=== PATIENT | female | born 1940 | race Caucasian/White ===

== ENCOUNTER → 2016-12-19 | Outpatient (CLI) | payer MEDICARE, BC ==
--- NOTE | 2016-12-19 13:27 | US ---
EXAMINATION TYPE: US venous doppler duplex LE RT DATE OF EXAM: 12/19/2016 12:45 PM COMPARISON: See PACS CLINICAL HISTORY: Pain and Swelling M79.661 Rt Lower Ext R 22.41. SIDE PERFORMED: VESSELS IMAGED: External Iliac Vein (EIV) Common Femoral Vein Deep Femoral Vein Greater Saphenous Vein * Femoral Vein Popliteal Vein Small Saphenous Vein * Proximal Calf Veins (* superficial vessels) TECHNOLOGIST IMPRESSION: Morbidly obese patientl Right Leg: Appears negative for DVT, unable to compress distal FV due to patient body habitus/pain, u nable to see proximal calf veins due to body habitus. Left Leg: Not imaged IMPRESSION: 1. Negative right lower extremity venous thrombosis.
== END | disposition home or self-care (01) ==
LOC: RADUSWWP 12:07
PROVIDERS: ATTEND Family Medicine
DX: M79.661 Pain in right lower leg (principal); R22.41 Localized swelling, mass and lump, right lower limb

== ENCOUNTER 2017-03-26 21:01 | Inpatient (IN) | payer MEDICARE, BC ==
[2017-03-26] MEDS ORDERED: SODIUM CHLORIDE 0.9% 1,000 ML IV ONE (21:30)
[2017-03-26] MEDS ORDERED: ASPIRIN 325 MG TAB PO STA (21:30)
[2017-03-26 22:26] LABS: Basophils % (A) 0 %; CH 26.9; CHCM 31.7; Eosinophils # (A) 0.3 k/uL (0-0.7); Eosinophils % (A) 4 %; HCT 38.5 % (34.0-46.0); HDW 2.42; HGB 12.1 gm/dL (11.4-16.0); Luc # (Auto) 0.17; Luc % (Auto) 2; Lymphocytes # (A) 2.8 k/uL (1.0-4.8); Lymphocytes % (A) 34 %; MCH 26.9 pg (25.0-35.0); MCHC 31.5 g/dL (31.0-37.0); MCV 85.3 fL (80.0-100.0); Monocytes # (A) 0.5 k/uL (0-1.0); Monocytes % (A) 7 %; Neutrophils # (A) 4.4 k/uL (1.3-7.7); Neutrophils % (A) 54 %; RBC 4.51 m/uL (3.80-5.40); RDW 14.2 % (11.5-15.5); WBC 8.1 k/uL (3.8-10.6); WBC (Perox) 8.24
[2017-03-26 22:44] LABS: ALT 27 U/L (9-52); AST 22 U/L (14-36); Alkaline Phosphatase 127 U/L (38-126); Anion Gap 8 mmol/L; Blood Urea Nitrogen 18 mg/dL (7-17); Calcium 9.5 mg/dL (8.4-10.2); Carbon Dioxide 25 mmol/L (22-30); Chloride 105 mmol/L (98-107); Glucose 104 mg/dL (74-99); Non-African American GFR(MDRD) >60 (>60 ml/min/1.73 sqM); Sodium 138 mmol/L (137-145); Total Bilirubin 0.3 mg/dL (0.2-1.3); Total Protein 6.6 g/dL (6.3-8.2)
--- NOTE | 2017-03-26 23:03 | CT ---
EXAM: CT Abdomen and Pelvis Without Intravenous Contrast CLINICAL HISTORY: Reason: Abdominal pain TECHNIQUE: Axial computed tomography images of the abdomen and pelvis without intravenous contrast. CTDI is 39.10 mGy and DLP is 1976.40 mGy-cm. This CT exam was performed using one or more of the following dose reduction techniques: automated exposure control, adjustment of the mA and/or kV according to patient size, and/or use of iterative reconstruction technique. COMPARISON: No relevant prior studies available. FINDINGS: Lower thorax: Small hiatal hernia. Cardiac pacemaker. ABDOMEN: Liver: Unremarkable. Gallbladder and bile ducts: Gallbladder is not seen, may be decompressed or absent. No ductal dilation. Pancreas: Unremarkable. No ductal dilation. Spleen: Unremarkable. No splenomegaly. Adrenals: Unremarkable. No mass. Kidneys and ureters: Mildly lobulated renal parenchymal contour suggesting scarring. No obstructing stones. No hydronephrosis. Stomach and bowel: Colonic diverticulosis most notably distally without evidence of diverticulitis. No obstruction. Appendix: No findings to suggest acute appendicitis. PELVIS: Bladder: Unremarkable. No stones or wall thickening seen. Reproductive: Unremarkable as visualized. ABDOMEN and PELVIS: Intraperitoneal space: Unremarkable. No free air. No significant fluid collection. Bones/joints: Osteopenia and multilevel degenerative changes including associated with mild to moderate levoscoliosis, and marked degenerative change with bony remodeling of both hips. No acute fracture. Soft tissues: Unremarkable. Vasculature: No abdominal aortic aneurysm. Lymph nodes: Scattered small nodes including retroperitoneum, pelvic and inguinal without hola adenopathy by CT size criteria. IMPRESSION: No definite acute intra-abdominal or pelvic abnormality is detected, as above.
--- NOTE | 2017-03-26 23:05 | XR ---
EXAM: XR Chest, 2 Views CLINICAL HISTORY: Reason: Shortness of breath TECHNIQUE: Frontal and lateral views of the chest. COMPARISON: 10/03/16 single view chest FINDINGS: Lungs: Stable thin linear atelectasis or scarring in the right midlung field. No new infiltrate. Pleural space: Unremarkable. No pneumothorax. Heart: Heart size stable including borderline cardiomegaly. Mediastinum: Mediastinal contours stable including mild aortic calcification and ectasia. Bones/joints: Bones are osteopenic with degenerative changes and mild dextroscoliosis present. Tubes, lines and devices: Previous left shoulder replacement and left- sided pacemaker. IMPRESSION: No new acute intrathoracic abnormality is seen.
[2017-03-26] MEDS ORDERED: ONDANSETRON 4 MG/2 ML VIAL IVP PRN (23:17)
[2017-03-26] MEDS ORDERED: MORPHINE SULFATE 4 MG/ML SYRINGE IV PRN (23:17)
[2017-03-26] MEDS ORDERED: NALOXONE 0.4 MG/ML 1 ML VIAL IV PRN (23:17)
[2017-03-26] MEDS ORDERED: ARTIFICIAL TEARS-HYPROMELLOSE DROPS 15 ML BTL BOTH EYES PRN (23:22)
[2017-03-26] MEDS ORDERED: ALBUTEROL NEBULIZED 2.5 MG/3 ML INHALATION PRN (23:22)
[2017-03-26] MEDS ORDERED: LORazepam 1 MG TAB PO PRN (23:22)
[2017-03-26] MEDS ORDERED: SODIUM CHLORIDE 0.9% 1,000 ML IV SCH (23:30)
[2017-03-26] MEDS ORDERED: ENOXAPARIN 40 MG/0.4 ML SYRINGE SQ STA (23:34)
--- NOTE | 2017-03-26 23:37 | ED ---
SOB HPI - General Chief Complaint: Shortness of Breath Stated Complaint: Hypertension Source: patient Mode of arrival: EMS Limitations: no limitations - History of Present Illness Initial Comments: 76-year-old female with past medical history of atrial fibrillation, asthma, GERD, HLD, HTN, OA, thyroid disorder, recurrent UTIs, diverticulitis, adenoidectomy, cholecystectomy, joint replacement, pacemaker, tonsillectomy presented for evaluation of shortness of breath since this afternoon. Initially she states that she had hypertension and was coming for evaluation of that however after further review of systems she states that she has shortness of breath and abdominal pain. She denies feelings of she is wheezy and further denies any recent URI symptoms. There is no associated chest pain, diarrhea, constipation, although she does admit to dysuria which she has chronically due to recurrent urinary tract infections. - Related Data Home Medications Medication Instructions Recorded Confirmed Levothyroxine Sodium [Synthroid] 50 mcg PO DAILY 11/27/14 03/26/17 Pravastatin Sodium [Pravachol] 40 mg PO HS 11/27/14 03/26/17 Meclizine [Antivert] 25 mg PO BID 04/11/15 03/26/17 Potassium Chloride [K-Tab ER] 10 meq PO DAILY 04/11/15 03/26/17 Acetaminophen Tab [Tylenol] 500 - 1,000 mg PO Q6H PRN 11/24/15 03/26/17 Carboxymethylcellulose Sodium 1 drop BOTH EYES BID PRN 11/24/15 03/26/17 [Refresh Tears] Furosemide [Lasix] 20 mg PO DAILY 11/24/15 03/26/17 amLODIPine [Norvasc] 5 mg PO DAILY 11/24/15 03/26/17 Cyanocobalamin [Vitamin B-12] 1,000 mcg PO DAILY 03/30/16 03/26/17 Montelukast [Singulair] 10 mg PO HS 03/30/16 03/26/17 Losartan [Cozaar] 50 mg PO BID 04/27/16 03/26/17 Apixaban [Eliquis] 2.5 mg PO BID 04/30/16 03/26/17 Magnesium Gluconate [Magonate] 500 mg PO DAILY 04/30/16 03/26/17 Omeprazole [PriLOSEC] 40 mg PO BID 05/21/16 03/26/17 Cod Liver Oil 1 cap PO DAILY 03/26/17 03/26/17 Metoprolol Succinate (ER) [Toprol 25 mg PO DAILY 03/26/17 03/26/17 Xl] Zinc 50 mg PO DAILY 03/26/17 03/26/17 Previous Rx's Medication Instructions Recorded Aspirin 81 mg PO DAILY chew 05/02/16 LORazepam [Ativan] 1 mg PO HS PRN #7 tab 05/02/16 Albuterol Inhaler [Ventolin Hfa 1 - 2 puff INHALATION Q6HR PRN #2 05/21/16 Inhaler] puff Allergies Allergy/AdvReac Type Severity Reaction Status Date / Time codeine Allergy Unknown Verified 03/26/17 21:18 hydromorphone HCl Allergy Unknown Verified 03/26/17 21:18 [From Dilaudid] Iodinated Contrast Media - Allergy Unknown Verified 03/26/17 21:18 Oral and [Iodinated Contrast Media - IV Dye] iodine Allergy Unknown Verified 03/26/17 21:18 meperidine HCl [From Demerol] Allergy Unknown Verified 03/26/17 21:18 nalbuphine HCl [From Nubain] Allergy Unknown Verified 03/26/17 21:18 Penicillins Allergy Unknown Verified 03/26/17 21:18 Sulfa (Sulfonamide Allergy Unknown Verified 03/26/17 21:18 Antibiotics) Review of Systems ROS Statement: Those systems with pertinent positive or pertinent negative responses have been documented in the HPI. ROS Other: All systems not noted in ROS Statement are negative. Constitutional: Denies: fever, chills Eyes: Denies: eye pain, eye discharge, vision change ENT: Denies: ear pain, throat pain, dental pain Respiratory: Reports: dyspnea. Denies: cough, wheezes, hemoptysis, stridor Cardiovascular: Denies: chest pain, palpitations, dyspnea on exertion, orthopnea , edema Endocrine: Denies: fatigue, polydipsia, polyuria Gastrointestinal: Reports: abdominal pain. Denies: nausea, vomiting, diarrhea, constipation, hematemesis, melena Genitourinary: Reports: dysuria (Chronic). Denies: urgency Musculoskeletal: Denies: back pain, arthralgia, myalgia Skin: Denies: rash, lesions Neurological: Denies: headache, weakness Psychiatric: Denies: anxiety, depression Hematological/Lymphatic: Denies: easy bleeding, easy bruising Past Medical History Past Medical History: Atrial Fibrillation, Asthma, GERD/Reflux, Hyperlipidemia, Hypertension, Osteoarthritis (OA), Thyroid Disorder Additional Past Medical History / Comment(s): Pt has had a recent admission to [facility] 03/30/16 for Afib RVR tx with cardizem/tachybrady syndrome and had pacer insertion. 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 History of Any Multi-Drug Resistant Organisms: None Reported Past Surgical History: Adenoidectomy, Cholecystectomy, Joint Replacement, Orthopedic Surgery, Pacemaker, Tonsillectomy Additional Past Surgical History / Comment(s): bartholin cyst surgical procedure , R eye with retinal repair, rk, cataract removal and macular wrinkle repair, partial replacement lt shoulder and left knee replacement, 2006 Heart Cath (no intervention), colonoscopy, R cheek melanoma removal, D&C, vaginal cystectomy, L breast benign bx. Past Anesthesia/Blood Transfusion Reactions: Motion Sickness, Postoperative Nausea & Vomiting (PONV) Type of Cardiac Device: Permanent Pacemaker Device Placement Date:: 04/02/16 Past Psychological History: No Psychological Hx Reported Additional Psychological History / Comment(s): Pt resides with her spouse. She uses a walker at times. She has a cane and uses it at times. She is independent with her ADLS. She drives. Smoking Status: Never smoker Past Alcohol Use History: None Reported Past Drug Use History: None Reported - Past Family History Mother Family Medical History: Asthma, Thyroid Disorder Additional Family Medical History / Comment(s): thyroid nodule. bronchitis Father Family Medical History: Respiratory Disorder Additional Family Medical History / Comment(s): at age 46 addisons disease( stopped taking his steroids), also had tb General Exam Limitations: no limitations General appearance: alert, in no apparent distress Head exam: Present: atraumatic, normocephalic, normal inspection Eye exam: Present: normal appearance, PERRL, EOMI. Absent: scleral icterus, conjunctival injection, periorbital swelling ENT exam: Present: normal exam, mucous membranes moist Neck exam: Present: normal inspection. Absent: tenderness, meningismus, lymphadenopathy Respiratory exam: Present: normal lung sounds bilaterally. Absent: respiratory distress, wheezes, rales, rhonchi, stridor Cardiovascular Exam: Present: regular rate, normal rhythm, normal heart sounds. Absent: systolic murmur, diastolic murmur, rubs, gallop, clicks GI/Abdominal exam: Present: soft, normal bowel sounds. Absent: distended, tenderness, guarding, rebound, rigid Rectal exam: Present: deferred Extremities exam: Present: normal inspection, full ROM, normal capillary refill. Absent: tenderness, pedal edema, joint swelling, calf tenderness Back exam: Present: normal inspection Neurological exam: Present: alert, oriented X3, CN II-XII intact Psychiatric exam: Present: normal affect, normal mood Skin exam: Present: warm, dry, intact, normal color. Absent: rash Course Vital Signs 03/26/17 03/26/17 21:04 23:29 Temperature 97.3 F L Pulse Rate 61 60 Respiratory 18 18 Rate Blood Pressure 125/61 170/75 O2 Sat by Pulse 94 L 96 Oximetry Medical Decision Making - Medical Decision Making 76-year-old female with a past medical history major fibrillation, HLD , HTN and provide a pacemaker on anticoagulants presented for evaluation of shortness of breath. On physical examination there are no wheezes noted however when taking her off nasal cannula she does desaturate. There are no other signs of URI etiology and will pursue ACS versus PE rule out. We'll obtain EKG, labs, chest x-ray and provide aspirin and IV fluids. D-dimer is elevated however the patient has an iodine contrast ALLERGY and will require a VQ scan in the morning. The patient is Thaddeus on an anticoagulant so will not start high-intensity heparin therapy but instead give a Lovenox injection IM. The remainder of her labs showed no significant abnormalities, chest x-ray showed no acute process, and CT abdomen and pelvis was also without significant findings. The patient was reevaluated and had improvement in her symptoms. She was informed of these results and through shared decision making it was determined that she would be admitted for further treatment and evaluation. The case was discussed with Dr. Gordillo who accepted the admission and agreed with plan to obtain VQ scan for the morning. Admission order placed and bed request submitted. - Lab Data Result diagrams: 03/26/17 22:15 03/26/17 22:15 Lab Results 03/26/17 03/26/17 03/26/17 Range/Units 22:15 22:15 22:15 WBC 8.1 (3.8-10.6) k/uL RBC 4.51 (3.80-5.40) m/uL Hgb 12.1 (11.4-16.0) gm/dL Hct 38.5 (34.0-46.0) % MCV 85.3 (80.0-100.0) fL MCH 26.9 (25.0-35.0) pg MCHC 31.5 (31.0-37.0) g/dL RDW 14.2 (11.5-15.5) % Plt Count 248 (150-450) k/uL Neutrophils % 54 % Lymphocytes % 34 % Monocytes % 7 % Eosinophils % 4 % Basophils % 0 % Neutrophils # 4.4 (1.3-7.7) k/uL Lymphocytes # 2.8 (1.0-4.8) k/uL Monocytes # 0.5 (0-1.0) k/uL Eosinophils # 0.3 (0-0.7) k/uL Basophils # 0.0 (0-0.2) k/uL PT (9.0-12.0) sec INR (<1.1) D-Dimer (<0.60) mg/L FEU Sodium 138 (137-145) mmol/L Potassium 4.0 (3.5-5.1) mmol/L Chloride 105 (98-107) mmol/L Carbon Dioxide 25 (22-30) mmol/L Anion Gap 8 mmol/L BUN 18 H (7-17) mg/dL Creatinine 0.80 (0.52-1.04) mg/dL Est GFR (MDRD) Af Amer >60 (>60 ml/min/1.73 sqM) Est GFR (MDRD) Non-Af >60 (>60 ml/min/1.73 sqM) Glucose 104 H (74-99) mg/dL Plasma Lactic Acid Gopal 0.7 (0.7-2.0) mmol/L Calcium 9.5 (8.4-10.2) mg/dL Total Bilirubin 0.3 (0.2-1.3) mg/dL AST 22 (14-36) U/L ALT 27 (9-52) U/L Alkaline Phosphatase 127 H (38-126) U/L Troponin I (0.000-0.034) ng/mL NT-Pro-B Natriuret Pep pg/mL Total Protein 6.6 (6.3-8.2) g/dL Albumin 3.7 (3.5-5.0) g/dL Lipase 73 (23-300) U/L 03/26/17 03/26/17 03/26/17 Range/Units 22:15 22:15 22:15 WBC (3.8-10.6) k/uL RBC (3.80-5.40) m/uL Hgb (11.4-16.0) gm/dL Hct (34.0-46.0) % MCV (80.0-100.0) fL MCH (25.0-35.0) pg MCHC (31.0-37.0) g/dL RDW (11.5-15.5) % Plt Count (150-450) k/uL Neutrophils % % Lymphocytes % % Monocytes % % Eosinophils % % Basophils % % Neutrophils # (1.3-7.7) k/uL Lymphocytes # (1.0-4.8) k/uL Monocytes # (0-1.0) k/uL Eosinophils # (0-0.7) k/uL Basophils # (0-0.2) k/uL PT 10.0 (9.0-12.0) sec INR 1.0 (<1.1) D-Dimer 0.79 H (<0.60) mg/L FEU Sodium (137-145) mmol/L Potassium (3.5-5.1) mmol/L Chloride (98-107) mmol/L Carbon Dioxide (22-30) mmol/L Anion Gap mmol/L BUN (7-17) mg/dL Creatinine (0.52-1.04) mg/dL Est GFR (MDRD) Af Amer (>60 ml/min/1.73 sqM) Est GFR (MDRD) Non-Af (>60 ml/min/1.73 sqM) Glucose (74-99) mg/dL Plasma Lactic Acid Gopal (0.7-2.0) mmol/L Calcium (8.4-10.2) mg/dL Total Bilirubin (0.2-1.3) mg/dL AST (14-36) U/L ALT (9-52) U/L Alkaline Phosphatase (38-126) U/L Troponin I <0.012 (0.000-0.034) ng/mL NT-Pro-B Natriuret Pep 195 pg/mL Total Protein (6.3-8.2) g/dL Albumin (3.5-5.0) g/dL Lipase (23-300) U/L 03/27/17 00:33 Atrial paced rhythm with prolonged AV conduction and left axis deviation. There is also moderate voltage criteria for LVH. Ventricular rate 61, [place] interval 284, QRS 88, QT/QTC 434/436. Disposition Clinical Impression: Shortness of breath, Elevated d-dimer Disposition: ADMITTED IP TO THIS [facility] Decision to Admit Reason: Admit from EC Decision Date: 03/26/17 Decision Time: 23:37
[2017-03-27] MEDS: KETOROLAC 30 MG/ML 1 ML VIAL IVP PRN ×3 (02:15→15:31)
[2017-03-27 06:15] LABS: Basophils % (A) 0 %; CH 26.7; CHCM 31.8; Eosinophils # (A) 0.3 k/uL (0-0.7); Eosinophils % (A) 5 %; HCT 34.8 % (34.0-46.0); HGB 11.2 gm/dL (11.4-16.0); Luc # (Auto) 0.15; Luc % (Auto) 2; Lymphocytes # (A) 3.4 k/uL (1.0-4.8); Lymphocytes % (A) 47 %; MCH 27.2 pg (25.0-35.0); MCHC 32.3 g/dL (31.0-37.0); MCV 84.3 fL (80.0-100.0); Mean Platelet Volume 6.9; Monocytes # (A) 0.5 k/uL (0-1.0); Monocytes % (A) 7 %; Neutrophils # (A) 2.8 k/uL (1.3-7.7); Neutrophils % (A) 39 %; RBC 4.13 m/uL (3.80-5.40); RDW 13.9 % (11.5-15.5); WBC 7.2 k/uL (3.8-10.6); WBC (Perox) 6.63
[2017-03-27] MEDS ORDERED: LEVOTHYROXINE 50 MCG TAB PO SCH (06:30)
[2017-03-27 06:38] LABS: Anion Gap 5 mmol/L; Blood Urea Nitrogen 16 mg/dL (7-17); Calcium 9.4 mg/dL (8.4-10.2); Carbon Dioxide 28 mmol/L (22-30); Chloride 107 mmol/L (98-107); Glucose 89 mg/dL (74-99); Non-African American GFR(MDRD) >60 (>60 ml/min/1.73 sqM); Potassium 3.9 mmol/L (3.5-5.1); Sodium 140 mmol/L (137-145)
[2017-03-27] MEDS ORDERED: PANTOPRAZOLE 40 MG TABLET PO SCH (07:30)
[2017-03-27] MEDS ORDERED: LOSARTAN 50 MG TAB PO SCH (09:00)
[2017-03-27] MEDS ORDERED: APIXABAN 2.5 MG TABLET PO SCH (09:00)
[2017-03-27] MEDS ORDERED: CYANOCOBALAMIN 500 MCG TAB PO SCH (09:00)
[2017-03-27] MEDS ORDERED: ASPIRIN 81 MG CHEW PO SCH (09:00)
[2017-03-27] MEDS ORDERED: MAGNESIUM OXIDE 400 MG TAB PO SCH (09:00)
[2017-03-27] MEDS ORDERED: amLODIPine 5 MG TAB PO SCH (09:00)
[2017-03-27] MEDS ORDERED: FUROSEMIDE 20 MG TAB PO SCH (09:00)
[2017-03-27] MEDS ORDERED: METOPROLOL SUCCINATE (ER) 25 MG TAB.ER.24H PO SCH (09:00)
[2017-03-27] MEDS: MECLIZINE 25 MG TAB PO SCH ×2 (09:14→09:15)
--- NOTE | 2017-03-27 12:30 | NM ---
EXAMINATION TYPE: NM pul vent and perfuse DATE OF EXAM: 03/27/2017 11:57 AM COMPARISON: 03/26/2017 HISTORY: 76 year-old female shortness of breath with elevated d-dimer TECHNIQUE: Utilizing inhalation of 71.5 mCi Tc 99m DTPA aerosol and intravenous injection of 5.46 mC i of Tc 99m MAA, ventilation and perfusion images are acquired post injection in multiple projections . FINDINGS: Fixed defect along the posterior superior left lung on the LPO image is not confirmed on other images , suspected to relate to patient's left shoulder arthroplasty. No definite mismatched perfusion abnor mality is seen. IMPRESSION: Low probability for pulmonary embolus.
[2017-03-27 15:49] VITALS: BP 105/52; PULSE 65; RESP 20; TEMP 98
--- NOTE | 2017-03-27 16:38 | P.DS ---
Providers Date of admission: 03/26/17 23:18 Expected date of discharge: 03/27/17 Attending physician: Maverick Gordillo Primary care physician: [facility] Course: Patient has been complaining about some symptoms of flushing, slight increase in rate slight shortness of breath off and on for 2 or 3 years now. As soon as she presented to the emergency room her symptoms completely and abruptly resolved, General: [Patient awake, alert and oriented times 3. Patient in no acute distress.] HEENT: [PERRL. EOMI. No pharyngeal erythema or exudate.] Neck: [No adenopathy.] Cardiac: [Heart regular in rate and rhythm. No S3. No S4. No clicks, rubs. No murmur.] Lungs: [Clear to auscultation bilaterally.] Abdomen: [No mass. No organomegaly. Bowel sounds presnt and normoactive in all 4 quadrants.] Extremes: [No edema no cyanosis no claudication normal pulses] : [] Musculoskeletal: [No joint erythema, edema or tenderness.] Skin: [No rash.] Neurologic: [No lateralizing deficits. CN II - XII grossly intact.] Lymphatic: [No adenopathy.] Plan - Discharge Summary Discharge Medication List Levothyroxine Sodium [Synthroid] 50 mcg PO DAILY 11/27/14 [History] Pravastatin Sodium [Pravachol] 40 mg PO HS 11/27/14 [History] Meclizine [Antivert] 25 mg PO BID 04/11/15 [History] Potassium Chloride [K-Tab ER] 10 meq PO DAILY 04/11/15 [History] Acetaminophen Tab [Tylenol] 500 - 1,000 mg PO Q6H PRN 11/24/15 [History] Carboxymethylcellulose Sodium [Refresh Tears] 1 drop BOTH EYES BID PRN 11/24/15 [History] Furosemide [Lasix] 20 mg PO DAILY 11/24/15 [History] amLODIPine [Norvasc] 5 mg PO DAILY 11/24/15 [History] Cyanocobalamin [Vitamin B-12] 1,000 mcg PO DAILY 03/30/16 [History] Montelukast [Singulair] 10 mg PO HS 03/30/16 [History] Losartan [Cozaar] 50 mg PO BID 04/27/16 [History] Apixaban [Eliquis] 2.5 mg PO BID 04/30/16 [History] Magnesium Gluconate [Magonate] 500 mg PO DAILY 04/30/16 [History] Aspirin 81 mg PO DAILY chew 05/02/16 [Rx] LORazepam [Ativan] 1 mg PO HS PRN #7 tab 05/02/16 [Rx] Albuterol Inhaler [Ventolin Hfa Inhaler] 1 - 2 puff INHALATION Q6HR PRN #2 puff 05/21/16 [Rx] Omeprazole [PriLOSEC] 40 mg PO BID 05/21/16 [History] Cod Liver Oil 1 cap PO DAILY 03/26/17 [History] Metoprolol Succinate (ER) [Toprol Xl] 25 mg PO DAILY 03/26/17 [History] Zinc 50 mg PO DAILY 03/26/17 [History] Follow up Appointment(s)/Referral(s): Guerrero Mijares MD [Primary Care Provider] - 1-2 days
--- NOTE | 2017-03-27 16:52 | P.HPIM ---
History of Present Illness H&P Date: 03/27/17 Chief Complaint: Shortness of breath Patient is a 76-year-old female, patient of Dr. Gordillo in the outpatient setting, admitted through the emergency department with complaints of shortness of breath and abdominal pain. Labs on admission with evidence of d -dimer. VQ scan with low probability for pulmonary embolism. Chest x-ray without evidence of acute process. CT of abdomen and pelvis with no acute intra -abdominal or pelvic abnormality. Troponins less than 0.012. No evidence of fevers. Blood pressure 125/61. Oxygen saturation 94% on room air. Past Medical History Past Medical History: Atrial Fibrillation, Asthma, GERD/Reflux, Hyperlipidemia, Hypertension, Osteoarthritis (OA), Thyroid Disorder Additional Past Medical History / Comment(s): 03/30/16 for Afib RVR tx with cardizem/tachybrady syndrome and had pacer insertion. 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 History of Any Multi-Drug Resistant Organisms: None Reported Past Surgical History: Adenoidectomy, Cholecystectomy, Joint Replacement, Orthopedic Surgery, Pacemaker, Tonsillectomy Additional Past Surgical History / Comment(s): bartholin cyst surgical procedure , R eye with retinal repair, rk, cataract removal and macular wrinkle repair, partial replacement lt shoulder and left knee replacement, 2006 Heart Cath (no intervention), colonoscopy, R cheek melanoma removal, D&C, vaginal cystectomy, L breast benign bx. Past Anesthesia/Blood Transfusion Reactions: Motion Sickness, Postoperative Nausea & Vomiting (PONV) Type of Cardiac Device: Permanent Pacemaker Device Placement Date:: 04/02/16 Past Psychological History: No Psychological Hx Reported Additional Psychological History / Comment(s): Pt resides with her spouse IN A SINGLE LEVEL HOME THAT HAS 3 [address]OR[address] STEPS.. She uses a CANE/walker at times.HAS A SHOWER CHAIR WELL. She is independent with her ADLS. She drives. Smoking Status: Never smoker Past Alcohol Use History: None Reported Past Drug Use History: None Reported - Past Family History Mother Family Medical History: Asthma, Thyroid Disorder Additional Family Medical History / Comment(s): thyroid nodule. bronchitis Father Family Medical History: Respiratory Disorder Additional Family Medical History / Comment(s): at age 46 addisons disease( stopped taking his steroids), also had tb Medications and Allergies Home Medications Medication Instructions Recorded Confirmed Type Levothyroxine Sodium [Synthroid] 50 mcg PO DAILY 11/27/14 03/26/17 History Pravastatin Sodium [Pravachol] 40 mg PO HS 11/27/14 03/26/17 History Meclizine [Antivert] 25 mg PO BID 04/11/15 03/26/17 History Potassium Chloride [K-Tab ER] 10 meq PO DAILY 04/11/15 03/26/17 History Acetaminophen Tab [Tylenol] 500 - 1,000 mg PO Q6H PRN 11/24/15 03/26/17 History Carboxymethylcellulose Sodium 1 drop BOTH EYES BID PRN 11/24/15 03/26/17 History [Refresh Tears] Furosemide [Lasix] 20 mg PO DAILY 11/24/15 03/26/17 History amLODIPine [Norvasc] 5 mg PO DAILY 11/24/15 03/26/17 History Cyanocobalamin [Vitamin B-12] 1,000 mcg PO DAILY 03/30/16 03/26/17 History Montelukast [Singulair] 10 mg PO HS 03/30/16 03/26/17 History Losartan [Cozaar] 50 mg PO BID 04/27/16 03/26/17 History Apixaban [Eliquis] 2.5 mg PO BID 04/30/16 03/26/17 History Magnesium Gluconate [Magonate] 500 mg PO DAILY 04/30/16 03/26/17 History Omeprazole [PriLOSEC] 40 mg PO BID 05/21/16 03/26/17 History Cod Liver Oil 1 cap PO DAILY 03/26/17 03/26/17 History Metoprolol Succinate (ER) [Toprol 25 mg PO DAILY 03/26/17 03/26/17 History Xl] Zinc 50 mg PO DAILY 03/26/17 03/26/17 History Allergies Allergy/AdvReac Type Severity Reaction Status Date / Time codeine Allergy Unknown Verified 03/26/17 21:18 hydromorphone HCl Allergy Unknown Verified 03/26/17 21:18 [From Dilaudid] Iodinated Contrast Media - Allergy Unknown Verified 03/26/17 21:18 Oral and [Iodinated Contrast Media - IV Dye] iodine Allergy Unknown Verified 03/26/17 21:18 meperidine HCl [From Demerol] Allergy Unknown Verified 03/26/17 21:18 nalbuphine HCl [From Nubain] Allergy Unknown Verified 03/26/17 21:18 Penicillins Allergy Unknown Verified 03/26/17 21:18 Sulfa (Sulfonamide Allergy Unknown Verified 03/26/17 21:18 Antibiotics) Physical Exam Vitals: Vital Signs Temp Pulse Pulse Resp BP BP Pulse Ox 03/27/17 15:00 98.0 F 65 20 105/52 93 L 03/27/17 14:29 18 03/27/17 12:00 97.0 F L 61 19 126/70 96 03/27/17 09:09 98.0 F 60 18 129/61 96 03/27/17 08:00 64 18 118/69 97 03/27/17 03:30 61 18 122/56 97 03/26/17 23:29 60 18 170/75 96 03/26/17 21:04 97.3 F L 61 18 125/61 94 L Intake and Output 03/27/17 03/27/17 03/27/17 06:59 14:59 22:59 Other: # Voids 1 Weight 128.5 kg Patient Weight 03/28/17 06:59 Weight 128.5 kg General: [Patient awake, alert and oriented times 3. Patient in no acute distress.] HEENT: [PERRL. EOMI. No pharyngeal erythema or exudate.] Neck: [No adenopathy.] Cardiac: [Heart regular in rate and rhythm. No S3. No S4. No clicks, rubs. No murmur.] Lungs: [Clear to auscultation bilaterally.] Abdomen: [No mass. No organomegaly. Bowel sounds presnt and normoactive in all 4 quadrants.] Extremes: [No edema no cyanosis no claudication normal pulses] : [] Musculoskeletal: [No joint erythema, edema or tenderness.] Skin: [No rash.] Neurologic: [No lateralizing deficits. CN II - XII grossly intact.] Lymphatic: [No adenopathy.] Results CBC & Chem 7: 03/27/17 06:02 03/27/17 06:02 Labs: Abnormal Lab Results - Last 24 Hours (Table) 03/26/17 03/26/17 03/27/17 Range/Units 22:15 22:15 06:02 Hgb 11.2 L (11.4-16.0) gm/dL D-Dimer 0.79 H (<0.60) mg/L FEU BUN 18 H (7-17) mg/dL Glucose 104 H (74-99) mg/dL Alkaline Phosphatase 127 H (38-126) U/L Chest x-ray: report reviewed Thrombosis Risk Factor Assmnt - DVT/VTE Prophylaxis DVT/VTE Prophylaxis: Pharmacologic Prophylaxis ordered Assessment and Plan Plan: Impression: 1. Shortness of breath of breath and abdominal pain, present on admission, currently resolved suspect secondary to anxiety. CT of abdomen and pelvis unremarkable. VQ scan low probability for pulmonary embolism. Plan: Patient will be discharged home in stable condition with close follow-up in the office. The above impression and plan have been discussed and directed by Dr. Gordillo. Lizabeth KUMAR acting as scribe for Dr. Gordillo.
[2017-03-27] MEDS ORDERED: PRAVASTATIN SODIUM 40 MG TAB PO SCH (21:00)
[2017-03-27] MEDS ORDERED: MONTELUKAST 10 MG TAB PO SCH (21:00)
== END 2017-03-27 17:19 | disposition home or self-care (01) | DRG 880 ==
LOC: EC 21:01 → 6SEL 23:18 → 4MS4W 03-27 11:49
PROVIDERS: ADMIT Family Medicine; ATTEND Family Medicine
DX: F41.9 Anxiety disorder, unspecified (principal); I48.91 Unspecified atrial fibrillation; J45.909 Unspecified asthma, uncomplicated; K21.9 Gastro-esophageal reflux disease without esophagitis; E78.5 Hyperlipidemia, unspecified; I10 Essential (primary) hypertension; M19.91 Primary osteoarthritis, unspecified site; E03.9 Hypothyroidism, unspecified; K44.9 Diaphragmatic hernia without obstruction or gangrene; H93.11 Tinnitus, right ear; Z87.440 Personal history of urinary (tract) infections; Z86.11 Personal history of tuberculosis; Z95.0 Presence of cardiac pacemaker; Z90.49 Acquired absence of other specified parts of digestive tract; Z98.49 Cataract extraction status, unspecified eye; Z96.652 Presence of left artificial knee joint; Z96.612 Presence of left artificial shoulder joint; Z85.820 Personal history of malignant melanoma of skin; Z82.5 Family history of asthma and other chronic lower respiratory diseases; Z91.041 Radiographic dye allergy status; Z88.5 Allergy status to narcotic agent; Z88.0 Allergy status to penicillin; Z88.2 Allergy status to sulfonamides; Z88.8 Allergy status to other drugs, medicaments and biological substances; Z79.01 Long term (current) use of anticoagulants; Z79.82 Long term (current) use of aspirin; Z79.899 Other long term (current) drug therapy
CPT/HCPCS: 36415; 71020; 74176; 78582; 80048; 80053; 83605; 83690; 83880; 84484; 85025; 85379; 85610; 93005

== ENCOUNTER 2018-01-20 18:22 | Observation (INO) | payer MEDICARE, BC ==
[2018-01-20] MEDS ORDERED: SODIUM CHLORIDE 0.9% 1,000 ML IV STA (18:52)
[2018-01-20] MEDS ORDERED: MORPHINE SULFATE 4 MG/ML SYRINGE IV STA (18:52)
--- NOTE | 2018-01-20 18:55 | ED ---
Weakness HPI - General Chief complaint: Weakness Stated complaint: Headaches Time Seen by Provider: 01/20/18 18:40 Source: EMS, RN notes reviewed, old records reviewed Mode of arrival: EMS Limitations: no limitations - History of Present Illness Initial comments: This patient is a 77-year-old male presents emergency department chief complaint of headaches and progressive weakness today. Patient reports that she states that she was running errands today and was getting out of the car and felt a sudden onset of a headache, and complained of flushing over her face and neck. Patient reports that she fell she had a near syncopal episode when this occurred. Her blood pressure was 220/100 when EMS picked her up. She reports that she also has to 4 use joint pains that has been worse over the past few days. She is undergoing physical therapy after a hip surgery and has chronic shoulder pain. Patient states that all of her joints are very achy and in pain. She denies any difficulty with range of motion of any specific extremity at this time however. She states that she has some episodes of chest discomfort and palpitations a few days ago denies any specific chest pain at this time. She does have a pacemaker. Denies any shortness of breath. Denies any abdominal pain, nausea or vomiting. She's had normal bowel movements. She states that her urine has had a foul odor for the past few days as well. - Related Data Home Medications Medication Instructions Recorded Confirmed Pravastatin Sodium [Pravachol] 40 mg PO HS 11/27/14 01/20/18 Potassium Chloride [K-Tab ER] 10 meq PO DAILY 04/11/15 01/20/18 Acetaminophen Tab [Tylenol] 500 - 1,000 mg PO Q6H PRN 11/24/15 01/20/18 Furosemide [Lasix] 20 mg PO DAILY 11/24/15 01/20/18 amLODIPine [Norvasc] 5 mg PO DAILY 11/24/15 01/20/18 Montelukast [Singulair] 10 mg PO HS 03/30/16 01/20/18 Losartan [Cozaar] 50 mg PO BID 04/27/16 01/20/18 Apixaban [Eliquis] 2.5 mg PO BID 04/30/16 01/20/18 Magnesium Gluconate [Magonate] 500 mg PO DAILY 04/30/16 01/20/18 Omeprazole [PriLOSEC] 40 mg PO DAILY 05/21/16 01/20/18 Cod Liver Oil 1 cap PO DAILY 03/26/17 01/20/18 Metoprolol Succinate (ER) [Toprol 25 mg PO DAILY 03/26/17 01/20/18 Xl] Zinc 50 mg PO DAILY 03/26/17 01/20/18 Fluticasone Nasal [place] [Flonase 2 spr EA NOSTRIL RT-DAILY 01/20/18 01/20/18 Nasal [place]] Krill Oil 500 mg PO DAILY 01/20/18 01/20/18 traMADol HCL [Ultram] 50 mg PO QID PRN 01/20/18 01/20/18 Allergies Allergy/AdvReac Type Severity Reaction Status Date / Time codeine Allergy Unknown Verified 01/20/18 19:53 hydromorphone HCl Allergy Unknown Verified 01/20/18 19:53 [From Dilaudid] Iodinated Contrast- Oral and Allergy Unknown Verified 01/20/18 19:53 IV Dye [Iodinated Contrast Media - IV Dye] iodine Allergy Unknown Verified 01/20/18 19:53 meperidine HCl [From Demerol] Allergy Unknown Verified 01/20/18 19:53 nalbuphine HCl [From Nubain] Allergy Unknown Verified 01/20/18 19:53 Penicillins Allergy Unknown Verified 01/20/18 19:53 Sulfa (Sulfonamide Allergy Unknown Verified 01/20/18 19:53 Antibiotics) Review of Systems ROS Statement: Those systems with pertinent positive or pertinent negative responses have been documented in the HPI. ROS Other: All systems not noted in ROS Statement are negative. Past Medical History Past Medical History: Atrial Fibrillation, Asthma, GERD/Reflux, Hyperlipidemia, Hypertension, Osteoarthritis (OA), Thyroid Disorder Additional Past Medical History / Comment(s): 03/30/16 for Afib RVR tx with cardizem/tachybrady syndrome and had pacer insertion. 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 History of Any Multi-Drug Resistant Organisms: None Reported Past Surgical History: Adenoidectomy, Cholecystectomy, Joint Replacement, Orthopedic Surgery, Pacemaker, Tonsillectomy Additional Past Surgical History / Comment(s): bartholin cyst surgical procedure , R eye with retinal repair, rk, cataract removal and macular wrinkle repair, partial replacement lt shoulder and left knee replacement, 2006 Heart Cath (no intervention), colonoscopy, R cheek melanoma removal, D&C, vaginal cystectomy, L breast benign bx. Past Anesthesia/Blood Transfusion Reactions: Motion Sickness, Postoperative Nausea & Vomiting (PONV) Type of Cardiac Device: Permanent Pacemaker Device Placement Date:: 04/02/16 Past Psychological History: No Psychological Hx Reported Smoking Status: Never smoker Past Alcohol Use History: None Reported Past Drug Use History: None Reported - Past Family History Mother Family Medical History: Asthma, Thyroid Disorder Additional Family Medical History / Comment(s): thyroid nodule. bronchitis Father Family Medical History: Respiratory Disorder Additional Family Medical History / Comment(s): at age 46 addisons disease( stopped taking his steroids), also had tb General Exam - General Exam Comments Initial Comments: This patient is alert and oriented [id number] female. Limitations: no limitations General appearance: alert, in no apparent distress Head exam: Present: atraumatic, normocephalic, normal inspection Eye exam: Present: normal appearance, PERRL, EOMI. Absent: scleral icterus, conjunctival injection, periorbital swelling ENT exam: Present: normal exam, mucous membranes moist Neck exam: Present: normal inspection. Absent: tenderness, meningismus, lymphadenopathy Respiratory exam: Present: normal lung sounds bilaterally. Absent: respiratory distress, wheezes, rales, rhonchi, stridor Cardiovascular Exam: Present: regular rate, normal rhythm, normal heart sounds. Absent: systolic murmur, diastolic murmur, rubs, gallop, clicks GI/Abdominal exam: Present: soft, normal bowel sounds. Absent: distended, tenderness, guarding, rebound, rigid Extremities exam: Present: normal inspection, full ROM, normal capillary refill , other (Bilateral lower extremity edema. She reports this is chronic.). Absent: tenderness, pedal edema, joint swelling, calf tenderness Back exam: Present: normal inspection Neurological exam: Present: alert, oriented X3, CN II-XII intact Expanded Patient oriented to: Present: person, place, time Speech: Present: fluid speech Cranial nerves: EOM's Intact: Normal, Facial Sensation: Normal Cerebellar function: Finger to Nose: Normal Upper motor neuron: Pronator Drift: Normal Sensory exam: Upper Extremity Light Touch: Normal, Lower Extremity Light Touch: Normal Motor strength exam: RUE: 5, LUE: 5, RLE: 5, LLE: 5 Eye Response: (4) open spontaneously Motor Response: (6) obeys commands Verbal Response: (5) oriented Quynh Total: 15 Psychiatric exam: Present: normal affect, normal mood Skin exam: Present: warm, dry, intact, normal color. Absent: rash Course Vital Signs 01/20/18 18:23 Temperature 97 F L Pulse Rate 58 L Respiratory 18 Rate Blood Pressure 152/67 O2 Sat by Pulse 96 Oximetry Medical Decision Making - Medical Decision Making This patient is 77-year-old female presents emergency Department chief complaint using both sewed, flushing, and headache. She also reports she's had diffuse joint pains vitamin getting worse. Patient was given IV fluids labwork obtained. CT brain was negative for any acute process. Chest x-ray shows no abnormality's. Patient urinalysis is positive for minor infection with positive nitrate and many bacteria. Culture will be obtained. I'll start the patient on by mouth CIpro. Patient will be given IV fluids, discussed with Dr. Purdy. With patient's comorbidities and age who will admit for repeat cardiac enzymes. Consult to cardiology. Patient admitted to observation. She agrees to admission. - Lab Data Result diagrams: 01/20/18 18:34 01/20/18 18:34 Lab Results 01/20/18 01/20/18 01/20/18 Range/Units 18:34 18:34 18:34 WBC 7.3 (3.8-10.6) k/uL RBC 4.41 (3.80-5.40) m/uL Hgb 11.9 (11.4-16.0) gm/dL Hct 37.1 (34.0-46.0) % MCV 84.2 (80.0-100.0) fL MCH 26.9 (25.0-35.0) pg MCHC 32.0 (31.0-37.0) g/dL RDW 13.9 (11.5-15.5) % Plt Count 299 (150-450) k/uL Neutrophils % 49 % Lymphocytes % 38 % Monocytes % 7 % Eosinophils % 4 % Basophils % 0 % Neutrophils # 3.6 (1.3-7.7) k/uL Lymphocytes # 2.8 (1.0-4.8) k/uL Monocytes # 0.5 (0-1.0) k/uL Eosinophils # 0.3 (0-0.7) k/uL Basophils # 0.0 (0-0.2) k/uL PT (9.0-12.0) sec INR (<1.2) APTT (22.0-30.0) sec Sodium 138 (137-145) mmol/L Potassium 4.7 (3.5-5.1) mmol/L Chloride 104 (98-107) mmol/L Carbon Dioxide 27 (22-30) mmol/L Anion Gap 7 mmol/L BUN 22 H (7-17) mg/dL Creatinine 0.70 (0.52-1.04) mg/dL Est GFR (CKD-EPI)AfAm >90 (>60 ml/min/1.73 sqM) Est GFR (CKD-EPI)NonAf 83 (>60 ml/min/1.73 sqM) Glucose 96 (74-99) mg/dL Plasma Lactic Acid Gopal (0.7-2.0) mmol/L Calcium 9.3 (8.4-10.2) mg/dL Magnesium 2.1 (1.6-2.3) mg/dL Total Bilirubin 0.9 (0.2-1.3) mg/dL AST 41 H (14-36) U/L ALT 12 (9-52) U/L Alkaline Phosphatase 103 (38-126) U/L Total Creatine Kinase 45 (30-135) U/L CK-MB (CK-2) 0.7 (0.0-2.4) ng/mL CK-MB (CK-2) Rel Index 1.6 Troponin I <0.012 (0.000-0.034) ng/mL NT-Pro-B Natriuret Pep pg/mL Total Protein 7.2 (6.3-8.2) g/dL Albumin 3.9 (3.5-5.0) g/dL TSH 1.510 (0.465-4.680) mIU/L Urine Color Urine Appearance (Clear) Urine pH (5.0-8.0) Ur Specific [place] (1.001-1.035) Urine Protein (Negative) Urine Glucose (UA) (Negative) Urine Ketones (Negative) Urine Blood (Negative) Urine Nitrite (Negative) Urine Bilirubin (Negative) Urine Urobilinogen (<2.0) mg/dL Ur Leukocyte Esterase (Negative) Urine RBC (0-5) /hpf Urine WBC (0-5) /hpf Urine Bacteria (None) /hpf Hyaline Casts (0-2) /lpf Urine Mucus (None) /hpf 01/20/18 01/20/18 01/20/18 Range/Units 18:34 18:34 18:34 WBC (3.8-10.6) k/uL RBC (3.80-5.40) m/uL Hgb (11.4-16.0) gm/dL Hct (34.0-46.0) % MCV (80.0-100.0) fL MCH (25.0-35.0) pg MCHC (31.0-37.0) g/dL RDW (11.5-15.5) % Plt Count (150-450) k/uL Neutrophils % % Lymphocytes % % Monocytes % % Eosinophils % % Basophils % % Neutrophils # (1.3-7.7) k/uL Lymphocytes # (1.0-4.8) k/uL Monocytes # (0-1.0) k/uL Eosinophils # (0-0.7) k/uL Basophils # (0-0.2) k/uL PT 9.9 (9.0-12.0) sec INR 1.0 (<1.2) APTT 25.1 (22.0-30.0) sec Sodium (137-145) mmol/L Potassium (3.5-5.1) mmol/L Chloride (98-107) mmol/L Carbon Dioxide (22-30) mmol/L Anion Gap mmol/L BUN (7-17) mg/dL Creatinine (0.52-1.04) mg/dL Est GFR (CKD-EPI)AfAm (>60 ml/min/1.73 sqM) Est GFR (CKD-EPI)NonAf (>60 ml/min/1.73 sqM) Glucose (74-99) mg/dL Plasma Lactic Acid Gopal 1.0 (0.7-2.0) mmol/L Calcium (8.4-10.2) mg/dL Magnesium (1.6-2.3) mg/dL Total Bilirubin (0.2-1.3) mg/dL AST (14-36) U/L ALT (9-52) U/L Alkaline Phosphatase (38-126) U/L Total Creatine Kinase (30-135) U/L CK-MB (CK-2) (0.0-2.4) ng/mL CK-MB (CK-2) Rel Index Troponin I (0.000-0.034) ng/mL NT-Pro-B Natriuret Pep 288 pg/mL Total Protein (6.3-8.2) g/dL Albumin (3.5-5.0) g/dL TSH (0.465-4.680) mIU/L Urine Color Urine Appearance (Clear) Urine pH (5.0-8.0) Ur Specific [place] (1.001-1.035) Urine Protein (Negative) Urine Glucose (UA) (Negative) Urine Ketones (Negative) Urine Blood (Negative) Urine Nitrite (Negative) Urine Bilirubin (Negative) Urine Urobilinogen (<2.0) mg/dL Ur Leukocyte Esterase (Negative) Urine RBC (0-5) /hpf Urine WBC (0-5) /hpf Urine Bacteria (None) /hpf Hyaline Casts (0-2) /lpf Urine Mucus (None) /hpf 01/20/18 Range/Units 19:58 WBC (3.8-10.6) k/uL RBC (3.80-5.40) m/uL Hgb (11.4-16.0) gm/dL Hct (34.0-46.0) % MCV (80.0-100.0) fL MCH (25.0-35.0) pg MCHC (31.0-37.0) g/dL RDW (11.5-15.5) % Plt Count (150-450) k/uL Neutrophils % % Lymphocytes % % Monocytes % % Eosinophils % % Basophils % % Neutrophils # (1.3-7.7) k/uL Lymphocytes # (1.0-4.8) k/uL Monocytes # (0-1.0) k/uL Eosinophils # (0-0.7) k/uL Basophils # (0-0.2) k/uL PT (9.0-12.0) sec INR (<1.2) APTT (22.0-30.0) sec Sodium (137-145) mmol/L Potassium (3.5-5.1) mmol/L Chloride (98-107) mmol/L Carbon Dioxide (22-30) mmol/L Anion Gap mmol/L BUN (7-17) mg/dL Creatinine (0.52-1.04) mg/dL Est GFR (CKD-EPI)AfAm (>60 ml/min/1.73 sqM) Est GFR (CKD-EPI)NonAf (>60 ml/min/1.73 sqM) Glucose (74-99) mg/dL Plasma Lactic Acid Gopal (0.7-2.0) mmol/L Calcium (8.4-10.2) mg/dL Magnesium (1.6-2.3) mg/dL Total Bilirubin (0.2-1.3) mg/dL AST (14-36) U/L ALT (9-52) U/L Alkaline Phosphatase (38-126) U/L Total Creatine Kinase (30-135) U/L CK-MB (CK-2) (0.0-2.4) ng/mL CK-MB (CK-2) Rel Index Troponin I (0.000-0.034) ng/mL NT-Pro-B Natriuret Pep pg/mL Total Protein (6.3-8.2) g/dL Albumin (3.5-5.0) g/dL TSH (0.465-4.680) mIU/L Urine Color Yellow Urine Appearance Clear (Clear) Urine pH 6.5 (5.0-8.0) Ur Specific [place] 1.011 (1.001-1.035) Urine Protein Negative (Negative) Urine Glucose (UA) Negative (Negative) Urine Ketones Negative (Negative) Urine Blood Negative (Negative) Urine Nitrite Positive H (Negative) Urine Bilirubin Negative (Negative) Urine Urobilinogen <2.0 (<2.0) mg/dL Ur Leukocyte Esterase Negative (Negative) Urine RBC <1 (0-5) /hpf Urine WBC 3 (0-5) /hpf Urine Bacteria Moderate H (None) /hpf Hyaline Casts 3 H (0-2) /lpf Urine Mucus Occasional H (None) /hpf 01/20/18 20:28 EKG shows electronic atrial pacemaker. Minimal voltage criteria for LVH. Cannot rule out inferior infarct. Abnormal EKG noted. IN interval undetected. Ventricular rate of 64 bpm. IN QRS duration is 86 no seconds. QT QTc is 436/ 449 ms. - Radiology Data Radiology results: report reviewed Negative computed tomography scan of the brain. Mild atrophy. No significant change. Old exam. Chest x-ray was reviewed and negative for any acute process. Disposition Clinical Impression: Near syncope, UTI (urinary tract infection), Dizziness Disposition: ADMITTED IP TO THIS HOSP Condition: Stable Referrals: Maverick Gordillo Jr, DO [Primary Care Provider] - 1-2 days Time of Disposition: 21:20
[2018-01-20 19:15] LABS: Basophils % (A) 0 %; Eosinophils # (A) 0.3 k/uL (0-0.7); Eosinophils % (A) 4 %; HCT 37.1 % (34.0-46.0); HGB 11.9 gm/dL (11.4-16.0); Lymphocytes # (A) 2.8 k/uL (1.0-4.8); Lymphocytes % (A) 38 %; MCH 26.9 pg (25.0-35.0); MCV 84.2 fL (80.0-100.0); Mean Platelet Volume 7.1; Monocytes # (A) 0.5 k/uL (0-1.0); Monocytes % (A) 7 %; Neutrophils # (A) 3.6 k/uL (1.3-7.7); Neutrophils % (A) 49 %; Platelet Count 299 k/uL (150-450); RBC 4.41 m/uL (3.80-5.40); RDW 13.9 % (11.5-15.5); WBC 7.3 k/uL (3.8-10.6)
--- NOTE | 2018-01-20 19:20 | CT ---
EXAMINATION TYPE: CT brain wo con DATE OF EXAM: 01/20/2018 COMPARISON: 10/03/2016 HISTORY: Weakness, headache and hypertension CT DLP: 1412.6 mGycm Automated exposure control for dose reduction was used. FINDINGS: There is mild cerebral cortical atrophy. There is no mass effect nor midline shift. There is no sign of intracranial hemorrhage. The calvarium appears intact. IMPRESSION: NEGATIVE CT SCAN OF THE BRAIN. MILD ATROPHY. NO SIGNIFICANT CHANGE COMPARED TO OLD EXAM.
[2018-01-20 19:22] LABS: ALT 12 U/L (9-52); AST 41 U/L (14-36); Albumin 3.9 g/dL (3.5-5.0); Alkaline Phosphatase 103 U/L (38-126); Anion Gap 7 mmol/L; Blood Urea Nitrogen 22 mg/dL (7-17); Calcium 9.3 mg/dL (8.4-10.2); Carbon Dioxide 27 mmol/L (22-30); Chloride 104 mmol/L (98-107); Glucose 96 mg/dL (74-99); Magnesium 2.1 mg/dL (1.6-2.3); Sodium 138 mmol/L (137-145); Total Bilirubin 0.9 mg/dL (0.2-1.3); Total Protein 7.2 g/dL (6.3-8.2)
[2018-01-20 19:23] LABS: Partial Thromboplastin Time 25.1 sec (22.0-30.0); Prothrombin Time 9.9 sec (9.0-12.0)
[2018-01-20 19:26] LABS: Potassium 4.7 mmol/L (3.5-5.1)
--- NOTE | 2018-01-20 19:28 | XR ---
EXAMINATION TYPE: XR chest 2V DATE OF EXAM: 01/20/2018 COMPARISON: 03/26/2017 HISTORY: Weakness TECHNIQUE: Frontal and lateral views of the chest are obtained. FINDINGS: There is no heart failure nor confluent pneumonic infiltrate. Thoracic aorta is atheromato us. There is left axillary pacemaker with the lead tips in the right ventricle. Costophrenic angles a re clear. There is left shoulder prosthesis. IMPRESSION: No active cardiopulmonary disease. No change.
[2018-01-20 19:34] LABS: Creatine Kinase 45 U/L (30-135)
[2018-01-20 19:47] LABS: Creatine Kinase MB 0.7 ng/mL (0.0-2.4); Troponin I <0.012 ng/mL (0.000-0.034)
[2018-01-20 20:15] LABS: Appearance,Urine Clear (Clear); Bacteria,Urine Moderate /hpf; Bilirubin,Urine Negative (Negative); Blood,Urine Negative (Negative); Color,Urine Yellow; Glucose,Urine (UA) Negative (Negative); Hyaline Casts,Urine 3 /lpf (0-2); Ketones,Urine Negative (Negative); Leukocyte Esterase,Urine Negative (Negative); Mucus,Urine Occasional /hpf; Nitrite,Urine Positive (Negative); PH, Urine 6.5 (5.0-8.0); Protein,Urine Negative (Negative); RBC,Urine <1 /hpf (0-5); Specific Gravity,Urine 1.011 (1.001-1.035); Urobilinogen,Urine <2.0 mg/dL (<2.0); WBC,Urine 3 /hpf (0-5)
[2018-01-20] MEDS ORDERED: CIPROFLOXACIN HCL 500 MG TAB PO STA (21:19)
[2018-01-20] MEDS ORDERED: NITROGLYCERIN SL TABS 0.4 MG TAB SUBLINGUAL PRN (21:20)
[2018-01-20] MEDS ORDERED: NITROFURANTOIN MONOHYD/M-CRYST 100 MG CAP PO STA (21:39)
[2018-01-21] MEDS: traMADol 50 MG TAB PO PRN ×3 (00:35→16:31)
[2018-01-21 01:22] LABS: Creatine Kinase 43 U/L (30-135)
[2018-01-21 01:36] LABS: Creatine Kinase MB 0.9 ng/mL (0.0-2.4); Troponin I <0.012 ng/mL (0.000-0.034)
[2018-01-21] MEDS ORDERED: MELATONIN 3 MG TABLET PO PRN (01:57)
[2018-01-21] MEDS ORDERED: ONDANSETRON 4 MG/2 ML VIAL IVP PRN (01:57)
[2018-01-21] MEDS ORDERED: ACETAMINOPHEN TAB 500 MG TAB PO STA (01:57)
[2018-01-21] MEDS ORDERED: MORPHINE SULFATE 4 MG/ML SYRINGE IV PRN (01:57)
[2018-01-21] MEDS ORDERED: NALOXONE 0.4 MG/ML 1 ML VIAL IV PRN (01:57)
[2018-01-21] MEDS: SODIUM CHLORIDE 0.9% 1,000 ML IV SCH ×3 (02:13→19:10)
[2018-01-21 07:38] LABS: Cholesterol 123 mg/dL (<200); HDL Cholesterol 67 mg/dL (40-60); LDL Cholesterol,Calculated 32 mg/dL (0-99); Triglycerides 118 mg/dL (<150)
[2018-01-21 07:46] LABS: Creatine Kinase 37 U/L (30-135)
[2018-01-21 07:58] LABS: Creatine Kinase MB 0.7 ng/mL (0.0-2.4); Troponin I <0.012 ng/mL (0.000-0.034)
[2018-01-21] MEDS ORDERED: NON-FORMULARY DRUG (Krill Oil [Krill Oil] 500 MG) PO SCH (09:00)
[2018-01-21] MEDS ORDERED: NON-FORMULARY DRUG (Cod Liver Oil [Cod Liver Oil] 1 CAP) PO SCH (09:00)
[2018-01-21] MEDS ORDERED: NON-FORMULARY DRUG (Magnesium Gluconate 500 MG) PO SCH (09:00)
[2018-01-21] MEDS ORDERED: amLODIPine 5 MG TAB PO SCH (09:00)
[2018-01-21] MEDS ORDERED: ASPIRIN 325 MG TAB PO SCH (09:00)
[2018-01-21] MEDS: METOPROLOL SUCCINATE (ER) 25 MG TAB.ER.24H PO SCH (09:41)
[2018-01-21] MEDS: APIXABAN 2.5 MG TABLET PO SCH ×2 (09:43→20:08)
[2018-01-21] MEDS: FUROSEMIDE 20 MG TAB PO SCH (09:43)
[2018-01-21] MEDS: POTASSIUM CHLORIDE ER 10 MEQ TAB.ER.PRT PO SCH (09:43)
[2018-01-21] MEDS: LOSARTAN 50 MG TAB PO SCH ×2 (09:43→20:12)
[2018-01-21] MEDS: PANTOPRAZOLE 40 MG TABLET PO SCH (09:43)
[2018-01-21] MEDS: FLUTICASONE 50MCG/SPRAY NASAL 16GM EA NOSTRIL SCH (09:44)
--- NOTE | 2018-01-21 12:18 | P.CRDCN ---
History of Present Illness Consult date: 01/21/18 History of present illness: Mrs. Walker is a pleasant 77-year-old female past medical history significant for paroxysmal atrial fibrillation on rn long term care anticoagulation with Eliquis currently maintaining sinus mechanism, hyslipidemia, hypertension and tachy-dana syndrome s/p permanent pacemaker insertion. She follows with Dr. Dockery as an outpatient. We have been asked to see her in consultation for symptoms of dizziness. Yesterday afternoon after going to physical therapy she felt very weak and fatigued. She arrived home and didn't feel she could even get herself out of her car and into the house so she called EMS. She also complaints of intermittent palpitations over the last week. She states she can tell when she is in atrial fibrillation and that is how she felt. The symptoms lasted about 3-4 hours at a time. They typically have been occurring in the middle of the night with no specific associated symptoms other than palpitations. She felt as though the rate was low, not fast. She denies chest pain, shortness of breath, dizziness, nausea, vomiting or diaphoresis. EKG on arrival reveals atrial pacemaker, no acute ST or T-wave abnormalities with PVC. Chest xray negative for an acute cardiopulmonary process. Brain CT negative for an acute infarct with mild atrophy. Laboratory data reviewed, hemoglobin 11.9, platelets 299, potassium 4.7, magnesium 2.1, creatinine 0.70, cardiac enzymes negative 3, proBNP 288, LDL 32 , TSH 1.51. She is being treated for urinary tract infection. Current cardiac medications include Eliquis was 2.5 mg twice a day, amlodipine 5 mg daily, losartan 50 mg twice a day, Toprol 25 mg daily, potassium 10 daily, Lasix 20 mg daily, pravastatin 40 mg daily. Most recent testing from the office has been reviewed she had a bilateral carotid duplex performed November 2017 revealed mild disease with antegrade flow. Most recent echocardiogram from 2014 reveals preserved left ventricular systolic function with ejection fraction 60%, moderately dilated left atrium, trace AR mild MR and mild TR. Most recent stress test from 2014 as a Lexiscan reveal no evidence of reversible stress-induced ischemia. She had a normal cardiac catheterization in 2016 with no evidence of obstruction. Review of Systems At the time of my exam: CONSTITUTIONAL: Denies fever. Denies chills. EYES: Denies blurred vision. Denies vision changes. Denies eye pain. EARS, NOSE, MOUTH & THROAT: Denies headache. Denies sore throat. Denies ear pain. CARDIOVASCULAR: Denies chest pain. Denies shortness of breath. Denies orthopnea. Denies PND. Denies palpitations. RESPIRATORY: Denies cough. GASTROINTESTINAL: Denies abdominal pain. Denies diarrhea. Denies constipation. Denies nausea. Denies vomiting. MUSCULOSKELETAL: Denies myalgias. INTEGUMENTARY: Denies pruitis. Denies rash. NEUROLOGIC: Denies numbness. Denies tingling. Denies weakness. PSYCHIATRIC: Denies anxiety. Denies depression. ENDOCRINE: Denies fatigue. Denies weight change. Denies polydipsia. Denies polyurina. GENITOURINARY: Denies burning, hematuria or urgency with micturation. HEMATOLOGIC: Denies history of anemia. Denies bleeding. Past Medical History Past Medical History: Atrial Fibrillation, Asthma, GERD/Reflux, Hyperlipidemia, Hypertension, Osteoarthritis (OA), Thyroid Disorder Additional Past Medical History / Comment(s): 03/30/16 for Afib RVR tx with cardizem/tachybrady syndrome and had pacer insertion. 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 History of Any Multi-Drug Resistant Organisms: None Reported Past Surgical History: Adenoidectomy, Cholecystectomy, Joint Replacement, Orthopedic Surgery, Pacemaker, Tonsillectomy Additional Past Surgical History / Comment(s): bartholin cyst surgical procedure , R eye with retinal repair, rk, cataract removal and macular wrinkle repair, partial replacement lt shoulder and left knee replacement, 2006 Heart Cath (no intervention), colonoscopy, R cheek melanoma removal, D&C, vaginal cystectomy, L breast benign bx. Past Anesthesia/Blood Transfusion Reactions: Motion Sickness, Postoperative Nausea & Vomiting (PONV) Type of Cardiac Device: Permanent Pacemaker Device Placement Date:: 04/02/16 Past Psychological History: No Psychological Hx Reported Smoking Status: Never smoker Past Alcohol Use History: None Reported Past Drug Use History: None Reported - Past Family History Mother Family Medical History: Asthma, Thyroid Disorder Additional Family Medical History / Comment(s): thyroid nodule. bronchitis Father Family Medical History: Respiratory Disorder Additional Family Medical History / Comment(s): at age 46 addisons disease( stopped taking his steroids), also had tb Medications and Allergies Home Medications Medication Instructions Recorded Confirmed Type Pravastatin Sodium [Pravachol] 40 mg PO HS 11/27/14 01/20/18 History Potassium Chloride [K-Tab ER] 10 meq PO DAILY 04/11/15 01/20/18 History Acetaminophen Tab [Tylenol] 500 - 1,000 mg PO Q6H PRN 11/24/15 01/20/18 History Furosemide [Lasix] 20 mg PO DAILY 11/24/15 01/20/18 History amLODIPine [Norvasc] 5 mg PO DAILY 11/24/15 01/20/18 History Montelukast [Singulair] 10 mg PO HS 03/30/16 01/20/18 History Losartan [Cozaar] 50 mg PO BID 04/27/16 01/20/18 History Apixaban [Eliquis] 2.5 mg PO BID 04/30/16 01/20/18 History Magnesium Gluconate [Magonate] 500 mg PO DAILY 04/30/16 01/20/18 History Omeprazole [PriLOSEC] 40 mg PO DAILY 05/21/16 01/20/18 History Cod Liver Oil 1 cap PO DAILY 03/26/17 01/20/18 History Metoprolol Succinate (ER) [Toprol 25 mg PO DAILY 03/26/17 01/20/18 History Xl] Zinc 50 mg PO DAILY 03/26/17 01/20/18 History Fluticasone Nasal [place] [Flonase 2 spr EA NOSTRIL RT-DAILY 01/20/18 01/20/18 History Nasal [place]] Krill Oil 500 mg PO DAILY 01/20/18 01/20/18 History traMADol HCL [Ultram] 50 mg PO QID PRN 01/20/18 01/20/18 History Allergies Allergy/AdvReac Type Severity Reaction Status Date / Time codeine Allergy Unknown Verified 01/20/18 19:53 hydromorphone HCl Allergy Unknown Verified 01/20/18 19:53 [From Dilaudid] Iodinated Contrast- Oral and Allergy Unknown Verified 01/20/18 19:53 IV Dye [Iodinated Contrast Media - IV Dye] iodine Allergy Unknown Verified 01/20/18 19:53 meperidine HCl [From Demerol] Allergy Unknown Verified 01/20/18 19:53 nalbuphine HCl [From Nubain] Allergy Unknown Verified 01/20/18 19:53 Penicillins Allergy Unknown Verified 01/20/18 19:53 Sulfa (Sulfonamide Allergy Unknown Verified 01/20/18 19:53 Antibiotics) Physical Exam Vitals: Vital Signs Temp Pulse Resp BP Pulse Ox 01/21/18 08:40 64 18 154/69 94 L 01/21/18 06:33 98.4 F 60 17 163/70 94 L 01/21/18 05:20 58 L 16 146/65 95 01/21/18 04:10 61 16 153/69 97 01/21/18 00:05 58 L 16 155/74 94 L 01/20/18 23:13 64 16 163/72 93 L 01/20/18 22:05 63 17 183/81 96 01/20/18 18:23 97 F L 58 L 18 152/67 96 Intake and Output 01/20/18 01/21/18 01/21/18 22:59 06:59 14:59 Other: Weight 120.656 kg Blood pressure 154/69 heart rate 64 afebrile maintaining oxygen saturation on room air GENERAL: This is a 77-year-old occasion female in no apparent distress at the time of my examination. HEENT: Head is atraumatic, normocephalic. Pupils are equal, round. Sclerae anicteric. Conjunctivae are clear. Mucous membranes of the mouth are moist. Neck is supple. There is no jugular venous distention. No carotid bruit is heard. LUNGS: Clear to auscultation no wheezes, rales or rhonchi. No chest wall tenderness is noted on palpation or with deep breathing. HEART: Regular rate and rhythm without murmurs, rubs or gallops. S1 and S2 heard. ABDOMEN: Soft, nontender. Bowel sounds are heard. No organomegaly noted. EXTREMITIES: No evidence of peripheral edema and no calf tenderness noted. VASCULAR: Radial and dorsalis pedis pulses palpated, no evidence of clubbing. NEUROLOGIC: Patient is awake, alert and oriented x3. Results 01/20/18 18:34 01/20/18 18:34 Cardiac Enzymes 01/20/18 01/20/18 01/21/18 Range/Units 18:34 18:34 00:45 AST 41 H (14-36) U/L CK-MB (CK-2) 0.7 0.9 (0.0-2.4) ng/mL Troponin I <0.012 <0.012 (0.000-0.034) ng/mL 01/21/18 Range/Units 07:01 AST (14-36) U/L CK-MB (CK-2) 0.7 (0.0-2.4) ng/mL Troponin I <0.012 (0.000-0.034) ng/mL Coagulation 01/20/18 Range/Units 18:34 PT 9.9 (9.0-12.0) sec APTT 25.1 (22.0-30.0) sec Lipids 01/21/18 Range/Units 07:01 Triglycerides 118 (<150) mg/dL Cholesterol 123 (<200) mg/dL HDL Cholesterol 67 H (40-60) mg/dL CBC 01/20/18 Range/Units 18:34 WBC 7.3 (3.8-10.6) k/uL RBC 4.41 (3.80-5.40) m/uL Hgb 11.9 (11.4-16.0) gm/dL Hct 37.1 (34.0-46.0) % Plt Count 299 (150-450) k/uL Comprehensive Metabolic Panel 01/20/18 Range/Units 18:34 Sodium 138 (137-145) mmol/L Potassium 4.7 (3.5-5.1) mmol/L Chloride 104 (98-107) mmol/L Carbon Dioxide 27 (22-30) mmol/L BUN 22 H (7-17) mg/dL Creatinine 0.70 (0.52-1.04) mg/dL Glucose 96 (74-99) mg/dL Calcium 9.3 (8.4-10.2) mg/dL AST 41 H (14-36) U/L ALT 12 (9-52) U/L Alkaline Phosphatase 103 (38-126) U/L Total Protein 7.2 (6.3-8.2) g/dL Albumin 3.9 (3.5-5.0) g/dL Current Medications Generic Name Dose Route Start Last Admin Trade Name Freq PRN Reason Stop Dose Admin Amlodipine Besylate 5 mg 01/21/18 09:00 Norvasc PO DAILY [facility] Apixaban 2.5 mg 01/21/18 09:00 Eliquis PO BID [facility] Fluticasone Propionate 2 spray 01/21/18 09:00 Flonase Nasal [place] EA NOSTRIL DAILY [facility] Furosemide 20 mg 01/21/18 09:00 Lasix PO DAILY [facility] Sodium Chloride 1,000 mls @ 120 mls/hr 01/21/18 02:00 01/21/18 02:13 Saline 0.9% IV 120 mls/hr .[id number] CRISTIN Administration Losartan Potassium 50 mg 01/21/18 09:00 Cozaar PO BID [facility] Melatonin 3 mg 01/21/18 01:57 Melatonin PO HS PRN Insomnia Metoprolol Succinate 25 mg 01/21/18 09:00 Toprol Xl PO DAILY [facility] Montelukast Sodium 10 mg 01/21/18 21:00 Singulair PO HS [facility] Morphine Sulfate 4 mg 01/21/18 01:57 01/21/18 05:09 Morphine Sulfate (Inj) IV 4 mg Q4HR PRN Administration Severe Pain Naloxone HCl 0.2 mg 01/21/18 01:57 Narcan IV Q2M PRN Opioid Reversal Nitroglycerin 0.4 mg 01/20/18 21:20 Nitrostat SUBLINGUAL Q5M PRN Chest Pain Ondansetron HCl 4 mg 01/21/18 01:57 Zofran IVP Q8HR PRN Nausea And Vomiting Pantoprazole Sodium 40 mg 01/21/18 09:00 Protonix PO DAILY [facility] Potassium Chloride 10 meq 01/21/18 09:00 K-Dur 10 PO DAILY [facility] Pravastatin Sodium 40 mg 01/21/18 21:00 Pravachol PO HS [facility] Tramadol HCl 50 mg 01/20/18 21:24 01/21/18 00:35 Ultram PO 50 mg QID PRN Administration Pain Zinc Sulfate 220 mg 01/21/18 12:00 Orazinc PO DAILY@1200 [facility] Intake and Output 01/20/18 01/21/18 01/21/18 22:59 06:59 14:59 Other: Weight 120.656 kg 03/14/18 18:34 01/20/18 18:34 Assessment and Plan Assessment: ASSESSMENT 1. Dizziness and intermittent palpitations, will check pacemaker. Dizziness may be secondary to infectious process. 2. Paroxysmal atrial fibrillation currently maintaining sinus mechanism 3. Hypertension 4. Dyslipidemia 5. Morbid obesity, BMI 42.9 6. History of tachy-dana symdrome s/p permanent pacemaker implantation 7. Urinary tract infection. PLAN Obtain 2D echocardiogram and doppler study to assess cardiac structure and function. Interrogate pacemaker with [employer] to evaluate for arrhythmia. Check orthostatic blood pressures. Continue eliquis, amlodipine, lasix, losartan, toprol and pravastatin as was previously ordered. Thank you kindly for this consultation. Nurse Practitioner note has been reviewed, I agree with a documented findings and plan of care. Patient was seen and examined.
[2018-01-21] MEDS ORDERED: MORPHINE ORAL SOLN 10 MG/5 ML CUP PO PRN (13:50)
--- NOTE | 2018-01-21 13:59 | P.HPIM ---
History of Present Illness H&P Date: 01/21/18 Chief Complaint: dizziness, weakness 77-year-old female who presented to the emergency room with a chief complaint of dizziness. The patient states that she was on her way home from physical therapy and she began to feel extremely weak and fatigued. She also complained of dizziness and sudden onset of a headache. The patient has also been experiencing palpitations on and off. She denies chest pain or pressure. Denies shortness of breath or coughing. Denies nausea or vomiting. 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 She is on long-term anticoagulation with Eliquis. Chest x-ray: negative for an acute process CT of the brain: negative. Mild atrophy. No significant change and compared to old exam. Laboratory data: WBC 7.3. Hemoglobin 11.9. platelet count 299. sodium 138. Potassium 4.7. BUN 22. Creatinine 0.70. Glucose 96. Lactic acid 1.0 Troponin negative 3 BNP 288 TSH 1.510 Lipid panel: Triglycerides 118. Cholesterol 123. LDL 32. HDL 67. Urinalysis reveals: clear yellow urine, positive nitrites, negative leukocyte esterase, moderate bacteria, 3 hyaline casts, occasional mucus The patient was admitted to the hospital under the care of Dr. Gordillo to the observation unit. Consultations were placed to cardiology. Review of Systems GENERAL: Patient denies fever. Denies chills. EYES: Denies blurred vision. Denies vision changes. Denies eye pain. EARS, NOSE, MOUTH, & THROAT: Denies headache. Denies sore throat. Denies ear pain. RESPIRATORY: Denies cough. Denies shortness of breath. Denies sputum production. Denies hemoptysis. CARDIOVASCULAR: Denies chest pain or pressure. Denies palpitations. Denies arrhythmias. GASTROINTESTINAL: Denies abdominal pain. Denies diarrhea. Denies constipation. Denies nausea. Denies vomiting. Denies heartburn. Denies blood in the stool. GENITOURINARY: Denies urinary frequency. Denies burning. Denies dysuria. Denies cloudy urine. Denies blood in the urine. MUSCULOSKELETAL: Denies myalgias. Denies joint swelling. Denies decreased range of motion beyond patients baseline. INTEGUMENTARY: Denies pruitis. Denies rash. PSYCHIATRIC: Denies suicidal or homicial ideations. ENDOCRINE: Denies weight change. Denies polydipsia. Denies polyuria. HEMATOLOGIC: Denies bleeding disorders. Past Medical History Past Medical History: Atrial Fibrillation, Asthma, GERD/Reflux, Hyperlipidemia, Hypertension, Osteoarthritis (OA), Thyroid Disorder Additional Past Medical History / Comment(s): 03/30/16 for Afib RVR tx with cardizem/tachybrady syndrome and had pacer insertion. 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 History of Any Multi-Drug Resistant Organisms: None Reported Past Surgical History: Adenoidectomy, Cholecystectomy, Joint Replacement, Orthopedic Surgery, Pacemaker, Tonsillectomy Additional Past Surgical History / Comment(s): bartholin cyst surgical procedure , R eye with retinal repair, rk, cataract removal and macular wrinkle repair, partial replacement lt shoulder and left knee replacement, 2006 Heart Cath (no intervention), colonoscopy, R cheek melanoma removal, D&C, vaginal cystectomy, L breast benign bx. Past Anesthesia/Blood Transfusion Reactions: Motion Sickness, Postoperative Nausea & Vomiting (PONV) Type of Cardiac Device: Permanent Pacemaker Device Placement Date:: 04/02/16 Past Psychological History: No Psychological Hx Reported Smoking Status: Never smoker Past Alcohol Use History: None Reported Past Drug Use History: None Reported - Past Family History Mother Family Medical History: Asthma, Thyroid Disorder Additional Family Medical History / Comment(s): thyroid nodule. bronchitis Father Family Medical History: Respiratory Disorder Additional Family Medical History / Comment(s): at age 46 addisons disease( stopped taking his steroids), also had tb Medications and Allergies Home Medications Medication Instructions Recorded Confirmed Type Pravastatin Sodium [Pravachol] 40 mg PO HS 11/27/14 01/20/18 History Potassium Chloride [K-Tab ER] 10 meq PO DAILY 04/11/15 01/20/18 History Acetaminophen Tab [Tylenol] 500 - 1,000 mg PO Q6H PRN 11/24/15 01/20/18 History Furosemide [Lasix] 20 mg PO DAILY 11/24/15 01/20/18 History amLODIPine [Norvasc] 5 mg PO DAILY 11/24/15 01/20/18 History Montelukast [Singulair] 10 mg PO HS 03/30/16 01/20/18 History Losartan [Cozaar] 50 mg PO BID 04/27/16 01/20/18 History Apixaban [Eliquis] 2.5 mg PO BID 04/30/16 01/20/18 History Magnesium Gluconate [Magonate] 500 mg PO DAILY 04/30/16 01/20/18 History Omeprazole [PriLOSEC] 40 mg PO DAILY 05/21/16 01/20/18 History Cod Liver Oil 1 cap PO DAILY 03/26/17 01/20/18 History Metoprolol Succinate (ER) [Toprol 25 mg PO DAILY 03/26/17 01/20/18 History Xl] Zinc 50 mg PO DAILY 03/26/17 01/20/18 History Fluticasone Nasal [place] [Flonase 2 spr EA NOSTRIL RT-DAILY 01/20/18 01/20/18 History Nasal [place]] Krill Oil 500 mg PO DAILY 01/20/18 01/20/18 History traMADol HCL [Ultram] 50 mg PO QID PRN 01/20/18 01/20/18 History Allergies Allergy/AdvReac Type Severity Reaction Status Date / Time codeine Allergy Unknown Verified 01/20/18 19:53 hydromorphone HCl Allergy Unknown Verified 01/20/18 19:53 [From Dilaudid] Iodinated Contrast- Oral and Allergy Unknown Verified 01/20/18 19:53 IV Dye [Iodinated Contrast Media - IV Dye] iodine Allergy Unknown Verified 01/20/18 19:53 meperidine HCl [From Demerol] Allergy Unknown Verified 01/20/18 19:53 nalbuphine HCl [From Nubain] Allergy Unknown Verified 01/20/18 19:53 Penicillins Allergy Unknown Verified 01/20/18 19:53 Sulfa (Sulfonamide Allergy Unknown Verified 01/20/18 19:53 Antibiotics) Physical Exam Vitals: Vital Signs Temp Pulse Resp BP Pulse Ox 01/21/18 08:40 64 18 154/69 94 L 01/21/18 06:33 98.4 F 60 17 163/70 94 L 01/21/18 05:20 58 L 16 146/65 95 01/21/18 04:10 61 16 153/69 97 01/21/18 00:05 58 L 16 155/74 94 L 01/20/18 23:13 64 16 163/72 93 L 01/20/18 22:05 63 17 183/81 96 01/20/18 18:23 97 F L 58 L 18 152/67 96 Intake and Output 01/20/18 01/21/18 01/21/18 22:59 06:59 14:59 Other: Weight 120.656 kg GENERAL: This is a 77-year-old female in no apparent distress at the time of examination. Pleasant and cooperative. HEENT: Head is atraumatic, normocephalic. Pupils are equal, round, and reactive to light. Sclerae anicteric. Conjunctivae are clear. Mucus membranes of the mouth are moist. Neck is supple. RESPIRATORY: Clear to ausculation. No wheezes, rales, or rhonchi. No use of accessory muscles. Patient maintaining oxygen saturation greater than 92%. No chest wall tenderness is noted on palpation or with deep breathing. CARDIOVASCULAR: Regular rate and rhythm. S1 and S2 noted. No JVD noted. No S3 or S4 noted. GASTROINTESTINAL: No distention noted. Abdomen soft and round. Normal active bowel sounds auscultated x 4 quadrants. No pain or tenderness noted upon palpation. INTEGUMENTARY: No cyanosis. No jaundice. No rashes noted. No cellulitis noted. EXTREMITIES: 2+ peripheral pulses. No evidence of peripheral edema. No calf tenderness noted. NEUROLOGIC: Cranial nerves II-XII intact. PSYCHIATRIC: Awake, alert, and oriented X 3. Appropriate affect. Intact judgement and insight. Results CBC & Chem 7: 01/20/18 18:34 01/20/18 18:34 Labs: Abnormal Lab Results - Last 24 Hours (Table) 01/20/18 01/20/18 01/21/18 Range/Units 18:34 19:58 07:01 BUN 22 H (7-17) mg/dL AST 41 H (14-36) U/L HDL Cholesterol 67 H (40-60) mg/dL Urine Nitrite Positive H (Negative) Urine Bacteria Moderate H (None) /hpf Hyaline Casts 3 H (0-2) /lpf Urine Mucus Occasional H (None) /hpf Microbiology - Last 24 Hours (Table) 01/20/18 19:58 Urine Culture - Preliminary Urine,Voided Thrombosis Risk Factor Assmnt - Choose All That Apply Any of the Below Risk Factors Present?: Yes Each Factor Represents 1 point: Obesity (BMI >25) Other Risk Factors: Yes Each Risk Factor Represents 2 Points: Malignancy Each Risk Factor Represents 3 Points: Age 75 years or older Other congenital or acquired thrombophilia - If yes, enter type in comment: No Thrombosis Risk Factor Assessment Total Risk Factor Score: 6 Thrombosis Risk Factor Assessment Level: High Risk Assessment and Plan Plan: ASSESSMENT: Urinary tract infection, present on admission, urine culture pending Complaints of dizziness and palpations, cardiology following Paroxysmal atrial fibrillation, maintained on long-term anticoagulation with Eliquis History of permanent pacemaker insertion Essential hypertension Hyperlipidemia History of asthma, no evidence of acute exacerbation Gastroesophageal reflux disease Osteoarthritis Morbid obesity: BMI 42.9 PLAN: Cardiology on consult. Appreciate recommendations and input Patient to have her pacemaker interrogated Await results of urine culture Cipro 500 mg by mouth twice a day Home meds as appropriate Monitor labs Monitor vital signs and address as appropriate Discharge planning: Patient to return home when stable Further recommendations pending patient's course Patient may be discharged this afternoon if her pacemaker is interrogated and cleared by cardiology Nurse practitioner note has been reviewed by physician. Signing provider agrees with the documented findings, assessment, and plan of care.
[2018-01-21] MEDS: ACETAMINOPHEN TAB 500 MG TAB PO PRN (15:00)
[2018-01-21] MEDS: ZINC SULFATE 220 MG CAP PO SCH (16:28)
[2018-01-21] MEDS: HYDROcodone/APAP 10-325MG 1 EACH TAB PO PRN (20:09)
[2018-01-21] MEDS ORDERED: PRAVASTATIN SODIUM 40 MG TAB PO SCH (21:00)
[2018-01-21] MEDS ORDERED: MONTELUKAST 10 MG TAB PO SCH (21:00)
[2018-01-21] MEDS: CIPROFLOXACIN HCL 500 MG TAB PO SCH (21:02)
[2018-01-22] MEDS: ACETAMINOPHEN TAB 500 MG TAB PO PRN ×2 (03:07→09:42)
[2018-01-22] MEDS: SODIUM CHLORIDE 0.9% 1,000 ML IV SCH (03:59)
[2018-01-22 08:22] VITALS: RESP 18; TEMP 98.5
[2018-01-22] MEDS ORDERED: LOSARTAN 50 MG TAB PO SCH (09:00)
[2018-01-22] MEDS ORDERED: LEVOTHYROXINE 50 MCG TAB PO SCH (09:00)
[2018-01-22] MEDS: CIPROFLOXACIN HCL 500 MG TAB PO SCH (09:33)
[2018-01-22] MEDS: APIXABAN 2.5 MG TABLET PO SCH (09:33)
[2018-01-22] MEDS: PANTOPRAZOLE 40 MG TABLET PO SCH (09:34)
[2018-01-22] MEDS: POTASSIUM CHLORIDE ER 10 MEQ TAB.ER.PRT PO SCH (09:34)
[2018-01-22] MEDS: METOPROLOL SUCCINATE (ER) 25 MG TAB.ER.24H PO SCH (09:34)
[2018-01-22] MEDS: FUROSEMIDE 20 MG TAB PO SCH (09:34)
[2018-01-22] MEDS: FLUTICASONE 50MCG/SPRAY NASAL 16GM EA NOSTRIL SCH (09:34)
[2018-01-22] MEDS: HYDROcodone/APAP 10-325MG 1 EACH TAB PO PRN (09:40)
[2018-01-22] MEDS: ZINC SULFATE 220 MG CAP PO SCH (12:42)
--- NOTE | 2018-01-22 13:12 | P.PN ---
Subjective Progress Note Date: 01/22/18 Mrs. Walker is seen and examined this morning. She is resting comfortably in bed in no acute distress. She denies any further symptoms of dizziness, weakness or palpitations. Telemetry tracings have been unremarkable. Walk Score was in last night to interrogate her pacemaker. Data was reviewed and reveals she is paced 79% of the time since last interrogation 12/15/2017. Total time in atrial tachycardia/fibrillation 5.8 minutes with total of 3,782 PAC's. Event log reveals there have been atrial tachycardia rates up to 126 over the previous month at times. Orthostatic vital signs obtained last night are inaccurate, will repeat. She has been up ambulating without complaints of ongoing dizziness. Objective - Vital Signs Vital signs: Vital Signs Temp 98.5 F 01/22/18 08:00 Pulse 65 01/22/18 08:00 Resp 18 01/22/18 08:00 BP 147/55 01/22/18 08:00 Pulse Ox 93 L 01/22/18 08:00 Intake & Output 01/21/18 01/22/18 01/22/18 18:59 06:59 18:59 Intake Total 260 240 Balance 260 240 Intake: IV 260 Sodium Chloride 0.9% 1, 260 000 ml @ 120 mls/hr IV . Q8H20M [facility] Rx#:[id number] Oral 240 Other: Voiding Method Toilet Toilet # Voids 2 - Exam Blood pressure 147/55 heart rate 66 afebrile maintaining oxygen saturation on room air. GENERAL: Well-appearing, well-nourished and in no acute distress. NECK: Supple without JVD or thyromegaly. LUNGS: Breath sounds clear to auscultation bilaterally. Respiration equal and unlabored. No wheezes, rales or rhonchi. HEART: Regular rate and rhythm without murmurs, rubs or gallops. S1 and S2 heard. EXTREMITIES: Normal range of motion, no edema. No clubbing or cyanosis. Peripheral pulses intact. - Labs CBC & Chem 7: 01/20/18 18:34 01/20/18 18:34 Labs: Microbiology - Last 24 Hours (Table) 01/20/18 19:58 Urine Culture - Preliminary Urine,Voided Assessment and Plan Assessment: ASSESSMENT 1. Dizziness and intermittent palpitations, will check pacemaker. Dizziness may be secondary to infectious process. 2. Paroxysmal atrial fibrillation currently maintaining sinus mechanism 3. Hypertension 4. Dyslipidemia 5. Morbid obesity, BMI 42.9 6. History of tachy-dana symdrome s/p permanent pacemaker implantation 7. Urinary tract infection. PLAN Repeat orthostatic blood pressures. If negative, stable from cardiac perspective. Continue eliquis, amlodipine, lasix, losartan, toprol and pravastatin as was previously ordered. Follow-up with Dr. Dockery in 2-3 weeks. Nurse Practitioner note has been reviewed, I agree with a documented findings and plan of care. Patient was seen and examined.
[2018-01-22 13:29] VITALS: BP 126/59; PULSE 59
--- NOTE | 2018-01-22 15:15 | P.DS ---
Providers Date of admission: 01/20/18 22:02 Expected date of discharge: 01/22/18 Attending physician: Maverick Gordillo Consults: 01/20/18 21:21 Consult Physician Urgent Consulting Provider: Donna Dockery Consult Reason/Comments: Palpitations, Pacemaker Do you want consulting provider notified?: Yes, Notify in am Primary care physician: [facility] Course: 77-year-old female who presented to the emergency room with a chief complaint of dizziness. The patient states that she was on her way home from physical therapy and she began to feel extremely weak and fatigued. She also complained of dizziness and sudden onset of a headache. The patient has also been experiencing palpitations on and off. She denies chest pain or pressure. Denies shortness of breath or coughing. Denies nausea or vomiting. 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 She is on long-term anticoagulation with Eliquis. Chest x-ray: negative for an acute process CT of the brain: negative. Mild atrophy. No significant change and compared to old exam. Laboratory data: WBC 7.3. Hemoglobin 11.9. platelet count 299. sodium 138. Potassium 4.7. BUN 22. Creatinine 0.70. Glucose 96. Lactic acid 1.0 Troponin negative 3 BNP 288 TSH 1.510 Lipid panel: Triglycerides 118. Cholesterol 123. LDL 32. HDL 67. Urinalysis reveals: clear yellow urine, positive nitrites, negative leukocyte esterase, moderate bacteria, 3 hyaline casts, occasional mucus The patient was admitted to the hospital under the care of Dr. Gordillo to the observation unit. Consultations were placed to cardiology. The patient was evaluated by cardiology. Echocardiogram was completed. Her pacemaker was also interrogated. She was cleared for discharge from a cardiology standpoint. She was deemed stable for discharge per Dr. Gordillo. She is to follow up on an outpatient basis. Prescription was sent to the patients preferred pharmacy for Cipro 500mg PO BID x [address] Gordillo will follow up on her urine culture at her follow up visit outpatient. DISCHARGE DIAGNOSIS: Urinary tract infection, present on admission, urine culture pending Complaints of dizziness and palpations, cardiology evaluated patient and cleared from their standpoint Paroxysmal atrial fibrillation, maintained on long-term anticoagulation with Eliquis History of permanent pacemaker insertion Essential hypertension Hyperlipidemia History of asthma, no evidence of acute exacerbation Gastroesophageal reflux disease Osteoarthritis Morbid obesity: BMI 42.9 Nurse practitioner note has been reviewed by physician. Signing provider agrees with the documented findings, assessment, and plan of care. Patient Condition at Discharge: Stable Plan - Discharge Summary Discharge Rx Participant: No New Discharge Prescriptions: New Ciprofloxacin HCl [Cipro] 500 mg PO Q12HR #6 tablet Continue Pravastatin Sodium [Pravachol] 40 mg PO HS Potassium Chloride [K-Tab ER] 10 meq PO DAILY amLODIPine [Norvasc] 5 mg PO DAILY Furosemide [Lasix] 20 mg PO DAILY Acetaminophen Tab [Tylenol] 500 - 1,000 mg PO Q6H PRN PRN Reason: Pain Montelukast [Singulair] 10 mg PO HS Losartan [Cozaar] 50 mg PO BID Magnesium Gluconate [Magonate] 500 mg PO DAILY Apixaban [Eliquis] 2.5 mg PO BID Omeprazole [PriLOSEC] 40 mg PO DAILY Metoprolol Succinate (ER) [Toprol XL] 25 mg PO DAILY Zinc 50 mg PO DAILY Cod Liver Oil 1 cap PO DAILY traMADol HCL [Ultram] 50 mg PO QID PRN PRN Reason: Pain Krill Oil 500 mg PO DAILY Fluticasone Nasal [place] [Flonase Nasal [place]] 2 spr EA NOSTRIL RT-DAILY Discharge Medication List Pravastatin Sodium [Pravachol] 40 mg PO HS 11/27/14 [History] Potassium Chloride [K-Tab ER] 10 meq PO DAILY 04/11/15 [History] Acetaminophen Tab [Tylenol] 500 - 1,000 mg PO Q6H PRN 11/24/15 [History] Furosemide [Lasix] 20 mg PO DAILY 11/24/15 [History] amLODIPine [Norvasc] 5 mg PO DAILY 11/24/15 [History] Montelukast [Singulair] 10 mg PO HS 03/30/16 [History] Losartan [Cozaar] 50 mg PO BID 04/27/16 [History] Apixaban [Eliquis] 2.5 mg PO BID 04/30/16 [History] Magnesium Gluconate [Magonate] 500 mg PO DAILY 04/30/16 [History] Omeprazole [PriLOSEC] 40 mg PO DAILY 05/21/16 [History] Cod Liver Oil 1 cap PO DAILY 03/26/17 [History] Metoprolol Succinate (ER) [Toprol XL] 25 mg PO DAILY 03/26/17 [History] Zinc 50 mg PO DAILY 03/26/17 [History] Fluticasone Nasal [place] [Flonase Nasal [place]] 2 spr EA NOSTRIL RT-DAILY [History] Krill Oil 500 mg PO DAILY 01/20/18 [History] traMADol HCL [Ultram] 50 mg PO QID PRN 01/20/18 [History] Ciprofloxacin HCl [Cipro] 500 mg PO Q12HR #6 tablet 01/21/18 [Rx] Follow up Appointment(s)/Referral(s): Donna Dockery MD [STAFF PHYSICIAN] - 2 Weeks Maverick Gordillo Jr, DO [Primary Care Provider] - 1 Week Discharge Disposition: HOME SELF-CARE
--- NOTE | 2018-01-22 19:28 | ECHOF ---
Referral Reason:weakness, palpitations MEASUREMENTS -------- HEIGHT: 167.6 cm WEIGHT: 120.7 kg BP: 154/69 RVIDd: 3.3 cm (< 3.3) IVSd: 1.3 cm (0.6 - 1.1) LVIDd: 4.9 cm (3.9 - 5.3) LVPWd: 1.3 cm (0.6 - 1.1) IVSs: 1.7 cm LVIDs: 2.9 cm LVPWs: 1.5 cm LAESV Index (A-L): 26.66 ml/m Ao Diam: 3.5 cm (2.0 - 3.7) AV Cusp: 1.7 cm (1.5 - 2.6) LA Diam: 4.6 cm (2.7 - 3.8) MV E Dieudonne: 1.31 m/s MV DecT: 278 ms MV A [place]: 1.21 m/s MV E/A Ratio: 1.08 RAP: 5.00 mmHg RVSP: 42.71 mmHg MV EF SLOPE: 83.80 mm/s (70 - 150) MV EXCURSION: 1.82 cm (> 18.000) FINDINGS -------- Sinus rhythm. This was a technically difficult study with suboptimal views. The left ventricular size is normal. There is mild concentric left ventricular hypertrophy. Overa ll left ventricular systolic function is normal with, an EF between 55 - 60 %. The right ventricle is mildly enlarged. Normal LA size by volume 22+/-6 ml/m2. Electronic pacemaker lead seen in the right atrial cavity. RA appears enlarged. 3ml of Lumason was utilized for enhancement of images. The aortic valve is bicuspid. There is mild aortic valve sclerosis. There is no evidence of aorti c regurgitation. There is no evidence of aortic stenosis. Mild mitral annular calcification present. Mild mitral regurgitation is present. Mild tricuspid regurgitation present. There is mild pulmonary hypertension. The right ventricular systolic pressure, as measured by Doppler, is 42.71mmHg. Trace/mild (physiologic) pulmonic regurgitation. The aortic root size is normal. Normal inferior vena cava with normal inspiratory collapse consistent with estimated right atrial pre ssure of 5 mmHg. There is no pericardial effusion. CONCLUSIONS -------- 1. Sinus rhythm. 2. This was a technically difficult study with suboptimal views. 3. The left ventricular size is normal. 4. There is mild concentric left ventricular hypertrophy. 5. Overall left ventricular systolic function is normal with, an EF between 55 - 60 %. 6. The right ventricle is mildly enlarged. 7. Normal LA size by volume 22+/-6 ml/m2. 8. Electronic pacemaker lead seen in the right atrial cavity. 9. RA appears enlarged. 10. 3ml of Lumason was utilized for enhancement of images. 11. The aortic valve is bicuspid. 12. There is mild aortic valve sclerosis. 13. Mild mitral annular calcification present. 14. Mild mitral regurgitation is present. 15. Mild tricuspid regurgitation present. 16. There is mild pulmonary hypertension. 17. The right ventricular systolic pressure, as measured by Doppler, is 42.71mmHg. 18. Trace/mild (physiologic) pulmonic regurgitation. 19. The aortic root size is normal. 20. There is no pericardial effusion. ESTATE PLANNING ATTORNEY: Zachariah Turner RDCS
[2018-01-22] MEDS ORDERED: amLODIPine 5 MG TAB PO SCH (21:00)
[2018-01-23] MEDS ORDERED: LEVOTHYROXINE 50 MCG TAB PO SCH (06:30)
== END 2018-01-22 13:32 | disposition home or self-care (01) ==
LOC: EC 18:22 → 3OBS 22:02
PROVIDERS: ADMIT Family Medicine; ATTEND Family Medicine
DX: N39.0 Urinary tract infection, site not specified (principal); I48.0 Paroxysmal atrial fibrillation; I10 Essential (primary) hypertension; E78.5 Hyperlipidemia, unspecified; I49.5 Sick sinus syndrome; E03.9 Hypothyroidism, unspecified; J30.2 Other seasonal allergic rhinitis; J45.909 Unspecified asthma, uncomplicated; E66.01 Morbid (severe) obesity due to excess calories; Z68.41 Body mass index [BMI] 40.0-44.9, adult; M19.90 Unspecified osteoarthritis, unspecified site; K21.9 Gastro-esophageal reflux disease without esophagitis; K57.90 Diverticulosis of intestine, part unspecified, without perforation or abscess without bleeding; I83.91 Asymptomatic varicose veins of right lower extremity; Z95.0 Presence of cardiac pacemaker; Z79.01 Long term (current) use of anticoagulants; Z79.899 Other long term (current) drug therapy; Z79.51 Long term (current) use of inhaled steroids; Z88.5 Allergy status to narcotic agent; Z88.0 Allergy status to penicillin; Z88.2 Allergy status to sulfonamides; Z88.8 Allergy status to other drugs, medicaments and biological substances; Z91.041 Radiographic dye allergy status; Z91.048 Other nonmedicinal substance allergy status; Z82.5 Family history of asthma and other chronic lower respiratory diseases; Z83.49 Family history of other endocrine, nutritional and metabolic diseases; Z83.1 Family history of other infectious and parasitic diseases
CPT/HCPCS: 36415; 70450; 71046; 80053; 80061; 81001; 82550; 82553; 83605; 83735; 83880; 84443; 84484; 85025; 85610; 85730; 87077; 87086; 87186; 93005; 93306; 96361; 96374; 96375; 96376; 99285

== ENCOUNTER 2019-01-02 21:14 | Emergency (ER) | payer MEDICARE, BC ==
[2019-01-02] MEDS ORDERED: SODIUM CHLORIDE 0.9% 500 ML 500 ML IV STA (22:26)
[2019-01-02 22:46] LABS: Basophils % (A) 1 %; Eosinophils # (A) 0.2 k/uL (0-0.7); Eosinophils % (A) 3 %; HCT 39.2 % (34.0-46.0); HGB 12.5 gm/dL (11.4-16.0); Lymphocytes # (A) 2.8 k/uL (1.0-4.8); Lymphocytes % (A) 40 %; MCH 27.8 pg (25.0-35.0); MCHC 31.8 g/dL (31.0-37.0); MCV 87.2 fL (80.0-100.0); Mean Platelet Volume 6.3; Monocytes # (A) 0.5 k/uL (0-1.0); Monocytes % (A) 7 %; Neutrophils # (A) 3.3 k/uL (1.3-7.7); Neutrophils % (A) 47 %; Platelet Count 259 k/uL (150-450); RDW 14.3 % (11.5-15.5)
[2019-01-02 22:53] LABS: Prothrombin Time 10.3 sec (9.0-12.0)
[2019-01-02 22:54] LABS: Albumin 3.9 g/dL (3.5-5.0); Calcium 9.6 mg/dL (8.4-10.2); Potassium 4.1 mmol/L (3.5-5.1); Total Bilirubin 0.4 mg/dL (0.2-1.3); Total Protein 7.1 g/dL (6.3-8.2)
[2019-01-02 23:55] VITALS: RESP 18
[2019-01-03 00:01] LABS: Appearance,Urine Cloudy (Clear); Bacteria,Urine Rare /hpf; Bilirubin,Urine Negative (Negative); Blood,Urine Negative (Negative); Color,Urine Light Yellow; Glucose,Urine (UA) Negative (Negative); Ketones,Urine Negative (Negative); Leukocyte Esterase,Urine Large (Negative); Nitrite,Urine Negative (Negative); PH, Urine 6.5 (5.0-8.0); Protein,Urine Negative (Negative); RBC,Urine 3 /hpf (0-5); Specific Gravity,Urine 1.007 (1.001-1.035); Squamous Epithelial Cell,Urine 1 /hpf (0-4); Urobilinogen,Urine <2.0 mg/dL (<2.0); WBC,Urine 36 /hpf (0-5)
--- NOTE | 2019-01-03 01:16 | ED ---
Recheck HPI - General Chief Complaint: Recheck/Abnormal Lab/Rx Stated Complaint: Hypertension Time Seen by Provider: 01/02/19 21:38 Source: patient, EMS Mode of arrival: EMS Limitations: no limitations - History of Present Illness Initial Comments: 78-year-old female patient presents to the emergency department today for evaluation of elevated blood pressure. Patient states that she was feeling lightheaded earlier so she checked her blood pressure and was elevated at the systolic in the 200s. Patient states she called EMS at that time and presented here for further evaluation. Patient states she is still feeling somewhat lightheaded, states he feels that the room is spinning. She denies any blurred or double vision with this. Denies any headache, chest pain, shortness of breath, weakness to her extremities, numbness, or tingling. Denies any nausea or vomiting. Patient denies any recent rash, abdominal pain, nausea, vomiting, diarrhea, constipation, back pain, hematuria, dysuria, urinary urgency, urinary frequency, or any other complaints. - Related Data Home Medications Medication Instructions Recorded Confirmed Pravastatin Sodium [Pravachol] 40 mg PO HS 11/27/14 01/20/18 Potassium Chloride [K-Tab ER] 10 meq PO DAILY 04/11/15 01/20/18 Acetaminophen Tab [Tylenol] 500 - 1,000 mg PO Q6H PRN 11/24/15 01/20/18 Furosemide [Lasix] 20 mg PO DAILY 11/24/15 01/20/18 amLODIPine [Norvasc] 5 mg PO DAILY 11/24/15 01/20/18 Montelukast [Singulair] 10 mg PO HS 03/30/16 01/20/18 Losartan [Cozaar] 50 mg PO BID 04/27/16 01/20/18 Apixaban [Eliquis] 2.5 mg PO BID 04/30/16 01/20/18 Magnesium Gluconate [Magonate] 500 mg PO DAILY 04/30/16 01/20/18 Omeprazole [PriLOSEC] 40 mg PO DAILY 05/21/16 01/20/18 Cod Liver Oil 1 cap PO DAILY 03/26/17 01/20/18 Metoprolol Succinate (ER) [Toprol 25 mg PO DAILY 03/26/17 01/20/18 XL] Zinc 50 mg PO DAILY 03/26/17 01/20/18 Fluticasone Nasal [place] [Flonase 2 spr EA NOSTRIL RT-DAILY 01/20/18 01/20/18 Nasal [place]] Krill Oil 500 mg PO DAILY 01/20/18 01/20/18 traMADol HCL [Ultram] 50 mg PO QID PRN 01/20/18 01/20/18 Previous Rx's Medication Instructions Recorded Ciprofloxacin HCl [Cipro] 500 mg PO Q12HR #6 tablet 01/21/18 Allergies Allergy/AdvReac Type Severity Reaction Status Date / Time codeine Allergy Unknown Verified 01/20/18 19:53 hydromorphone HCl Allergy Unknown Verified 01/20/18 19:53 [From Dilaudid] Iodinated Contrast- Oral and Allergy Unknown Verified 01/20/18 19:53 IV Dye [Iodinated Contrast Media - IV Dye] iodine Allergy Unknown Verified 01/20/18 19:53 meperidine HCl [From Demerol] Allergy Unknown Verified 01/20/18 19:53 nalbuphine HCl [From Nubain] Allergy Unknown Verified 01/20/18 19:53 Penicillins Allergy Unknown Verified 01/20/18 19:53 Sulfa (Sulfonamide Allergy Unknown Verified 01/20/18 19:53 Antibiotics) Review of Systems ROS Statement: Those systems with pertinent positive or pertinent negative responses have been documented in the HPI. ROS Other: All systems not noted in ROS Statement are negative. Past Medical History Past Medical History: Atrial Fibrillation, Asthma, GERD/Reflux, Hyperlipidemia, Hypertension, Osteoarthritis (OA), Thyroid Disorder Additional Past Medical History / Comment(s): 03/30/16 for Afib RVR tx with cardizem/tachybrady syndrome and had pacer insertion. 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 History of Any Multi-Drug Resistant Organisms: None Reported Past Surgical History: Adenoidectomy, Cholecystectomy, Joint Replacement, Orthopedic Surgery, Pacemaker, Tonsillectomy Additional Past Surgical History / Comment(s): bartholin cyst surgical procedure , R eye with retinal repair, rk, cataract removal and macular wrinkle repair, partial replacement lt shoulder and left knee replacement, 2006 Heart Cath (no intervention), colonoscopy, R cheek melanoma removal, D&C, vaginal cystectomy, L breast benign bx. Past Anesthesia/Blood Transfusion Reactions: Motion Sickness, Postoperative Nausea & Vomiting (PONV) Type of Cardiac Device: Permanent Pacemaker Device Placement Date:: 04/02/16 Past Psychological History: No Psychological Hx Reported Smoking Status: Never smoker Past Alcohol Use History: None Reported Past Drug Use History: None Reported - Past Family History Mother Family Medical History: Asthma, Thyroid Disorder Additional Family Medical History / Comment(s): thyroid nodule. bronchitis Father Family Medical History: Respiratory Disorder Additional Family Medical History / Comment(s): at age 46 addisons disease( stopped taking his steroids), also had tb General Exam Limitations: no limitations General appearance: alert, in no apparent distress, other (Physical well- developed, well-nourished elderly female patient in no acute distress. Vital signs upon presentation are temperature 97.7F, pulse 64, respirations 18, blood pressure 182/88, pulse ox 99% on room air.) Eye exam: Present: normal appearance, PERRL, EOMI. Absent: scleral icterus, conjunctival injection, nystagmus, periorbital swelling ENT exam: Present: normal exam, normal oropharynx, mucous membranes moist Respiratory exam: Present: normal lung sounds bilaterally. Absent: respiratory distress, wheezes, rales, rhonchi, stridor Cardiovascular Exam: Present: regular rate, normal rhythm, normal heart sounds. Absent: systolic murmur, diastolic murmur, rubs, gallop, clicks GI/Abdominal exam: Present: soft, normal bowel sounds. Absent: distended, tenderness, guarding, rebound, rigid Neurological exam: Present: alert, oriented X3, CN II-XII intact, other ( Strength in all 4 extremities is 5/5.) Psychiatric exam: Present: normal affect, normal mood Skin exam: Present: warm, dry, intact, normal color. Absent: rash Course Vital Signs 01/02/19 01/02/19 01/02/19 21:19 21:20 21:22 Temperature 97.7 F Pulse Rate 64 Respiratory 18 Rate Blood Pressure 182/88 O2 Sat by Pulse 99 96 98 Oximetry 01/02/19 01/02/19 01/02/19 21:24 21:26 21:28 Temperature Pulse Rate 68 Respiratory 18 Rate Blood Pressure 182/88 182/88 182/88 O2 Sat by Pulse 97 99 100 Oximetry 01/02/19 01/02/19 01/02/19 21:30 21:32 21:34 Temperature Pulse Rate 61 64 60 Respiratory 16 8 L 8 L Rate Blood Pressure 170/89 170/89 170/89 O2 Sat by Pulse 98 99 97 Oximetry 01/02/19 01/02/19 01/02/19 21:36 21:38 21:40 Temperature Pulse Rate 62 64 70 Respiratory 12 14 14 Rate Blood Pressure 170/89 170/89 170/89 O2 Sat by Pulse 96 95 Oximetry 01/02/19 01/02/19 01/02/19 21:42 21:44 21:46 Temperature Pulse Rate 63 64 72 Respiratory 23 14 28 H Rate Blood Pressure 170/89 170/89 170/89 O2 Sat by Pulse Oximetry 01/02/19 01/02/19 01/02/19 21:48 21:50 21:52 Temperature Pulse Rate 61 60 Respiratory 28 H 6 L 12 Rate Blood Pressure 170/89 170/89 170/89 O2 Sat by Pulse Oximetry 01/02/19 01/02/19 01/02/19 21:54 21:56 21:58 Temperature Pulse Rate 69 Respiratory 22 20 12 Rate Blood Pressure 170/89 170/89 170/89 O2 Sat by Pulse Oximetry 01/02/19 01/02/19 01/02/19 22:00 22:02 22:04 Temperature Pulse Rate 60 Respiratory 25 H 17 21 Rate Blood Pressure 170/89 170/89 173/82 O2 Sat by Pulse Oximetry 01/02/19 01/02/19 01/02/19 22:30 23:00 23:30 Temperature Pulse Rate 67 60 Respiratory 19 14 18 Rate Blood Pressure 173/82 169/82 163/72 O2 Sat by Pulse 95 95 Oximetry 01/03/19 01:43 Temperature 97.9 F Pulse Rate 80 Respiratory 18 Rate Blood Pressure 144/82 O2 Sat by Pulse 98 Oximetry Medical Decision Making - Medical Decision Making 78-year-old female patient presents to the emergency department today for evaluation of dizziness and elevated blood pressure. Physical examination is unremarkable. Patient is neurologically intact with no focal deficits. Labs reviewed and were unremarkable. Patient's blood pressure did improve while in the emergency department. We did give IV fluids as well as some evidence of dehydration with an elevated BUN. Give IV fluids. She does report improvement of dizziness. She was able to ambulate in the department without difficulty. We'll discharge home at this time with instructions to increase fluids, keep a log of blood pressures and have her follow-up with her primary care physician for further evaluation. Return parameters were discussed in detail. She verbalizes understanding and agrees with this plan. - Lab Data Result diagrams: 01/02/19 22:25 01/02/19 22:25 Lab Results 01/02/19 01/02/19 01/02/19 Range/Units 22:25 22:25 22:25 WBC 7.0 (3.8-10.6) k/uL RBC 4.50 (3.80-5.40) m/uL Hgb 12.5 (11.4-16.0) gm/dL Hct 39.2 (34.0-46.0) % MCV 87.2 (80.0-100.0) fL MCH 27.8 (25.0-35.0) pg MCHC 31.8 (31.0-37.0) g/dL RDW 14.3 (11.5-15.5) % Plt Count 259 (150-450) k/uL Neutrophils % 47 % Lymphocytes % 40 % Monocytes % 7 % Eosinophils % 3 % Basophils % 1 % Neutrophils # 3.3 (1.3-7.7) k/uL Lymphocytes # 2.8 (1.0-4.8) k/uL Monocytes # 0.5 (0-1.0) k/uL Eosinophils # 0.2 (0-0.7) k/uL Basophils # 0.0 (0-0.2) k/uL PT 10.3 (9.0-12.0) sec INR 1.0 (<1.2) Sodium 137 (137-145) mmol/L Potassium 4.1 (3.5-5.1) mmol/L Chloride 105 (98-107) mmol/L Carbon Dioxide 28 (22-30) mmol/L Anion Gap 4 mmol/L BUN 22 H (7-17) mg/dL Creatinine 0.80 (0.52-1.04) mg/dL Est GFR (CKD-EPI)AfAm 81 (>60 ml/min/1.73 sqM) Est GFR (CKD-EPI)NonAf 71 (>60 ml/min/1.73 sqM) Glucose 101 H (74-99) mg/dL Calcium 9.6 (8.4-10.2) mg/dL Total Bilirubin 0.4 (0.2-1.3) mg/dL AST 21 (14-36) U/L ALT 26 (9-52) U/L Alkaline Phosphatase 111 (38-126) U/L Troponin I (0.000-0.034) ng/mL Total Protein 7.1 (6.3-8.2) g/dL Albumin 3.9 (3.5-5.0) g/dL Urine Color Urine Appearance (Clear) Urine pH (5.0-8.0) Ur Specific [place] (1.001-1.035) Urine Protein (Negative) Urine Glucose (UA) (Negative) Urine Ketones (Negative) Urine Blood (Negative) Urine Nitrite (Negative) Urine Bilirubin (Negative) Urine Urobilinogen (<2.0) mg/dL Ur Leukocyte Esterase (Negative) Urine RBC (0-5) /hpf Urine WBC (0-5) /hpf Ur Squamous Epith Cells (0-4) /hpf Urine Bacteria (None) /hpf 01/02/19 01/02/19 Range/Units 22:25 23:15 WBC (3.8-10.6) k/uL RBC (3.80-5.40) m/uL Hgb (11.4-16.0) gm/dL Hct (34.0-46.0) % MCV (80.0-100.0) fL MCH (25.0-35.0) pg MCHC (31.0-37.0) g/dL RDW (11.5-15.5) % Plt Count (150-450) k/uL Neutrophils % % Lymphocytes % % Monocytes % % Eosinophils % % Basophils % % Neutrophils # (1.3-7.7) k/uL Lymphocytes # (1.0-4.8) k/uL Monocytes # (0-1.0) k/uL Eosinophils # (0-0.7) k/uL Basophils # (0-0.2) k/uL PT (9.0-12.0) sec INR (<1.2) Sodium (137-145) mmol/L Potassium (3.5-5.1) mmol/L Chloride (98-107) mmol/L Carbon Dioxide (22-30) mmol/L Anion Gap mmol/L BUN (7-17) mg/dL Creatinine (0.52-1.04) mg/dL Est GFR (CKD-EPI)AfAm (>60 ml/min/1.73 sqM) Est GFR (CKD-EPI)NonAf (>60 ml/min/1.73 sqM) Glucose (74-99) mg/dL Calcium (8.4-10.2) mg/dL Total Bilirubin (0.2-1.3) mg/dL AST (14-36) U/L ALT (9-52) U/L Alkaline Phosphatase (38-126) U/L Troponin I <0.012 (0.000-0.034) ng/mL Total Protein (6.3-8.2) g/dL Albumin (3.5-5.0) g/dL Urine Color Light Yellow Urine Appearance Cloudy H (Clear) Urine pH 6.5 (5.0-8.0) Ur Specific [place] 1.007 (1.001-1.035) Urine Protein Negative (Negative) Urine Glucose (UA) Negative (Negative) Urine Ketones Negative (Negative) Urine Blood Negative (Negative) Urine Nitrite Negative (Negative) Urine Bilirubin Negative (Negative) Urine Urobilinogen <2.0 (<2.0) mg/dL Ur Leukocyte Esterase Large H (Negative) Urine RBC 3 (0-5) /hpf Urine WBC 36 H (0-5) /hpf Ur Squamous Epith Cells 1 (0-4) /hpf Urine Bacteria Rare H (None) /hpf - EKG Data -: EKG Interpreted by Tx EKG Comments: EKG obtained at 2207 shows sinus rhythm with a first-degree AV block, ventricular rate is 67, MO interval 236, QR buddhism 98, QTC 418, QTC 441. There are some paced beats. Disposition Clinical Impression: Dizziness, Dehydration, Hypertension Disposition: HOME SELF-CARE Condition: Good Instructions (If sedation given, give patient instructions): Dehydration (ED), Hypertension (ED), Dizziness (ED) Additional Instructions: Increase fluids. Follow-up with your primary care physician for recheck as soon as possible, take a list of your blood pressures. Return to the emergency department immediately for any new, worsening, or concerning symptoms. Is patient prescribed a controlled substance at d/c from ED?: No Referrals: Maverick Gordillo Jr, [Primary Care Provider] - 1-2 days Time of Disposition: 01:16
[2019-01-03 01:44] VITALS: BP 144/82; PULSE 80; TEMP 97.9
== END 2019-01-03 01:43 | disposition home or self-care (01) ==
LOC: EC 21:14
DX: I10 Essential (primary) hypertension (principal); E86.0 Dehydration; I44.0 Atrioventricular block, first degree; R79.89 Other specified abnormal findings of blood chemistry; I48.91 Unspecified atrial fibrillation; J45.909 Unspecified asthma, uncomplicated; K21.9 Gastro-esophageal reflux disease without esophagitis; E78.5 Hyperlipidemia, unspecified; M19.90 Unspecified osteoarthritis, unspecified site; Z88.0 Allergy status to penicillin; Z88.2 Allergy status to sulfonamides; Z88.5 Allergy status to narcotic agent; Z91.041 Radiographic dye allergy status; Z91.048 Other nonmedicinal substance allergy status; Z79.01 Long term (current) use of anticoagulants; Z79.51 Long term (current) use of inhaled steroids; Z79.899 Other long term (current) drug therapy; Z95.0 Presence of cardiac pacemaker; Z96.612 Presence of left artificial shoulder joint; Z96.652 Presence of left artificial knee joint; Z85.820 Personal history of malignant melanoma of skin; Z98.890 Other specified postprocedural states
CPT/HCPCS: 36415; 80053; 81001; 84484; 85025; 85610; 93005; 99284

== ENCOUNTER 2019-03-28 05:14 | Observation (INO) | payer MEDICARE, BC ==
[2019-03-28 05:28] VITALS: RESP 18
[2019-03-28] MEDS ORDERED: METOPROLOL TARTRATE 5 MG/5 ML VIAL IVP STA (05:33)
[2019-03-28] MEDS ORDERED: METOPROLOL SUCCINATE (ER) 25 MG TAB.ER.24H PO STA (05:33)
--- NOTE | 2019-03-28 05:36 | ED ---
Arrhythmia/Palpitations HPI - General Chief Complaint: Arrhythmia/Palpitations Stated Complaint: Palpitations Time Seen by Provider: 03/28/19 05:19 Source: patient, EMS Mode of arrival: EMS Limitations: no limitations - History of Present Illness Initial Comments: Earliness of pleasant 78-year-old female with a history of paroxysmal atrial fibrillation who presents to the emergency department today because she's been experiencing palpitations all night which kept her from sleeping. After this persisted for a number of hours she decided to come the ER for evaluation. Denies any chest pain or shortness of breath. EMS reports that upon their arrival and placement on the desk monitor and noted the patient had heart rates ranging from the 60s to 140 with atrial fibrillation with occasional episodes of RVR. - Related Data Home Medications Medication Instructions Recorded Confirmed Pravastatin Sodium [Pravachol] 40 mg PO HS 11/27/14 01/20/18 Potassium Chloride [K-Tab ER] 10 meq PO DAILY 04/11/15 01/20/18 Acetaminophen Tab [Tylenol] 500 - 1,000 mg PO Q6H PRN 11/24/15 01/20/18 Furosemide [Lasix] 20 mg PO DAILY 11/24/15 01/20/18 amLODIPine [Norvasc] 5 mg PO DAILY 11/24/15 01/20/18 Montelukast [Singulair] 10 mg PO HS 03/30/16 01/20/18 Losartan [Cozaar] 50 mg PO BID 04/27/16 01/20/18 Apixaban [Eliquis] 2.5 mg PO BID 04/30/16 01/20/18 Magnesium Gluconate [Magonate] 500 mg PO DAILY 04/30/16 01/20/18 Omeprazole [PriLOSEC] 40 mg PO DAILY 05/21/16 01/20/18 Cod Liver Oil 1 cap PO DAILY 03/26/17 01/20/18 Metoprolol Succinate (ER) [Toprol 25 mg PO DAILY 03/26/17 01/20/18 XL] Zinc 50 mg PO DAILY 03/26/17 01/20/18 Fluticasone Nasal [place] [Flonase 2 spr EA NOSTRIL RT-DAILY 01/20/18 01/20/18 Nasal [place]] Krill Oil 500 mg PO DAILY 01/20/18 01/20/18 traMADol HCL [Ultram] 50 mg PO QID PRN 01/20/18 01/20/18 Previous Rx's Medication Instructions Recorded Ciprofloxacin HCl [Cipro] 500 mg PO Q12HR #6 tablet 01/21/18 Allergies Allergy/AdvReac Type Severity Reaction Status Date / Time codeine Allergy Unknown Verified 01/20/18 19:53 hydromorphone HCl Allergy Unknown Verified 01/20/18 19:53 [From Dilaudid] Iodinated Contrast- Oral and Allergy Unknown Verified 01/20/18 19:53 IV Dye [Iodinated Contrast Media - IV Dye] iodine Allergy Unknown Verified 01/20/18 19:53 meperidine HCl [From Demerol] Allergy Unknown Verified 01/20/18 19:53 nalbuphine HCl [From Nubain] Allergy Unknown Verified 01/20/18 19:53 Penicillins Allergy Unknown Verified 01/20/18 19:53 Sulfa (Sulfonamide Allergy Unknown Verified 01/20/18 19:53 Antibiotics) Review of Systems ROS Statement: Those systems with pertinent positive or pertinent negative responses have been documented in the HPI. ROS Other: All systems not noted in ROS Statement are negative. Past Medical History Past Medical History: Atrial Fibrillation, Asthma, GERD/Reflux, Hyperlipidemia, Hypertension, Osteoarthritis (OA), Thyroid Disorder Additional Past Medical History / Comment(s): 03/30/16 for Afib RVR tx with cardizem/tachybrady syndrome and had pacer insertion. 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 History of Any Multi-Drug Resistant Organisms: None Reported Past Surgical History: Adenoidectomy, Cholecystectomy, Joint Replacement, Ort hopedic Surgery, Pacemaker, Tonsillectomy Additional Past Surgical History / Comment(s): bartholin cyst surgical procedure, R eye with retinal repair, rk, cataract removal and macular wrinkle repair, partial replacement lt shoulder and left knee replacement, 2006 Heart Cath (no intervention), colonoscopy, R cheek melanoma removal, D&C, vaginal cystectomy, L breast benign bx. Past Anesthesia/Blood Transfusion Reactions: Motion Sickness, Postoperative Nausea & Vomiting (PONV) Type of Cardiac Device: Permanent Pacemaker Device Placement Date:: 04/02/16 Past Psychological History: No Psychological Hx Reported Smoking Status: Never smoker Past Alcohol Use History: None Reported Past Drug Use History: None Reported - Past Family History Mother Family Medical History: Asthma, Thyroid Disorder Additional Family Medical History / Comment(s): thyroid nodule. bronchitis Father Family Medical History: Respiratory Disorder Additional Family Medical History / Comment(s): at age 46 addisons disease(stopped taking his steroids), also had tb General Exam - General Exam Comments Initial Comments: Physical Exam GENERAL: Patient is well-developed and well-nourished. Patient is nontoxic and well- hydrated and is in no distress. HENT: Normocephalic, Atraumatic. EYES: PERRL, EOMI PULMONARY: Unlabored respirations. No audible rales rhonchi or wheezing was noted. CARDIOVASCULAR: Tachycardic, irregularly irregular wArm and well perfused extremities One plus pitting edema bilaterally her extremities ABDOMEN: Soft and nontender with normal bowel sounds. SKIN: Skin is clear with no lesions or rashes and otherwise unremarkable. : Deferred NEUROLOGIC: Patient is alert and oriented x3. Moving all extremities spontaneously MUSCULOSKELETAL: Normal extremities with adequate strength and full range of motion. No lower extremity swelling or edema. No calf tenderness. PSYCHIATRIC: Normal psychiatric evaluation. Limitations: no limitations Limitations: no limitations Course Vital Signs 03/28/19 03/28/19 03/28/19 05:24 05:52 06:23 Temperature 97.4 F L Pulse Rate 112 H 108 H 89 Respiratory 18 18 18 Rate Blood Pressure 141/111 128/99 102/88 O2 Sat by Pulse 97 98 94 L Oximetry 03/28/19 07:17 Temperature Pulse Rate 78 Respiratory 18 Rate Blood Pressure 130/71 O2 Sat by Pulse 95 Oximetry EKG Findings - EKG Comments: EKG Findings:: EKG was obtained for evaluation of palpitations, EKG obtained at 5:20 AM. EKG with a rate of 102 rhythm is narrow complex irregularly irregular tachycardia consistent with atrial fibrillation, there is leftward axis there are normal intervals, QRS 84, QTC [address] elevations or depressions there is no evidence of acute ischemia or infarction. Medical Decision Making - Medical Decision Making Patient was seen and evaluated history was obtained from patient and review of medical record Patient has a history of A. fib with RVR patient's having heart rates ranging from the 80s to 160s Push dose Lopressor ordered By mouth dose of Lopressor was ordered The patient agreed improving, usually in the 80s does increase to the 120s but then returns to the 60s to 80s at this time I don't feel the patient requires any further medications her heart rate is usually's low her blood pressure stable she's not having chest pain. Patient care was discussed with her primary care physician who agrees with plan for placing the patient in observation with a consult to cardiology. - Lab Data Result diagrams: 03/28/19 05:36 03/28/19 05:36 Lab Results 03/28/19 03/28/19 03/28/19 Range/Units 05:36 05:36 05:36 WBC 8.7 (3.8-10.6) k/uL RBC 4.87 (3.80-5.40) m/uL Hgb 12.9 (11.4-16.0) gm/dL Hct 41.8 (34.0-46.0) % MCV 85.9 (80.0-100.0) fL MCH 26.4 (25.0-35.0) pg MCHC 30.8 L (31.0-37.0) g/dL RDW 14.1 (11.5-15.5) % Plt Count 293 (150-450) k/uL Neutrophils % 45 % Lymphocytes % 44 % Monocytes % 6 % Eosinophils % 3 % Basophils % 1 % Neutrophils # 3.9 (1.3-7.7) k/uL Lymphocytes # 3.8 (1.0-4.8) k/uL Monocytes # 0.5 (0-1.0) k/uL Eosinophils # 0.2 (0-0.7) k/uL Basophils # 0.1 (0-0.2) k/uL PT (9.0-12.0) sec INR (<1.2) APTT (22.0-30.0) sec Sodium 139 (137-145) mmol/L Potassium 3.9 (3.5-5.1) mmol/L Chloride 105 (98-107) mmol/L Carbon Dioxide 27 (22-30) mmol/L Anion Gap 7 mmol/L BUN 15 (7-17) mg/dL Creatinine 0.58 (0.52-1.04) mg/dL Est GFR (CKD-EPI)AfAm >90 (>60 ml/min/1.73 sqM) Est GFR (CKD-EPI)NonAf 88 (>60 ml/min/1.73 sqM) Glucose 115 H (74-99) mg/dL Calcium 10.1 (8.4-10.2) mg/dL Magnesium 1.9 (1.6-2.3) mg/dL Total Bilirubin 0.4 (0.2-1.3) mg/dL AST 28 (14-36) U/L ALT 29 (9-52) U/L Alkaline Phosphatase 126 (38-126) U/L Troponin I (0.000-0.034) ng/mL NT-Pro-B Natriuret Pep 372 pg/mL Total Protein 7.5 (6.3-8.2) g/dL Albumin 4.3 (3.5-5.0) g/dL TSH 1.910 (0.465-4.680) mIU/L 03/28/19 03/28/19 Range/Units 05:36 05:36 WBC (3.8-10.6) k/uL RBC (3.80-5.40) m/uL Hgb (11.4-16.0) gm/dL Hct (34.0-46.0) % MCV (80.0-100.0) fL MCH (25.0-35.0) pg MCHC (31.0-37.0) g/dL RDW (11.5-15.5) % Plt Count (150-450) k/uL Neutrophils % % Lymphocytes % % Monocytes % % Eosinophils % % Basophils % % Neutrophils # (1.3-7.7) k/uL Lymphocytes # (1.0-4.8) k/uL Monocytes # (0-1.0) k/uL Eosinophils # (0-0.7) k/uL Basophils # (0-0.2) k/uL PT 9.7 (9.0-12.0) sec INR 0.9 (<1.2) APTT 25.3 (22.0-30.0) sec Sodium (137-145) mmol/L Potassium (3.5-5.1) mmol/L Chloride (98-107) mmol/L Carbon Dioxide (22-30) mmol/L Anion Gap mmol/L BUN (7-17) mg/dL Creatinine (0.52-1.04) mg/dL Est GFR (CKD-EPI)AfAm (>60 ml/min/1.73 sqM) Est GFR (CKD-EPI)NonAf (>60 ml/min/1.73 sqM) Glucose (74-99) mg/dL Calcium (8.4-10.2) mg/dL Magnesium (1.6-2.3) mg/dL Total Bilirubin (0.2-1.3) mg/dL AST (14-36) U/L ALT (9-52) U/L Alkaline Phosphatase (38-126) U/L Troponin I <0.012 (0.000-0.034) ng/mL NT-Pro-B Natriuret Pep pg/mL Total Protein (6.3-8.2) g/dL Albumin (3.5-5.0) g/dL TSH (0.465-4.680) mIU/L Disposition Clinical Impression: Atrial fibrillation with RVR Disposition: ADMITTED IP TO THIS HOSP Condition: Stable Is patient prescribed a controlled substance at d/c from ED?: No
[2019-03-28 05:51] LABS: Basophils # (A) 0.1 k/uL (0-0.2); Basophils % (A) 1 %; Eosinophils # (A) 0.2 k/uL (0-0.7); Eosinophils % (A) 3 %; HCT 41.8 % (34.0-46.0); HGB 12.9 gm/dL (11.4-16.0); Lymphocytes # (A) 3.8 k/uL (1.0-4.8); Lymphocytes % (A) 44 %; MCH 26.4 pg (25.0-35.0); MCHC 30.8 g/dL (31.0-37.0); MCV 85.9 fL (80.0-100.0); Mean Platelet Volume 6.7; Monocytes # (A) 0.5 k/uL (0-1.0); Monocytes % (A) 6 %; Neutrophils # (A) 3.9 k/uL (1.3-7.7); Neutrophils % (A) 45 %; Platelet Count 293 k/uL (150-450); RBC 4.87 m/uL (3.80-5.40); RDW 14.1 % (11.5-15.5); WBC 8.7 k/uL (3.8-10.6)
[2019-03-28 06:00] LABS: ALT 29 U/L (9-52); AST 28 U/L (14-36); Albumin 4.3 g/dL (3.5-5.0); Alkaline Phosphatase 126 U/L (38-126); Anion Gap 7 mmol/L; Blood Urea Nitrogen 15 mg/dL (7-17); Calcium 10.1 mg/dL (8.4-10.2); Carbon Dioxide 27 mmol/L (22-30); Chloride 105 mmol/L (98-107); Glucose 115 mg/dL (74-99); Magnesium 1.9 mg/dL (1.6-2.3); Potassium 3.9 mmol/L (3.5-5.1); Sodium 139 mmol/L (137-145); Total Bilirubin 0.4 mg/dL (0.2-1.3); Total Protein 7.5 g/dL (6.3-8.2)
[2019-03-28 06:06] LABS: INR 0.9 (<1.2); Partial Thromboplastin Time 25.3 sec (22.0-30.0); Prothrombin Time 9.7 sec (9.0-12.0)
--- NOTE | 2019-03-28 06:06 | XR ---
EXAM: XR Chest, 1 View CLINICAL HISTORY: Chest pain TECHNIQUE: Frontal view of the chest. COMPARISON: Chest x-ray dated 01/20/2018 FINDINGS: Lungs: Prominence of the interstitium which may represent interstitial edema versus an infectious process. Pleural space: Unremarkable. No pneumothorax. Heart: Unremarkable. No cardiomegaly. Mediastinum: Unremarkable. Bones/joints: Left shoulder arthroplasty. Tubes, lines and devices: Dual-chamber cardiac pacemaker. IMPRESSION: Prominence of the interstitium which may represent interstitial edema versus an infectious process.
[2019-03-28] MEDS ORDERED: NALOXONE 0.4 MG/ML 1 ML VIAL IV PRN (06:34)
[2019-03-28] MEDS ORDERED: FLUTICASONE 50MCG/SPRAY NASAL 16GM EA NOSTRIL SCH (08:00)
[2019-03-28] MEDS ORDERED: APIXABAN 5 MG TAB PO SCH (10:00)
[2019-03-28] MEDS ORDERED: METOPROLOL SUCCINATE (ER) 25 MG TAB.ER.24H PO SCH (10:00)
[2019-03-28] MEDS ORDERED: ACETAMINOPHEN TAB 500 MG TAB PO PRN (11:11)
[2019-03-28] MEDS ORDERED: ALBUTEROL NEBULIZED 2.5 MG/3 ML INHALATION PRN (11:11)
--- NOTE | 2019-03-28 11:14 | P.HPIM ---
History of Present Illness H&P Date: 03/28/19 Chief Complaint: Palpitations, mid epigastric pressure This is a 78-year-old female admitted to the ER with complaints of palpitations, mid epigastric pressure in a patient with history of paroxysmal atrial fibrillation. Per ER, EMS reports variable rates ranging from 60s to 160s Denies chest pain, shortness of breath.BP stable. EKG reported atrial fibrillation, rate of 102, no acute ST elevations or depressions. Troponin less than 0.012 .Chest x-ray reporting prominence of interstitium, possible interstitial edema versus infectious. Patient reports she was at [facility] emergency on this past Thursday related to left hip and knee pain with DVT ruled out and sent back home. Afebrile, Normal WBC. Received a dose of metoprolol 5 mg IV push followed by oral metoprolol with significant clinical improvement. Reports she is scheduled to follow-up with Jodi Matt on 04/06 as well as her yearly pacemaker check on the . Review of Systems ROS Statement: Those systems with pertinent positive or pertinent negative responses have been documented in the HPI. ROS Other: All systems not noted in ROS Statement are negative. 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 History of Any Multi-Drug Resistant Organisms: None Reported Past Surgical History: Adenoidectomy, Cholecystectomy, Joint Replacement, Orthopedic Surgery, Pacemaker, Tonsillectomy Additional Past Surgical History / Comment(s): Bartholin cyst surgical procedure, R eye with retinal repair, R eye rk, R eye cataract removal and macular wrinkle repair, partial replacement lt shoulder and left knee replacement, 2006 Heart Cath (no intervention), colonoscopy, R cheek melanoma removal, D&C, vaginal cystectomy, L breast benign bx. Past Anesthesia/Blood Transfusion Reactions: Motion Sickness, Postoperative Nausea & Vomiting (PONV) Type of Cardiac Device: Permanent Pacemaker Device Placement Date:: 04/02/16 Smoking Status: Never smoker - Past Family History Mother Family Medical History: Asthma, Thyroid Disorder Additional Family Medical History / Comment(s): thyroid nodule. bronchitis Father Family Medical History: Respiratory Disorder Additional Family Medical History / Comment(s): at age 46 addisons disease(stopped taking his steroids), also had tb Medications and Allergies Home Medications Medication Instructions Recorded Confirmed Type Pravastatin Sodium [Pravachol] 40 mg PO HS 11/27/14 03/28/19 History Potassium Chloride [K-Tab ER] 10 meq PO DAILY 04/11/15 03/28/19 History Acetaminophen Tab [Tylenol] 1,000 mg PO TID PRN 11/24/15 03/28/19 History Furosemide [Lasix] 20 mg PO DAILY 11/24/15 03/28/19 History amLODIPine [Norvasc] 5 mg PO HS 11/24/15 03/28/19 History Montelukast [Singulair] 10 mg PO HS 03/30/16 03/28/19 History Magnesium Gluconate [Magonate] 500 mg PO DAILY 04/30/16 03/28/19 History Omeprazole [PriLOSEC] 40 mg PO DAILY 05/21/16 03/28/19 History Cod Liver Oil 1 cap PO DAILY 03/26/17 03/28/19 History Metoprolol Succinate (ER) [Toprol 25 mg PO DAILY 03/26/17 03/28/19 History XL] Zinc 50 mg PO DAILY 03/26/17 03/28/19 History Fluticasone Nasal [place] [Flonase 2 spr EA NOSTRIL RT-DAILY 01/20/18 03/28/19 History Nasal [place]] Albuterol Inhaler [Ventolin Hfa 1 - 2 puff INHALATION RT-Q6H PRN 03/28/19 03/28/19 History Inhaler] Apixaban [Eliquis] 5 mg PO BID 03/28/19 03/28/19 History Calcium Carbonate [Calcium] 600 mg PO DAILY 03/28/19 03/28/19 History Cyanocobalamin [Vitamin B-12] 500 mcg PO Q72H 03/28/19 03/28/19 History Levothyroxine Sodium [Synthroid] 50 mcg PO DAILY 03/28/19 03/28/19 History Multivitamins, Thera [Multivitamin 1 tab PO DAILY 03/28/19 03/28/19 History (formulary)] Allergies Allergy/AdvReac Type Severity Reaction Status Date / Time codeine Allergy Unknown Verified 03/28/19 07:36 hydromorphone HCl Allergy Unknown Verified 03/28/19 07:36 [From Dilaudid] Iodinated Contrast- Oral and Allergy Unknown Verified 03/28/19 07:36 IV Dye [Iodinated Contrast Media - IV Dye] iodine Allergy Unknown Verified 03/28/19 07:36 meperidine HCl [From Demerol] Allergy Unknown Verified 03/28/19 07:36 nalbuphine HCl [From Nubain] Allergy Unknown Verified 03/28/19 07:36 Penicillins Allergy Unknown Verified 03/28/19 07:36 Sulfa (Sulfonamide Allergy Unknown Verified 03/28/19 07:36 Antibiotics) Physical Exam Vitals: Vital Signs Temp Pulse Resp BP Pulse Ox 03/28/19 07:17 78 18 130/71 95 03/28/19 06:23 89 18 102/88 94 L 03/28/19 05:52 108 H 18 128/99 98 03/28/19 05:24 97.4 F L 112 H 18 141/111 97 Intake and Output 03/27/19 03/28/19 03/28/19 22:59 06:59 14:59 Other: Weight 124.284 kg PHYSICAL EXAM: VITAL SIGNS: As above GENERAL: Sitting up in stretcher, no acute distress HEENT: Conjunctivae normal. eyes normal. NECK: No JVD. No thyroid enlargement. No LNs CARDIOVASCULAR: S1, S2 regular, No murmur, rubs or gallops RESPIRATION: Unlabored, Breath sounds diminished in the bases. No rhonchi or crackles. No wheezing. No bronchial breathing. ABDOMEN: Soft, nondistended, nontender . No guarding. no masses palpable. Bowel sounds heard. LEGS: Positive edema. Positive pulses PSYCHIATRY: Alert and oriented -3, mood and affect normal. NERVOUS SYSTEM: Cranial N 2-12 grossly normal. Moves all 4 limbs. Diffuse weakness No focal deficits. Skin: Warm and dry, no lesions, no rash Lymphatic system. No LN neck axilla or groin. Results CBC & Chem 7: 03/28/19 05:36 03/28/19 05:36 Labs: Abnormal Lab Results - Last 24 Hours (Table) 03/28/19 03/28/19 Range/Units 05:36 05:36 MCHC 30.8 L (31.0-37.0) g/dL Glucose 115 H (74-99) mg/dL Thrombosis Risk Factor Assmnt - Choose All That Apply Any of the Below Risk Factors Present?: Yes Each Factor Represents 1 point: Obesity (BMI >25) Other Risk Factors: Yes Each Risk Factor Represents 2 Points: Malignancy Each Risk Factor Represents 3 Points: Age 75 years or older Other congenital or acquired thrombophilia - If yes, enter type in comment: No Thrombosis Risk Factor Assessment Total Risk Factor Score: 6 Thrombosis Risk Factor Assessment Level: High Risk Assessment and Plan Assessment: -Atrial fibrillation with RVR -Osteoarthritis -Gastroesophageal reflux disease -Hypertension -Hyperlipidemia -History of pacemaker, scheduled for yearly pacemaker check on the -Chronic back pain -History of diverticulitis, scheduled to see Dr. Jodi Matt on 04/06 -Hypothyroidism Plan: Continue on current medication regime ,monitoring and symptomatic treatment. Home meds have been reviewed and resumed. Anticoagulated on Eliquis-home med. Patient may be discharged home pending cardiology evalu ation/recommendations/clearance. The impression and plan of care has been dictated as directed. : I performed a history and examination of this patient, discussed the same with the dictator. I agree with the dictator's note ,documented as a scribe. Any additional findings or plans will be noted. Time taken: 35 minutes
[2019-03-28] MEDS ORDERED: PANTOPRAZOLE 40 MG TABLET PO SCH (11:15)
[2019-03-28] MEDS ORDERED: FUROSEMIDE 20 MG TAB PO SCH (11:15)
[2019-03-28] MEDS ORDERED: POTASSIUM CHLORIDE ER 10 MEQ TAB.ER.PRT PO SCH (11:15)
[2019-03-28] MEDS ORDERED: LEVOTHYROXINE 50 MCG TAB PO SCH (11:15)
--- NOTE | 2019-03-28 12:38 | ECHOF ---
Referral Reason:afib, MEASUREMENTS -------- HEIGHT: 165.1 cm WEIGHT: 124.3 kg BP: 130/1 RVIDd: 3.4 cm (< 3.3) IVSd: 1.4 cm (0.6 - 1.1) LVIDd: 2.8 cm (3.9 - 5.3) LVPWd: 1.6 cm (0.6 - 1.1) IVSs: 1.9 cm LVIDs: 2.2 cm LVPWs: 1.7 cm LA Diam: 4.3 cm (2.7 - 3.8) LAESV Index (A-L): 26.61 ml/m Ao Diam: 3.4 cm (2.0 - 3.7) AV Cusp: 1.6 cm (1.5 - 2.6) MV EXCURSION: 19.544 mm (> 18.000) MV EF SLOPE: 181 mm/s (70 - 150) EPSS: 0.4 cm RAP: 5.00 mmHg RVSP: 31.67 mmHg FINDINGS -------- Atrial fibrillation. This was a technically adequate study. The left ventricular size is normal. There is moderate concentric left ventricular hypertrophy. O verall left ventricular systolic function is mild-moderately impaired with, an EF between 40 - 45 %. The right ventricle is mildly enlarged. Normal LA size by volume 22+/-6 ml/m2. The right atrium is normal in size. Interatrial and interventricular septum intact. There is mild aortic valve sclerosis. Moderate mitral annular calcification present. Mild mitral regurgitation is present. Mild tricuspid regurgitation present. Right ventricular systolic pressure is normal at < 35 mmHg. The pulmonic valve was not well visualized. The aortic root size is normal. IVC Not well visulized. There is no pericardial effusion. CONCLUSIONS -------- 1. Atrial fibrillation. 2. This was a technically adequate study. 3. The left ventricular size is normal. 4. There is moderate concentric left ventricular hypertrophy. 5. Overall left ventricular systolic function is mild-moderately impaired with, an EF between 40 - 45 %. 6. The right ventricle is mildly enlarged. 7. Normal LA size by volume 22+/-6 ml/m2. 8. The right atrium is normal in size. 9. Interatrial and interventricular septum intact. 10. There is mild aortic valve sclerosis. 11. Moderate mitral annular calcification present. 12. Mild mitral regurgitation is present. 13. Mild tricuspid regurgitation present. 14. Right ventricular systolic pressure is normal at < 35 mmHg. 15. The pulmonic valve was not well visualized. 16. The aortic root size is normal. 17. IVC Not well visulized. 18. There is no pericardial effusion. [employer] ARCHITECT: Teetee Vera RDCS
--- NOTE | 2019-03-28 12:55 | P.DS ---
Providers Date of admission: 03/28/19 06:39 Expected date of discharge: 03/28/19 Attending physician: Maverick Gordillo Consults: 03/28/19 06:38 Consult Physician Urgent Consulting Provider: [facility] Consult Reason/Comments: afib rvr Do you want consulting provider notified?: Yes Primary care physician: [facility] Course: Final Diagnoses: -Atrial fibrillation with RVR reported outpatient per EMS -Osteoarthritis -Gastroesophageal reflux disease -Hypertension -Hyperlipidemia -History of pacemaker, scheduled for yearly pacemaker check on the -Chronic back pain -History of diverticulitis, scheduled to see Dr. Jodi Matt on 04/06 -Hypothyroidism Hospital course:This is a 78-year-old female admitted to the ER with complaints of palpitations, mid epigastric pressure in a patient with history of paroxysmal atrial fibrillation. Per ER, EMS reports variable rates ranging from 60s to 160s Denies chest pain, shortness of breath.BP stable. EKG reported atrial fibrillation, rate of 102, no acute ST elevations or depressions. Troponin less than 0.012 .Chest x-ray reporting prominence of interstitium, possible interstitial edema versus infectious. Patient reports she was at [facility] emergency on this past Thursday related to left hip and knee pain with DVT ruled out and sent back home. Afebrile, Normal WBC. Received a dose of m etoprolol 5 mg IV push followed by oral metoprolol with significant clinical improvement. Reports she is scheduled to follow-up with Jodi Matt on 04/06 as well as her yearly pacemaker check on the . Family at the cardiology. Echo performed reporting EF 40-45%. Cleared By cardiology for discharge with no medication changes at this time. Patient is being discharged home in a stable condition with guarded prognosis. EXAM: GENERAL: Alert and oriented 3, no acute distress CARDIOVASCULAR: S1, S2 regular, No murmur, rubs or gallops RESPIRATION: Unlabored, Breath sounds diminished in the bases. No rhonchi or crackles. No wheezing. ABDOMEN: Soft, nondistended, nontender . No guarding. no masses palpable. Bowel sounds heard. NERVOUS SYSTEM: No focal deficits. The impression and plan of care has been dictated as directed. : I performed a history and examination of this patient, discussed the same with the dictator. I agree with the dictator's note ,documented as a scribe. Any additional findings or plans will be noted. Time taken: 35 minutes Patient Condition at Discharge: Stable Plan - Discharge Summary Discharge Rx Participant: No New Discharge Prescriptions: Continue Pravastatin Sodium [Pravachol] 40 mg PO HS Potassium Chloride [K-Tab ER] 10 meq PO DAILY amLODIPine [Norvasc] 5 mg PO HS Furosemide [Lasix] 20 mg PO DAILY Acetaminophen Tab [Tylenol] 1,000 mg PO TID PRN PRN Reason: Pain Montelukast [Singulair] 10 mg PO HS Magnesium Gluconate [Magonate] 500 mg PO DAILY Omeprazole [PriLOSEC] 40 mg PO DAILY Metoprolol Succinate (ER) [Toprol XL] 25 mg PO DAILY Zinc 50 mg PO DAILY Cod Liver Oil 1 cap PO DAILY Fluticasone Nasal [place] [Flonase Nasal [place]] 2 spr EA NOSTRIL RT-DAILY Multivitamins, Thera [Multivitamin (formulary)] 1 tab PO DAILY Cyanocobalamin [Vitamin B-12] 500 mcg PO Q72H Calcium Carbonate [Calcium] 600 mg PO DAILY Albuterol Inhaler [Ventolin Hfa Inhaler] 1 - 2 puff INHALATION RT-Q6H PRN PRN Reason: Shortness Of Breath Levothyroxine Sodium [Synthroid] 50 mcg PO DAILY Apixaban [Eliquis] 5 mg PO BID Discharge Medication List Pravastatin Sodium [Pravachol] 40 mg PO HS 11/27/14 [History] Potassium Chloride [K-Tab ER] 10 meq PO DAILY 04/11/15 [History] Acetaminophen Tab [Tylenol] 1,000 mg PO TID PRN 11/24/15 [History] Furosemide [Lasix] 20 mg PO DAILY 11/24/15 [History] amLODIPine [Norvasc] 5 mg PO HS 11/24/15 [History] Montelukast [Singulair] 10 mg PO HS 03/30/16 [History] Magnesium Gluconate [Magonate] 500 mg PO DAILY 04/30/16 [History] Omeprazole [PriLOSEC] 40 mg PO DAILY 05/21/16 [History] Cod Liver Oil 1 cap PO DAILY 03/26/17 [History] Metoprolol Succinate (ER) [Toprol XL] 25 mg PO DAILY 03/26/17 [History] Zinc 50 mg PO DAILY 03/26/17 [History] Fluticasone Nasal [place] [Flonase Nasal [place]] 2 spr EA NOSTRIL RT-DAILY 01/20/18 [History] Albuterol Inhaler [Ventolin Hfa Inhaler] 1 - 2 puff INHALATION RT-Q6H PRN 03/28/19 [History] Apixaban [Eliquis] 5 mg PO BID 03/28/19 [History] Calcium Carbonate [Calcium] 600 mg PO DAILY 03/28/19 [History] Cyanocobalamin [Vitamin B-12] 500 mcg PO Q72H 03/28/19 [History] Levothyroxine Sodium [Synthroid] 50 mcg PO DAILY 03/28/19 [History] Multivitamins, Thera [Multivitamin (formulary)] 1 tab PO DAILY 03/28/19 [History] Follow up Appointment(s)/Referral(s): Maverick Gordillo Jr, DO [Primary Care Provider] - 3 Days Jodi Matt MD [STAFF PHYSICIAN] - 04/06/19 (As previously scheduled) Albert Gomez DO [Doctor of Osteopathic Medicine] - 1 Week Ambulatory/Diagnostic Orders: Complete Blood Count w/diff [LAB.AMB] Time Frame: 3 Days, Location: None Selected Patient Instructions/Handouts: A-fib (Atrial Fibrillation) (DC) Activity/Diet/Wound Care/Special Instructions: Pending cardiology evaluation, final DC recommendations. Confirm cardiology follow-up appointment per to discharge.
[2019-03-28 13:09] VITALS: BP 152/74; PULSE 60; TEMP 98.2
--- NOTE | 2019-03-28 13:19 | P.CRDCN ---
History of Present Illness History of present illness: This is a pleasant 78-year-old female past medical history significant for paroxysmal atrial fibrillation on long-term anticoagulation, sick sinus syndrome status post permanent pacemaker implantation, hypertension, dyslipidemia and morbid obesity. She follows in the office with Dr. Dockery. We have been asked to see her in consultation secondary to atrial fibrillation with rapid ventricular response. She states she woke up in the middle of the night and felt her heart fluttering. She got up out of bed walked downstairs and had a drink of water and sat on the couch. After about 25 minutes her palpitations improved. She went back up to bed and laid down. Then about 20 minutes of lying down she again started feeling palpitations. For this reason she called EMS. Upon arrival to the emergency department she was found to be in atrial fibrillation with a heart rate of 112. Blood pressure was 141/111. She denies associated symptoms of dizziness, shortness of breath, palpitations, nausea, vomiting or diaphoresis. She had been given one dose of IV Lopressor at the time of my exam her heart rate was approximately 80. She continues to be in atrial fibrillation. She is resting comfortably sitting up in bed in no acute distress. She complains of left lower extremity pain for which she was evaluated recently at [facility]. EKG on arrival reveals atrial fibrillation with a heart rate of 102. Chest x-ray reveals prominence of the interstitium with dual-chamber pacemaker in place. Laboratory data reviewed, WBC 8.7, hemoglobin 12.9, platelets 293, sodium 139, potassium 3.9, creatinine 0.58, magnesium 1.9, cardiac enzymes negative 1, and NTproBNP 372 and TSH 1.91. Current cardiac medications include Lasix 20 mg daily, Toprol 25 mg daily, amlodipine 5 mg daily, Eliquis 5 mg twice a day, pravastatin 40 mg daily and daily potassium supplementation. Most recent echocardiogram obtained January 2018 reveals preserved left ventricular systolic function with ejection fraction 55-60% mild MR, mild TR and mild pulmonary hypertension with an RVSP of 42 mmHg. She underwent cardiac catheterization in 2016 revealing normal coronary arteries. Most recent stress test was a Lexiscan stress test performed in the office May 2015 revealed no evidence of reversible cardiac ischemia. At the time of my exam: CONSTITUTIONAL: Denies fever. Denies chills. EYES: Denies blurred vision. Denies vision changes. Denies eye pain. EARS, NOSE, MOUTH & THROAT: Denies headache. Denies sore throat. Denies ear pain. CARDIOVASCULAR: Denies chest pain. Denies shortness of breath. Denies orthopnea. Denies PND. Denies palpitations. RESPIRATORY: Denies cough. GASTROINTESTINAL: Denies abdominal pain. Denies diarrhea. Denies constipation. Denies nausea. Denies vomiting. MUSCULOSKELETAL: Complains of left lower extremity pain. INTEGUMENTARY: Denies pruitis. Denies rash. NEUROLOGIC: Denies numbness. Denies tingling. Denies weakness. PSYCHIATRIC: Denies anxiety. Denies depression. ENDOCRINE: Denies fatigue. Denies weight change. Denies polydipsia. Denies poly urina. GENITOURINARY: Denies burning, hematuria or urgency with micturation. HEMATOLOGIC: Denies history of anemia. Denies bleeding. Blood pressure 152/74 heart rate 68 afebrile maintaining oxygen saturation on room air GENERAL: This is a 78-year-old female in no apparent distress at the time of my examination. Obese. HEENT: Head is atraumatic, normocephalic. Pupils are equal, round. Sclerae anicteric. Conjunctivae are clear. Mucous membranes of the mouth are moist. Neck is supple. There is no jugular venous distention. No carotid bruit is heard. LUNGS: Clear to auscultation no wheezes, rales or rhonchi. No chest wall tenderness is noted on palpation or with deep breathing. HEART: Regular rate and rhythm without murmurs, rubs or gallops. S1 and S2 heard. ABDOMEN: Soft, nontender. Bowel sounds are heard. No organomegaly noted. EXTREMITIES: No evidence of peripheral edema and no calf tenderness noted. VASCULAR: Radial and dorsalis pedis pulses palpated, no evidence of clubbing. NEUROLOGIC: Patient is awake, alert and oriented x3. ASSESSMENT Paroxysmal atrial fibrillation with variable ventricular rates. She has converted to sinus mechanism. Left lower extremity discomfort Hypertension Dyslipidemia Permanent pacemaker implantation Morbid obesity, BMI 45 PLAN She has converted to sinus mechanism. Obtain 2-D echocardiogram and Doppler study to assess cardiac structure and function. Continue Toprol as previously ordered. Overall stable from a cardiac perspective. Follow-up with Dr. Dockery as previously established for March 30. Thank you kindly for this consultation. Nurse Practitioner note has been reviewed, I agree with a documented findings and plan of care. Patient was seen and examined. 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 History of Any Multi-Drug Resistant Organisms: None Reported Past Surgical History: Adenoidectomy, Cholecystectomy, Joint Replacement, Orthopedic Surgery, Pacemaker, Tonsillectomy Additional Past Surgical History / Comment(s): Bartholin cyst surgical procedure, R eye with retinal repair, R eye rk, R eye cataract removal and macular wrinkle repair, partial replacement lt shoulder and left knee replacement, 2006 Heart Cath (no intervention), colonoscopy, R cheek melanoma removal, D&C, vaginal cystectomy, L breast benign bx. Past Anesthesia/Blood Transfusion Reactions: Motion Sickness, Postoperative Naus ea & Vomiting (PONV) Type of Cardiac Device: Permanent Pacemaker Device Placement Date:: 04/02/16 Smoking Status: Never smoker - Past Family History Mother Family Medical History: Asthma, Thyroid Disorder Additional Family Medical History / Comment(s): thyroid nodule. bronchitis Father Family Medical History: Respiratory Disorder Additional Family Medical History / Comment(s): at age 46 addisons disease(stopped taking his steroids), also had tb Medications and Allergies Home Medications Medication Instructions Recorded Confirmed Type Pravastatin Sodium [Pravachol] 40 mg PO HS 11/27/14 03/28/19 History Potassium Chloride [K-Tab ER] 10 meq PO DAILY 04/11/15 03/28/19 History Acetaminophen Tab [Tylenol] 1,000 mg PO TID PRN 11/24/15 03/28/19 History Furosemide [Lasix] 20 mg PO DAILY 11/24/15 03/28/19 History amLODIPine [Norvasc] 5 mg PO HS 11/24/15 03/28/19 History Montelukast [Singulair] 10 mg PO HS 03/30/16 03/28/19 History Magnesium Gluconate [Magonate] 500 mg PO DAILY 04/30/16 03/28/19 History Omeprazole [PriLOSEC] 40 mg PO DAILY 05/21/16 03/28/19 History Cod Liver Oil 1 cap PO DAILY 03/26/17 03/28/19 History Metoprolol Succinate (ER) [Toprol 25 mg PO DAILY 03/26/17 03/28/19 History XL] Zinc 50 mg PO DAILY 03/26/17 03/28/19 History Fluticasone Nasal [place] [Flonase 2 spr EA NOSTRIL RT-DAILY 01/20/18 03/28/19 History Nasal [place]] Albuterol Inhaler [Ventolin Hfa 1 - 2 puff INHALATION RT-Q6H PRN 03/28/19 03/28/19 History Inhaler] Apixaban [Eliquis] 5 mg PO BID 03/28/19 03/28/19 History Calcium Carbonate [Calcium] 600 mg PO DAILY 03/28/19 03/28/19 History Cyanocobalamin [Vitamin B-12] 500 mcg PO Q72H 03/28/19 03/28/19 History Levothyroxine Sodium [Synthroid] 50 mcg PO DAILY 03/28/19 03/28/19 History Multivitamins, Thera [Multivitamin 1 tab PO DAILY 03/28/19 03/28/19 History (formulary)] Allergies Allergy/AdvReac Type Severity Reaction Status Date / Time codeine Allergy Unknown Verified 03/28/19 07:36 hydromorphone HCl Allergy Unknown Verified 03/28/19 07:36 [From Dilaudid] Iodinated Contrast- Oral and Allergy Unknown Verified 03/28/19 07:36 IV Dye [Iodinated Contrast Media - IV Dye] iodine Allergy Unknown Verified 03/28/19 07:36 meperidine HCl [From Demerol] Allergy Unknown Verified 03/28/19 07:36 nalbuphine HCl [From Nubain] Allergy Unknown Verified 03/28/19 07:36 Penicillins Allergy Unknown Verified 03/28/19 07:36 Sulfa (Sulfonamide Allergy Unknown Verified 03/28/19 07:36 Antibiotics) Physical Exam Vitals: Vital Signs Temp Pulse Resp BP Pulse Ox 03/28/19 11:00 96 18 149/77 98 03/28/19 07:17 78 18 130/71 95 03/28/19 06:23 89 18 102/88 94 L 03/28/19 05:52 108 H 18 128/99 98 03/28/19 05:24 97.4 F L 112 H 18 141/111 97 Intake and Output 03/27/19 03/28/19 03/28/19 22:59 06:59 14:59 Other: Weight 124.284 kg Results 03/28/19 05:36 03/28/19 05:36 Cardiac Enzymes 03/28/19 03/28/19 Range/Units 05:36 05:36 AST 28 (14-36) U/L Troponin I <0.012 (0.000-0.034) ng/mL Coagulation 03/28/19 Range/Units 05:36 PT 9.7 (9.0-12.0) sec APTT 25.3 (22.0-30.0) sec CBC 03/28/19 Range/Units 05:36 WBC 8.7 (3.8-10.6) k/uL RBC 4.87 (3.80-5.40) m/uL Hgb 12.9 (11.4-16.0) gm/dL Hct 41.8 (34.0-46.0) % Plt Count 293 (150-450) k/uL Comprehensive Metabolic Panel 03/28/19 Range/Units 05:36 Sodium 139 (137-145) mmol/L Potassium 3.9 (3.5-5.1) mmol/L Chloride 105 (98-107) mmol/L Carbon Dioxide 27 (22-30) mmol/L BUN 15 (7-17) mg/dL Creatinine 0.58 (0.52-1.04) mg/dL Glucose 115 H (74-99) mg/dL Calcium 10.1 (8.4-10.2) mg/dL AST 28 (14-36) U/L ALT 29 (9-52) U/L Alkaline Phosphatase 126 (38-126) U/L Total Protein 7.5 (6.3-8.2) g/dL Albumin 4.3 (3.5-5.0) g/dL Current Medications Generic Name Dose Route Start Last Admin Trade Name Freq PRN Reason Stop Dose Admin Acetaminophen 1,000 mg 03/28/19 11:11 Tylenol Tab PO TID PRN MILD Pain Albuterol Sulfate 2.5 mg 03/28/19 11:11 Ventolin Nebulized INHALATION RT-Q6H PRN Shortness Of Breath Apixaban 5 mg 03/28/19 10:00 03/28/19 10:58 Eliquis PO 5 mg BID CRISTIN Administration Calcium Carbonate/Glycine 500 mg 03/29/19 09:00 Tums PO DAILY [facility] Cyanocobalamin 500 mcg 03/31/19 09:00 Vitamin B-12 PO Q72H [facility] Fluticasone Propionate 2 spray 03/28/19 08:00 Flonase Nasal [place] EA NOSTRIL RT-DAILY [facility] Furosemide 20 mg 03/28/19 11:15 Lasix PO DAILY [facility] Levothyroxine Sodium 50 mcg 03/28/19 11:15 Synthroid PO DAILY@0630 [facility] Magnesium Oxide 400 mg 03/29/19 09:00 Mag-Ox PO DAILY [facility] Metoprolol Succinate 25 mg 03/29/19 09:00 Toprol Xl PO DAILY [facility] Montelukast Sodium 10 mg 03/28/19 21:00 Singulair PO HS [facility] Multivitamins 1 each 03/29/19 09:00 Theragran PO DAILY [facility] Naloxone HCl 0.2 mg 03/28/19 06:34 Narcan IV Q2M PRN Opioid Reversal Pantoprazole Sodium 40 mg 03/28/19 11:15 Protonix PO AC-BRKFST [facility] Potassium Chloride 10 meq 03/28/19 11:15 K-Dur 10 PO DAILY [facility] Pravastatin Sodium 40 mg 03/28/19 21:00 Pravachol PO HS [facility] Intake and Output 03/27/19 03/28/19 03/28/19 22:59 06:59 14:59 Other: Weight 124.284 kg 03/28/19 05:36 03/28/19 05:36
[2019-03-28] MEDS ORDERED: MONTELUKAST 10 MG TAB PO SCH (21:00)
[2019-03-28] MEDS ORDERED: PRAVASTATIN SODIUM 40 MG TAB PO SCH (21:00)
[2019-03-29] MEDS ORDERED: NON-FORMULARY DRUG (Cod Liver Oil [Cod Liver Oil] 1 CAP) PO SCH (09:00)
[2019-03-29] MEDS ORDERED: CALCIUM CARBONATE 500 MG CHEWABLE PO SCH (09:00)
[2019-03-29] MEDS ORDERED: NON-FORMULARY DRUG (Zinc [Zinc] 50 MG) PO SCH (09:00)
[2019-03-29] MEDS ORDERED: METOPROLOL SUCCINATE (ER) 25 MG TAB.ER.24H PO SCH (09:00)
[2019-03-29] MEDS ORDERED: MAGNESIUM OXIDE 400 MG TAB PO SCH (09:00)
[2019-03-29] MEDS ORDERED: MULTIVITAMINS, THERA 1 EACH TAB PO SCH (09:00)
[2019-03-31] MEDS ORDERED: CYANOCOBALAMIN 500 MCG TAB PO SCH (09:00)
== END 2019-03-28 13:22 | disposition home or self-care (01) ==
LOC: EC 05:14 → 1SOBS 06:39 → 3SCARD 11:46 → 1SOBS 11:46
PROVIDERS: ADMIT Family Medicine; ATTEND Family Medicine
DX: I48.0 Paroxysmal atrial fibrillation (principal); J45.909 Unspecified asthma, uncomplicated; K21.9 Gastro-esophageal reflux disease without esophagitis; E78.5 Hyperlipidemia, unspecified; I10 Essential (primary) hypertension; M19.90 Unspecified osteoarthritis, unspecified site; R60.0 Localized edema; E03.9 Hypothyroidism, unspecified; M17.11 Unilateral primary osteoarthritis, right knee; M16.11 Unilateral primary osteoarthritis, right hip; K57.92 Diverticulitis of intestine, part unspecified, without perforation or abscess without bleeding; E66.01 Morbid (severe) obesity due to excess calories; Z68.42 Body mass index [BMI] 45.0-49.9, adult; G89.29 Other chronic pain; M54.9 Dorsalgia, unspecified; M79.605 Pain in left leg; Z86.11 Personal history of tuberculosis; Z86.19 Personal history of other infectious and parasitic diseases; Z87.440 Personal history of urinary (tract) infections; Z90.49 Acquired absence of other specified parts of digestive tract; Z95.0 Presence of cardiac pacemaker; Z79.01 Long term (current) use of anticoagulants; Z79.899 Other long term (current) drug therapy; Z79.890 Hormone replacement therapy; Z91.041 Radiographic dye allergy status; Z88.5 Allergy status to narcotic agent; Z88.0 Allergy status to penicillin; Z88.2 Allergy status to sulfonamides; Z91.048 Other nonmedicinal substance allergy status; Z83.49 Family history of other endocrine, nutritional and metabolic diseases; Z85.820 Personal history of malignant melanoma of skin
CPT/HCPCS: 96374; 99285; 36415; 93005; 93306; 83880; 80053; 84443; 83735; 84484; 85025; 85610; 85730; 71046; G0378

== ENCOUNTER → 2019-08-02 | Outpatient (CLI) | payer MEDICARE, BC ==
[2019-08-03 11:21] LABS: APTT 42 Sec(s) (<43); Dilute Russell Viper Venom 44 Sec(s) (<44)
== END | disposition home or self-care (01) ==
LOC: LABWHC1 15:19
PROVIDERS: ATTEND Internal Medicine Rheumatology
DX: R89.9 Unspecified abnormal finding in specimens from other organs, systems and tissues (principal)
CPT/HCPCS: 36415; 85613; 85730

== ENCOUNTER → 2019-08-11 | Outpatient (CLI) | payer MEDICARE, BC ==
--- NOTE | 2019-08-11 18:22 | CT ---
EXAM: CT Abdomen and Pelvis Without Intravenous Contrast CLINICAL HISTORY: ITS.REASON CT Reason: R31.9 Hematuria TECHNIQUE: Axial computed tomography images of the abdomen and pelvis without intravenous contrast. CTDI is 25.6 mGy and DLP is 1176.8 mGy-cm. This CT exam was performed using one or more of the following dose reduction techniques: automated exposure control, adjustment of the mA and/or kV according to patient size, and/or use of iterative reconstruction technique. COMPARISON: CT abdomen/pelvis on 03/26/2017 FINDINGS: Evaluation of solid organs somewhat limited without IV contrast. Evaluation is also limited by motion artifact. Liver: No focal lesion. Stable atrophy of the left liver. Spleen: No focal lesion. Gallbladder: Prior cholecystectomy. Probable postcholecystectomy ductal ectasia. Pancreas: Atrophy of the pancreas. No acute inflammation. No mass. Adrenal glands: No mass. Kidneys: Nonspecific mild bilateral perinephric fat stranding. No hydronephrosis or stone. No mass. Bowel: Appendix is not visualized, but no CT evidence of acute appendicitis. Diverticulosis without evidence of diverticulitis. No bowel obstruction or inflammation. Urinary bladder: Mild prominence of the bladder wall may be secondary to underdistention. Reproductive organs: Unremarkable. Muscles: No mass. Subcutaneous tissues: Small fat-containing umbilical hernia. Peritoneal space: No free fluid. Lymph nodes: No lymphadenopathy. Vessels: Atherosclerotic changes of the vasculature. No aneurysm. Retroaortic left renal vein. Bones: Prominent degenerative changes of the hips. Scoliosis. Degenerative changes of the spine. No acute fracture or bony lesion. Lung bases: New nonspecific nodular densities in the right lower lobe measuring approximately 9 mm and 5 mm. Pacer wires partially visualized in the heart. Other: Moderate hiatal hernia. IMPRESSION: 1. Mild prominence of the bladder wall may be secondary to underdistention. 2. Moderate hiatal hernia. 3. New nonspecific nodular densities in the right lower lobe measuring approximately 9 mm and 5 mm.
== END | disposition home or self-care (01) ==
LOC: RADCTMAIN 17:46
PROVIDERS: ATTEND Family Medicine
DX: J98.4 Other disorders of lung (principal); K44.9 Diaphragmatic hernia without obstruction or gangrene; Z88.5 Allergy status to narcotic agent; Z88.0 Allergy status to penicillin; Z88.2 Allergy status to sulfonamides; Z88.6 Allergy status to analgesic agent; Z88.3 Allergy status to other anti-infective agents
CPT/HCPCS: 74176

== ENCOUNTER 2020-05-05 21:54 | Emergency (ER) | payer MEDICARE, BC ==
[2020-05-05] MEDS ORDERED: ACETAMINOPHEN TAB 325 MG TAB PO STA (22:27)
--- NOTE | 2020-05-05 22:28 | CT ---
EXAMINATION TYPE: CT brain wo con DATE OF EXAM: 05/05/2020 COMPARISON: 01/20/2018 HISTORY: Fall CT DLP: 1086.4 mGycm Automated exposure control for dose reduction was used. There is soft tissue swelling over the right frontal bone. The calvarium is intact. Ventricles have n ormal size. There is no mass effect nor midline shift. There is no sign of intracranial hemorrhage. T here is no evidence of cerebral edema. IMPRESSION: No intracranial acute abnormality. Right frontal scalp Hematoma. brain unchanged compared to old exam
--- NOTE | 2020-05-05 22:29 | XR ---
EXAMINATION TYPE: XR knee complete RT DATE OF EXAM: 05/05/2020 COMPARISON: NONE HISTORY: Pain TECHNIQUE: 3 views FINDINGS: There is severe narrowing of the medial joint space. There is spurring of the femoral and t ibial condyles. There is spurring on the patella. I see no fracture nor dislocation. IMPRESSION: Moderately severe osteoarthritis. No fracture seen.
--- NOTE | 2020-05-05 23:11 | ED ---
Fall HPI - General Chief Complaint: Fall Stated Complaint: Fall Time Seen by Provider: 05/05/20 21:56 Source: patient, EMS Mode of arrival: EMS - History of Present Illness Initial Comments: Patient is an 79-year-old female presenting to the emergency department after a fall at her house. Patient states she was getting out of her car, went to throw her purse on her shoulder, and it knocked her off balance and she fell forward landing mostly on her right knee, right shoulder and then hitting the right side of her head. She did not lose consciousness. She is on blood thinners secondary to A. fib. She states she is having pain in her right knee as well as some mild pain in her head. She denies any chest pain, shortness of breath, abdominal pain, neck pain. She denies any previous surgeries of her right knee. She has no further complaints at this time. Upon arrival to the ER, her vitals are stable. - Related Data Home Medications Medication Instructions Recorded Confirmed Pravastatin Sodium [Pravachol] 40 mg PO HS 11/27/14 03/28/19 Potassium Chloride [K-Tab ER] 10 meq PO DAILY 04/11/15 03/28/19 Acetaminophen Tab [Tylenol] 1,000 mg PO TID PRN 11/24/15 03/28/19 Furosemide [Lasix] 20 mg PO DAILY 11/24/15 03/28/19 amLODIPine [Norvasc] 5 mg PO HS 11/24/15 03/28/19 Montelukast [Singulair] 10 mg PO HS 03/30/16 03/28/19 Magnesium Gluconate [Magonate] 500 mg PO DAILY 04/30/16 03/28/19 Omeprazole [PriLOSEC] 40 mg PO DAILY 05/21/16 03/28/19 Cod Liver Oil 1 cap PO DAILY 03/26/17 03/28/19 Metoprolol Succinate (ER) [Toprol 25 mg PO DAILY 03/26/17 03/28/19 XL] Zinc 50 mg PO DAILY 03/26/17 03/28/19 Fluticasone Nasal [place] [Flonase 2 spr EA NOSTRIL RT-DAILY 01/20/18 03/28/19 Nasal [place]] Albuterol Inhaler (Mhu) [Ventolin 1 - 2 puff INHALATION RT-Q6H PRN 03/28/19 03/28/19 Hfa Inhaler (Mhu)] Apixaban [Eliquis] 5 mg PO BID 03/28/19 03/28/19 Calcium Carbonate [Calcium] 600 mg PO DAILY 03/28/19 03/28/19 Cyanocobalamin [Vitamin B-12] 500 mcg PO Q72H 03/28/19 03/28/19 Levothyroxine Sodium [Synthroid] 50 mcg PO DAILY 03/28/19 03/28/19 Multivitamins, Thera [Multivitamin 1 tab PO DAILY 03/28/19 03/28/19 (formulary)] Allergies Allergy/AdvReac Type Severity Reaction Status Date / Time codeine Allergy Unknown Verified 05/05/20 22:08 hydromorphone HCl Allergy Unknown Verified 05/05/20 22:08 [From Dilaudid] Iodinated Contrast Media Allergy Unknown Verified 05/05/20 22:08 [Iodinated Contrast Media - IV Dye] iodine Allergy Unknown Verified 05/05/20 22:08 meperidine HCl [From Demerol] Allergy Unknown Verified 05/05/20 22:08 nalbuphine HCl [From Nubain] Allergy Unknown Verified 05/05/20 22:08 Penicillins Allergy Unknown Verified 05/05/20 22:08 Sulfa (Sulfonamide Allergy Unknown Verified 05/05/20 22:08 Antibiotics) Review of Systems ROS Statement: Those systems with pertinent positive or pertinent negative responses have been documented in the HPI. ROS Other: All systems not noted in ROS Statement are negative. 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 History of Any Multi-Drug Resistant Organisms: None Reported Past Surgical History: Adenoidectomy, Cholecystectomy, Joint Replacement, Orthopedic Surgery, Pacemaker, Tonsillectomy Additional Past Surgical History / Comment(s): Bartholin cyst surgical procedure, R eye with retinal repair, R eye rk, R eye cataract removal and macular wrinkle repair, partial replacement lt shoulder and left knee replacement, 2006 Heart Cath (no intervention), colonoscopy, R cheek melanoma removal, D&C, vaginal cystectomy, L breast benign bx. Past Anesthesia/Blood Transfusion Reactions: Motion Sickness, Postoperative Nausea & Vomiting (PONV) Type of Cardiac Device: Permanent Pacemaker Device Placement Date:: 04/02/16 Past Psychological History: No Psychological Hx Reported Smoking Status: Never smoker Past Alcohol Use History: None Reported Past Drug Use History: None Reported - Past Family History Mother Family Medical History: Asthma, Thyroid Disorder Additional Family Medical History / Comment(s): thyroid nodule. bronchitis Father Family Medical History: Respiratory Disorder Additional Family Medical History / Comment(s): at age 46 addisons disease(stopped taking his steroids), also had tb General Exam - General Exam Comments Initial Comments: GENERAL: Well-appearing, well-nourished and in no acute distress. HEAD: Patient has a very small hematoma to her right forehead. Normocephalic. EYES: Pupils equal round and reactive to light, extraocular movements intact, sclera anicteric, conjunctiva are normal. ENT: TMs normal, nares patent, oropharynx clear without exudates. Moist mucous membranes. NECK: Normal range of motion, supple without lymphadenopathy or JVD. No midline tenderness. LUNGS: Breath sounds clear to auscultation bilaterally and equal. No wheezes rales or rhonchi. HEART: Regular rate and rhythm without murmurs, rubs or gallops. ABDOMEN: Soft, nontender, normoactive bowel sounds. No guarding, no rebound. No masses appreciated. : Deferred EXTREMITIES: Patient has mild pain palpation of the anterior right knee. She seems to have full range of motion. No deformity or significant Swelling seen. She is neurovascular intact. No clubbing or cyanosis. NEUROLOGICAL: Cranial nerves II through XII grossly intact. Normal speech, normal gait. PSYCH: Normal mood, normal affect. SKIN: Warm, Dry, normal turgor, no rashes or lesions noted. Limitations: no limitations Course Vital Signs 05/05/20 05/05/20 21:54 23:24 Temperature 97.9 F 97.7 F Pulse Rate 91 73 Respiratory 17 18 Rate Blood Pressure 129/80 155/78 O2 Sat by Pulse 94 L 98 Oximetry Medical Decision Making - Medical Decision Making Patient is an 79-year-old female here after fall from standing, she is on blood thinners. Patient has a right sided scalp hematoma as well as complaining of right knee pain. CT of her brain shows no acute findings. X-rays of her right knee also showed no fracture dislocations, severe osteoarthritis. These findings with the patient and patient's daughter. She is stable for discharge. Recommended ice, elevation for her right knee. She will follow up with her PCP. She is in agreement with this plan of care. Return parameters were discussed with the patient and her daughter and they both verbalized understanding. Case discussed with Dr. Brar. Disposition Clinical Impression: Fall, Traumatic hematoma of scalp, Right knee pain Disposition: HOME SELF-CARE Condition: Stable Instructions (If sedation given, give patient instructions): Knee Pain (ED) Additional Instructions: Please return to the Emergency Department if symptoms worsen or any other concerns. Apply ice to the knee, elevate. May take Tylenol for discomfort. Follow-up with PCP. Is patient prescribed a controlled substance at d/c from ED?: No Referrals: Maverick Gordillo Jr, [Primary Care Provider] - 1-2 days
[2020-05-05 23:26] VITALS: BP 155/78; PULSE 73; RESP 18; TEMP 97.7
== END 2020-05-05 23:26 | disposition home or self-care (01) ==
LOC: EC 21:54
DX: S00.03XA Contusion of scalp, initial encounter (principal); M17.11 Unilateral primary osteoarthritis, right knee; I48.91 Unspecified atrial fibrillation; J45.909 Unspecified asthma, uncomplicated; K21.9 Gastro-esophageal reflux disease without esophagitis; E78.5 Hyperlipidemia, unspecified; E07.9 Disorder of thyroid, unspecified; E03.9 Hypothyroidism, unspecified; Z88.5 Allergy status to narcotic agent; Z91.048 Other nonmedicinal substance allergy status; Z91.041 Radiographic dye allergy status; Z88.0 Allergy status to penicillin; Z88.2 Allergy status to sulfonamides; Z88.8 Allergy status to other drugs, medicaments and biological substances; Z85.828 Personal history of other malignant neoplasm of skin; Z79.51 Long term (current) use of inhaled steroids; Z79.890 Hormone replacement therapy; Z79.01 Long term (current) use of anticoagulants; Z79.899 Other long term (current) drug therapy; Z96.652 Presence of left artificial knee joint; Z95.5 Presence of coronary angioplasty implant and graft; Z98.890 Other specified postprocedural states; W01.10XA Fall on same level from slipping, tripping and stumbling with subsequent striking against unspecified object, initial encounter; Y93.89 Activity, other specified; Y92.009 Unspecified place in unspecified non-institutional (private) residence as the place of occurrence of the external cause
CPT/HCPCS: 70450; 99284

== ENCOUNTER → 2020-05-09 | Outpatient (CLI) | payer MEDICARE, BC ==
--- NOTE | 2020-05-09 16:15 | CT ---
EXAMINATION TYPE: CT knee RT wo con DATE OF EXAM: 05/09/2020 COMPARISON: Correlation to plain film 05/05/2020 HISTORY: Fall 3 days ago. Right knee contusion. CT DLP: 544.2 mGycm Automated exposure control for dose reduction was used. Helical imaging through the right knee. Coron al and sagittal reconstructions, three-dimensional reconstructions on an alternate workstation FINDINGS: There are osteoarthritic changes present with tricompartmental marginal spurring. Bone mineralization is reduced. Alignment is maintained. Tricompartmental joint space loss is present, greatest in the m edial compartment. Chondrocalcinosis present along the lateral meniscus. Depression of the tibial jam teau laterally could be provider relations representative of the tibial plateau fracture, there is some sclerosis along the proximal tibia laterally on coronal image 36 which could represent disruption of patient's normal trabecular pattern, fracture line is not identified with certainty. Small ossific densities are pres ent in the suprapatellar location, there is a suprapatellar joint effusion. IMPRESSION: Osteoarthritis. Joint effusion. Indeterminate sclerotic density involving the proximal ti bial laterally, no discrete fracture line identified however, low bone mineralization may limit sensi tivity.
== END | disposition home or self-care (01) ==
LOC: RADCTMAIN 15:09
PROVIDERS: ATTEND Orthopaedic Surgery Sports Medicine
DX: M17.11 Unilateral primary osteoarthritis, right knee (principal); M25.561 Pain in right knee; S80.01XA Contusion of right knee, initial encounter

== ENCOUNTER 2021-01-11 04:20 | Emergency (ER) | payer MEDICARE, BC ==
[2021-01-11 04:37] VITALS: TEMP 98.6
--- NOTE | 2021-01-11 04:51 | ED ---
Arrhythmia/Palpitations HPI - General Chief Complaint: Arrhythmia/Palpitations Stated Complaint: Palpitations Time Seen by Provider: 01/11/21 04:25 Source: EMS Mode of arrival: EMS - History of Present Illness Initial Comments: This patient is an 80-year-old woman with history of atrial fibrillation who presents with complaint that she was having pounding sensation in her chest. She states that it felt like her heart was beating rapidly and forcefully. Patient states she has been taking her medication as directed. She denies chest pain. No dyspnea. 3 days ago she did have a little bit of abdominal cramping and some nausea but that had resolved. MD Complaint: irregular heart beat -: hour(s) Context: occurred during rest Arrhythmia History: atrial fibrillation Associated Symptoms: denies other symptoms - Related Data Home Medications Medication Instructions Recorded Confirmed Pravastatin Sodium [Pravachol] 40 mg PO HS 11/27/14 03/28/19 Potassium Chloride [K-Tab ER] 10 meq PO DAILY 04/11/15 03/28/19 Acetaminophen Tab [Tylenol] 1,000 mg PO TID PRN 11/24/15 03/28/19 Furosemide [Lasix] 20 mg PO DAILY 11/24/15 03/28/19 amLODIPine [Norvasc] 5 mg PO HS 11/24/15 03/28/19 Montelukast [Singulair] 10 mg PO HS 03/30/16 03/28/19 Magnesium Gluconate [Magonate] 500 mg PO DAILY 04/30/16 03/28/19 Omeprazole [PriLOSEC] 40 mg PO DAILY 05/21/16 03/28/19 Cod Liver Oil 1 cap PO DAILY 03/26/17 03/28/19 Metoprolol Succinate (ER) [Toprol 25 mg PO DAILY 03/26/17 03/28/19 XL] Zinc 50 mg PO DAILY 03/26/17 03/28/19 Fluticasone Nasal [place] [Flonase 2 spr EA NOSTRIL RT-DAILY 01/20/18 03/28/19 Nasal [place]] Albuterol Inhaler (Mhu) [Ventolin 1 - 2 puff INHALATION RT-Q6H PRN 03/28/19 03/28/19 Hfa Inhaler (Mhu)] Apixaban [Eliquis] 5 mg PO BID 03/28/19 03/28/19 Calcium Carbonate [Calcium] 600 mg PO DAILY 03/28/19 03/28/19 Cyanocobalamin [Vitamin B-12] 500 mcg PO Q72H 03/28/19 03/28/19 Levothyroxine Sodium [Synthroid] 50 mcg PO DAILY 03/28/19 03/28/19 Multivitamins, Thera [Multivitamin 1 tab PO DAILY 03/28/19 03/28/19 (formulary)] Previous Rx's Medication Instructions Recorded Sulfamethox-Tmp 800-160Mg [Bactrim 1 each PO Q12HR #6 tab 01/11/21 Ds] Allergies Allergy/AdvReac Type Severity Reaction Status Date / Time codeine Allergy Unknown Verified 01/11/21 04:37 hydromorphone HCl Allergy Unknown Verified 01/11/21 04:37 [From Dilaudid] Iodinated Contrast Media Allergy Unknown Verified 01/11/21 04:37 [Iodinated Contrast Media - IV Dye] iodine Allergy Unknown Verified 01/11/21 04:37 meperidine HCl [From Demerol] Allergy Unknown Verified 01/11/21 04:37 nalbuphine HCl [From Nubain] Allergy Unknown Verified 01/11/21 04:37 Penicillins Allergy Unknown Verified 01/11/21 04:37 Sulfa (Sulfonamide Allergy Unknown Verified 01/11/21 04:37 Antibiotics) Review of Systems ROS Statement: Those systems with pertinent positive or pertinent negative responses have been documented in the HPI. ROS Other: All systems not noted in ROS Statement are negative. Constitutional: Denies: fever, chills Respiratory: Denies: cough, dyspnea Cardiovascular: Reports: as per HPI, palpitations. Denies: chest pain, orthopne a, edema, syncope Gastrointestinal: Reports: as per HPI, abdominal pain, nausea. Denies: vomiting, diarrhea, constipation, melena, hematochezia Genitourinary: Reports: dysuria, frequency. Denies: hematuria Musculoskeletal: Denies: back pain Skin: Denies: rash Neurological: Denies: headache, weakness, numbness Past Medical History Past Medical History: Atrial Fibrillation, Asthma, Cancer, GERD/Reflux, Hyperlipidemia, Hypertension, Osteoarthritis (OA), Thyroid Disorder Additional Past Medical History / Comment(s): Past Afib RVR tx with cardizem/tachybrady syndrome and had pacer insertion, UTI'S , current lower leg edema, hypothyroid, seasonal allergies, vertigo, UTIs>> sepsis september 2015, tinnitus rt ear worse than left, chronic constipation and also episodes of diarrhea, abdominal pain/bloat past year, 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 History of Any Multi-Drug Resistant Organisms: None Reported Past Surgical History: Adenoidectomy, Cholecystectomy, Joint Replacement, Orthopedic Surgery, Pacemaker, Tonsillectomy Additional Past Surgical History / Comment(s): Bartholin cyst surgical procedure, R eye with retinal repair, R eye rk, R eye cataract removal and macular wrinkle repair, partial replacement lt shoulder and left knee replacement, 2006 Heart Cath (no intervention), colonoscopy, R cheek melanoma removal, D&C, vaginal cystectomy, L breast benign bx. Past Anesthesia/Blood Transfusion Reactions: Motion Sickness, Postoperative Naus ea & Vomiting (PONV) Type of Cardiac Device: Permanent Pacemaker Device Placement Date:: 04/02/16 Past Psychological History: No Psychological Hx Reported Smoking Status: Never smoker Past Alcohol Use History: None Reported Past Drug Use History: None Reported - Past Family History Mother Family Medical History: Asthma, Thyroid Disorder Additional Family Medical History / Comment(s): thyroid nodule. bronchitis Father Family Medical History: Respiratory Disorder Additional Family Medical History / Comment(s): at age 46 addisons disease(stopped taking his steroids), also had tb General Exam General appearance: alert, in no apparent distress Head exam: Present: atraumatic, normocephalic Eye exam: Present: normal appearance. Absent: scleral icterus, conjunctival injection ENT exam: Present: normal oropharynx Neck exam: Present: normal inspection Respiratory exam: Present: normal lung sounds bilaterally. Absent: respiratory distress, wheezes, rales, rhonchi, stridor Cardiovascular Exam: Present: tachycardia, irregular rhythm, normal heart sounds. Absent: systolic murmur, diastolic murmur, rubs, gallop GI/Abdominal exam: Present: soft. Absent: distended, tenderness, guarding, rebound, rigid, mass Extremities exam: Present: normal inspection, normal capillary refill. Absent: pedal edema, calf tenderness Back exam: Present: normal inspection. Absent: CVA tenderness (R), CVA tenderness (L) Neurological exam: Present: alert Skin exam: Present: warm, dry, intact, normal color. Absent: rash Course Vital Signs 01/11/21 01/11/21 01/11/21 04:32 05:13 06:21 Temperature 98.6 F Pulse Rate 128 H 87 79 Respiratory 19 16 16 Rate Blood Pressure 146/110 130/88 137/78 O2 Sat by Pulse 97 97 97 Oximetry EKG Findings - EKG Comments: EKG Findings:: Possible old anterior infarct. - EKG Results: EKG: normal ST/T EKG shows: atrial fibrillation (With RVR, rate 124 bpm) - Blocks, [place], Hypertrophy, ST Abn: QRS axis and voltage: left axis deviation (-30 to -90) Medical Decision Making - Medical Decision Making I reviewed the results with the patient and discussed antibiotic therapy for her urinary tract infection. The patient states that she has successfully taken Bactrim even though she is listed as having a sulfa ALLERGY. - Lab Data Result diagrams: 01/11/21 04:58 01/11/21 04:58 Lab Results 01/11/21 01/11/21 01/11/21 Range/Units 04:58 04:58 04:58 WBC 6.6 (3.8-10.6) k/uL RBC 4.17 (3.80-5.40) m/uL Hgb 10.9 L (11.4-16.0) gm/dL Hct 34.1 (34.0-46.0) % MCV 81.9 (80.0-100.0) fL MCH 26.1 (25.0-35.0) pg MCHC 31.8 (31.0-37.0) g/dL RDW 14.9 (11.5-15.5) % Plt Count 271 (150-450) k/uL MPV 6.9 Neutrophils % 56 % Lymphocytes % 29 % Monocytes % 10 % Eosinophils % 2 % Basophils % 1 % Neutrophils # 3.7 (1.3-7.7) k/uL Lymphocytes # 1.9 (1.0-4.8) k/uL Monocytes # 0.7 (0-1.0) k/uL Eosinophils # 0.1 (0-0.7) k/uL Basophils # 0.0 (0-0.2) k/uL PT 11.7 (9.0-12.0) sec INR 1.1 (<1.2) APTT 31.0 H (22.0-30.0) sec Sodium (137-145) mmol/L Potassium (3.5-5.1) mmol/L Chloride (98-107) mmol/L Carbon Dioxide (22-30) mmol/L Anion Gap mmol/L BUN (7-17) mg/dL Creatinine (0.52-1.04) mg/dL Est GFR (CKD-EPI)AfAm (>60 ml/min/1.73 sqM) Est GFR (CKD-EPI)NonAf (>60 ml/min/1.73 sqM) Glucose (74-99) mg/dL Calcium (8.4-10.2) mg/dL Magnesium (1.6-2.3) mg/dL Total Bilirubin (0.2-1.3) mg/dL AST (14-36) U/L ALT (4-34) U/L Alkaline Phosphatase (38-126) U/L Troponin I (0.000-0.034) ng/mL Total Protein (6.3-8.2) g/dL Albumin (3.5-5.0) g/dL TSH (0.465-4.680) mIU/L Urine Color Light Yellow Urine Appearance Clear (Clear) Urine pH 7.0 (5.0-8.0) Ur Specific [place] 1.006 (1.001-1.035) Urine Protein Negative (Negative) Urine Glucose (UA) Negative (Negative) Urine Ketones Negative (Negative) Urine Blood Negative (Negative) Urine Nitrite Negative (Negative) Urine Bilirubin Negative (Negative) Urine Urobilinogen <2.0 (<2.0) mg/dL Ur Leukocyte Esterase Moderate H (Negative) Urine RBC 1 (0-5) /hpf Urine WBC 33 H (0-5) /hpf Ur Squamous Epith Cells <1 (0-4) /hpf Urine Bacteria Many H (None) /hpf 01/11/21 01/11/21 Range/Units 04:58 04:58 WBC (3.8-10.6) k/uL RBC (3.80-5.40) m/uL Hgb (11.4-16.0) gm/dL Hct (34.0-46.0) % MCV (80.0-100.0) fL MCH (25.0-35.0) pg MCHC (31.0-37.0) g/dL RDW (11.5-15.5) % Plt Count (150-450) k/uL MPV Neutrophils % % Lymphocytes % % Monocytes % % Eosinophils % % Basophils % % Neutrophils # (1.3-7.7) k/uL Lymphocytes # (1.0-4.8) k/uL Monocytes # (0-1.0) k/uL Eosinophils # (0-0.7) k/uL Basophils # (0-0.2) k/uL PT (9.0-12.0) sec INR (<1.2) APTT (22.0-30.0) sec Sodium 134 L (137-145) mmol/L Potassium 3.8 (3.5-5.1) mmol/L Chloride 102 (98-107) mmol/L Carbon Dioxide 27 (22-30) mmol/L Anion Gap 5 mmol/L BUN 16 (7-17) mg/dL Creatinine 0.61 (0.52-1.04) mg/dL Est GFR (CKD-EPI)AfAm >90 (>60 ml/min/1.73 sqM) Est GFR (CKD-EPI)NonAf 85 (>60 ml/min/1.73 sqM) Glucose 114 H (74-99) mg/dL Calcium 9.6 (8.4-10.2) mg/dL Magnesium 2.1 (1.6-2.3) mg/dL Total Bilirubin 0.5 (0.2-1.3) mg/dL AST 30 (14-36) U/L ALT 15 (4-34) U/L Alkaline Phosphatase 115 (38-126) U/L Troponin I <0.012 (0.000-0.034) ng/mL Total Protein 7.1 (6.3-8.2) g/dL Albumin 3.8 (3.5-5.0) g/dL TSH 2.560 (0.465-4.680) mIU/L Urine Color Urine Appearance (Clear) Urine pH (5.0-8.0) Ur Specific [place] (1.001-1.035) Urine Protein (Negative) Urine Glucose (UA) (Negative) Urine Ketones (Negative) Urine Blood (Negative) Urine Nitrite (Negative) Urine Bilirubin (Negative) Urine Urobilinogen (<2.0) mg/dL Ur Leukocyte Esterase (Negative) Urine RBC (0-5) /hpf Urine WBC (0-5) /hpf Ur Squamous Epith Cells (0-4) /hpf Urine Bacteria (None) /hpf Disposition Clinical Impression: Atrial fibrillation with RVR, Urinary tract infection Disposition: HOME SELF-CARE Condition: Good Instructions (If sedation given, give patient instructions): Heart Palpitations (ED), Urinary Tract Infection in Women (ED) Prescriptions: Sulfamethox-Tmp 800-160Mg [Bactrim Ds] 1 each PO Q12HR #6 tab Is patient prescribed a controlled substance at d/c from ED?: No Referrals: Maverick Gordillo Jr, DO [Primary Care Provider] - 1-2 days
[2021-01-11] MEDS: METOPROLOL TARTRATE 5 MG/5 ML VIAL IVP SCH ×6 (05:09→06:42)
[2021-01-11 05:14] VITALS: RESP 16
[2021-01-11 05:29] LABS: Basophils % (A) 1 %; Eosinophils # (A) 0.1 k/uL (0-0.7); Eosinophils % (A) 2 %; HCT 34.1 % (34.0-46.0); HGB 10.9 gm/dL (11.4-16.0); Lymphocytes # (A) 1.9 k/uL (1.0-4.8); Lymphocytes % (A) 29 %; MCH 26.1 pg (25.0-35.0); MCHC 31.8 g/dL (31.0-37.0); MCV 81.9 fL (80.0-100.0); Mean Platelet Volume 6.9; Monocytes # (A) 0.7 k/uL (0-1.0); Monocytes % (A) 10 %; Neutrophils # (A) 3.7 k/uL (1.3-7.7); Neutrophils % (A) 56 %; Platelet Count 271 k/uL (150-450); RBC 4.17 m/uL (3.80-5.40); RDW 14.9 % (11.5-15.5); WBC 6.6 k/uL (3.8-10.6)
[2021-01-11 05:33] LABS: INR 1.1 (<1.2); Prothrombin Time 11.7 sec (9.0-12.0)
--- NOTE | 2021-01-11 05:46 | XR ---
EXAM: XR Chest, 2 Views CLINICAL HISTORY: ITS.REASON XR Reason: dysrhythmia TECHNIQUE: Frontal and lateral views of the chest. COMPARISON: 03/28/2019 FINDINGS: Lungs: No consolidation or mass. Pleural space: No effusion. Heart: Unchanged cardiomegaly. Pacer device. Bones/joints: No acute findings. IMPRESSION: No acute cardiopulmonary process.
[2021-01-11 05:51] LABS: Appearance,Urine Clear (Clear); Bacteria,Urine Many /hpf; Bilirubin,Urine Negative (Negative); Blood,Urine Negative (Negative); Color,Urine Light Yellow; Glucose,Urine (UA) Negative (Negative); Ketones,Urine Negative (Negative); Leukocyte Esterase,Urine Moderate (Negative); Nitrite,Urine Negative (Negative); Protein,Urine Negative (Negative); RBC,Urine 1 /hpf (0-5); Specific Gravity,Urine 1.006 (1.001-1.035); Squamous Epithelial Cell,Urine <1 /hpf (0-4); Urobilinogen,Urine <2.0 mg/dL (<2.0); WBC,Urine 33 /hpf (0-5)
[2021-01-11 06:01] LABS: ALT 15 U/L (4-34); AST 30 U/L (14-36); African American GFR (CKD) >90 (>60 ml/min/1.73 sqM); Albumin 3.8 g/dL (3.5-5.0); Alkaline Phosphatase 115 U/L (38-126); Anion Gap 5 mmol/L; Blood Urea Nitrogen 16 mg/dL (7-17); Calcium 9.6 mg/dL (8.4-10.2); Carbon Dioxide 27 mmol/L (22-30); Chloride 102 mmol/L (98-107); Glucose 114 mg/dL (74-99); Magnesium 2.1 mg/dL (1.6-2.3); Non-African American GFR(CKD) 85 (>60 ml/min/1.73 sqM); Potassium 3.8 mmol/L (3.5-5.1); Sodium 134 mmol/L (137-145); Total Bilirubin 0.5 mg/dL (0.2-1.3); Total Protein 7.1 g/dL (6.3-8.2)
[2021-01-11] MEDS ORDERED: SULFAMETHOX-TMP 800-160MG 1 EACH TAB PO STA (06:21)
[2021-01-11 06:59] VITALS: BP 120/88; PULSE 91
== END 2021-01-11 06:59 | disposition home or self-care (01) ==
LOC: EC 04:20
DX: I48.91 Unspecified atrial fibrillation (principal); N39.0 Urinary tract infection, site not specified; E78.5 Hyperlipidemia, unspecified; I10 Essential (primary) hypertension; J45.909 Unspecified asthma, uncomplicated; K21.9 Gastro-esophageal reflux disease without esophagitis; Z79.01 Long term (current) use of anticoagulants; Z79.899 Other long term (current) drug therapy; Z88.0 Allergy status to penicillin
CPT/HCPCS: 36415; 71046; 80053; 81001; 83735; 84443; 84484; 85025; 85610; 85730; 93005; 96374; 99285

== ENCOUNTER 2021-02-26 05:45 | Emergency (ER) | payer MEDICARE, BC ==
[2021-02-26] MEDS ORDERED: ACETAMINOPHEN TAB 500 MG TAB PO STA (06:22)
[2021-02-26] MEDS ORDERED: KETOROLAC 15 MG/ML 1 ML VIAL IVP STA (06:23)
[2021-02-26] MEDS ORDERED: SODIUM CHLORIDE 0.9% 500 ML 500 ML IV SCH (06:30)
--- NOTE | 2021-02-26 06:42 | ED ---
General Adult HPI - General Chief complaint: Back Pain/Injury Stated complaint: Nausea, abdominal pain Time Seen by Provider: 02/26/21 05:59 Source: patient Mode of arrival: EMS - History of Present Illness Initial comments: 80-year-old female with a complicated past medical history including atrial fibrillation, asthma, GERD, hyperlipidemia, hypertension who presents to the em ergency room for a chief complaint of back pain. Patient reports she has chronic back pain secondary to nerve pain. Patient states that the pain was worse than normal today so she presented to the ER. Patient was not aware that she had a fever. States that she probably has a urinary tract infection. Patient denies any abdominal pain. Admits to nausea, denies vomiting diarrhea. Does admit to mild cough.Patient has no other complaints at this time including shortness of breath, chest pain, abdominal pain, nausea or vomiting, headache, or visual changes. - Related Data Home Medications Medication Instructions Recorded Confirmed RX: Pravastatin Sodium [Pravachol] 40 mg PO HS 11/27/14 03/28/19 RX: Potassium Chloride [K-Tab ER] 10 meq PO DAILY 04/11/15 03/28/19 RX: Acetaminophen Tab [Tylenol] 1,000 mg PO TID PRN 11/24/15 03/28/19 RX: Furosemide [Lasix] 20 mg PO DAILY 11/24/15 03/28/19 RX: amLODIPine [Norvasc] 5 mg PO HS 11/24/15 03/28/19 RX: Montelukast [Singulair] 10 mg PO HS 03/30/16 03/28/19 RX: Magnesium Gluconate [Magonate] 500 mg PO DAILY 04/30/16 03/28/19 RX: Omeprazole [PriLOSEC] 40 mg PO DAILY 05/21/16 03/28/19 RX: Cod Liver Oil 1 cap PO DAILY 03/26/17 03/28/19 RX: Metoprolol Succinate (ER) 25 mg PO DAILY 03/26/17 03/28/19 [Toprol XL] RX: Zinc 50 mg PO DAILY 03/26/17 03/28/19 RX: Fluticasone Nasal [place] 2 spr EA NOSTRIL RT-DAILY 01/20/18 03/28/19 [Flonase Nasal [place]] RX: Albuterol Inhaler (Mhu) 1 - 2 puff INHALATION RT-Q6H PRN 03/28/19 03/28/19 [Ventolin Hfa Inhaler (Mhu)] RX: Apixaban [Eliquis] 5 mg PO BID 03/28/19 03/28/19 RX: Calcium Carbonate [Calcium] 600 mg PO DAILY 03/28/19 03/28/19 RX: Cyanocobalamin [Vitamin B-12] 500 mcg PO Q72H 03/28/19 03/28/19 RX: Levothyroxine Sodium 50 mcg PO DAILY 03/28/19 03/28/19 [Synthroid] RX: Multivitamins, Thera 1 tab PO DAILY 03/28/19 03/28/19 [Multivitamin (formulary)] Previous Rx's Medication Instructions Recorded Sulfamethox-Tmp 800-160Mg [Bactrim 1 each PO Q12HR #6 tab 01/11/21 Ds] RX: Azithromycin [Zithromax Z-pack 250 mg PO DIRECTED #6 tab 02/26/21 (6 tabs)] Allergies Allergy/AdvReac Type Severity Reaction Status Date / Time codeine Allergy Unknown Verified 02/26/21 05:51 hydromorphone HCl Allergy Unknown Verified 02/26/21 05:51 [From Dilaudid] Iodinated Contrast Media Allergy Unknown Verified 02/26/21 05:51 [Iodinated Contrast Media - IV Dye] iodine Allergy Unknown Verified 02/26/21 05:51 meperidine HCl [From Demerol] Allergy Unknown Verified 02/26/21 05:51 nalbuphine HCl [From Nubain] Allergy Unknown Verified 02/26/21 05:51 Penicillins Allergy Unknown Verified 02/26/21 05:51 Sulfa (Sulfonamide Allergy Unknown Verified 02/26/21 05:51 Antibiotics) Review of Systems ROS Statement: Those systems with pertinent positive or pertinent negative responses have been documented in the HPI. ROS Other: All systems not noted in ROS Statement are negative. 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 History of Any Multi-Drug Resistant Organisms: None Reported Past Surgical History: Adenoidectomy, Cholecystectomy, Joint Replacement, Orthopedic Surgery, Pacemaker, Tonsillectomy Additional Past Surgical History / Comment(s): Bartholin cyst surgical procedure, R eye with retinal repair, R eye rk, R eye cataract removal and macular wrinkle repair, partial replacement lt shoulder and left knee replacement, 2006 Heart Cath (no intervention), colonoscopy, R cheek melanoma removal, D&C, vaginal cystectomy, L breast benign bx. Past Anesthesia/Blood Transfusion Reactions: Motion Sickness, Postoperative Naus ea & Vomiting (PONV) Type of Cardiac Device: Permanent Pacemaker Device Placement Date:: 04/02/16 Past Psychological History: No Psychological Hx Reported Smoking Status: Never smoker Past Alcohol Use History: None Reported Past Drug Use History: None Reported - Past Family History Mother Family Medical History: Asthma, Thyroid Disorder Additional Family Medical History / Comment(s): thyroid nodule. bronchitis Father Family Medical History: Respiratory Disorder Additional Family Medical History / Comment(s): at age 46 addisons disease(stopped taking his steroids), also had tb General Exam General appearance: alert, in no apparent distress Head exam: Present: atraumatic, normocephalic, normal inspection Eye exam: Present: normal appearance, PERRL, EOMI. Absent: scleral icterus, conjunctival injection, periorbital swelling ENT exam: Present: normal exam, mucous membranes moist Neck exam: Present: normal inspection, full ROM. Absent: tenderness, meningism us, lymphadenopathy Respiratory exam: Present: normal lung sounds bilaterally. Absent: respiratory distress, wheezes, rales, rhonchi, stridor Cardiovascular Exam: Present: regular rate GI/Abdominal exam: Present: soft, normal bowel sounds. Absent: distended, tenderness, guarding, rebound, rigid Neurological exam: Present: alert Course Vital Signs 02/26/21 02/26/21 02/26/21 05:52 05:55 08:05 Temperature 101.4 F H 98.3 F Pulse Rate 85 87 Respiratory 16 16 Rate Blood Pressure 191/67 136/79 O2 Sat by Pulse 94 L 97 Oximetry EKG Findings - EKG Comments: EKG Findings:: Sinus rhythm, ventricular rate 92, NE interval 248, QTC 435 Medical Decision Making - Medical Decision Making Vitals are stable. Patient is well appearing. CBC does show mild leukocytosis. CMP unremarkable. Urinalysis unremarkable. Chest x-ray does show a multifocal pneumonia. Thompson virus is negative however I suspect that she could have a false negative. We will treat for pneumonia with antibiotics as her test was negative. At this time patient prefers outpatient management. Recommend she follow up closely with her primary care doctor. Recommend she return for any worsening symptoms. - Lab Data Result diagrams: 02/26/21 06:27 02/26/21 06:27 Lab Results 02/26/21 02/26/21 02/26/21 Range/Units 06:27 06:27 06:27 WBC 12.2 H (3.8-10.6) k/uL RBC 4.08 (3.80-5.40) m/uL Hgb 10.8 L (11.4-16.0) gm/dL Hct 32.9 L (34.0-46.0) % MCV 80.5 (80.0-100.0) fL MCH 26.5 (25.0-35.0) pg MCHC 32.9 (31.0-37.0) g/dL RDW 14.6 (11.5-15.5) % Plt Count 289 (150-450) k/uL MPV 7.0 Neutrophils % 88 % Lymphocytes % 6 % Monocytes % 4 % Eosinophils % 1 % Basophils % 0 % Neutrophils # 10.7 H (1.3-7.7) k/uL Lymphocytes # 0.8 L (1.0-4.8) k/uL Monocytes # 0.5 (0-1.0) k/uL Eosinophils # 0.1 (0-0.7) k/uL Basophils # 0.0 (0-0.2) k/uL Sodium 135 L (137-145) mmol/L Potassium 3.4 L (3.5-5.1) mmol/L Chloride 100 (98-107) mmol/L Carbon Dioxide 26 (22-30) mmol/L Anion Gap 9 mmol/L BUN 13 (7-17) mg/dL Creatinine 0.68 (0.52-1.04) mg/dL Est GFR (CKD-EPI)AfAm >90 (>60 ml/min/1.73 sqM) Est GFR (CKD-EPI)NonAf 82 (>60 ml/min/1.73 sqM) Glucose 137 H (74-99) mg/dL Plasma Lactic Acid Gopal (0.7-2.0) mmol/L Calcium 9.6 (8.4-10.2) mg/dL Total Bilirubin 0.7 (0.2-1.3) mg/dL AST 24 (14-36) U/L ALT 11 (4-34) U/L Alkaline Phosphatase 139 H (38-126) U/L Total Protein 7.6 (6.3-8.2) g/dL Albumin 4.1 (3.5-5.0) g/dL Urine Color Yellow Urine Appearance Clear (Clear) Urine pH 7.0 (5.0-8.0) Ur Specific [place] 1.013 (1.001-1.035) Urine Protein 1+ H (Negative) Urine Glucose (UA) Negative (Negative) Urine Ketones Trace H (Negative) Urine Blood Negative (Negative) Urine Nitrite Negative (Negative) Urine Bilirubin Negative (Negative) Urine Urobilinogen <2.0 (<2.0) mg/dL Ur Leukocyte Esterase Negative (Negative) Urine RBC 1 (0-5) /hpf Urine WBC 1 (0-5) /hpf Ur Squamous Epith Cells <1 (0-4) /hpf Hyaline Casts 1 (0-2) /lpf Urine Mucus Rare H (None) /hpf Coronavirus (PCR) (Not Detectd) 02/26/21 02/26/21 Range/Units 06:27 06:27 WBC (3.8-10.6) k/uL RBC (3.80-5.40) m/uL Hgb (11.4-16.0) gm/dL Hct (34.0-46.0) % MCV (80.0-100.0) fL MCH (25.0-35.0) pg MCHC (31.0-37.0) g/dL RDW (11.5-15.5) % Plt Count (150-450) k/uL MPV Neutrophils % % Lymphocytes % % Monocytes % % Eosinophils % % Basophils % % Neutrophils # (1.3-7.7) k/uL Lymphocytes # (1.0-4.8) k/uL Monocytes # (0-1.0) k/uL Eosinophils # (0-0.7) k/uL Basophils # (0-0.2) k/uL Sodium (137-145) mmol/L Potassium (3.5-5.1) mmol/L Chloride (98-107) mmol/L Carbon Dioxide (22-30) mmol/L Anion Gap mmol/L BUN (7-17) mg/dL Creatinine (0.52-1.04) mg/dL Est GFR (CKD-EPI)AfAm (>60 ml/min/1.73 sqM) Est GFR (CKD-EPI)NonAf (>60 ml/min/1.73 sqM) Glucose (74-99) mg/dL Plasma Lactic Acid Gopal 1.3 (0.7-2.0) mmol/L Calcium (8.4-10.2) mg/dL Total Bilirubin (0.2-1.3) mg/dL AST (14-36) U/L ALT (4-34) U/L Alkaline Phosphatase (38-126) U/L Total Protein (6.3-8.2) g/dL Albumin (3.5-5.0) g/dL Urine Color Urine Appearance (Clear) Urine pH (5.0-8.0) Ur Specific [place] (1.001-1.035) Urine Protein (Negative) Urine Glucose (UA) (Negative) Urine Ketones (Negative) Urine Blood (Negative) Urine Nitrite (Negative) Urine Bilirubin (Negative) Urine Urobilinogen (<2.0) mg/dL Ur Leukocyte Esterase (Negative) Urine RBC (0-5) /hpf Urine WBC (0-5) /hpf Ur Squamous Epith Cells (0-4) /hpf Hyaline Casts (0-2) /lpf Urine Mucus (None) /hpf Coronavirus (PCR) Not Detected (Not Detectd) Disposition Clinical Impression: Pneumonia Disposition: HOME SELF-CARE Condition: Good Instructions (If sedation given, give patient instructions): Pneumonia (ED), Fever in Adults (ED) Additional Instructions: Please take Motrin and Tylenol for pain and fever. This will likely help your back pain. Take antibiotic as directed. Follow-up with your doctor as soon as possible. If you have any worsening symptoms return to the emergency room. Prescriptions: RX: Azithromycin [Zithromax Z-pack (6 tabs)] 250 mg PO DIRECTED #6 tab Is patient prescribed a controlled substance at d/c from ED?: No Referrals: Maverick Gordillo Jr, [Primary Care Provider] - 1-2 days Time of Disposition: 08:42
--- NOTE | 2021-02-26 06:57 | XR ---
EXAMINATION TYPE: XR chest 2V DATE OF EXAM: 02/26/2021 COMPARISON: Prior chest x-ray January 11, 2021 and older studies. HISTORY: Fever. TECHNIQUE: Frontal and lateral views of the chest are obtained. FINDINGS: There is chronic parenchymal change with multifocal areas of increased opacity bilaterally . There is persistent cardiomegaly with dual lead pacemaker. No pleural effusion or pneumothorax se en bilaterally. Surgical change left femoral head is redemonstrated. Exaggerated thoracic kyphosis is again seen. Osseous structures are demineralized. IMPRESSION: Cardiomegaly and chronic changes with new multifocal opacities. In current Environment, covid-19 infection needs to be considered.
[2021-02-26 07:30] LABS: Basophils % (A) 0 %; Eosinophils # (A) 0.1 k/uL (0-0.7); Eosinophils % (A) 1 %; HCT 32.9 % (34.0-46.0); HGB 10.8 gm/dL (11.4-16.0); Lymphocytes # (A) 0.8 k/uL (1.0-4.8); Lymphocytes % (A) 6 %; MCH 26.5 pg (25.0-35.0); MCHC 32.9 g/dL (31.0-37.0); MCV 80.5 fL (80.0-100.0); Monocytes # (A) 0.5 k/uL (0-1.0); Monocytes % (A) 4 %; Neutrophils # (A) 10.7 k/uL (1.3-7.7); Neutrophils % (A) 88 %; Platelet Count 289 k/uL (150-450); RBC 4.08 m/uL (3.80-5.40); RDW 14.6 % (11.5-15.5); WBC 12.2 k/uL (3.8-10.6)
[2021-02-26 07:31] LABS: ALT 11 U/L (4-34); AST 24 U/L (14-36); African American GFR (CKD) >90 (>60 ml/min/1.73 sqM); Albumin 4.1 g/dL (3.5-5.0); Alkaline Phosphatase 139 U/L (38-126); Anion Gap 9 mmol/L; Blood Urea Nitrogen 13 mg/dL (7-17); Calcium 9.6 mg/dL (8.4-10.2); Carbon Dioxide 26 mmol/L (22-30); Chloride 100 mmol/L (98-107); Glucose 137 mg/dL (74-99); Non-African American GFR(CKD) 82 (>60 ml/min/1.73 sqM); Potassium 3.4 mmol/L (3.5-5.1); Sodium 135 mmol/L (137-145); Total Bilirubin 0.7 mg/dL (0.2-1.3); Total Protein 7.6 g/dL (6.3-8.2)
[2021-02-26] MEDS ORDERED: MORPHINE SULFATE 2 MG/ML SYRINGE IVP STA (07:43)
[2021-02-26 08:06] VITALS: TEMP 98.3
[2021-02-26] MEDS ORDERED: cefTRIAXone IN SWFI 1,000 MG/10 ML SYRINGE IVP STA (08:12)
[2021-02-26 08:13] LABS: Appearance,Urine Clear (Clear); Bilirubin,Urine Negative (Negative); Blood,Urine Negative (Negative); Color,Urine Yellow; Glucose,Urine (UA) Negative (Negative); Hyaline Casts,Urine 1 /lpf (0-2); Ketones,Urine Trace (Negative); Leukocyte Esterase,Urine Negative (Negative); Mucus,Urine Rare /hpf; Nitrite,Urine Negative (Negative); Protein,Urine 1+ (Negative); RBC,Urine 1 /hpf (0-5); Specific Gravity,Urine 1.013 (1.001-1.035); Squamous Epithelial Cell,Urine <1 /hpf (0-4); Urobilinogen,Urine <2.0 mg/dL (<2.0); WBC,Urine 1 /hpf (0-5)
[2021-02-26] MEDS ORDERED: AZITHROMYCIN 500 MG TAB PO STA (08:28)
[2021-02-26 08:58] VITALS: BP 141/73; PULSE 88; RESP 18
== END 2021-02-26 09:28 | disposition home or self-care (01) ==
LOC: EC 05:45
DX: J18.9 Pneumonia, unspecified organism (principal); M54.9 Dorsalgia, unspecified; R11.0 Nausea; I48.91 Unspecified atrial fibrillation; J45.909 Unspecified asthma, uncomplicated; K21.9 Gastro-esophageal reflux disease without esophagitis; E78.5 Hyperlipidemia, unspecified; I10 Essential (primary) hypertension; G89.29 Other chronic pain; E03.9 Hypothyroidism, unspecified; M16.0 Bilateral primary osteoarthritis of hip; M17.0 Bilateral primary osteoarthritis of knee; Z20.822 Contact with and (suspected) exposure to COVID-19; Z79.890 Hormone replacement therapy; Z79.899 Other long term (current) drug therapy; Z79.01 Long term (current) use of anticoagulants; Z88.0 Allergy status to penicillin
CPT/HCPCS: 36415; 93005; 80053; 83605; 85025; 81001; 87040; 87635; 71046; 99284; 96374; 96375 ×2; J0696; J2270; J1885

== ENCOUNTER 2021-07-21 08:02 | Observation (INO) | payer MEDICARE, BC ==
--- NOTE | 2021-07-21 08:28 | ED ---
General Adult HPI - General Chief complaint: Fall Stated complaint: fall Time Seen by Provider: 07/21/21 08:08 Source: patient, RN notes reviewed Mode of arrival: ambulatory Limitations: no limitations - History of Present Illness Initial comments: Patient is a pleasant 80-year-old female presenting to the emergency department on a fall. Incident occurred this morning. Patient feels her left leg gave out. Patient does have chronic left sciatica. Patient did strike her head. No loss of consciousness. Patient is on blood thinners secondary to history of atrial fibrillation. Patient also has some discomfort of her left knee and left hip. Discomfort there is mild. Patient had difficulty getting up on her own. Patient was able to stand up when transferring from stretcher to the bed. - Related Data Home Medications Medication Instructions Recorded Confirmed Pravastatin Sodium [Pravachol] 40 mg PO HS 11/27/14 03/28/19 Potassium Chloride [K-Tab ER] 10 meq PO DAILY 04/11/15 03/28/19 Acetaminophen Tab [Tylenol] 1,000 mg PO TID PRN 11/24/15 03/28/19 Furosemide [Lasix] 20 mg PO DAILY 11/24/15 03/28/19 amLODIPine [Norvasc] 5 mg PO HS 11/24/15 03/28/19 Montelukast [Singulair] 10 mg PO HS 03/30/16 03/28/19 Magnesium Gluconate [Magonate] 500 mg PO DAILY 04/30/16 03/28/19 Omeprazole [PriLOSEC] 40 mg PO DAILY 05/21/16 03/28/19 Cod Liver Oil 1 cap PO DAILY 03/26/17 03/28/19 Metoprolol Succinate (ER) [Toprol 25 mg PO DAILY 03/26/17 03/28/19 XL] Zinc 50 mg PO DAILY 03/26/17 03/28/19 Fluticasone Nasal [place] [Flonase 2 spr EA NOSTRIL RT-DAILY 01/20/18 03/28/19 Nasal [place]] Albuterol Inhaler (Mhu) [Ventolin 1 - 2 puff INHALATION RT-Q6H PRN 03/28/19 03/28/19 Hfa Inhaler (Mhu)] Apixaban [Eliquis] 5 mg PO BID 03/28/19 03/28/19 Calcium Carbonate [Calcium] 600 mg PO DAILY 03/28/19 03/28/19 Cyanocobalamin [Vitamin B-12] 500 mcg PO Q72H 03/28/19 03/28/19 Levothyroxine Sodium [Synthroid] 50 mcg PO DAILY 03/28/19 03/28/19 Multivitamins, Thera [Multivitamin 1 tab PO DAILY 03/28/19 03/28/19 (formulary)] Previous Rx's Medication Instructions Recorded Sulfamethox-Tmp 800-160Mg [Bactrim 1 each PO Q12HR #6 tab 01/11/21 Ds] Azithromycin [Zithromax Z-pack (6 250 mg PO DIRECTED #6 tab 02/26/21 tabs)] Allergies Allergy/AdvReac Type Severity Reaction Status Date / Time codeine Allergy Unknown Verified 07/21/21 08:13 hydromorphone HCl Allergy Unknown Verified 07/21/21 08:13 [From Dilaudid] Iodinated Contrast Media Allergy Unknown Verified 07/21/21 08:13 [Iodinated Contrast Media - IV Dye] iodine Allergy Unknown Verified 07/21/21 08:13 meperidine HCl [From Demerol] Allergy Unknown Verified 07/21/21 08:13 nalbuphine HCl [From Nubain] Allergy Unknown Verified 07/21/21 08:13 Penicillins Allergy Unknown Verified 07/21/21 08:13 Sulfa (Sulfonamide Allergy Unknown Verified 07/21/21 08:13 Antibiotics) Review of Systems ROS Statement: Those systems with pertinent positive or pertinent negative responses have been documented in the HPI. ROS Other: All systems not noted in ROS Statement are negative. Constitutional: Denies: fever Eyes: Denies: eye pain ENT: Denies: ear pain Respiratory: Denies: cough Cardiovascular: Denies: chest pain Endocrine: Denies: fatigue Gastrointestinal: Denies: abdominal pain Genitourinary: Denies: dysuria Musculoskeletal: Reports: as per HPI Skin: Denies: rash Neurological: Denies: headache, weakness Past Medical History Past Medical History: Atrial Fibrillation, Asthma, Cancer, GERD/Reflux, Hyperlipidemia, Hypertension, Osteoarthritis (OA), Thyroid Disorder Additional Past Medical History / Comment(s): Past Afib RVR tx with cardizem/tachybrady syndrome and had pacer insertion, UTI'S , current lower leg edema, hypothyroid, seasonal allergies, vertigo, UTIs>> sepsis september 2015, tinnitus rt ear worse than left, chronic constipation and also episodes of diarrhea, abdominal pain/bloat past year, 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 History of Any Multi-Drug Resistant Organisms: None Reported Past Surgical History: Adenoidectomy, Cholecystectomy, Joint Replacement, Orthopedic Surgery, Pacemaker, Tonsillectomy Additional Past Surgical History / Comment(s): Bartholin cyst surgical procedure, R eye with retinal repair, R eye rk, R eye cataract removal and ma cular wrinkle repair, partial replacement lt shoulder and left knee replacement, 2006 Heart Cath (no intervention), colonoscopy, R cheek melanoma removal, D&C, vaginal cystectomy, L breast benign bx. Past Anesthesia/Blood Transfusion Reactions: Motion Sickness, Postoperative Nausea & Vomiting (PONV) Type of Cardiac Device: Permanent Pacemaker Device Placement Date:: 04/02/16 Past Psychological History: No Psychological Hx Reported Smoking Status: Never smoker Past Alcohol Use History: None Reported Past Drug Use History: None Reported - Past Family History Mother Family Medical History: Asthma, Thyroid Disorder Additional Family Medical History / Comment(s): thyroid nodule. bronchitis Father Family Medical History: Respiratory Disorder Additional Family Medical History / Comment(s): at age 46 addisons disease(stopped taking his steroids), also had tb General Exam Limitations: no limitations General appearance: alert, in no apparent distress Head exam: Present: atraumatic, normocephalic Eye exam: Present: normal appearance, PERRL, EOMI Neck exam: Present: normal inspection, full ROM. Absent: tenderness Respiratory exam: Present: normal lung sounds bilaterally Cardiovascular Exam: Present: irregular rhythm GI/Abdominal exam: Present: soft. Absent: tenderness Extremities exam: Present: tenderness (Moderate tenderness left anterior knee and left lateral hip) Back exam: Present: normal inspection. Absent: tenderness, vertebral tenderness Neurological exam: Present: alert Psychiatric exam: Present: normal affect, normal mood Skin exam: Present: normal color Course Vital Signs 07/21/21 08:06 Temperature 98.0 F Pulse Rate 63 Respiratory 18 Rate Blood Pressure 163/71 O2 Sat by Pulse 97 Oximetry EKG Findings - EKG Comments: EKG Findings:: Irregular narrow complex rhythm 3-63. ME 276. QRS 102. QT 422. QTC 431. Left axis. LVH criteria. No acute ST change. Medical Decision Making - Medical Decision Making Patient reevaluated and updated. Patient requests discharge home. - Radiology Data Radiology results: report reviewed (Computed tomography scan shows atrophy. No acute hemorrhage.), image reviewed (Left knee x-ray shows no fracture. Left hip and pelvis x-ray shows no fracture. Advanced degeneration.) Disposition Clinical Impression: Fall, Head contusion Disposition: HOME SELF-CARE Condition: Stable Instructions (If sedation given, give patient instructions): Fall Prevention for Older Adults (ED), Head Injury (ED) Additional Instructions: [id number] Tylenol as needed. Ice to affected areas. Hold blood thinners for 24 hours. Return for weakness, increased falls, worsening symptoms or other concerns. Is patient prescribed a controlled substance at d/c from ED?: No Referrals: Maverick Gordillo Jr, DO [Primary Care Provider] - 1-2 days Time of Disposition: 09:15
--- NOTE | 2021-07-21 08:58 | CT ---
EXAMINATION TYPE: CT brain wo con DATE OF EXAM: 07/21/2021 HISTORY: fall injury with headache CT DLP: 1066.4 mGycm. Automated Exposure Control for Dose Reduction was Utilized. TECHNIQUE: CT scan of the head is performed without contrast. COMPARISON: CT brain May 05, 2020. FINDINGS: There is no acute intracranial hemorrhage or midline shift identified. There is mild diff use ventricular and sulcal prominence consistent with diffuse age-related cerebral atrophy. There is moderate low-attenuation in the periventricular white matter consistent with chronic small vessel is chemic change. The calvarium is intact. Scleral buckle right globe redemonstrated. The visualized sin uses are clear. IMPRESSION: No acute intracranial hemorrhage or midline shift. There is mild diffuse age-related ce rebral atrophy and moderate chronic small vessel ischemic change redemonstrated. No significant bui ge in these findings from prior.
--- NOTE | 2021-07-21 09:00 | XR ---
EXAMINATION TYPE: XR knee complete LT DATE OF EXAM: 07/21/2021 CLINICAL HISTORY: Pain after fall. TECHNIQUE: Three views of the left knee are obtained. COMPARISON: Left knee x-ray March 14, 2011 FINDINGS: Negative osseous structures are demineralized. There is no acute fracture/dislocation evid ent in the left knee. Metallic hardware redemonstrated and stable and satisfactory in position. New m ild posterior vascular calcification noted. Some spurring from the patella redemonstrated. IMPRESSION: There is no acute fracture or dislocation in the left knee.
--- NOTE | 2021-07-21 09:02 | XR ---
EXAMINATION TYPE: XR Hip LT and AP Pelvis DATE OF EXAM: 07/21/2021 COMPARISON: CT abdomen and pelvis August 11, 2019 HISTORY: Fall injury with pain TECHNIQUE: A single AP view of the pelvis is obtained. Two views of the left hip are obtained. FINDINGS: [place] Osseous structures are demineralized which is noted to lower radiographic sensitivi ty. Advanced degenerative changes of both hip joints redemonstrated with severe joint space loss, the re is [id number] formation with advanced subchondral cystic change and acetabular spurring redemons trated. There is loss of spherical shape bilaterally redemonstrated Pubic symphysis is intact. Sacroi liac joints shows narrowing bilaterally greater on the right. Scattered bilateral pelvic phleboliths. Two views of left hip show no acute fracture or dislocation. No focal lytic or sclerotic lesion seen in the proximal left femur. The overlying soft tissue is unremarkable. IMPRESSION: There is no acute fracture or dislocation in the pelvis or left hip. Advanced degenerati ve changes both hips redemonstrated.
[2021-07-21] MEDS ORDERED: MORPHINE SULFATE 4 MG/ML SYRINGE IM STA (09:31)
--- NOTE | 2021-07-21 10:51 | XR ---
EXAMINATION TYPE: XR lumbar spine 2 or 3V DATE OF EXAM: 07/21/2021 10:30 AM CLINICAL HISTORY: Pain TECHNIQUE: 3 views of the lumbar spine were obtained. COMPARISON: Correlation made with CT scan of the abdomen and pelvis from 08/11/2019. FINDINGS: Images demonstrate left-sided scoliosis. There is advanced degenerative disease of the lumbar spine with disc space narrowing and heavy osteop hyte formation at the edges of the endplates. There is vacuum phenomenon. This study is somewhat limited for evaluation for acute fracture. No obvious acute fracture seen. IMPRESSION: Study limited due to advanced degenerative disease of the lumbar spine. No obvious fractures seen. If the patient continues to be symptomatic, MRI of the lumbar spine may be considered.
[2021-07-21] MEDS ORDERED: PANTOPRAZOLE 40 MG/10 ML VIAL IVP STA (12:03)
[2021-07-21] MEDS ORDERED: ONDANSETRON 4 MG/2 ML VIAL IVP STA (12:05)
[2021-07-21 12:19] LABS: Basophils % (A) 0 %; Eosinophils # (A) 0.2 k/uL (0-0.7); Eosinophils % (A) 2 %; HCT 36.6 % (34.0-46.0); HGB 11.7 gm/dL (11.4-16.0); Lymphocytes # (A) 3.3 k/uL (1.0-4.8); Lymphocytes % (A) 34 %; MCH 26.7 pg (25.0-35.0); MCHC 32.1 g/dL (31.0-37.0); MCV 83.3 fL (80.0-100.0); Monocytes # (A) 0.6 k/uL (0-1.0); Monocytes % (A) 6 %; Neutrophils # (A) 5.5 k/uL (1.3-7.7); Neutrophils % (A) 56 %; Platelet Count 324 k/uL (150-450); RBC 4.39 m/uL (3.80-5.40); RDW 15.3 % (11.5-15.5); WBC 9.8 k/uL (3.8-10.6)
--- NOTE | 2021-07-21 12:29 | XR ---
EXAMINATION TYPE: XR KUB DATE OF EXAM: 07/21/2021 CLINICAL HISTORY: Pain TECHNIQUE: 2 views of the abdomen were obtained. Limited study due to exclusion of parts of the abdomen. COMPARISON: CT report from 08/11/2019. FINDINGS: There is mild distention of the colonic loops. There is nonvisualization of small bowel loops. The ov erall pattern is nonobstructed. This represents a limited study due to exclusion of parts of the abdo men from this examination. Degenerative disease of the lumbar spine and hips is noted. IMPRESSION: Nonobstructive bowel gas pattern. Degenerative disease of the hips and lumbar spine.
[2021-07-21 12:31] LABS: INR 1.1 (<1.2); Partial Thromboplastin Time 25.4 sec (22.0-30.0); Prothrombin Time 11.1 sec (9.0-12.0)
--- NOTE | 2021-07-21 12:31 | XR ---
EXAMINATION TYPE: XR chest 2V DATE OF EXAM: 07/21/2021 COMPARISON: NONE HISTORY: Fall TECHNIQUE: Frontal and lateral views of the chest are obtained. FINDINGS: There is no focal air space opacity, pleural effusion, or pneumothorax seen. The cardiac silhouette size is within normal limits. The osseous structures are intact. Cardiac pacing device o verlies the left chest wall. Pacing leads are intact. Partial left shoulder arthroplasty is noted. Bones are markedly osteopenic. IMPRESSION: No acute cardiopulmonary process.
[2021-07-21 12:34] LABS: Appearance,Urine Clear (Clear); Bacteria,Urine Occasional /hpf; Bilirubin,Urine Negative (Negative); Blood,Urine Negative (Negative); Color,Urine Light Yellow; Glucose,Urine (UA) Negative (Negative); Ketones,Urine Negative (Negative); Leukocyte Esterase,Urine Moderate (Negative); Mucus,Urine Rare /hpf; Nitrite,Urine Negative (Negative); Protein,Urine Negative (Negative); RBC,Urine 1 /hpf (0-5); Specific Gravity,Urine 1.008 (1.001-1.035); Squamous Epithelial Cell,Urine <1 /hpf (0-4); Urobilinogen,Urine <2.0 mg/dL (<2.0); WBC,Urine 20 /hpf (0-5)
[2021-07-21 12:35] LABS: ALT 17 U/L (4-34); AST 47 U/L (14-36); African American GFR (CKD) >90 (>60 ml/min/1.73 sqM); Albumin 3.7 g/dL (3.5-5.0); Alkaline Phosphatase 161 U/L (38-126); Amylase 66 U/L (30-110); Anion Gap 8 mmol/L; Blood Urea Nitrogen 14 mg/dL (7-17); Carbon Dioxide 25 mmol/L (22-30); Chloride 105 mmol/L (98-107); Glucose 129 mg/dL (74-99); Lipase 154 U/L (23-300); Non-African American GFR(CKD) 84 (>60 ml/min/1.73 sqM); Sodium 138 mmol/L (137-145); Total Bilirubin 0.5 mg/dL (0.2-1.3); Total Protein 7.1 g/dL (6.3-8.2)
[2021-07-21] MEDS ORDERED: NITROGLYCERIN SL TABS 0.4 MG TAB SUBLINGUAL PRN (13:11)
--- NOTE | 2021-07-21 13:11 | ED ---
Medical Decision Making - Medical Decision Making Prior to discharge patient did not feel steady on her feet. After this patient started developing chest discomfort. Further tests ordered. Patient reevaluated and resting complain bed at this time. Patient and family updated. Case discussed with Dr. Jackson, who will admit his patient. - Lab Data Result diagrams: 07/21/21 12:08 07/21/21 12:08 Lab Results 07/21/21 07/21/21 07/21/21 Range/Units 12:08 12:08 12:08 WBC 9.8 (3.8-10.6) k/uL RBC 4.39 (3.80-5.40) m/uL Hgb 11.7 (11.4-16.0) gm/dL Hct 36.6 (34.0-46.0) % MCV 83.3 (80.0-100.0) fL MCH 26.7 (25.0-35.0) pg MCHC 32.1 (31.0-37.0) g/dL RDW 15.3 (11.5-15.5) % Plt Count 324 (150-450) k/uL MPV 7.0 Neutrophils % 56 % Lymphocytes % 34 % Monocytes % 6 % Eosinophils % 2 % Basophils % 0 % Neutrophils # 5.5 (1.3-7.7) k/uL Lymphocytes # 3.3 (1.0-4.8) k/uL Monocytes # 0.6 (0-1.0) k/uL Eosinophils # 0.2 (0-0.7) k/uL Basophils # 0.0 (0-0.2) k/uL PT 11.1 (9.0-12.0) sec INR 1.1 (<1.2) APTT 25.4 (22.0-30.0) sec Sodium (137-145) mmol/L Potassium (3.5-5.1) mmol/L Chloride (98-107) mmol/L Carbon Dioxide (22-30) mmol/L Anion Gap mmol/L BUN (7-17) mg/dL Creatinine (0.52-1.04) mg/dL Est GFR (CKD-EPI)AfAm (>60 ml/min/1.73 sqM) Est GFR (CKD-EPI)NonAf (>60 ml/min/1.73 sqM) Glucose (74-99) mg/dL Calcium (8.4-10.2) mg/dL Total Bilirubin (0.2-1.3) mg/dL AST (14-36) U/L ALT (4-34) U/L Alkaline Phosphatase (38-126) U/L Troponin I (0.000-0.034) ng/mL Total Protein (6.3-8.2) g/dL Albumin (3.5-5.0) g/dL Amylase (30-110) U/L Lipase (23-300) U/L Urine Color Light Yellow Urine Appearance Clear (Clear) Urine pH 7.0 (5.0-8.0) Ur Specific [place] 1.008 (1.001-1.035) Urine Protein Negative (Negative) Urine Glucose (UA) Negative (Negative) Urine Ketones Negative (Negative) Urine Blood Negative (Negative) Urine Nitrite Negative (Negative) Urine Bilirubin Negative (Negative) Urine Urobilinogen <2.0 (<2.0) mg/dL Ur Leukocyte Esterase Moderate H (Negative) Urine RBC 1 (0-5) /hpf Urine WBC 20 H (0-5) /hpf Ur Squamous Epith Cells <1 (0-4) /hpf Urine Bacteria Occasional H (None) /hpf Urine Mucus Rare H (None) /hpf 07/21/21 07/21/21 Range/Units 12:08 12:08 WBC (3.8-10.6) k/uL RBC (3.80-5.40) m/uL Hgb (11.4-16.0) gm/dL Hct (34.0-46.0) % MCV (80.0-100.0) fL MCH (25.0-35.0) pg MCHC (31.0-37.0) g/dL RDW (11.5-15.5) % Plt Count (150-450) k/uL MPV Neutrophils % % Lymphocytes % % Monocytes % % Eosinophils % % Basophils % % Neutrophils # (1.3-7.7) k/uL Lymphocytes # (1.0-4.8) k/uL Monocytes # (0-1.0) k/uL Eosinophils # (0-0.7) k/uL Basophils # (0-0.2) k/uL PT (9.0-12.0) sec INR (<1.2) APTT (22.0-30.0) sec Sodium 138 (137-145) mmol/L Potassium 4.0 (3.5-5.1) mmol/L Chloride 105 (98-107) mmol/L Carbon Dioxide 25 (22-30) mmol/L Anion Gap 8 mmol/L BUN 14 (7-17) mg/dL Creatinine 0.63 (0.52-1.04) mg/dL Est GFR (CKD-EPI)AfAm >90 (>60 ml/min/1.73 sqM) Est GFR (CKD-EPI)NonAf 84 (>60 ml/min/1.73 sqM) Glucose 129 H (74-99) mg/dL Calcium 10.0 (8.4-10.2) mg/dL Total Bilirubin 0.5 (0.2-1.3) mg/dL AST 47 H (14-36) U/L ALT 17 (4-34) U/L Alkaline Phosphatase 161 H (38-126) U/L Troponin I <0.012 (0.000-0.034) ng/mL Total Protein 7.1 (6.3-8.2) g/dL Albumin 3.7 (3.5-5.0) g/dL Amylase 66 (30-110) U/L Lipase 154 (23-300) U/L Urine Color Urine Appearance (Clear) Urine pH (5.0-8.0) Ur Specific [place] (1.001-1.035) Urine Protein (Negative) Urine Glucose (UA) (Negative) Urine Ketones (Negative) Urine Blood (Negative) Urine Nitrite (Negative) Urine Bilirubin (Negative) Urine Urobilinogen (<2.0) mg/dL Ur Leukocyte Esterase (Negative) Urine RBC (0-5) /hpf Urine WBC (0-5) /hpf Ur Squamous Epith Cells (0-4) /hpf Urine Bacteria (None) /hpf Urine Mucus (None) /hpf Disposition Clinical Impression: Fall, Head contusion, Chest pain Disposition: ADMITTED IP TO THIS [facility] Condition: Stable Instructions (If sedation given, give patient instructions): Fall Prevention for Older Adults (ED), Head Injury (ED) Additional Instructions: [id number] Tylenol as needed. Ice to affected areas. Hold blood thinners for 24 hours. Return for weakness, increased falls, worsening symptoms or other concerns. Is patient prescribed a controlled substance at d/c from ED?: No Referrals: Maverick Gordillo Jr, [Primary Care Provider] - 1-2 days
[2021-07-21] MEDS ORDERED: CYANOCOBALAMIN 500 MCG TAB PO SCH (13:45)
[2021-07-21] MEDS ORDERED: AZITHROMYCIN 250 MG TAB PO SCH (13:45)
--- NOTE | 2021-07-21 14:13 | P.HPIM ---
History of Present Illness H&P Date: 07/21/21 Chief Complaint: Chest discomfort, fall, anxiety recent of spouse Holly is an 80-year-old female well-known to my practice with a history of type 2 diabetes, hypertension, atrial fibrillation, mild diastolic heart failure, morbid obesity, who presented to the emergency room complaining of fall while making breakfast this morning. Subsequently developed chest discomfort, denies shortness of breath, denies nausea vomiting, denies wheezing, does complain of multiple joint complaints including back and hip and knee pain as well as mild urgency frequency. Holly's of many years in his sleep approximately 3 days ago while sitting in a chair. I'm sure this is weighing heavily on her and her daughters who brought her into the hospital today. During the examination she described midsternal chest pressure, she tried to dismiss this, given her history and the current circumstances, I think it's appropriate to admit Holly treat her for the UTI that she has, as well as obtain serial troponins serial EKGs to assure the patient as well as her daughters that she is not succumbing to the stress of the most recent days Review of Systems Constitutional: Reports as per HPI, Reports chronic pain, Reports fatigue Ears, nose, mouth and throat: Reports as per HPI Cardiovascular: Reports chest pain, Reports high blood pressure, Reports irregular heart beat (Possible near syncope, however patient states she had pain when she placed her left foot and it subsequently gave out on her) Respiratory: Reports as per HPI Genitourinary: Reports dysuria, Reports urgency, Reports urinary frequency Menstruation: Reports postmenopausal Musculoskeletal: Reports low back pain (Left knee pain bilateral hip pain known moderate osteoarthritis bilateral hips knees and lumbar spine) Integumentary: Reports as per HPI Neurological: Reports as per HPI Psychiatric: Reports anxiety (Grieving recent of spouse) Endocrine: Reports as per HPI Hematologic/Lymphatic: Reports as per HPI Past Medical History Past Medical History: Atrial Fibrillation, Asthma, Cancer, GERD/Reflux, Hyperlipidemia, Hypertension, Osteoarthritis (OA), Thyroid Disorder Additional Past Medical History / Comment(s): Past Afib RVR tx with cardizem/tachybrady syndrome and had pacer insertion, UTI'S , current lower leg edema, hypothyroid, seasonal allergies, vertigo, UTIs>> sepsis september 2015, tinnitus rt ear worse than left, chronic constipation and also episodes of diarrhea, abdominal pain/bloat past year, 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 History of Any Multi-Drug Resistant Organisms: None Reported Past Surgical History: Adenoidectomy, Cholecystectomy, Joint Replacement, Orthopedic Surgery, Pacemaker, Tonsillectomy Additional Past Surgical History / Comment(s): Bartholin cyst surgical procedure, R eye with retinal repair, R eye rk, R eye cataract removal and ma cular wrinkle repair, partial replacement lt shoulder and left knee replacement, 2006 Heart Cath (no intervention), colonoscopy, R cheek melanoma removal, D&C, vaginal cystectomy, L breast benign bx. Past Anesthesia/Blood Transfusion Reactions: Motion Sickness, Postoperative Nausea & Vomiting (PONV) Type of Cardiac Device: Permanent Pacemaker Device Placement Date:: 04/02/16 Past Psychological History: No Psychological Hx Reported Smoking Status: Never smoker Past Alcohol Use History: None Reported Past Drug Use History: None Reported - Past Family History Mother Family Medical History: Asthma, Thyroid Disorder Additional Family Medical History / Comment(s): thyroid nodule. bronchitis Father Family Medical History: Respiratory Disorder Additional Family Medical History / Comment(s): at age 46 addisons disease(stopped taking his steroids), also had tb Medications and Allergies Home Medications Medication Instructions Recorded Confirmed Type Pravastatin Sodium [Pravachol] 40 mg PO HS 11/27/14 03/28/19 History Potassium Chloride [K-Tab ER] 10 meq PO DAILY 04/11/15 03/28/19 History Acetaminophen Tab [Tylenol] 1,000 mg PO TID PRN 11/24/15 03/28/19 History Furosemide [Lasix] 20 mg PO DAILY 11/24/15 03/28/19 History amLODIPine [Norvasc] 5 mg PO HS 11/24/15 03/28/19 History Montelukast [Singulair] 10 mg PO HS 03/30/16 03/28/19 History Magnesium Gluconate [Magonate] 500 mg PO DAILY 04/30/16 03/28/19 History Omeprazole [PriLOSEC] 40 mg PO DAILY 05/21/16 03/28/19 History Cod Liver Oil 1 cap PO DAILY 03/26/17 03/28/19 History Metoprolol Succinate (ER) [Toprol 25 mg PO DAILY 03/26/17 03/28/19 History XL] Zinc 50 mg PO DAILY 03/26/17 03/28/19 History Fluticasone Nasal [place] [Flonase 2 spr EA NOSTRIL RT-DAILY 01/20/18 03/28/19 History Nasal [place]] Albuterol Inhaler (Mhu) [Ventolin 1 - 2 puff INHALATION RT-Q6H PRN 03/28/19 03/28/19 History Hfa Inhaler (Mhu)] Apixaban [Eliquis] 5 mg PO BID 03/28/19 03/28/19 History Calcium Carbonate [Calcium] 600 mg PO DAILY 03/28/19 03/28/19 History Cyanocobalamin [Vitamin B-12] 500 mcg PO Q72H 03/28/19 03/28/19 History Levothyroxine Sodium [Synthroid] 50 mcg PO DAILY 03/28/19 03/28/19 History Multivitamins, Thera [Multivitamin 1 tab PO DAILY 03/28/19 03/28/19 History (formulary)] Sulfamethox-Tmp 800-160Mg [Bactrim 1 each PO Q12HR #6 tab 01/11/21 Rx Ds] Azithromycin [Zithromax Z-pack (6 250 mg PO DIRECTED #6 tab 02/26/21 Rx tabs)] Allergies Allergy/AdvReac Type Severity Reaction Status Date / Time codeine Allergy Unknown Verified 07/21/21 13:40 hydromorphone HCl Allergy Unknown Verified 07/21/21 13:40 [From Dilaudid] Iodinated Contrast Media Allergy Unknown Verified 07/21/21 13:40 [Iodinated Contrast Media - IV Dye] iodine Allergy Unknown Verified 07/21/21 13:40 meperidine HCl [From Demerol] Allergy Unknown Verified 07/21/21 13:40 nalbuphine HCl [From Nubain] Allergy Unknown Verified 07/21/21 13:40 Penicillins Allergy Unknown Verified 07/21/21 13:40 Sulfa (Sulfonamide Allergy Unknown Verified 07/21/21 13:40 Antibiotics) Physical Exam Osteopathic Statement: *. No significant issues noted on an osteopathic structural exam other than those noted in the History and Physical/Consult. Vitals: Vital Signs Temp Pulse Resp BP Pulse Ox 07/21/21 12:02 62 17 105/61 100 07/21/21 09:57 17 07/21/21 09:30 68 16 156/66 07/21/21 08:30 62 17 163/71 07/21/21 08:06 98.0 F 63 18 163/71 97 Intake and Output 07/20/21 07/21/21 07/21/21 22:59 06:59 14:59 Other: Weight 115.666 kg General: [Patient awake, alert and oriented times 3. Patient in no acute distr ess.] Morbidly obese HEENT: [PERRL. EOMI. No pharyngeal erythema or exudate.] Neck: [No adenopathy.] Cardiac: [Heart regular in rate and rhythm. No S3. No S4. No clicks, rubs. No murmur.] Lungs: [Clear to auscultation bilaterally.] Abdomen: [No mass. No organomegaly. Bowel sounds presnt and normoactive in all 4 quadrants.] Extremes: [No edema no cyanosis no claudication normal pulses, bilateral hip pain, left knee pain significant lumbar osteoarthritis with low back pain : Normal female genitalia, mild Mike's on the right Musculoskeletal: [No joint erythema, significant left knee pain, low back pain radiating to the left side bilateral hip pain' edema or tenderness.] Skin: [No rash.] Neurologic: [No lateralizing deficits. CN II - XII grossly intact.] Lymphatic: [No adenopathy.] Results CBC & Chem 7: 07/21/21 12:08 07/21/21 12:08 Labs: Abnormal Lab Results - Last 24 Hours (Table) 07/21/21 07/21/21 Range/Units 12:08 12:08 Glucose 129 H (74-99) mg/dL AST 47 H (14-36) U/L Alkaline Phosphatase 161 H (38-126) U/L Ur Leukocyte Esterase Moderate H (Negative) Urine WBC 20 H (0-5) /hpf Urine Bacteria Occasional H (None) /hpf Urine Mucus Rare H (None) /hpf Chest x-ray: report reviewed CT Scan - head: report reviewed Thrombosis Risk Factor Assmnt - DVT/VTE Prophylaxis DVT/VTE Prophylaxis: Pharmacologic Prophylaxis ordered - Choose All That Apply Any of the Below Risk Factors Present?: Yes Each Factor Represents 1 point: Obesity (BMI >25), Swollen legs (current), Varicose veins Other Risk Factors: Yes (Known history of intermittent A. fib patient currently on apixaban) Thrombosis Risk Factor Assessment Total Risk Factor Score: 3 Thrombosis Risk Factor Assessment Level: Moderate Risk Assessment and Plan (1) Intermittent atrial fibrillation Current Visit: Yes Status: Acute Code(s): I48.0 - PAROXYSMAL ATRIAL FIBRILLATION SNOMED Code(s): 667993443 (2) Chest pain Current Visit: Yes Status: Acute Code(s): R07.9 - CHEST PAIN, UNSPECIFIED SNOMED Code(s): 90965546 (3) Fall Current Visit: Yes Status: Acute Code(s): W19.XXXA - UNSPECIFIED FALL, INITIAL ENCOUNTER SNOMED Code(s): 3001965 (4) Asthma Current Visit: No Status: Acute Code(s): J45.909 - UNSPECIFIED ASTHMA, UNCOMPLICATED SNOMED Code(s): 647641665 Plan: Admit patient to the hospital Echocardiogram Cardiology consultation Serial troponins Serial EKGs Consider grief counseling Negative covid 19 screen in the ER Will follow closely Time with Patient: Greater than 30
[2021-07-21] MEDS ORDERED: DICLOFENAC SODIUM GEL 100 GM TUBE TOPICAL PRN (14:14)
[2021-07-21] MEDS ORDERED: ERGOCALCIFEROL 1,250 MCG (50,000 IU) CAPSULE PO SCH (15:00)
[2021-07-21] MEDS: ACETAMINOPHEN TAB 500 MG TAB PO PRN (16:22)
[2021-07-21] MEDS ORDERED: PEPPERMINT OIL PO SCH (17:30)
[2021-07-21] MEDS: ATORVASTATIN 20 MG TAB PO SCH (20:41)
[2021-07-21] MEDS: MONTELUKAST 10 MG TAB PO SCH (20:42)
[2021-07-21] MEDS: RIVAROXABAN 15 MG TAB PO SCH (20:42)
[2021-07-21] MEDS ORDERED: APIXABAN 5 MG TAB PO SCH (21:00)
[2021-07-21] MEDS ORDERED: PRAVASTATIN SODIUM 40 MG TAB PO SCH (21:00)
[2021-07-21] MEDS ORDERED: amLODIPine 5 MG TAB PO SCH (21:00)
[2021-07-22] MEDS: ACETAMINOPHEN TAB 500 MG TAB PO PRN ×3 (03:10→20:51)
[2021-07-22] MEDS ORDERED: PANTOPRAZOLE 40 MG TABLET PO SCH (07:30)
[2021-07-22] MEDS: MULTIVITAMINS, THERA 1 EACH TAB PO SCH (07:32)
[2021-07-22] MEDS: LEVOTHYROXINE 50 MCG TAB PO SCH (07:32)
[2021-07-22] MEDS: MAGNESIUM OXIDE 400 MG TAB PO SCH (07:32)
[2021-07-22] MEDS: POTASSIUM CHLORIDE ER 10 MEQ TAB.ER.PRT PO SCH (07:32)
[2021-07-22] MEDS: METOPROLOL SUCCINATE (ER) 25 MG TAB.ER.24H PO SCH (07:32)
[2021-07-22] MEDS: FERROUS SULFATE 325 MG TAB PO SCH (07:33)
[2021-07-22] MEDS: PANTOPRAZOLE 40 MG TABLET PO SCH (07:33)
[2021-07-22] MEDS ORDERED: FLUTICASONE 50MCG/SPRAY NASAL 16GM EA NOSTRIL SCH (08:00)
[2021-07-22] MEDS ORDERED: FUROSEMIDE 20 MG TAB PO SCH (09:00)
[2021-07-22] MEDS ORDERED: CALCIUM CARBONATE 500 MG CHEWABLE PO SCH (09:00)
[2021-07-22] MEDS ORDERED: ZINC SULFATE 220 MG CAP PO SCH (09:00)
--- NOTE | 2021-07-22 10:41 | P.CRDCN ---
History of Present Illness Consult date: 07/22/21 History of present illness: HISTORY OF PRESENT ILLNESS: This is a 80-year-old female with a past medical history significant for paroxysmal atrial fibrillation on anticoagulation with Xarelto, permanent pacemaker insertion, hypertension, and hyperlipidemia. Patient follows in the office with Dr. Dockery. We have been asked to see the patient in consultation for chest pain. Patient examined at the bedside. Patient states yesterday she was walking in her house when her leg gave out and she fell. She denies any chest pain or sharp prior to falling. She denied any shortness of breath. She reports some mild dizziness and lightheadedness recently. She states she has been under a lot of stress recently as her just . She denies any loss of bowel or bladder control. She denies biting her tongue. Patient states when she was on the ground she was unable to get herself up due to her bad hip so she called EMS who brought her to the hospital for further evaluation. At the time of examination, the patient denies chest pain or pressure, shortness of breath, or dizziness or lightheadedness. EKG reveals paced rhythm Chest xray negative for acute process Laboratory data: WBC 9.8. Hemoglobin 11.7. Platelet count 324. Sodium 138. Potassium 4.0. B UN 14. Creatinine 0.63. Troponin negative 3. Current home cardiac medications include Crestor 10 mg daily, Xarelto 15 mg daily, Norvasc 5 mg twice a day, metoprolol tartrate 25 mg daily, Lasix 40 mg daily as needed Most recent echocardiogram obtained in 2019 revealed ejection fraction 40-45%. Mild mitral regurgitation. Mild tricuspid regurgitation. Cardiac catheterization history: 2017 revealing normal coronary arteries Patient with Lexiscan stress test in 2015 which was negative for ischemia REVIEW OF SYSTEMS: At the time of my exam: CONSTITUTIONAL: Denies fever or chills. HEENT: Denies blurred vision, vision changes, or eye pain. Denies hemoptysis CARDIOVASCULAR: Denies chest pain. Denies orthopnea. Denies PND. Denies palpitations RESPIRATORY: Denies shortness of breath. GASTROINTESTINAL: Denies abdominal pain. Denies nausea or vomiting. HEMATOLOGIC: Denies bleeding disorders. GENITOURINARY: Denies any blood in urine. SKIN: Denies pruitis. Denies rash. PHYSICAL EXAM: VITAL SIGNS: Reviewed. GENERAL: Well-developed in no acute distress. HEENT: Head is normocephalic. Pupils are equal, round. Sclerae anicteric. Mucous membranes of the mouth are moist. Neck supple. No JVD or thyromegaly LUNGS: Respirations even and unlabored. Lungs essentially clear to auscultation bilaterally. HEART: Regular rate and rhythm. S1 and S2 heard. ABDOMEN: Soft. Nondistended. Nontender. EXTREMITIES: Normal range of motion. No clubbing or cyanosis. Peripheral pulses intact. Trace bilateral lower extremity edema NEUROLOGIC: Awake and alert. Oriented x 3. ASSESSMENT: S/P fall, appears mechanical in etiology Paroxysmal atrial fibrillation on anticoagulation with Xarelto History of permanent pacemaker insertion Hypertension Hyperlipidemia PLAN: An acute coronary event has been ruled out. The patient denies having any chest pain now or prior to coming to the hospital Continue telemetry monitoring Obtain 2D echo to assess cardiac structure and function Interrogate pacemaker Check orthostatic blood pressures Further recommendations pending patient's course Nurse practitioner note has been reviewed by physician. Signing provider agrees with the documented findings, assessment, and plan of care. 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 History of Any Multi-Drug Resistant Organisms: None Reported Past Surgical History: Adenoidectomy, Cholecystectomy, Joint Replacement, Orthopedic Surgery, Pacemaker, Tonsillectomy Additional Past Surgical History / Comment(s): Bartholin cyst surgical procedure, R eye with retinal repair, R eye rk, R eye cataract removal and macular wrinkle repair, partial replacement lt shoulder and left knee replacement, 2006 Heart Cath (no intervention), colonoscopy, R cheek melanoma removal, D&C, vaginal cystectomy, L breast benign bx. Past Anesthesia/Blood Transfusion Reactions: Motion Sickness, Postoperative Nausea & Vomiting (PONV) Type of Cardiac Device: Permanent Pacemaker Device Placement Date:: 04/02/16 Past Psychological History: No Psychological Hx Reported Additional Psychological History / Comment(s): Pt resides with her spouse IN A SINGLE LEVEL HOME THAT HAS 3 PORCH STEPS.. She uses a CANE/walker at times.HAS A SHOWER CHAIR WELL. She is independent with her ADLS. She drives. Smoking Status: Never smoker Past Alcohol Use History: None Reported Past Drug Use History: None Reported - Past Family History Mother Family Medical History: Asthma, Thyroid Disorder Additional Family Medical History / Comment(s): thyroid nodule. bronchitis Father Family Medical History: Respiratory Disorder Additional Family Medical History / Comment(s): at age 46 addisons disease(stopped taking his steroids), also had tb Medications and Allergies Home Medications Medication Instructions Recorded Confirmed Type Potassium Chloride [K-Tab ER] 10 meq PO DAILY 04/11/15 07/21/21 History Acetaminophen Tab [Tylenol] 1,000 mg PO Q6H PRN 11/24/15 07/21/21 History Furosemide [Lasix] 40 mg PO DAILY PRN 11/24/15 07/21/21 History amLODIPine [Norvasc] 5 mg PO BID 11/24/15 07/21/21 History Montelukast [Singulair] 10 mg PO HS 03/30/16 07/21/21 History Magnesium Gluconate [Magonate] 500 mg PO DAILY 04/30/16 07/21/21 History Metoprolol Succinate (ER) [Toprol 25 mg PO DAILY 03/26/17 07/21/21 History XL] Levothyroxine Sodium [Synthroid] 50 mcg PO DAILY 03/28/19 07/21/21 History Multivitamins, Thera [Multivitamin 1 tab PO DAILY 03/28/19 07/21/21 History (formulary)] Cyanocobalamin (Vitamin B-12) 1,000 mcg PO WE 07/21/21 07/21/21 History [Vitamin B-12] Diclofenac Sodium Gel [Voltaren 2 gm TOPICAL TID PRN 07/21/21 07/21/21 History Gel] Elderberry W/Zinc 1 cap PO DAILY 07/21/21 07/21/21 History Ergocalciferol (Vitamin D2) 1,250 mcg PO COTTON 07/21/21 07/21/21 History [Drisdol (50,000 Iu)] Ferrous Sulfate [Feosol] 325 mg PO DAILY 07/21/21 07/21/21 History Meclizine HCl 25 mg PO TID PRN 07/21/21 07/21/21 History Omeprazole 20 mg PO BID 07/21/21 07/21/21 History Rivaroxaban [Xarelto] 15 mg PO HS 07/21/21 07/21/21 History Rosuvastatin [Crestor] 10 mg PO HS 07/21/21 07/21/21 History peppermint oiL [Peppermint Oil] 100 mg PO AC-TID 07/21/21 07/21/21 History Allergies Allergy/AdvReac Type Severity Reaction Status Date / Time codeine Allergy Unknown Verified 07/21/21 13:40 hydromorphone HCl Allergy Unknown Verified 07/21/21 13:40 [From Dilaudid] Iodinated Contrast Media Allergy Unknown Verified 07/21/21 13:40 [Iodinated Contrast Media - IV Dye] iodine Allergy Unknown Verified 07/21/21 13:40 meperidine HCl [From Demerol] Allergy Unknown Verified 07/21/21 13:40 nalbuphine HCl [From Nubain] Allergy Unknown Verified 07/21/21 13:40 Penicillins Allergy Unknown Verified 07/21/21 13:40 Sulfa (Sulfonamide Allergy Unknown Verified 07/21/21 13:40 Antibiotics) Physical Exam Vitals: Vital Signs Temp Pulse Pulse Resp BP BP Pulse Ox 07/22/21 07:24 97.7 F 70 16 145/74 97 07/22/21 04:00 78 18 160/78 97 07/21/21 20:44 79 18 174/83 97 07/21/21 18:56 73 20 170/67 98 07/21/21 17:00 98.2 F 76 17 165/74 97 07/21/21 15:00 98.2 F 63 18 141/72 98 07/21/21 14:00 17 07/21/21 12:02 62 17 105/61 100 07/21/21 09:57 17 07/21/21 09:30 68 16 156/66 07/21/21 08:30 62 17 163/71 Results 07/21/21 12:08 07/21/21 12:08 Cardiac Enzymes 07/21/21 07/21/21 07/21/21 Range/Units 12:08 12:08 15:06 AST 47 H (14-36) U/L Troponin I <0.012 <0.012 (0.000-0.034) ng/mL 07/21/21 Range/Units 19:33 AST (14-36) U/L Troponin I <0.012 (0.000-0.034) ng/mL Coagulation 07/21/21 Range/Units 12:08 PT 11.1 (9.0-12.0) sec APTT 25.4 (22.0-30.0) sec CBC 07/21/21 Range/Units 12:08 WBC 9.8 (3.8-10.6) k/uL RBC 4.39 (3.80-5.40) m/uL Hgb 11.7 (11.4-16.0) gm/dL Hct 36.6 (34.0-46.0) % Plt Count 324 (150-450) k/uL Comprehensive Metabolic Panel 07/21/21 Range/Units 12:08 Sodium 138 (137-145) mmol/L Potassium 4.0 (3.5-5.1) mmol/L Chloride 105 (98-107) mmol/L Carbon Dioxide 25 (22-30) mmol/L BUN 14 (7-17) mg/dL Creatinine 0.63 (0.52-1.04) mg/dL Glucose 129 H (74-99) mg/dL Calcium 10.0 (8.4-10.2) mg/dL AST 47 H (14-36) U/L ALT 17 (4-34) U/L Alkaline Phosphatase 161 H (38-126) U/L Total Protein 7.1 (6.3-8.2) g/dL Albumin 3.7 (3.5-5.0) g/dL Current Medications Generic Name Dose Route Start Last Admin Trade Name Freq PRN Reason Stop Dose Admin Acetaminophen 1,000 mg 07/21/21 13:37 07/22/21 03:10 Acetaminophen Tab 500 Mg Tab PO 1,000 mg TID PRN Administration Pain Amlodipine Besylate 5 mg 07/21/21 21:00 07/21/21 20:42 Amlodipine 5 Mg Tab PO 5 mg HS CRISTIN Administration Atorvastatin Calcium 20 mg 07/21/21 21:00 07/21/21 20:41 Atorvastatin 20 Mg Tab PO 20 mg HS CRISTIN Administration Cyanocobalamin 1,000 mcg 07/24/21 09:00 Cyanocobalamin 500 Mcg Tab PO WE [facility] Diclofenac Sodium 2 gm 07/21/21 14:14 Diclofenac Sodium Gel 100 Gm Tube TOPICAL TID PRN Pain Protocol Ergocalciferol 1,250 mcg 07/21/21 15:00 07/21/21 16:24 Ergocalciferol 1,250 Mcg (50,000 Iu) Capsule PO Not Given COTTON CRISTIN Ferrous Sulfate 325 mg 07/22/21 09:00 07/22/21 07:33 Ferrous Sulfate 325 Mg Tab PO 325 mg DAILY CRISTIN Administration Furosemide 20 mg 07/22/21 09:00 Furosemide 20 Mg Tab PO DAILY CRISTIN Levothyroxine Sodium 50 mcg 07/22/21 06:30 07/22/21 07:32 Levothyroxine 50 Mcg Tab PO 50 mcg DAILY@0630 CRISTIN Administration Magnesium Oxide 400 mg 07/22/21 09:00 07/22/21 07:32 Magnesium Oxide 400 Mg Tab PO 400 mg DAILY CRISTIN Administration Metoprolol Succinate 25 mg 07/22/21 09:00 07/22/21 07:32 Metoprolol Succinate (Er) 25 Mg Tab.Er.24h PO 25 mg DAILY CRISTIN Administration Montelukast Sodium 10 mg 07/21/21 21:00 07/21/21 20:42 Montelukast 10 Mg Tab PO 10 mg HS CRISTIN Administration Multivitamins 1 each 07/22/21 09:00 07/22/21 07:32 Multivitamins, Thera 1 Each Tab PO 1 each DAILY [facility] Administration Nitroglycerin 0.4 mg 07/21/21 13:11 Nitroglycerin Sl Tabs 0.4 Mg Tab SUBLINGUAL Q5M PRN Chest Pain Pantoprazole Sodium 40 mg 07/22/21 07:30 07/22/21 07:33 Pantoprazole 40 Mg Tablet PO 40 mg DAILY@0730 CRISTIN Administration Potassium Chloride 10 meq 07/22/21 09:00 07/22/21 07:32 Potassium Chloride Er 10 Meq Tab.Er.Prt PO 10 meq DAILY CRISTIN Administration Rivaroxaban 15 mg 07/21/21 21:00 07/21/21 20:42 Rivaroxaban 15 Mg Tab PO 15 mg HS CRISTIN Administration Protocol 07/21/21 12:08 07/21/21 12:08
--- NOTE | 2021-07-22 10:55 | P.CONS ---
History of Present Illness - Chief Complaint Walking difficulty - History of Present Illness I had the opportunity to see patient for inpatient consultation regard to walking difficulty. Patient admitted to [facility] July 21 history of recent fall and hitting head on stone, no loss of consciousness. Some noted chest pain. Seen by cardiology for known hypertension, PAF now with permanent pacemaker. Diagnostic studies negative chest x-ray and left knee. Head CT with mild atrophy and moderate chronic change. Pelvic x-ray advanced arthritis hips. Lumbar spine with left scoliosis and advanced DDD. KUB with nonobstructive gas pattern. PT and OT prescribed. In fact I just saw patient but notes pending. Previous functional history as elicited patient: 80-year-old right-handed white female who is a recent 1 week lives in one floor home alone. 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 Her kids and count son age and provide support for cooking and laundry. Patient describes independent with sponge bath and gait with roller walker versus 4 wheeled walker. States the 4 wheeled walker is too fast. PCP Dr. Gordillo. Denies tobacco or alcohol. Review of Systems Review of systems: ENT: Denies sneezes or discharge. Eyes: Denies discharge or photophobia. Cardiac: Denies chest pain or palpitation. Pulmonary: Denies cough or shortness of breath. Breast: Denies discharge or lumps. Gastrointestinal: Denies nausea, emesis, constipation, diarrhea. Genitourinary: Denies discharge or frequency. Musculoskeletal: Long-standing discomfort in left shoulder and both knees. Neurologic: Denies motor or sensory change. Endocrine: Denies shakes or sweats. Oncology: Denies cancers. Dermatologic: Denies rash, itching, pruritus. ALLERGY/immunology: Denies sneezes, rashes. 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 History of Any Multi-Drug Resistant Organisms: None Reported Past Surgical History: Adenoidectomy, Cholecystectomy, Joint Replacement, Orthopedic Surgery, Pacemaker, Tonsillectomy Additional Past Surgical History / Comment(s): Bartholin cyst surgical procedure, R eye with retinal repair, R eye rk, R eye cataract removal and macular wrinkle repair, partial replacement lt shoulder and left knee replacement, 2006 Heart Cath (no intervention), colonoscopy, R cheek melanoma removal, D&C, vaginal cystectomy, L breast benign bx. Past Anesthesia/Blood Transfusion Reactions: Motion Sickness, Postoperative Nausea & Vomiting (PONV) Type of Cardiac Device: Permanent Pacemaker Device Placement Date:: 04/02/16 Past Psychological History: No Psychological Hx Reported Additional Psychological History / Comment(s): Pt resides with her spouse IN A SINGLE LEVEL HOME THAT HAS 3 PORCH STEPS.. She uses a CANE/walker at times.HAS A SHOWER CHAIR WELL. She is independent with her ADLS. She drives. Smoking Status: Never smoker Past Alcohol Use History: None Reported Past Drug Use History: None Reported - Past Family History Mother Family Medical History: Asthma, Thyroid Disorder Additional Family Medical History / Comment(s): thyroid nodule. bronchitis Father Family Medical History: Respiratory Disorder Additional Family Medical History / Comment(s): at age 46 addisons disease(stopped taking his steroids), also had tb Medications and Allergies Home Medications Medication Instructions Recorded Confirmed Type Potassium Chloride [K-Tab ER] 10 meq PO DAILY 04/11/15 07/21/21 History Acetaminophen Tab [Tylenol] 1,000 mg PO Q6H PRN 11/24/15 07/21/21 History Furosemide [Lasix] 40 mg PO DAILY PRN 11/24/15 07/21/21 History amLODIPine [Norvasc] 5 mg PO BID 11/24/15 07/21/21 History Montelukast [Singulair] 10 mg PO HS 03/30/16 07/21/21 History Magnesium Gluconate [Magonate] 500 mg PO DAILY 04/30/16 07/21/21 History Metoprolol Succinate (ER) [Toprol 25 mg PO DAILY 03/26/17 07/21/21 History XL] Levothyroxine Sodium [Synthroid] 50 mcg PO DAILY 03/28/19 07/21/21 History Multivitamins, Thera [Multivitamin 1 tab PO DAILY 03/28/19 07/21/21 History (formulary)] Cyanocobalamin (Vitamin B-12) 1,000 mcg PO WE 07/21/21 07/21/21 History [Vitamin B-12] Diclofenac Sodium Gel [Voltaren 2 gm TOPICAL TID PRN 07/21/21 07/21/21 History Gel] Elderberry W/Zinc 1 cap PO DAILY 07/21/21 07/21/21 History Ergocalciferol (Vitamin D2) 1,250 mcg PO COTTON 07/21/21 07/21/21 History [Drisdol (50,000 Iu)] Ferrous Sulfate [Feosol] 325 mg PO DAILY 07/21/21 07/21/21 History Meclizine HCl 25 mg PO TID PRN 07/21/21 07/21/21 History Omeprazole 20 mg PO BID 07/21/21 07/21/21 History Rivaroxaban [Xarelto] 15 mg PO HS 07/21/21 07/21/21 History Rosuvastatin [Crestor] 10 mg PO HS 07/21/21 07/21/21 History peppermint oiL [Peppermint Oil] 100 mg PO AC-TID 07/21/21 07/21/21 History Allergies Allergy/AdvReac Type Severity Reaction Status Date / Time codeine Allergy Unknown Verified 07/21/21 13:40 hydromorphone HCl Allergy Unknown Verified 07/21/21 13:40 [From Dilaudid] Iodinated Contrast Media Allergy Unknown Verified 07/21/21 13:40 [Iodinated Contrast Media - IV Dye] iodine Allergy Unknown Verified 07/21/21 13:40 meperidine HCl [From Demerol] Allergy Unknown Verified 07/21/21 13:40 nalbuphine HCl [From Nubain] Allergy Unknown Verified 07/21/21 13:40 Penicillins Allergy Unknown Verified 07/21/21 13:40 Sulfa (Sulfonamide Allergy Unknown Verified 07/21/21 13:40 Antibiotics) Physical Exam Vitals: Vital Signs Temp Pulse Pulse Resp BP BP Pulse Ox 07/22/21 07:24 97.7 F 70 16 145/74 97 07/22/21 04:00 78 18 160/78 97 07/21/21 20:44 79 18 174/83 97 07/21/21 18:56 73 20 170/67 98 07/21/21 17:00 98.2 F 76 17 165/74 97 07/21/21 15:00 98.2 F 63 18 141/72 98 07/21/21 14:00 17 07/21/21 12:02 62 17 105/61 100 Skin: Atrophic, intact. General: Obese build and comfortable appearance. Head: Normocephalic, atraumatic. Eyes: Symmetric. Pupils equal round. Ears: Symmetric. Hearing within normal limits. Mouth: Clear. Neck: Supple. Carotid without bruit. Cardiac: Regular rate and rhythm. Lungs: Clear anteriorly and posteriorly. Abdomen: Soft active nontender. Extremities: Normal tone. Legs overweight. Arthritic changes throughout. Neurological: Mental status: Alert, cooperative, pleasant. Cranial nerves: Symmetric facial tone and trapezius. Motor: Active movement all 4 limbs. Arms are at least antigravity in legs are at best antigravity. Sensation: Intact throughout. DTRs: Symmetric and equal throughout. Mobility: PT and OT reports he just had patient up and ambulate in room to doorway. Results CBC & Chem 7: 07/21/21 12:08 07/21/21 12:08 Labs: Abnormal Lab Results - Last 24 Hours (Table) 07/21/21 07/21/21 Range/Units 12:08 12:08 Glucose 129 H (74-99) mg/dL AST 47 H (14-36) U/L Alkaline Phosphatase 161 H (38-126) U/L Ur Leukocyte Esterase Moderate H (Negative) Urine WBC 20 H (0-5) /hpf Urine Bacteria Occasional H (None) /hpf Urine Mucus Rare H (None) /hpf Microbiology - Last 24 Hours (Table) 07/21/21 12:08 Urine Culture - Preliminary Urine,Voided Assessment and Plan (1) Chest pain Current Visit: Yes Status: Acute Code(s): R07.9 - CHEST PAIN, UNSPECIFIED SNOMED Code(s): 07602941 (2) Fall Current Visit: Yes Status: Acute Code(s): W19.XXXA - UNSPECIFIED FALL, INITIAL ENCOUNTER SNOMED Code(s): 0210555 (3) Head contusion Current Visit: Yes Status: Acute Code(s): S00.93XA - CONTUSION OF UNSPECIFIED PART OF HEAD, INITIAL ENCOUNTER SNOMED Code(s): 371107091 (4) Atrial fibrillation with RVR Current Visit: No Status: Acute Code(s): I48.91 - UNSPECIFIED ATRIAL FIBRILLATION SNOMED Code(s): 540423158130028 Plan: Impression: 1. Walking difficulty with recent fall. 2. Head contusion. 3. Advanced arthritis joints and lumbar spine. 4. Hypertension. 5. Dyslipidemia. 6. Atrial fibrillation now with permanent pacemaker. 7. Hypothyroid. 8. Asthma. 9. RICHARD. Comments and plan: At this time PT and OT are prescribed and overweight therapy notes. Discussed possible inpatient rehab with patient and she seems agreeable, apparently is ordered and prepped this possibility.
--- NOTE | 2021-07-22 11:00 | ECHOF ---
Referral Reason:Chest pain MEASUREMENTS -------- HEIGHT: 165.1 cm WEIGHT: 115.7 kg BP: 160/78 RVIDd: 3.7 cm (< 3.3) IVSd: 1.8 cm (0.6 - 1.1) LVIDd: 4.0 cm (3.9 - 5.3) LVPWd: 1.9 cm (0.6 - 1.1) IVSs: 2.2 cm LVIDs: 2.6 cm LVPWs: 1.8 cm Ao Diam: 2.7 cm (2.0 - 3.7) AV Cusp: 1.4 cm (1.5 - 2.6) LA Diam: 5.3 cm (2.7 - 3.8) MV E Dieudonne: 1.29 m/s MV DecT: 244 ms MV A Dieudonne: 0.91 m/s MV E/A Ratio: 1.42 AV maxP.21 mmHg AV meanP.62 mmHg RAP: 5.00 mmHg RVSP: 28.19 mmHg FINDINGS -------- Sinus rhythm. This was a technically difficult study with suboptimal views. The left ventricular size is normal. There is severe concentric left ventricular hypertrophy. Ove rall left ventricular systolic function is normal with, an EF between 55 - 60 %. The right ventricle is mildly enlarged. The left atrium is mildly dilated. The right atrium was not well visualized. 5.0mg of Lumason was utilized for enhancement of images Interatrial and interventricular septum intact. There is moderate aortic valve sclerosis. There is no evidence of aortic regurgitation. There is mild aortic stenosis present. Peak/mean gradient across the Aortic Valve is 20.21mmHg / 11.62mmHg. Moderate mitral annular calcification present. Mild mitral regurgitation is present. Mild tricuspid regurgitation present. There is no evidence of pulmonary hypertension. The right v entricular systolic pressure, as measured by Doppler, is 28.19mmHg. There is no pulmonic regurgitation present. The aortic root size is normal. IVC Not well visulized. There is no pericardial effusion. CONCLUSIONS -------- 1. The left ventricular size is normal. 2. There is severe concentric left ventricular hypertrophy. 3. Overall left ventricular systolic function is normal with, an EF between 55 - 60 %. 4. The right ventricle is mildly enlarged. 5. The left atrium is mildly dilated. 6. There is moderate aortic valve sclerosis. 7. There is mild aortic stenosis present. 8. Peak/mean gradient across the Aortic Valve is 20.21mmHg / 11.62mmHg. 9. Moderate mitral annular calcification present. 10. Mild mitral regurgitation is present. 11. Mild tricuspid regurgitation present. BURLING AND JOINING SUPERVISOR: Macrina Crane RDCS
--- NOTE | 2021-07-22 12:30 | P.PN ---
Subjective Progress Note Date: 07/22/21 Holly is an 80-year-old female well-known to my practice with a history of type 2 diabetes, hypertension, atrial fibrillation, mild diastolic heart failure, morbid obesity, who presented to the emergency room complaining of fall while making breakfast this morning. Subsequently developed chest discomfort, denies shortness of breath, denies nausea vomiting, denies wheezing, does complain of multiple joint complaints including back and hip and knee pain as well as mild urgency frequency. Holly's of many years in his sleep approximately 3 days ago while sitting in a chair. I'm sure this is weighing heavily on her and her daughters who brought her into the hospital today. During the examination she described midsternal chest pressure, she tried to dismiss this, given her history and the current circumstances, I think it's appropriate to admit Holly treat her for the UTI that she has, as well as obtain serial troponins serial EKGs to assure the patient as well as her daughters that she is not succumbing to the stress of the most recent days 07/22/[address] reported no significant change in findings from prior with no acute intracranial hemorrhage or midline shift, moderate chronic small vessel ischemic changes redemonstrated. Reports leg weakness and pain with left leg weakness. Reports chronic pain radiates around to the lower back and through hips and down bilateral legs. Denies chest pain, palpitations or shortness of breath. Troponins negative 3, echo reporting normal LV function, EF 55-60%, moderate aortic valve sclerosis, mild aortic stenosis present, moderate mitral annular calcification present. Interrogation of pacemaker pending. Complains of bilateral lower extremity edema. Grieving as recently . PT/OT evaluation pending. Evaluation for inpatient rehab, Dr. Lal pending. Telemetry atrial fibrillation with controlled ventricular rate. Afebrile. Urine culture pending. Objective - Vital Signs Vital signs: Vital Signs Temp 97.7 F 07/22/21 07:24 Pulse 70 07/22/21 07:24 Resp 16 07/22/21 07:24 BP 145/74 07/22/21 07:24 Pulse Ox 97 07/22/21 07:24 Intake & Output 07/21/21 07/22/21 07/22/21 18:59 06:59 18:59 Weight 115.666 kg - Exam General: [Sitting up in chair, Patient awake, alert and oriented times 3. no acute distress.] Morbidly obese HEENT: [PERRL. EOMI. No pharyngeal erythema or exudate. Neck: Supple, no JVD Cardiac: [Heart regular in rate and rhythm. No S3. No S4. No clicks, rubs. No murmur.] Lungs: [Clear to auscultation bilaterally.] Abdomen: [Soft, nontender, no guarding or rigidity. Bowel sounds presnt and normoactive in all 4 quadrants.] Extremes: [Positive +1 pitting edema, no cyanosis no claudication normal pulses, bilateral hip pain, left knee pain significant lumbar osteoarthritis with low back pain Skin: [Warm and dry, No rash.] Neurologic: [No lateralizing deficits. CN II - XII grossly intact. No focal deficits.] - Labs CBC & Chem 7: 07/21/21 12:08 07/21/21 12:08 Labs: Abnormal Lab Results - Last 24 Hours (Table) 07/21/21 07/21/21 Range/Units 12:08 12:08 Glucose 129 H (74-99) mg/dL AST 47 H (14-36) U/L Alkaline Phosphatase 161 H (38-126) U/L Ur Leukocyte Esterase Moderate H (Negative) Urine WBC 20 H (0-5) /hpf Urine Bacteria Occasional H (None) /hpf Urine Mucus Rare H (None) /hpf Microbiology - Last 24 Hours (Table) 07/21/21 12:08 Urine Culture - Preliminary Urine,Voided Assessment and Plan Assessment: Chest pain, troponins negative 3, cardiology following Chronic Paroximal atrial fibrillation, anticoagulated with Xarelto Normal LV function, moderate aortic valve sclerosis, mild aortic stenosis, moderate mitral annular calcification Permanent pacemaker Bilateral leg and lower back pain, status post fall in a patient with history of falls, significant lumbar osteoarthritis. Chronic intermittent asthma, stable Actively grieving less than 1 week ago Hypertension, Hyperlipidemia Plan: Continue on current medication regime ,monitoring and symptomatic treatment. Orthostatic vital signs ordered. Consider discontinuing Norvasc, given peripheral edema-deferred cardiology. Pacemaker interrogation pending. Orthopedic surgery consulted. PT/OT. Inpatient rehab consult in place, rec ommendations pending. Spiritual care consulted. Discharge planning in progress possibly later today or tomorrow to possible inpatient rehab. The impression and plan of care has been dictated as directed. : I performed a history and examination of this patient, discussed the same with the dictator. I agree with the dictator's note ,documented as a scribe. Any additional findings or plans will be noted.
[2021-07-22] MEDS: FUROSEMIDE 20 MG TAB PO SCH (14:22)
[2021-07-22 14:45] LABS: Chol/HDL Ratio 1.63; LDL Cholesterol,Calculated 23.8 mg/dL (0.0-131.0); VLDL Calculation 15.2 mg/dL (5.00-40.00)
[2021-07-22] MEDS: MONTELUKAST 10 MG TAB PO SCH (20:51)
[2021-07-22] MEDS: ATORVASTATIN 20 MG TAB PO SCH (20:51)
[2021-07-22] MEDS: RIVAROXABAN 15 MG TAB PO SCH (22:02)
[2021-07-23] MEDS: ACETAMINOPHEN TAB 500 MG TAB PO PRN ×2 (05:41→16:20)
[2021-07-23] MEDS: LEVOTHYROXINE 50 MCG TAB PO SCH (05:42)
[2021-07-23] MEDS: MAGNESIUM OXIDE 400 MG TAB PO SCH (07:21)
[2021-07-23] MEDS: POTASSIUM CHLORIDE ER 10 MEQ TAB.ER.PRT PO SCH (07:21)
[2021-07-23] MEDS: FUROSEMIDE 20 MG TAB PO SCH (07:22)
[2021-07-23] MEDS: METOPROLOL SUCCINATE (ER) 25 MG TAB.ER.24H PO SCH (07:22)
[2021-07-23] MEDS: FERROUS SULFATE 325 MG TAB PO SCH (07:22)
[2021-07-23] MEDS: MULTIVITAMINS, THERA 1 EACH TAB PO SCH (07:22)
[2021-07-23] MEDS: PANTOPRAZOLE 40 MG TABLET PO SCH (07:22)
[2021-07-23 08:11] VITALS: PULSE 60
[2021-07-23] MEDS ORDERED: NITROFURANTOIN MONOHYD/M-CRYST 100 MG CAP PO SCH (09:00)
[2021-07-23] MEDS ORDERED: lisinopriL 20 MG TAB PO SCH (09:00)
--- NOTE | 2021-07-23 09:20 | P.DS ---
Providers Date of admission: 07/21/21 13:11 Expected date of discharge: 07/23/21 Attending physician: Maverick Gordillo Consults: 07/21/21 13:11 Consult Physician Urgent Consulting Provider: Donna Dockery Consult Reason/Comments: cp Do you want consulting provider notified?: Yes 07/21/21 13:44 Consult Physician Routine Consulting Provider: [facility] Consult Reason/Comments: Chest pain mild weakness Do you want consulting provider notified?: Yes 07/22/21 09:51 Consult Physician Routine Consulting Provider: Albert Gomez Consult Reason/Comments: left hip pain from fall Do you want consulting provider notified?: Yes 07/22/21 10:06 Consult Physician Urgent Consulting Provider: Silvio Lal Consult Reason/Comments: possible IPR admission Do you want consulting provider notified?: Yes Primary care physician: [facility] Course: Final Diagnoses: Chest pain, troponins negative 3, acute coronary event ruled out as per cardiology Acute UTI with group D enterococcus Chronic Paroximal atrial fibrillation, anticoagulated with Xarelto Normal LV function, moderate aortic valve sclerosis, mild aortic stenosis, moderate mitral annular calcification Permanent pacemaker Bilateral leg and lower back pain, status post fall in a patient with history of falls, significant lumbar osteoarthritis. Chronic intermittent asthma, stable Actively grieving less than 1 week ago Hypertension, Hyperlipidemia Hospital course:Holly is an 80-year-old female well-known to my practice with a history of type 2 diabetes, hypertension, atrial fibrillation, mild diastolic heart failure, morbid obesity, who presented to the emergency room complaining of fall while making breakfast this morning. Subsequently developed chest discomfort, denies shortness of breath, denies nausea vomiting, denies wheezing, does complain of multiple joint complaints including back and hip and knee pain as well as mild urgency frequency. Holly's of many years in his sleep approximately 3 days ago while sitting in a chair. I'm sure this is weighing heavily on her and her daughters who brought her into the hospital today. During the examination she described midsternal chest pressure, she tried to dismiss this, given her history and the current circumstances, I think it's appropriate to admit Holly treat her for the UTI that she has, as well as obtain serial troponins serial EKGs to assure the patient as well as her daughters that she is not succumbing to the stress of the most recent days 07/22/[address] reported no significant change in findings from prior with no acute intracranial hemorrhage or midline shift, moderate chronic small vessel ischemic changes redemonstrated. Reports leg weakness and pain with left leg weakness. Reports chronic pain radiates around to the lower back and through hips and down bilateral legs. Denies chest pain, palpitations or shortness of breath. Troponins negative 3, echo reporting normal LV function, EF 55-60%, moderate aortic valve sclerosis, mild aortic stenosis present, moderate mitral annular calcification present. Interrogation of pacemaker pending. Complains of bilateral lower extremity edema. Grieving as recently . PT/OT evaluation pending. Evaluation for inpatient rehab, Dr. Lal pending. Telemetry atrial fibrillation with controlled ventricular rate. Afebrile. Urine culture pending. Urine culture reporting group D enterococcus. Nitrofurantoin initiated. Norvasc discontinued, ZANDRA inhibitor initiated secondary to peripheral edema, vital signs stable. Denies chest pain, palpitations or shortness of breath. Significant clinical improvement. Patient will be discharged today in a stable condition with guarded prognosis to [facility] inpatient rehab., pending evaluation, DC recommendations and clearance per orthopedic surgery, pacemaker interrogation with cardiac clearance. The impression and plan of care has been dictated as directed. : I performed a history and examination of this patient, discussed the same with the dictator. I agree with the dictator's note ,documented as a scribe. Any additional findings or plans will be noted. Patient Condition at Discharge: Stable Plan - Discharge Summary New Discharge Prescriptions: New lisinopriL [Zestril] 20 mg PO DAILY tab Furosemide [Lasix] 20 mg PO DAILY tab Nitrofurantoin Monohyd/M-Cryst [Macrobid] 100 mg PO BID #12 cap Continue Potassium Chloride [K-Tab ER] 10 meq PO DAILY Acetaminophen Tab [Tylenol] 1,000 mg PO Q6H PRN PRN Reason: Pain Montelukast [Singulair] 10 mg PO HS Magnesium Gluconate [Magonate] 500 mg PO DAILY Metoprolol Succinate (ER) [Toprol XL] 25 mg PO DAILY Multivitamins, Thera [Multivitamin (formulary)] 1 tab PO DAILY Levothyroxine Sodium [Synthroid] 50 mcg PO DAILY Ergocalciferol (Vitamin D2) [Drisdol (50,000 Iu)] 1,250 mcg PO COTTON Rosuvastatin [Crestor] 10 mg PO HS Cyanocobalamin (Vitamin B-12) [Vitamin B-12] 1,000 mcg PO WE Ferrous Sulfate [Feosol] 325 mg PO DAILY Diclofenac Sodium Gel [Voltaren Gel] 2 gm TOPICAL TID PRN PRN Reason: Pain Rivaroxaban [Xarelto] 15 mg PO HS Omeprazole 20 mg PO BID Meclizine HCl 25 mg PO TID PRN PRN Reason: Vertigo peppermint oiL [Peppermint Oil] 100 mg PO AC-TID Elderberry W/Zinc 1 cap PO DAILY Discontinued amLODIPine [Norvasc] 5 mg PO BID Furosemide [Lasix] 40 mg PO DAILY PRN PRN Reason: edema Discharge Medication List Potassium Chloride [K-Tab ER] 10 meq PO DAILY 04/11/15 [History] Acetaminophen Tab [Tylenol] 1,000 mg PO Q6H PRN 11/24/15 [History] Montelukast [Singulair] 10 mg PO HS 03/30/16 [History] Magnesium Gluconate [Magonate] 500 mg PO DAILY 04/30/16 [History] Metoprolol Succinate (ER) [Toprol XL] 25 mg PO DAILY 03/26/17 [History] Levothyroxine Sodium [Synthroid] 50 mcg PO DAILY 03/28/19 [History] Multivitamins, Thera [Multivitamin (formulary)] 1 tab PO DAILY 03/28/19 [History] Cyanocobalamin (Vitamin B-12) [Vitamin B-12] 1,000 mcg PO WE 07/21/21 [History] Diclofenac Sodium Gel [Voltaren Gel] 2 gm TOPICAL TID PRN 07/21/21 [History] Elderberry W/Zinc 1 cap PO DAILY 07/21/21 [History] Ergocalciferol (Vitamin D2) [Drisdol (50,000 Iu)] 1,250 mcg PO COTTON 07/21/21 [History] Ferrous Sulfate [Feosol] 325 mg PO DAILY 07/21/21 [History] Meclizine HCl 25 mg PO TID PRN 07/21/21 [History] Omeprazole 20 mg PO BID 07/21/21 [History] Rivaroxaban [Xarelto] 15 mg PO HS 07/21/21 [History] Rosuvastatin [Crestor] 10 mg PO HS 07/21/21 [History] peppermint oiL [Peppermint Oil] 100 mg PO AC-TID 07/21/21 [History] Furosemide [Lasix] 20 mg PO DAILY tab 07/23/21 [Rx] Nitrofurantoin Monohyd/M-Cryst [Macrobid] 100 mg PO BID #12 cap 07/23/21 [Rx] lisinopriL [Zestril] 20 mg PO DAILY tab 07/23/21 [Rx] Follow up Appointment(s)/Referral(s): Maverick Gordillo Jr, [Primary Care Provider] - 1-2 days Patient Instructions/Handouts: Fall Prevention for Older Adults (ED), Head Injury (ED) Activity/Diet/Wound Care/Special Instructions: [id number] Tylenol as needed. Ice to affected areas. Hold blood thinners for 24 hours. Return for weakness, increased falls, worsening symptoms or other concerns.
--- NOTE | 2021-07-23 10:53 | P.PN ---
Subjective Progress Note Date: 07/23/21 HISTORY OF PRESENT ILLNESS: This is a 80-year-old female with a past medical history significant for paroxysmal atrial fibrillation on anticoagulation with Xarelto, permanent pacemaker insertion, hypertension, and hyperlipidemia. Patient follows in the office with Dr. Dockery. We have been asked to see the patient in consultation for chest pain. Patient examined at the bedside. Patient states yesterday she was walking in her house when her leg gave out and she fell. She denies any chest pain or sharp prior to falling. She denied any shortness of breath. She reports some mild dizziness and lightheadedness recently. She states she has been under a lot of stress recently as her just . She denies any loss of bowel or bladder control. She denies biting her tongue. Patient states when she was on the ground she was unable to get herself up due to her bad hip so she called EMS who brought her to the hospital for further evaluation. At the time of examination, the patient denies chest pain or pressure, shortness of breath, or dizziness or lightheadedness. EKG reveals paced rhythm Chest xray negative for acute process Laboratory data: WBC 9.8. Hemoglobin 11.7. Platelet count 324. Sodium 138. Potassium 4.0. B UN 14. Creatinine 0.63. Troponin negative 3. Current home cardiac medications include Crestor 10 mg daily, Xarelto 15 mg daily, Norvasc 5 mg twice a day, metoprolol tartrate 25 mg daily, Lasix 40 mg daily as needed Most recent echocardiogram obtained in 2019 revealed ejection fraction 40-45%. Mild mitral regurgitation. Mild tricuspid regurgitation. Cardiac catheterization history: 2017 revealing normal coronary arteries Patient with Lexiscan stress test in 2014 which was negative for ischemia 07/23/2021 Patient examined this morning at the bedside. Patient denies chest pain or pressure. She denies shortness of breath. Denies dizziness or lightheadedness. No further falls. Telemetry reveals sinus mechanism. Echocardiogram completed revealed ejection fraction 55-60%, mild aortic stenosis, mild mitral regurgitation and mild tricuspid regurgitation. PHYSICAL EXAM: VITAL SIGNS: Reviewed. GENERAL: Well-developed in no acute distress. HEENT: Head is normocephalic. Pupils are equal, round. Sclerae anicteric. Mucous membranes of the mouth are moist. Neck supple. No JVD or thyromegaly LUNGS: Respirations even and unlabored. Lungs essentially clear to auscultation bilaterally. HEART: Regular rate and rhythm. S1 and S2 heard. ABDOMEN: Soft. Nondistended. Nontender. EXTREMITIES: Normal range of motion. No clubbing or cyanosis. Peripheral pulses intact. Trace bilateral lower extremity edema NEUROLOGIC: Awake and alert. Oriented x 3. ASSESSMENT: S/P fall, appears mechanical in etiology Paroxysmal atrial fibrillation on anticoagulation with Xarelto History of permanent pacemaker insertion Hypertension Hyperlipidemia PLAN: Pacemaker to be interrogated today by device rep. Patient is currently stable for discharge after pacemaker interrogation from a cardiac standpoint Nurse practitioner note has been reviewed by physician. Signing provider agrees with the documented findings, assessment, and plan of care. Objective - Vital Signs Vital signs: Vital Signs Temp 97.4 F L 07/23/21 07:00 Pulse 60 07/23/21 07:00 Resp 19 07/23/21 07:00 BP 138/68 07/23/21 07:00 Pulse Ox 93 L 07/23/21 07:00 Intake & Output 07/22/21 07/23/21 07/23/21 18:59 06:59 18:59 Intake Total 240 Balance 240 Intake: Oral 240 Other: Voiding Method Toilet Toilet Toilet Bedside Commode Bedside Commode Bedside Commode # Voids 1 3 1 # Bowel Movements 1 - Labs CBC & Chem 7: 07/21/21 12:08 07/21/21 12:08 Labs: Abnormal Lab Results - Last 24 Hours (Table) 07/22/21 Range/Units 04:21 HDL Cholesterol 62.0 H (40.0-60.0) mg/dL Microbiology - Last 24 Hours (Table) 07/21/21 12:08 Urine Culture - Preliminary Urine,Voided Group D Enterococcus
--- NOTE | 2021-07-23 12:03 | P.CNOR ---
History of Present Illness - HPI Consult date: 07/23/21 History of present illness: This patient is an 80-year-old female with past medical history of atrial fibrillation on anticoagulation with Xarelto, permanent pacemaker insertion, hypertension, and hyperlipidemia that presented to [facility] emergency department on 07/21/21 via EMS after a fall at home. Patient states she was walki ng in her kitchen and her leg gave out, and she fell to the floor. She states she was unable to get up on her own, therefore she called EMS. X-rays of the pelvis and left hip, lumbar spine revealed no fractures with significant arthritic changes. Patient did her head during the fall, CT scan of the brain was performed showing no acute changes. Patient was admitted under the care of internal medicine for left hip pain, UTI, and chest pain. Orthopedics was consulted due to her left hip pain. Patient has been seen in our office in the past due to bilateral hip osteoarthritis. Patient states she is experiencing increased left hip pain following her fall. Although, it is improved since admission and she is able to ambulate with a walker without too much issue or pain. Patient walked with ph [employer] therapy yesterday. She does note pain radiating down to her left foot. She states she has experienced this radiating pain for awhile, and it is not new due to her fall. She denies back pain during my examination today. She denies chest pain, shortness breath, nausea, vomiting. No additional complaints at the time of my exam. Vital signs stable. 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 History of Any Multi-Drug Resistant Organisms: None Reported Past Surgical History: Adenoidectomy, Cholecystectomy, Joint Replacement, Ortho pedic Surgery, Pacemaker, Tonsillectomy Additional Past Surgical History / Comment(s): Bartholin cyst surgical procedure, R eye with retinal repair, R eye rk, R eye cataract removal and macular wrinkle repair, partial replacement lt shoulder and left knee replacement, 2006 Heart Cath (no intervention), colonoscopy, R cheek melanoma removal, D&C, vaginal cystectomy, L breast benign bx. Past Anesthesia/Blood Transfusion Reactions: Motion Sickness, Postoperative Nausea & Vomiting (PONV) Type of Cardiac Device: Permanent Pacemaker Device Placement Date:: 04/02/16 Past Psychological History: No Psychological Hx Reported Additional Psychological History / Comment(s): Pt resides with her spouse IN A SINGLE LEVEL HOME THAT HAS 3 [address]ORCH STEPS.. She uses a CANE/walker at times.HAS A SHOWER CHAIR WELL. She is independent with her ADLS. She drives. Smoking Status: Never smoker Past Alcohol Use History: None Reported Past Drug Use History: None Reported - Past Family History Mother Family Medical History: Asthma, Thyroid Disorder Additional Family Medical History / Comment(s): thyroid nodule. bronchitis Father Family Medical History: Respiratory Disorder Additional Family Medical History / Comment(s): at age 46 addisons disease(stopped taking his steroids), also had tb Medications and Allergies Home Medications Medication Instructions Recorded Confirmed Type Potassium Chloride [K-Tab ER] 10 meq PO DAILY 04/11/15 07/21/21 History Acetaminophen Tab [Tylenol] 1,000 mg PO Q6H PRN 11/24/15 07/21/21 History Montelukast [Singulair] 10 mg PO HS 03/30/16 07/21/21 History Magnesium Gluconate [Magonate] 500 mg PO DAILY 04/30/16 07/21/21 History Metoprolol Succinate (ER) [Toprol 25 mg PO DAILY 03/26/17 07/21/21 History XL] Levothyroxine Sodium [Synthroid] 50 mcg PO DAILY 03/28/19 07/21/21 History Multivitamins, Thera [Multivitamin 1 tab PO DAILY 03/28/19 07/21/21 History (formulary)] Cyanocobalamin (Vitamin B-12) 1,000 mcg PO WE 07/21/21 07/21/21 History [Vitamin B-12] Diclofenac Sodium Gel [Voltaren 2 gm TOPICAL TID PRN 07/21/21 07/21/21 History Gel] Elderberry W/Zinc 1 cap PO DAILY 07/21/21 07/21/21 History Ergocalciferol (Vitamin D2) 1,250 mcg PO COTTON 07/21/21 07/21/21 History [Drisdol (50,000 Iu)] Ferrous Sulfate [Feosol] 325 mg PO DAILY 07/21/21 07/21/21 History Meclizine HCl 25 mg PO TID PRN 07/21/21 07/21/21 History Omeprazole 20 mg PO BID 07/21/21 07/21/21 History Rivaroxaban [Xarelto] 15 mg PO HS 07/21/21 07/21/21 History Rosuvastatin [Crestor] 10 mg PO HS 07/21/21 07/21/21 History peppermint oiL [Peppermint Oil] 100 mg PO AC-TID 07/21/21 07/21/21 History Furosemide [Lasix] 20 mg PO DAILY tab 07/23/21 Rx Nitrofurantoin Monohyd/M-Cryst 100 mg PO BID #12 cap 07/23/21 Rx [Macrobid] lisinopriL [Zestril] 20 mg PO DAILY tab 07/23/21 Rx Allergies Allergy/AdvReac Type Severity Reaction Status Date / Time codeine Allergy Unknown Verified 07/21/21 13:40 hydromorphone HCl Allergy Unknown Verified 07/21/21 13:40 [From Dilaudid] Iodinated Contrast Media Allergy Unknown Verified 07/21/21 13:40 [Iodinated Contrast Media - IV Dye] iodine Allergy Unknown Verified 07/21/21 13:40 meperidine HCl [From Demerol] Allergy Unknown Verified 07/21/21 13:40 nalbuphine HCl [From Nubain] Allergy Unknown Verified 07/21/21 13:40 Penicillins Allergy Unknown Verified 07/21/21 13:40 Sulfa (Sulfonamide Allergy Unknown Verified 07/21/21 13:40 Antibiotics) Physical Examination On examination, the patient is sitting up in a bedside chair in no apparent distress. She is eating breakfast. She is alert and oriented 3. Her head appears normocephalic and atraumatic. Her breathing appears nonlabored. On inspection of her bilateral upper extremities, there are no obvious deformities or signs of trauma. On inspection of her left lower extremity, there are no obvious deformities or signs of trauma. There is a healed incision at the anterior knee consistent with a prior TKA. There is very mild pain to palpation of the anterior and lateral hip. There is very mild pain with passive [id number] of the hip. No pain with logrolling. No pain with palpation of the thigh, knee, lower leg, ankle, foot. Motor and sensory function is intact of the left lower extremity. Patient has good strength and [id number] of the left ankle. Calves are soft and non-tender to palpation. No signs of DVT. Results Left hip and pelvis x-ray 07/21/21: No acute fractures identified. There is severe arthritis of the bilateral hips. - Labs Labs: Abnormal Lab Results - Last 24 Hours (Table) 07/22/21 Range/Units 04:21 HDL Cholesterol 62.0 H (40.0-60.0) mg/dL Microbiology - Last 24 Hours (Table) 07/21/21 12:08 Urine Culture - Preliminary Urine,Voided Group D Enterococcus H & H 07/21/21 Range/Units 12:08 Hgb 11.7 (11.4-16.0) gm/dL Hct 36.6 (34.0-46.0) % Coagulation 07/21/21 Range/Units 12:08 INR 1.1 (<1.2) Result Diagrams: 07/21/21 12:08 07/21/21 12:08 Assessment and Plan Assessment: Left hip pain s/p fall at home Severe bilateral hip arthritis Plan: - Clinical and imaging findings were discussed with the patient. The patient was discussed with Dr. Hansen. Patient's left hip pain is most likely due to the severe arthritis. - Recommended physical therapy for gait and balance training. Patient should be using a walker for ambulation. - Pain management as needed. Recommend NSAIDs for pain relief, although patient is taking Xarelto, therefore will defer to internal medicine. - She may follow-up in the office for further evaluation of her left hip pain after discharge. Recommended follow-up with Chris Chaves PA-C if she has pain related to her lumbar spine.
[2021-07-23 14:52] VITALS: BP 132/54; RESP 18; TEMP 98
[2021-07-24] MEDS ORDERED: CYANOCOBALAMIN 500 MCG TAB PO SCH (09:00)
== END 2021-07-23 18:23 ==
LOC: EC 08:02 → 6NMEDSUR 13:11
PROVIDERS: ADMIT Family Medicine; ATTEND Family Medicine
DX: S00.93XA Contusion of unspecified part of head, initial encounter (principal); W18.30XA Fall on same level, unspecified, initial encounter; M25.552 Pain in left hip; R07.2 Precordial pain; N39.0 Urinary tract infection, site not specified; B95.2 Enterococcus as the cause of diseases classified elsewhere; Z20.822 Contact with and (suspected) exposure to COVID-19; Y92.009 Unspecified place in unspecified non-institutional (private) residence as the place of occurrence of the external cause; Y93.01 Activity, walking, marching and hiking; I48.0 Paroxysmal atrial fibrillation; E03.9 Hypothyroidism, unspecified; E11.9 Type 2 diabetes mellitus without complications; E78.5 Hyperlipidemia, unspecified; F41.9 Anxiety disorder, unspecified; G89.29 Other chronic pain; M54.32 Sciatica, left side; M54.31 Sciatica, right side; I50.32 Chronic diastolic (congestive) heart failure; I11.0 Hypertensive heart disease with heart failure; I35.8 Other nonrheumatic aortic valve disorders; J45.20 Mild intermittent asthma, uncomplicated; K21.9 Gastro-esophageal reflux disease without esophagitis; M16.0 Bilateral primary osteoarthritis of hip; M17.0 Bilateral primary osteoarthritis of knee; M41.9 Scoliosis, unspecified; M51.36 Other intervertebral disc degeneration, lumbar region; M47.816 Spondylosis without myelopathy or radiculopathy, lumbar region; I49.5 Sick sinus syndrome; E66.01 Morbid (severe) obesity due to excess calories; Z68.41 Body mass index [BMI] 40.0-44.9, adult; K44.9 Diaphragmatic hernia without obstruction or gangrene; K57.90 Diverticulosis of intestine, part unspecified, without perforation or abscess without bleeding; Z79.890 Hormone replacement therapy; Z79.899 Other long term (current) drug therapy; Z91.041 Radiographic dye allergy status; Z79.01 Long term (current) use of anticoagulants; Z88.5 Allergy status to narcotic agent; Z88.2 Allergy status to sulfonamides; Z88.0 Allergy status to penicillin; Z88.6 Allergy status to analgesic agent; J30.2 Other seasonal allergic rhinitis; Z91.81 History of falling; Z86.11 Personal history of tuberculosis; Z95.0 Presence of cardiac pacemaker; Z85.820 Personal history of malignant melanoma of skin; Z96.652 Presence of left artificial knee joint; Z63.4 Disappearance and death of family member; Z90.49 Acquired absence of other specified parts of digestive tract; Z87.19 Personal history of other diseases of the digestive system; Z98.41 Cataract extraction status, right eye; Z82.5 Family history of asthma and other chronic lower respiratory diseases; Z83.49 Family history of other endocrine, nutritional and metabolic diseases
CPT/HCPCS: 99285; 96372; 96374; 96375; 93005; 97530 ×2; 97162; 97166; 80061; 80053; 82150; 83690; 84484; 85025; 85610; 85730; 81001; 87086; 87077; 87186; 87635; 72100; 73502; 73562; 71046; 74018; 70450; G0378 ×3; C8929; J2270; J2405; C9113; Q9950; 93306

== ENCOUNTER 2022-06-01 22:09 | Emergency (ER) | payer MEDICARE, BC ==
[2022-06-01 22:17] VITALS: PULSE 61; RESP 18; TEMP 97.4
--- NOTE | 2022-06-01 22:26 | ED ---
General Adult HPI - General Chief complaint: Weakness Stated complaint: Dehydration, hypertension Time Seen by Provider: 06/01/22 22:15 Source: patient, EMS Mode of arrival: EMS Limitations: no limitations - History of Present Illness Initial comments: Patient presents to the ED by ambulance for evaluation. Patient states that her blood pressure readings have been elevated for the past couple of weeks, and that is why she decided to come to the ED tonight. Patient also states that she has had a dry mouth recently, and she is concerned that she may be dehydrated. She denies having any other symptoms or complaints. Patient states that she has been taking her medications as prescribed for the most part, but she admits she has not been taking her "water pills" regularly. Patient denies fever or chills, headache, focal numbness/weakness/neuro deficit, visual changes, speech difficulty, chest pain or pressure, dyspnea, cough or cold symptoms, palpitations, dizziness, abdominal pain, nausea/vomiting/diarrhea, bloody or melanotic stool, dysuria or urinary symptoms, decreased urine output, leg or calf swelling or pain, or any other symptoms or complaints. - Related Data Home Medications Medication Instructions Recorded Confirmed Potassium Chloride [K-Tab ER] 10 meq PO DAILY 04/11/15 07/21/21 Acetaminophen Tab [Tylenol] 1,000 mg PO Q6H PRN 11/24/15 07/21/21 Montelukast [Singulair] 10 mg PO HS 03/30/16 07/21/21 Magnesium Gluconate [Magonate] 500 mg PO DAILY 04/30/16 07/21/21 Metoprolol Succinate (ER) [Toprol 25 mg PO DAILY 03/26/17 07/21/21 XL] Levothyroxine Sodium [Synthroid] 50 mcg PO DAILY 03/28/19 07/21/21 Multivitamins, Thera [Multivitamin 1 tab PO DAILY 03/28/19 07/21/21 (formulary)] Cyanocobalamin (Vitamin B-12) 1,000 mcg PO WE 07/21/21 07/21/21 [Vitamin B-12] Diclofenac Sodium Gel [Voltaren 2 gm TOPICAL TID PRN 07/21/21 07/21/21 Gel] Elderberry W/Zinc 1 cap PO DAILY 07/21/21 07/21/21 Ergocalciferol (Vitamin D2) 1,250 mcg PO COTTON 07/21/21 07/21/21 [Drisdol (50,000 Iu)] Ferrous Sulfate [Feosol] 325 mg PO DAILY 07/21/21 07/21/21 Meclizine HCl 25 mg PO TID PRN 07/21/21 07/21/21 Omeprazole 20 mg PO BID 07/21/21 07/21/21 Rivaroxaban [Xarelto] 15 mg PO HS 07/21/21 07/21/21 Rosuvastatin [Crestor] 10 mg PO HS 07/21/21 07/21/21 peppermint oiL 100 mg PO AC-TID 07/21/21 07/21/21 Previous Rx's Medication Instructions Recorded Furosemide [Lasix] 20 mg PO DAILY tab 07/23/21 Nitrofurantoin Monohyd/M-Cryst 100 mg PO BID #12 cap 07/23/21 [Macrobid] lisinopriL [Zestril] 20 mg PO DAILY tab 07/23/21 Allergies Allergy/AdvReac Type Severity Reaction Status Date / Time codeine Allergy Unknown Verified 07/21/21 13:40 hydromorphone HCl Allergy Unknown Verified 07/21/21 13:40 [From Dilaudid] Iodinated Contrast Media Allergy Unknown Verified 07/21/21 13:40 [Iodinated Contrast Media - IV Dye] iodine Allergy Unknown Verified 07/21/21 13:40 meperidine HCl [From Demerol] Allergy Unknown Verified 07/21/21 13:40 nalbuphine HCl [From Nubain] Allergy Unknown Verified 07/21/21 13:40 Penicillins Allergy Unknown Verified 07/21/21 13:40 Sulfa (Sulfonamide Allergy Unknown Verified 07/21/21 13:40 Antibiotics) Review of Systems ROS Statement: Those systems with pertinent positive or pertinent negative responses have been documented in the HPI. ROS Other: All systems not noted in ROS Statement are negative. 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 History of Any Multi-Drug Resistant Organisms: None Reported Past Surgical History: Adenoidectomy, Cholecystectomy, Joint Replacement, Orthopedic Surgery, Pacemaker, Tonsillectomy Additional Past Surgical History / Comment(s): Bartholin cyst surgical procedure, R eye with retinal repair, R eye rk, R eye cataract removal and macular wrinkle repair, partial replacement lt shoulder and left knee replacement, 2006 Heart Cath (no intervention), colonoscopy, R cheek melanoma removal, D&C, vaginal cystectomy, L breast benign bx. Past Anesthesia/Blood Transfusion Reactions: Motion Sickness, Postoperative Nausea & Vomiting (PONV) Type of Cardiac Device: Permanent Pacemaker Device Placement Date:: 04/02/16 Past Psychological History: No Psychological Hx Reported Smoking Status: Never smoker Past Alcohol Use History: None Reported Past Drug Use History: None Reported - Past Family History Mother Family Medical History: Asthma, Thyroid Disorder Additional Family Medical History / Comment(s): thyroid nodule. bronchitis Father Family Medical History: Respiratory Disorder Additional Family Medical History / Comment(s): at age 46 addisons disease(stopped taking his steroids), also had tb General Exam Limitations: no limitations General appearance: alert, in no apparent distress Head exam: Present: atraumatic, normocephalic Eye exam: Present: normal appearance, EOMI ENT exam: Present: mucous membranes moist Neck exam: Present: other (Trachea is in midline) Respiratory exam: Present: normal lung sounds bilaterally. Absent: respiratory distress, wheezes, rales, rhonchi, stridor Cardiovascular Exam: Present: regular rate, normal rhythm, normal heart sounds, other (Normal radial pulses bilaterally) GI/Abdominal exam: Present: soft. Absent: distended, tenderness, guarding Extremities exam: Absent: tenderness, pedal edema, calf tenderness Neurological exam: Present: alert, oriented X3. Absent: motor sensory deficit Psychiatric exam: Present: normal affect, normal mood Skin exam: Present: warm, dry, intact, normal color Course Vital Signs 06/01/22 06/02/22 06/02/22 22:11 00:22 00:50 Temperature 97.4 F L Pulse Rate 61 Respiratory 18 Rate Blood Pressure 209/91 200/82 175/76 O2 Sat by Pulse 97 Oximetry - Reevaluation(s) Reevaluation #1: 06/02/22 00:52 Patient's blood pressure is now improved to 175/76. Patient denies development of any new symptoms while in the ED. Patient's hypertension is asymptomatic. Patient and daughter are aware the patient's test results, and patient feels comfortable going home with her daughter at this time. Patient was counseled about hypertension, and she was clearly explained return and follow-up instructions. Patient was instructed to follow up with her primary care provider, as well as her mobile heavy equipment mechanic, for further evaluation and management of her hypertension. Patient feels comfortable with this plan. EKG Findings - EKG Comments: EKG Findings:: Electronic atrial pacemaker, ventricular rate of 61 bpm, AL inter mel of 310 ms, normal QRS duration, normal QT interval, leftward axis, no ST or T-wave abnormality Medical Decision Making - Medical Decision Making Patient's labs and chest x-ray are fairly unremarkable. Patient's hypertension is asymptomatic. Patient's blood pressure has improved while in the ED. I do not suspect an emergent medical condition at this time. Will discharge patient home with her daughter at this time with instructions to follow up closely with her primary care provider, as well as her mobile heavy equipment mechanic. Patient feels comforta ble with this plan. - Lab Data Result diagrams: 06/01/22 22:52 06/01/22 22:52 Lab Results 06/01/22 06/01/22 06/01/22 Range/Units 22:52 22:52 22:52 WBC 6.7 (3.8-10.6) k/uL RBC 3.75 L (3.80-5.40) m/uL Hgb 11.0 L (11.4-16.0) gm/dL Hct 34.4 (34.0-46.0) % MCV 91.7 (80.0-100.0) fL MCH 29.4 (25.0-35.0) pg MCHC 32.0 (31.0-37.0) g/dL RDW 13.7 (11.5-15.5) % Plt Count 281 (150-450) k/uL MPV 7.0 Neutrophils % 46 % Lymphocytes % 40 % Monocytes % 7 % Eosinophils % 3 % Basophils % 1 % Neutrophils # 3.1 (1.3-7.7) k/uL Lymphocytes # 2.7 (1.0-4.8) k/uL Monocytes # 0.5 (0-1.0) k/uL Eosinophils # 0.2 (0-0.7) k/uL Basophils # 0.0 (0-0.2) k/uL Hypochromasia Slight PT 12.4 H (9.0-12.0) sec INR 1.2 H (<1.2) APTT 32.5 H (22.0-30.0) sec Sodium 135 L (137-145) mmol/L Potassium 4.1 (3.5-5.1) mmol/L Chloride 103 (98-107) mmol/L Carbon Dioxide 28 (22-30) mmol/L Anion Gap 4 mmol/L BUN 22 H (7-17) mg/dL Creatinine 0.73 (0.52-1.04) mg/dL Est GFR (CKD-EPI)AfAm 89 (>60 ml/min/1.73 sqM) Est GFR (CKD-EPI)NonAf 77 (>60 ml/min/1.73 sqM) Glucose 96 (74-99) mg/dL Calcium 9.6 (8.4-10.2) mg/dL Magnesium 2.3 (1.6-2.3) mg/dL Total Bilirubin 0.3 (0.2-1.3) mg/dL AST 25 (14-36) U/L ALT 14 (4-34) U/L Alkaline Phosphatase 105 (38-126) U/L Troponin I (0.000-0.034) ng/mL NT-Pro-B Natriuret Pep pg/mL Total Protein 6.8 (6.3-8.2) g/dL Albumin 3.7 (3.5-5.0) g/dL 06/01/22 06/01/22 Range/Units 22:52 22:52 WBC (3.8-10.6) k/uL RBC (3.80-5.40) m/uL Hgb (11.4-16.0) gm/dL Hct (34.0-46.0) % MCV (80.0-100.0) fL MCH (25.0-35.0) pg MCHC (31.0-37.0) g/dL RDW (11.5-15.5) % Plt Count (150-450) k/uL MPV Neutrophils % % Lymphocytes % % Monocytes % % Eosinophils % % Basophils % % Neutrophils # (1.3-7.7) k/uL Lymphocytes # (1.0-4.8) k/uL Monocytes # (0-1.0) k/uL Eosinophils # (0-0.7) k/uL Basophils # (0-0.2) k/uL Hypochromasia PT (9.0-12.0) sec INR (<1.2) APTT (22.0-30.0) sec Sodium (137-145) mmol/L Potassium (3.5-5.1) mmol/L Chloride (98-107) mmol/L Carbon Dioxide (22-30) mmol/L Anion Gap mmol/L BUN (7-17) mg/dL Creatinine (0.52-1.04) mg/dL Est GFR (CKD-EPI)AfAm (>60 ml/min/1.73 sqM) Est GFR (CKD-EPI)NonAf (>60 ml/min/1.73 sqM) Glucose (74-99) mg/dL Calcium (8.4-10.2) mg/dL Magnesium (1.6-2.3) mg/dL Total Bilirubin (0.2-1.3) mg/dL AST (14-36) U/L ALT (4-34) U/L Alkaline Phosphatase (38-126) U/L Troponin I <0.012 (0.000-0.034) ng/mL NT-Pro-B Natriuret Pep 493 pg/mL Total Protein (6.3-8.2) g/dL Albumin (3.5-5.0) g/dL - Radiology Data Chest x-ray: Mild pulmonary fibrosis. No heart failure. Lung markings increased compared to old exam. No heart failure seen. Disposition Clinical Impression: Hypertension Disposition: HOME SELF-CARE Condition: Stable Instructions (If sedation given, give patient instructions): Hypertension (ED) Additional Instructions: Return to the ER immediately should you develop any significant pain, chest pain, numbness or weakness, shortness of breath, feeling dizzy or faint, vomiting, or new or worsening symptoms. Follow up closely with your primary care provider. Is patient prescribed a controlled substance at d/c from ED?: No Referrals: Maverick Gordillo Jr, DO [Primary Care Provider] - 1-2 days Donna Dockery MD [STAFF PHYSICIAN] - 1-2 days Time of Disposition: 00:57
--- NOTE | 2022-06-01 23:09 | XR ---
EXAMINATION TYPE: XR chest 1V portable DATE OF EXAM: 06/01/2022 COMPARISON: NONE HISTORY: Abdominal pain TECHNIQUE: Single view FINDINGS: There is no heart failure nor confluent pneumonic infiltrate. There is left shoulder prosth esis. There is left axillary pacemaker. Costophrenic angles are clear. There is slight coarsening of the interstitial markings. IMPRESSION: Mild pulmonary fibrosis. No heart failure. Lung markings increased compared to old exam. No heart failure seen.
[2022-06-01 23:10] LABS: Basophils % (A) 1 %; Eosinophils # (A) 0.2 k/uL (0-0.7); Eosinophils % (A) 3 %; HCT 34.4 % (34.0-46.0); Hypochromasia Slight; Lymphocytes # (A) 2.7 k/uL (1.0-4.8); Lymphocytes % (A) 40 %; MCH 29.4 pg (25.0-35.0); MCV 91.7 fL (80.0-100.0); Monocytes # (A) 0.5 k/uL (0-1.0); Monocytes % (A) 7 %; Neutrophils # (A) 3.1 k/uL (1.3-7.7); Neutrophils % (A) 46 %; Platelet Count 281 k/uL (150-450); RBC 3.75 m/uL (3.80-5.40); RDW 13.7 % (11.5-15.5); WBC 6.7 k/uL (3.8-10.6)
[2022-06-01 23:24] LABS: INR 1.2 (<1.2); Partial Thromboplastin Time 32.5 sec (22.0-30.0); Prothrombin Time 12.4 sec (9.0-12.0)
[2022-06-01 23:56] LABS: Albumin 3.7 g/dL (3.5-5.0); Calcium 9.6 mg/dL (8.4-10.2); Magnesium 2.3 mg/dL (1.6-2.3); Potassium 4.1 mmol/L (3.5-5.1); Total Bilirubin 0.3 mg/dL (0.2-1.3); Total Protein 6.8 g/dL (6.3-8.2)
[2022-06-02] MEDS ORDERED: hydrALAZINE HCL 20 MG/ML 1 ML VIAL IVP STA (00:24)
[2022-06-02 00:51] VITALS: BP 175/76
== END 2022-06-02 01:24 | disposition home or self-care (01) ==
LOC: EC 22:09
DX: I10 Essential (primary) hypertension (principal); J45.909 Unspecified asthma, uncomplicated; K21.9 Gastro-esophageal reflux disease without esophagitis; Z79.899 Other long term (current) drug therapy; E78.5 Hyperlipidemia, unspecified; Z88.5 Allergy status to narcotic agent; Z91.041 Radiographic dye allergy status; Z88.0 Allergy status to penicillin; Z88.2 Allergy status to sulfonamides
CPT/HCPCS: 71045; 80053; 83735; 83880; 84484; 85025; 85610; 85730; 93005; 96374; 99285

== ENCOUNTER 2022-06-27 14:23 | Emergency (ER) | payer MEDICARE, BC ==
[2022-06-27 14:42] VITALS: RESP 18
--- NOTE | 2022-06-27 16:03 | ED ---
General Adult HPI - General Chief complaint: Dizziness Stated complaint: HIGH BP Time Seen by Provider: 06/27/22 15:18 Source: patient, family, EMS, RN notes reviewed Mode of arrival: EMS Limitations: no limitations - History of Present Illness Initial comments: Patient is an [id number] female presents emergency room brought in by EMS with complaints of hypertension. She follows with cardiology and her primary care provider in regards to her hypertension. She admits to taking extra doses of Toprol at times and missing doses of her Lasix often. She states that her ankles have been swollen significantly over the past few weeks though some of the swelling is down. Her family reports that she is very immobile and in addition to missing doses of medication does drink a lot of cough that coffee regularly. She reports that her blood pressures have been consistently elevated recently. She reports that she has an appointment with her field education director on Thursday, in 3 days to follow up with regarding her hypertension. Her family reports that she is very immobile and recently started using take out services and has been having increase of take-out food recently. She reports that she has occasional abdominal cramping and occasional dizziness But denies any at this time. She was here in the emergency room on 06/02/2022 with the same complaints of elevated blood pressure and was not taking medications as prescribed at that time as well. She had a chest x-ray blood work and EKG at that time without any acute abnormalities. In addition to her hypertensive history she has a history of chronic back pain, osteoarthritis with decreased mobility, hyperlipidemia, GERD, and thyroid disease. - Related Data Home Medications Medication Instructions Recorded Confirmed Potassium Chloride [K-Tab ER] 10 meq PO DAILY 04/11/15 07/21/21 Acetaminophen Tab [Tylenol] 1,000 mg PO Q6H PRN 11/24/15 07/21/21 Montelukast [Singulair] 10 mg PO HS 03/30/16 07/21/21 Magnesium Gluconate [Magonate] 500 mg PO DAILY 04/30/16 07/21/21 Metoprolol Succinate (ER) [Toprol 25 mg PO DAILY 03/26/17 07/21/21 XL] Levothyroxine Sodium [Synthroid] 50 mcg PO DAILY 03/28/19 07/21/21 Multivitamins, Thera [Multivitamin 1 tab PO DAILY 03/28/19 07/21/21 (formulary)] Cyanocobalamin (Vitamin B-12) 1,000 mcg PO WE 07/21/21 07/21/21 [Vitamin B-12] Diclofenac Sodium Gel [Voltaren 2 gm TOPICAL TID PRN 07/21/21 07/21/21 Gel] Elderberry W/Zinc 1 cap PO DAILY 07/21/21 07/21/21 Ergocalciferol (Vitamin D2) 1,250 mcg PO COTTON 07/21/21 07/21/21 [Drisdol (50,000 Iu)] Ferrous Sulfate [Feosol] 325 mg PO DAILY 07/21/21 07/21/21 Meclizine HCl 25 mg PO TID PRN 07/21/21 07/21/21 Omeprazole 20 mg PO BID 07/21/21 07/21/21 Rivaroxaban [Xarelto] 15 mg PO HS 07/21/21 07/21/21 Rosuvastatin [Crestor] 10 mg PO HS 07/21/21 07/21/21 peppermint oiL 100 mg PO AC-TID 07/21/21 07/21/21 Previous Rx's Medication Instructions Recorded Furosemide [Lasix] 20 mg PO DAILY tab 07/23/21 Nitrofurantoin Monohyd/M-Cryst 100 mg PO BID #12 cap 07/23/21 [Macrobid] lisinopriL [Zestril] 20 mg PO DAILY tab 07/23/21 Allergies Allergy/AdvReac Type Severity Reaction Status Date / Time codeine Allergy Unknown Verified 06/27/22 14:42 hydromorphone HCl Allergy Unknown Verified 06/27/22 14:42 [From Dilaudid] Iodinated Contrast Media Allergy Unknown Verified 06/27/22 14:42 [Iodinated Contrast Media - IV Dye] iodine Allergy Unknown Verified 06/27/22 14:42 meperidine HCl [From Demerol] Allergy Unknown Verified 06/27/22 14:42 nalbuphine HCl [From Nubain] Allergy Unknown Verified 06/27/22 14:42 Penicillins Allergy Unknown Verified 06/27/22 14:42 Sulfa (Sulfonamide Allergy Unknown Verified 06/27/22 14:42 Antibiotics) Review of Systems ROS Statement: Those systems with pertinent positive or pertinent negative responses have been documented in the HPI. ROS Other: All systems not noted in ROS Statement are negative. 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 History of Any Multi-Drug Resistant Organisms: None Reported Past Surgical History: Adenoidectomy, Cholecystectomy, Joint Replacement, Orthopedic Surgery, Pacemaker, Tonsillectomy Additional Past Surgical History / Comment(s): Bartholin cyst surgical procedure, R eye with retinal repair, R eye rk, R eye cataract removal and macular wrinkle repair, partial replacement lt shoulder and left knee replacement, 2006 Heart Cath (no intervention), colonoscopy, R cheek melanoma removal, D&C, vaginal cystectomy, L breast benign bx. Past Anesthesia/Blood Transfusion Reactions: Motion Sickness, Postoperative Nausea & Vomiting (PONV) Type of Cardiac Device: Permanent Pacemaker Device Placement Date:: 04/02/16 Past Psychological History: No Psychological Hx Reported Smoking Status: Never smoker Past Alcohol Use History: None Reported Past Drug Use History: None Reported - Past Family History Mother Family Medical History: Asthma, Thyroid Disorder Additional Family Medical History / Comment(s): thyroid nodule. bronchitis Father Family Medical History: Respiratory Disorder Additional Family Medical History / Comment(s): at age 46 addisons disease(stopped taking his steroids), also had tb General Exam Limitations: no limitations General appearance: alert, in no apparent distress Head exam: Present: atraumatic, normocephalic, normal inspection Eye exam: Present: normal appearance, PERRL, EOMI. Absent: scleral icterus, conjunctival injection, periorbital swelling ENT exam: Present: normal exam, mucous membranes moist Neck exam: Present: normal inspection, full ROM Respiratory exam: Present: decreased breath sounds (Due to body habitus). Absent: respiratory distress, wheezes, rales, rhonchi, stridor, accessory muscle use Cardiovascular Exam: Present: regular rate, normal rhythm, systolic murmur. Absent: normal heart sounds, diastolic murmur, rubs, gallop, clicks GI/Abdominal exam: Present: soft, normal bowel sounds. Absent: distended, tenderness, guarding, rebound, rigid Extremities exam: Present: pedal edema (Pedal +1 ankle +2), joint swelling Neurological exam: Present: alert, oriented X3, CN II-XII intact Psychiatric exam: Present: normal affect, normal mood Skin exam: Present: warm, dry, intact, normal color. Absent: rash Course Vital Signs 06/27/22 06/27/22 06/27/22 14:28 15:58 16:01 Temperature 97.7 F Pulse Rate 60 60 Pulse Rate [ 60 Imaging Scheduler ] Respiratory 18 18 Rate Blood Pressure 203/97 190/74 O2 Sat by Pulse 97 97 Oximetry 06/27/22 06/27/22 17:25 18:11 Temperature Pulse Rate 60 60 Pulse Rate [ Imaging Scheduler ] Respiratory 18 18 Rate Blood Pressure 192/79 166/64 O2 Sat by Pulse 94 L 99 Oximetry Medical Decision Making - Medical Decision Making 81-year-old female presenting the emergency room with hypertension who admits to poor adherence to a low salt diet and of missing doses of her d iuretic. She initially reported associated symptoms of dizziness and palpitations but denies any of them at this time. Recent workup with chest x-ray blood work and EKG. We'll defer repeating chest x-ray. Will check EKG, CMP and CBC. Will give dose of hydralazine now and one CMP resulted plan for a dose of IV Lasix to help diurese. Blood pressure is currently 190/74 consequently nonemergent at this time in stable for discharge. Blood pressure responded well to hydralazine and Lasix. She continues to remain associated symptom-free including no presence of dizziness, chest pain, shortness breath, or headache. Will discharge home with follow-up with her primary care provider and field education director as he scheduled. Encourage medication compliance. Case discussed with Dr. Villalobos. - Lab Data Result diagrams: 06/27/22 15:58 08/19/22 15:58 Lab Results 06/27/22 06/27/22 06/27/22 Range/Units 15:58 15:58 15:58 WBC 6.7 (3.8-10.6) k/uL RBC 3.86 (3.80-5.40) m/uL Hgb 10.7 L (11.4-16.0) gm/dL Hct 34.9 (34.0-46.0) % MCV 90.3 (80.0-100.0) fL MCH 27.8 (25.0-35.0) pg MCHC 30.7 L (31.0-37.0) g/dL RDW 13.4 (11.5-15.5) % Plt Count 298 (150-450) k/uL MPV 7.1 Neutrophils % 53 % Lymphocytes % 34 % Monocytes % 7 % Eosinophils % 3 % Basophils % 0 % Neutrophils # 3.5 (1.3-7.7) k/uL Lymphocytes # 2.3 (1.0-4.8) k/uL Monocytes # 0.5 (0-1.0) k/uL Eosinophils # 0.2 (0-0.7) k/uL Basophils # 0.0 (0-0.2) k/uL Hypochromasia Slight Sodium 137 (137-145) mmol/L Potassium 4.4 (3.5-5.1) mmol/L Chloride 102 (98-107) mmol/L Carbon Dioxide 25 (22-30) mmol/L Anion Gap 10 mmol/L BUN 17 (7-17) mg/dL Creatinine 0.71 (0.52-1.04) mg/dL Est GFR (CKD-EPI)AfAm >90 (>60 ml/min/1.73 sqM) Est GFR (CKD-EPI)NonAf 80 (>60 ml/min/1.73 sqM) Glucose 96 (74-99) mg/dL Calcium 9.8 (8.4-10.2) mg/dL Total Bilirubin 0.4 (0.2-1.3) mg/dL AST 29 (14-36) U/L ALT 17 (4-34) U/L Alkaline Phosphatase 110 (38-126) U/L Troponin I <0.012 (0.000-0.034) ng/mL Total Protein 7.2 (6.3-8.2) g/dL Albumin 4.0 (3.5-5.0) g/dL - EKG Data EKG Comments: Electronically atrial paced, possible left ventricular hypertrophy, possible anterolateral myocardial infarction. Ventricular rate 60 bpm, MT interval 380 ms, QRS duration 150 ms, QT/QTC 423/4 and 24 ms, PRT axes 108, -27, 54 Disposition Clinical Impression: Hypertension Disposition: HOME SELF-CARE Condition: Stable Instructions (If sedation given, give patient instructions): Hypertension (ED) Additional Instructions: Please follow-up with your primary care provider and field education director. Please take your blood pressure medications as prescribed. Please follow a low-salt diet. Please avoid excessive caffeine intake. Please return to the Emergency Department if symptoms worsen or any other concerns. Is patient prescribed a controlled substance at d/c from ED?: No Referrals: Maverick Gordillo Jr, DO [Primary Care Provider] - 1-2 days Time of Disposition: 18:49
[2022-06-27 16:16] LABS: Basophils % (A) 0 %; Eosinophils # (A) 0.2 k/uL (0-0.7); Eosinophils % (A) 3 %; HCT 34.9 % (34.0-46.0); HGB 10.7 gm/dL (11.4-16.0); Hypochromasia Slight; Lymphocytes # (A) 2.3 k/uL (1.0-4.8); Lymphocytes % (A) 34 %; MCH 27.8 pg (25.0-35.0); MCHC 30.7 g/dL (31.0-37.0); MCV 90.3 fL (80.0-100.0); Mean Platelet Volume 7.1; Monocytes # (A) 0.5 k/uL (0-1.0); Monocytes % (A) 7 %; Neutrophils # (A) 3.5 k/uL (1.3-7.7); Neutrophils % (A) 53 %; Platelet Count 298 k/uL (150-450); RBC 3.86 m/uL (3.80-5.40); RDW 13.4 % (11.5-15.5); WBC 6.7 k/uL (3.8-10.6)
[2022-06-27 16:35] LABS: ALT 17 U/L (4-34); AST 29 U/L (14-36); African American GFR (CKD) >90 (>60 ml/min/1.73 sqM); Alkaline Phosphatase 110 U/L (38-126); Anion Gap 10 mmol/L; Blood Urea Nitrogen 17 mg/dL (7-17); Calcium 9.8 mg/dL (8.4-10.2); Carbon Dioxide 25 mmol/L (22-30); Chloride 102 mmol/L (98-107); Glucose 96 mg/dL (74-99); Non-African American GFR(CKD) 80 (>60 ml/min/1.73 sqM); Potassium 4.4 mmol/L (3.5-5.1); Sodium 137 mmol/L (137-145); Total Bilirubin 0.4 mg/dL (0.2-1.3); Total Protein 7.2 g/dL (6.3-8.2)
[2022-06-27] MEDS ORDERED: hydrALAZINE HCL 20 MG/ML 1 ML VIAL IVP STA (16:35)
[2022-06-27] MEDS ORDERED: FUROSEMIDE 10 MG/ML 2 ML VIAL IV ONE (17:05)
[2022-06-27 18:59] VITALS: BP 169/80; PULSE 62; TEMP 98.1
== END 2022-06-27 18:59 | disposition home or self-care (01) ==
LOC: EC 14:23
DX: I10 Essential (primary) hypertension (principal); J45.909 Unspecified asthma, uncomplicated; K21.9 Gastro-esophageal reflux disease without esophagitis; E07.9 Disorder of thyroid, unspecified; Z79.899 Other long term (current) drug therapy; Z79.83 Long term (current) use of bisphosphonates; Z88.5 Allergy status to narcotic agent; Z91.041 Radiographic dye allergy status; Z88.0 Allergy status to penicillin; Z88.2 Allergy status to sulfonamides
CPT/HCPCS: 36415; 80053; 84484; 85025; 99284; 96374; 96375; J0360; J1940

== ENCOUNTER 2022-07-18 21:26 | Emergency (ER) | payer MEDICARE, BC ==
--- NOTE | 2022-07-18 22:12 | ED ---
General Adult HPI - General Stated complaint: high blood pressure Time Seen by Provider: 07/18/22 21:49 Source: RN notes reviewed - History of Present Illness Initial comments: This is a pleasant 81-year-old female with a history of atrial fibrillation, asthma, gastroesophageal reflux disease, hyperlipidemia, hypertension, and thyroid disorder. Patient presents to the emergency department today stating that she felt a bit flushed was having some palpitations. Patient states she feels like this when her blood pressure is high. Patient was seen here multiple times this year for similar symptomology and hypertension. She states last month she was seen here and given a dose of hydralazine and sent her regular p hysician. Apparently the dose of her metoprolol was doubled. Patient denying any chest pain. No other medication changes. No headache, no fever or chills, no changes in vision or hearing, no sore throat or difficulty with speech, no neck pain, no chest pain or shortness of breath, no abdominal pain, no nausea or vomiting, no changes in urination or bowel movements, no numbness or tingling, no extremity pain, no skin rashes or lesions. Past medical, surgical, social, and family history reviewed. - Related Data Home Medications Medication Instructions Recorded Confirmed Montelukast [Singulair] 10 mg PO HS 03/30/16 06/27/22 Levothyroxine Sodium [Synthroid] 50 mcg PO DAILY 03/28/19 06/27/22 Cyanocobalamin (Vitamin B-12) 1,000 mcg PO MOWEFR 07/21/21 06/27/22 [Vitamin B-12] Elderberry W/Zinc 1 cap PO DAILY 07/21/21 06/27/22 Ergocalciferol (Vitamin D2) 1,250 mcg PO COTTON 07/21/21 06/27/22 [Drisdol (50,000 Iu)] Ferrous Sulfate [Feosol] 325 mg PO DAILY 07/21/21 06/27/22 Rivaroxaban [Xarelto] 15 mg PO HS 07/21/21 06/27/22 Rosuvastatin [Crestor] 10 mg PO HS 07/21/21 06/27/22 Acetaminophen [Tylenol Arthritis] 1,300 mg PO QID PRN 06/27/22 06/27/22 Biotin 5 mg PO DAILY 06/27/22 06/27/22 Carboxymethylcellulose Sodium 1 drop BOTH EYES QID PRN 06/27/22 06/27/22 [Refresh Tears] Cranberry Fruit Concentrate [Azo 500 mg PO DAILY 06/27/22 06/27/22 Cranberry] L.acidoph,Paracasei, B.lactis 1 cap PO DAILY 06/27/22 06/27/22 [Probiotic] Magnesium Oxide 400 mg PO HS 06/27/22 06/27/22 Metoprolol Succinate [Kapspargo 50 mg PO DAILY 06/27/22 06/27/22 Sprinkle] Multivit-Min/Iron/Folic/Lutein 1 tab PO DAILY 06/27/22 06/27/22 [Centrum Silver Women Tablet] Spironolactone [Aldactone] 25 mg PO DAILY 06/27/22 06/27/22 Previous Rx's Medication Instructions Recorded Furosemide [Lasix] 20 mg PO DAILY tab 07/23/21 hydrALAZINE HCL [Apresoline] 10 mg PO TID #30 tablet 07/18/22 Allergies Allergy/AdvReac Type Severity Reaction Status Date / Time codeine Allergy Unknown Verified 07/18/22 22:26 hydromorphone HCl Allergy Unknown Verified 07/18/22 22:26 [From Dilaudid] Iodinated Contrast Media Allergy Unknown Verified 07/18/22 22:26 [Iodinated Contrast Media - IV Dye] iodine Allergy Unknown Verified 07/18/22 22:26 meperidine HCl [From Demerol] Allergy Unknown Verified 07/18/22 22:26 nalbuphine HCl [From Nubain] Allergy Unknown Verified 07/18/22 22:26 Penicillins Allergy Unknown Verified 07/18/22 22:26 Childhood Sulfa (Sulfonamide Allergy Unknown Verified 07/18/22 22:26 Antibiotics) Review of Systems ROS Statement: Those systems with pertinent positive or pertinent negative responses have been documented in the HPI. ROS Other: All systems not noted in ROS Statement are negative. 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 History of Any Multi-Drug Resistant Organisms: None Reported Past Surgical History: Adenoidectomy, Cholecystectomy, Joint Replacement, Orthopedic Surgery, Pacemaker, Tonsillectomy Additional Past Surgical History / Comment(s): Bartholin cyst surgical procedure, R eye with retinal repair, R eye rk, R eye cataract removal and macular wrinkle repair, partial replacement lt shoulder and left knee replacement, 2006 Heart Cath (no intervention), colonoscopy, R cheek melanoma removal, D&C, vaginal cystectomy, L breast benign bx. Past Anesthesia/Blood Transfusion Reactions: Motion Sickness, Postoperative Nausea & Vomiting (PONV) Type of Cardiac Device: Permanent Pacemaker Device Placement Date:: 04/02/16 Past Psychological History: No Psychological Hx Reported Smoking Status: Never smoker Past Alcohol Use History: None Reported Past Drug Use History: None Reported - Past Family History Mother Family Medical History: Asthma, Thyroid Disorder Additional Family Medical History / Comment(s): thyroid nodule. bronchitis Father Family Medical History: Respiratory Disorder Additional Family Medical History / Comment(s): at age 46 addisons disease(stopped taking his steroids), also had tb General Exam - General Exam Comments Initial Comments: It does not appear to be in significant distress. Cranial nerves II through XII grossly intact. Patient alert and oriented 4. General appearance: obese Head exam: Present: atraumatic, normocephalic, normal inspection Eye exam: Present: normal appearance, PERRL, EOMI. Absent: scleral icterus, conjunctival injection, periorbital swelling ENT exam: Present: normal exam, mucous membranes moist Neck exam: Present: normal inspection, full ROM. Absent: tenderness, meningismus, lymphadenopathy Respiratory exam: Present: normal lung sounds bilaterally. Absent: respiratory distress, wheezes, rales, rhonchi, stridor, chest wall tenderness, accessory muscle use, decreased breath sounds, prolonged expiratory Cardiovascular Exam: Present: regular rate, normal rhythm, normal heart sounds. Absent: systolic murmur, diastolic murmur, rubs, gallop, clicks GI/Abdominal exam: Present: soft, normal bowel sounds. Absent: distended, tenderness, guarding, rebound, rigid Extremities exam: Present: normal inspection, full ROM, normal capillary refill. Absent: tenderness, pedal edema, joint swelling, calf tenderness Back exam: Present: normal inspection Neurological exam: Present: alert, oriented X3, CN II-XII intact Psychiatric exam: Present: normal affect, normal mood Skin exam: Present: warm, dry, intact, normal color. Absent: rash Course Vital Signs 07/18/22 21:30 Temperature 97.8 F Pulse Rate 66 Respiratory 20 Rate Blood Pressure 180/80 O2 Sat by Pulse 96 Oximetry - Reevaluation(s) Reevaluation #1: 07/18/22 23:07 On her last several readings here in the ER. Current blood pressure 180/80. We'll give one dose hydralazine as patient is adamant that she needs to have the blood pressure down. Note that the patient is currently asymptomatic. Reevaluation #2: 07/18/22 23:32 Medical record is reviewed Symptoms are improved here in the emergency department Patient is informed of results and questions answered Patient in no distress Patient no distress. Patient asymptomatic. The case was discussed in detail with ED attending physician. Presentation, findings, treatment plan discussed in detail. EKG Findings - EKG Comments: EKG Findings:: 2036 and read by the ED attending physician reveals electronic atrial pacemaker. Rate is 60. Intervals noted, prolonged MN, other intervals are normal. No acute ST or T wave changes. When compared to the previous study from 06/27/2022 there is no significant change Medical Decision Making - Medical Decision Making Presents with essentially asymptomatic hypertension. Patient states she did feel a bit flushed at home. Patient then had elevated blood pressure read by EMS. However pressure is 180/90 here in the ER. This is fairly consistent with what the patient has had previously. Patient has done well with IV hydralazine. Patient has multiple ALLERGIES and has previously reacted to both amlodipine and lisinopril. After long discussion, patient and her daughter essentially adamant that they want further blood pressure control this time. Patient recently had a dose change of her metoprolol by her primary care physician. I'm going to add on hydralazine until she can follow-up with her regular physician again. Patient reevaluated prior to discharge and is asymptomatic. Resting comfortably. IV hydralazine was given here. The case was discussed in detail with ED attending physician. Presentation, findings, treatment plan discussed in detail. Patient was told to return to the ER for any signs or symptoms worsen. Told to return immediately if any other problems arise. All questions answered. Treatment plan discussed. Patient in agreement Every effort has been made to ensure accuracy of this dictation. However, due to the limitations of electronic medical records and dictation devices, errors in charting still occur. Supervising physician Dr. Suggs - Lab Data Result diagrams: 07/18/22 22:31 07/18/22 22:31 Lab Results 07/18/22 07/18/22 07/18/22 Range/Units 22:31 22:31 22:31 WBC 6.4 (3.8-10.6) k/uL RBC 3.92 (3.80-5.40) m/uL Hgb 11.0 L (11.4-16.0) gm/dL Hct 35.1 (34.0-46.0) % MCV 89.5 (80.0-100.0) fL MCH 28.0 (25.0-35.0) pg MCHC 31.3 (31.0-37.0) g/dL RDW 13.5 (11.5-15.5) % Plt Count 269 (150-450) k/uL MPV 7.0 Neutrophils % 50 % Lymphocytes % 37 % Monocytes % 8 % Eosinophils % 4 % Basophils % 1 % Neutrophils # 3.2 (1.3-7.7) k/uL Lymphocytes # 2.3 (1.0-4.8) k/uL Monocytes # 0.5 (0-1.0) k/uL Eosinophils # 0.2 (0-0.7) k/uL Basophils # 0.0 (0-0.2) k/uL Hypochromasia Slight Sodium 136 L (137-145) mmol/L Potassium 4.4 (3.5-5.1) mmol/L Chloride 100 (98-107) mmol/L Carbon Dioxide 25 (22-30) mmol/L Anion Gap 11 mmol/L BUN 21 H (7-17) mg/dL Creatinine 0.79 (0.52-1.04) mg/dL Est GFR (CKD-EPI)AfAm 81 (>60 ml/min/1.73 sqM) Est GFR (CKD-EPI)NonAf 71 (>60 ml/min/1.73 sqM) Glucose 107 H (74-99) mg/dL Calcium 9.8 (8.4-10.2) mg/dL Magnesium 2.2 (1.6-2.3) mg/dL Total Bilirubin 0.3 (0.2-1.3) mg/dL AST 25 (14-36) U/L ALT 13 (4-34) U/L Alkaline Phosphatase 108 (38-126) U/L Troponin I <0.012 (0.000-0.034) ng/mL Total Protein 6.9 (6.3-8.2) g/dL Albumin 4.0 (3.5-5.0) g/dL Disposition Clinical Impression: Uncontrolled hypertension Disposition: HOME SELF-CARE Condition: Good Additional Instructions: Follow-up with your regular physician as directed. Return to the ER immediately if any symptoms worsen, new symptoms arise, or any other problems develop. Is patient prescribed a controlled substance at d/c from ED?: No Referrals: Maverick Gordillo Jr, DO [Primary Care Provider] - As Soon As Possible Time of Disposition: 23:34
--- NOTE | 2022-07-18 22:24 | XR ---
EXAMINATION TYPE: XR chest 1V portable DATE OF EXAM: 07/18/2022 COMPARISON: Chest x-ray June 01, 2022 HISTORY: Dysrhythmia. TECHNIQUE: Single AP portable frontal upright view of the chest is obtained. FINDINGS: There is some chronic parenchymal changes bilaterally without suspicious focal air space o pacity, pleural effusion, or pneumothorax seen. Persisting cardiomegaly with dual lead pacemaker and atherosclerotic thoracic aorta. Metallic hardware from left shoulder surgery is partially imaged. IMPRESSION: Chronic changes and cardiomegaly without acute pulmonary process. No significant change from prior.
[2022-07-18 22:26] VITALS: TEMP 97.8
[2022-07-18 22:47] LABS: Basophils % (A) 1 %; Eosinophils # (A) 0.2 k/uL (0-0.7); Eosinophils % (A) 4 %; HCT 35.1 % (34.0-46.0); Hypochromasia Slight; Lymphocytes # (A) 2.3 k/uL (1.0-4.8); Lymphocytes % (A) 37 %; MCHC 31.3 g/dL (31.0-37.0); MCV 89.5 fL (80.0-100.0); Monocytes # (A) 0.5 k/uL (0-1.0); Monocytes % (A) 8 %; Neutrophils # (A) 3.2 k/uL (1.3-7.7); Neutrophils % (A) 50 %; Platelet Count 269 k/uL (150-450); RBC 3.92 m/uL (3.80-5.40); RDW 13.5 % (11.5-15.5); WBC 6.4 k/uL (3.8-10.6)
[2022-07-18 23:05] LABS: ALT 13 U/L (4-34); AST 25 U/L (14-36); African American GFR (CKD) 81 (>60 ml/min/1.73 sqM); Alkaline Phosphatase 108 U/L (38-126); Anion Gap 11 mmol/L; Blood Urea Nitrogen 21 mg/dL (7-17); Calcium 9.8 mg/dL (8.4-10.2); Carbon Dioxide 25 mmol/L (22-30); Chloride 100 mmol/L (98-107); Glucose 107 mg/dL (74-99); Magnesium 2.2 mg/dL (1.6-2.3); Non-African American GFR(CKD) 71 (>60 ml/min/1.73 sqM); Potassium 4.4 mmol/L (3.5-5.1); Sodium 136 mmol/L (137-145); Total Bilirubin 0.3 mg/dL (0.2-1.3); Total Protein 6.9 g/dL (6.3-8.2)
[2022-07-18] MEDS ORDERED: hydrALAZINE HCL 20 MG/ML 1 ML VIAL IVP STA (23:06)
[2022-07-19 00:42] VITALS: BP 147/61; PULSE 87; RESP 17
== END 2022-07-19 00:55 | disposition home or self-care (01) ==
LOC: EC 21:26
DX: I10 Essential (primary) hypertension (principal); I48.91 Unspecified atrial fibrillation; J45.909 Unspecified asthma, uncomplicated; K21.9 Gastro-esophageal reflux disease without esophagitis; E78.5 Hyperlipidemia, unspecified; M19.90 Unspecified osteoarthritis, unspecified site; E03.9 Hypothyroidism, unspecified; Z88.5 Allergy status to narcotic agent; Z91.041 Radiographic dye allergy status; Z88.0 Allergy status to penicillin; Z88.2 Allergy status to sulfonamides; Z79.890 Hormone replacement therapy; Z79.899 Other long term (current) drug therapy
CPT/HCPCS: 36415; 71045; 80053; 83735; 84443; 84484; 85025; 93005; 96374; 99285

== ENCOUNTER 2023-05-02 05:05 | Emergency (ER) | payer MEDICARE, BC ==
[2023-05-02 05:10] VITALS: TEMP 97.9
--- NOTE | 2023-05-02 06:18 | ED ---
Weakness HPI - General Chief complaint: Weakness Stated complaint: hypertension Time Seen by Provider: 05/02/23 06:01 Source: patient, RN notes reviewed Mode of arrival: ambulatory Limitations: no limitations - History of Present Illness Initial comments: Patient is a 82 year old female presenting to the ER with a chief complaint of hypertension. Patient states she was having trouble sleeping last night and was not feeling right so she checked her blood pressure. She states is was 200/100 which brought her to the ER. She reports this has been an ongoing problem and she is only taking Metoprolol. She states her PCP prescribed hydralazine and possibly Norvasc but she did not get them from the pharmacy. Patient denies headaches, visual changes, chest pain, shortness of breath, or abdominal pain. - Related Data Home Medications Medication Instructions Recorded Confirmed Montelukast [Singulair] 10 mg PO HS 03/30/16 06/27/22 Levothyroxine Sodium [Synthroid] 50 mcg PO DAILY 03/28/19 06/27/22 Cyanocobalamin (Vitamin B-12) 1,000 mcg PO MOWEFR 07/21/21 06/27/22 [Vitamin B-12] Elderberry W/Zinc 1 cap PO DAILY 07/21/21 06/27/22 Ergocalciferol (Vitamin D2) 1,250 mcg PO COTTON 07/21/21 06/27/22 [Drisdol (50,000 Iu)] Ferrous Sulfate [Feosol] 325 mg PO DAILY 07/21/21 06/27/22 Rivaroxaban [Xarelto] 15 mg PO HS 07/21/21 06/27/22 Rosuvastatin [Crestor] 10 mg PO HS 07/21/21 06/27/22 Acetaminophen [Tylenol Arthritis] 1,300 mg PO QID PRN 06/27/22 06/27/22 Biotin 5 mg PO DAILY 06/27/22 06/27/22 Carboxymethylcellulose Sodium 1 drop BOTH EYES QID PRN 06/27/22 06/27/22 [Refresh Tears] Cranberry Fruit Concentrate [Azo 500 mg PO DAILY 06/27/22 06/27/22 Cranberry] L.acidoph,Paracasei, B.lactis 1 cap PO DAILY 06/27/22 06/27/22 [Probiotic] Magnesium Oxide 400 mg PO HS 06/27/22 06/27/22 Metoprolol Succinate [Kapspargo 50 mg PO DAILY 06/27/22 06/27/22 Sprinkle] Multivit-Min/Iron/Folic/Lutein 1 tab PO DAILY 06/27/22 06/27/22 [Centrum Silver Women Tablet] Spironolactone [Aldactone] 25 mg PO DAILY 06/27/22 06/27/22 Previous Rx's Medication Instructions Recorded Furosemide [Lasix] 20 mg PO DAILY tab 07/23/21 hydrALAZINE HCL [Apresoline] 10 mg PO TID #30 tablet 07/18/22 Allergies Allergy/AdvReac Type Severity Reaction Status Date / Time codeine Allergy Unknown Verified 07/18/22 22:26 hydromorphone HCl Allergy Unknown Verified 07/18/22 22:26 [From Dilaudid] Iodinated Contrast Media Allergy Unknown Verified 07/18/22 22:26 [Iodinated Contrast Media - IV Dye] iodine Allergy Unknown Verified 07/18/22 22:26 meperidine HCl [From Demerol] Allergy Unknown Verified 07/18/22 22:26 nalbuphine HCl [From Nubain] Allergy Unknown Verified 07/18/22 22:26 Penicillins Allergy Unknown Verified 07/18/22 22:26 Childhood Sulfa (Sulfonamide Allergy Unknown Verified 07/18/22 22:26 Antibiotics) Review of Systems ROS Statement: Those systems with pertinent positive or pertinent negative responses have been documented in the HPI. ROS Other: All systems not noted in ROS Statement are negative. 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 History of Any Multi-Drug Resistant Organisms: None Reported Past Surgical History: Adenoidectomy, Cholecystectomy, Joint Replacement, Orthopedic Surgery, Pacemaker, Tonsillectomy Additional Past Surgical History / Comment(s): Bartholin cyst surgical procedu re, R eye with retinal repair, R eye rk, R eye cataract removal and macular wrinkle repair, partial replacement lt shoulder and left knee replacement, 2006 Heart Cath (no intervention), colonoscopy, R cheek melanoma removal, D&C, vaginal cystectomy, L breast benign bx. Past Anesthesia/Blood Transfusion Reactions: Motion Sickness, Postoperative Nausea & Vomiting (PONV) Type of Cardiac Device: Permanent Pacemaker Device Placement Date:: 04/02/16 Past Psychological History: No Psychological Hx Reported Smoking Status: Never smoker Past Alcohol Use History: None Reported Past Drug Use History: None Reported - Past Family History Mother Family Medical History: Asthma, Thyroid Disorder Additional Family Medical History / Comment(s): thyroid nodule. bronchitis Father Family Medical History: Respiratory Disorder Additional Family Medical History / Comment(s): at age 46 addisons disease(stopped taking his steroids), also had tb General Exam Limitations: no limitations General appearance: alert, in no apparent distress Eye exam: Present: normal appearance, PERRL. Absent: scleral icterus, conjunctival injection, periorbital swelling Pupils: Present: normal accommodation Respiratory exam: Present: normal lung sounds bilaterally. Absent: respiratory distress, wheezes, rales, rhonchi, stridor Cardiovascular Exam: Present: regular rate, normal rhythm, normal heart sounds. Absent: systolic murmur, diastolic murmur, rubs, gallop, clicks GI/Abdominal exam: Present: soft, normal bowel sounds. Absent: distended, tenderness, guarding, rebound, rigid Extremities exam: Present: other (trace pretibial edema noted bilaterally ) Neurological exam: Present: alert, oriented X3 Skin exam: Present: warm, dry, intact, normal color. Absent: rash Course Vital Signs 05/02/23 05/02/23 05/02/23 05:06 05:15 05:39 Temperature 97.9 F Pulse Rate 60 60 Pulse Rate [ 60 Extrusion Manager ] Respiratory 18 18 Rate Blood Pressure 205/90 190/77 O2 Sat by Pulse 98 96 Oximetry 05/02/23 05/02/23 05/02/23 06:06 06:40 07:06 Temperature Pulse Rate 61 62 60 Pulse Rate [ Extrusion Manager ] Respiratory 18 18 18 Rate Blood Pressure 186/76 196/87 162/66 O2 Sat by Pulse 95 95 95 Oximetry EKG Findings - EKG Comments: EKG Findings:: EKG performed at 5:14 H Meliton rate of 60 PA interval 332 QRS 97 QT status QTC 420/420 - EKG Results: EKG: interpreted by JO Medical Decision Making - Medical Decision Making Was pt. sent in by a medical professional or institution ([facility], INSIDE SALES ADMINISTRATOR, urgent care, hospital, or [facility]...) When possible be specific @ -No Did you speak to anyone other than the patient for history (EMS, parent, family, police, friend...)? What history was obtained from this source @ -No Did you review nursing and triage notes (agree or disagree)? Why? @ -I reviewed and agree with nursing and triage notes Were old charts reviewed (outside hosp., previous admission, EMS record, old EKG, old radiological studies, urgent care reports/EKG's, [facility] records)? Report findings @ -No old charts were reviewed Differential Diagnosis (chest pain, altered mental status, abdominal pain women, abdominal pain men, vaginal bleeding, weakness, fever, dyspnea, syncope, headache, dizziness, GI bleed, back pain, seizure, CVA, palpatations, mental health, musculoskeletal)? @ -Hypertension, dehydration, viral infection, malaise EKG interpreted by me (3pts min.). @ -As above X-rays interpreted by me (1pt min.). @ -None done CT interpreted by me (1pt min.). @ -None done U/S interpreted by me (1pt. min.). @ -None done What testing was considered but not performed or refused? (CT, X-rays, U/S, labs)? Why? @ -None What meds were considered but not given or refused? Why? @ -None Did you discuss the management of the patient with other professionals (professionals i.e. [facility] Sanchez, INSIDE SALES ADMINISTRATOR, lab, RT, psych nurse, social service liaison, motor racer, teacher, chief customer officer, heel caser)? Give summary @ -No Was smoking cessation discussed for >3mins.? @ -No Was critical care preformed (if so, how long)? @ -No Were there social determinants of health that impacted care today? How? (Homelessness, low income, unemployed, alcoholism, drug addiction, transportation, low edu. Level, literacy, decrease access to med. care, nursing home, rehab)? @ -No Was there de-escalation of care discussed even if they declined (Discuss DNR or withdrawal of care, Hospice)? DNR status @ -No What co-morbidities impacted this encounter? (DM, HTN, Smoking, COPD, CAD, Cancer, CVA, ARF, Chemo, Hep., AIDS, mental health diagnosis, sleep apnea, morbid obesity)? @ -Hypertension Was patient admitted / discharged? Hospital course, mention meds given and route, prescriptions, significant lab abnormalities, going to OR and other pertinent info. @ -Discharge patient has not picked up her recent blood pressure medication. Patient felt that her blood pressure was high is mildly elevated. Blood pressure is improved. Patient will be discharged to condition on discharge is unremarkable. Undiagnosed new problem with uncertain prognosis? @ -No Drug Therapy requiring intensive monitoring for toxicity (Heparin, Nitro, Insulin, Cardizem)? @ -No Were any procedures done? @ -No Diagnosis/symptom? @ -Hypertension Acute, or Chronic, or Acute on Chronic? @ -Acute Uncomplicated (without systemic symptoms) or Complicated (systemic symptoms)? @ -Uncomplicated Side effects of treatment? @ -No Exacerbation, Progression, or Severe Exacerbation? @ -No Poses a threat to life or bodily function? How? (Chest pain, [place], AL, pneumonia, PE, COPD, DKA, ARF, appy, cholecystitis, CVA, Diverticulitis, Homicidal, Suicidal, threat to staff... and all critical care pts) @ -No - Lab Data Result diagrams: 05/02/23 06:35 05/02/23 06:35 Lab Results 05/02/23 05/02/23 Range/Units 06:35 06:35 WBC 6.5 (3.8-10.6) k/uL RBC 3.70 L (3.80-5.40) m/uL Hgb 10.3 L (11.4-16.0) gm/dL Hct 32.6 L (34.0-46.0) % MCV 87.9 (80.0-100.0) fL MCH 27.9 (25.0-35.0) pg MCHC 31.8 (31.0-37.0) g/dL RDW 13.5 (11.5-15.5) % Plt Count 263 (150-450) k/uL MPV 7.4 Neutrophils % 60 % Lymphocytes % 31 % Monocytes % 6 % Eosinophils % 1 % Basophils % 0 % Neutrophils # 3.9 (1.3-7.7) k/uL Lymphocytes # 2.0 (1.0-4.8) k/uL Monocytes # 0.4 (0-1.0) k/uL Eosinophils # 0.1 (0-0.7) k/uL Basophils # 0.0 (0-0.2) k/uL Hypochromasia Slight Sodium 138 (137-145) mmol/L Potassium 4.3 (3.5-5.1) mmol/L Chloride 105 (98-107) mmol/L Carbon Dioxide 29 (22-30) mmol/L Anion Gap 4 mmol/L BUN 23 H (7-17) mg/dL Creatinine 0.75 (0.52-1.04) mg/dL Est GFR (CKD-EPI)AfAm 85 (>60 ml/min/1.73 sqM) Est GFR (CKD-EPI)NonAf 74 (>60 ml/min/1.73 sqM) Glucose 98 (74-99) mg/dL Calcium 9.8 (8.4-10.2) mg/dL Total Bilirubin 0.3 (0.2-1.3) mg/dL AST 25 (14-36) U/L ALT 17 (4-34) U/L Alkaline Phosphatase 110 (38-126) U/L Total Protein 7.3 (6.3-8.2) g/dL Albumin 3.8 (3.5-5.0) g/dL Disposition Clinical Impression: HTN (hypertension) Disposition: HOME SELF-CARE Condition: Stable Instructions (If sedation given, give patient instructions): Hypertension (ED) Additional Instructions: Please return to the Emergency Department if symptoms worsen or any other concerns. Is patient prescribed a controlled substance at d/c from ED?: No Referrals: Maverick Gordillo Jr, DO [Primary Care Provider] - 1-2 days Time of Disposition: 07:17
[2023-05-02] MEDS ORDERED: hydrALAZINE HCL 20 MG/ML 1 ML VIAL IVP STA (06:24)
[2023-05-02 06:45] LABS: Basophils % (A) 0 %; Eosinophils # (A) 0.1 k/uL (0-0.7); Eosinophils % (A) 1 %; HCT 32.6 % (34.0-46.0); HGB 10.3 gm/dL (11.4-16.0); Hypochromasia Slight; Lymphocytes % (A) 31 %; MCH 27.9 pg (25.0-35.0); MCHC 31.8 g/dL (31.0-37.0); MCV 87.9 fL (80.0-100.0); Mean Platelet Volume 7.4; Monocytes # (A) 0.4 k/uL (0-1.0); Monocytes % (A) 6 %; Neutrophils # (A) 3.9 k/uL (1.3-7.7); Neutrophils % (A) 60 %; Platelet Count 263 k/uL (150-450); RDW 13.5 % (11.5-15.5); WBC 6.5 k/uL (3.8-10.6)
[2023-05-02 07:07] VITALS: PULSE 60
[2023-05-02 07:07] LABS: ALT 17 U/L (4-34); AST 25 U/L (14-36); African American GFR (CKD) 85 (>60 ml/min/1.73 sqM); Albumin 3.8 g/dL (3.5-5.0); Alkaline Phosphatase 110 U/L (38-126); Anion Gap 4 mmol/L; Blood Urea Nitrogen 23 mg/dL (7-17); Calcium 9.8 mg/dL (8.4-10.2); Carbon Dioxide 29 mmol/L (22-30); Chloride 105 mmol/L (98-107); Glucose 98 mg/dL (74-99); Non-African American GFR(CKD) 74 (>60 ml/min/1.73 sqM); Potassium 4.3 mmol/L (3.5-5.1); Sodium 138 mmol/L (137-145); Total Bilirubin 0.3 mg/dL (0.2-1.3); Total Protein 7.3 g/dL (6.3-8.2)
[2023-05-02 08:12] VITALS: BP 167/78; RESP 20
== END 2023-05-02 08:15 | disposition home or self-care (01) ==
LOC: EC 05:05
DX: I10 Essential (primary) hypertension (principal); I48.91 Unspecified atrial fibrillation; J45.909 Unspecified asthma, uncomplicated; E78.5 Hyperlipidemia, unspecified; M19.90 Unspecified osteoarthritis, unspecified site; E07.9 Disorder of thyroid, unspecified; Z79.890 Hormone replacement therapy; Z79.1 Long term (current) use of non-steroidal anti-inflammatories (NSAID); Z79.899 Other long term (current) drug therapy; Z79.01 Long term (current) use of anticoagulants; Z88.0 Allergy status to penicillin; Z88.1 Allergy status to other antibiotic agents; Z88.2 Allergy status to sulfonamides; Z88.5 Allergy status to narcotic agent; Z91.041 Radiographic dye allergy status; Z88.8 Allergy status to other drugs, medicaments and biological substances; Z88.6 Allergy status to analgesic agent
CPT/HCPCS: 36415; 93005; 80053; 85025; 99285; 96374; J0360

== ENCOUNTER 2023-06-03 07:17 | Emergency (ER) | payer MEDICARE, BC ==
[2023-06-03 07:35] VITALS: PULSE 89; RESP 15
[2023-06-03] MEDS ORDERED: KETOROLAC 15 MG/ML 1 ML VIAL IVP STA (07:38)
[2023-06-03] MEDS ORDERED: ONDANSETRON 4 MG/2 ML VIAL IVP STA (07:38)
[2023-06-03] MEDS ORDERED: SODIUM CHLORIDE 0.9% 1,000 ML IV STA (07:38)
[2023-06-03] MEDS ORDERED: hydrALAZINE HCL 25 MG TAB PO STA (07:39)
[2023-06-03] MEDS ORDERED: METOPROLOL SUCCINATE (ER) 50 MG TAB.ER.24H PO STA (07:39)
[2023-06-03] MEDS ORDERED: PANTOPRAZOLE 40 MG/10 ML VIAL IVP STA (07:41)
--- NOTE | 2023-06-03 07:47 | ED ---
General Adult HPI - General Chief complaint: Abdominal Pain Stated complaint: abd pain Time Seen by Provider: 06/03/23 07:30 Source: patient, EMS, RN notes reviewed, old records reviewed Mode of arrival: EMS Limitations: no limitations - History of Present Illness Initial comments: Patient is an 82-year-old female with past medical history remarkable for atrial fibrillation on blood thinners, poorly controlled hypertension, diverticulitis, cholecystectomy, who presents emergency Department complaining of over one week history of left-sided epigastric as well as left lower quadrant abdominal pain. States is typical for diverticulitis pain. States it originally occurred for approximately 6 days and resolved last . Restarted again on Thursday. It is currently Thursday. Endorses decreased flatus. Endorses decreased volume of bowel movements. In endorses decreased appetite. Endorses nausea but no emesis. Denies any hematochezia, melena. States stool is brown in color. Denies any chest pain or shortness of breath. Denies any fevers, chills, chest pain, shortness of breath, cough. His concern that this may be her diverticuli tis. Denies any urinary complaints. Has no other acute complaints at this time. Presents for further evaluation at this time. - Related Data Home Medications Medication Instructions Recorded Confirmed Montelukast [Singulair] 10 mg PO HS 03/30/16 06/27/22 Levothyroxine Sodium [Synthroid] 50 mcg PO DAILY 03/28/19 06/27/22 Cyanocobalamin (Vitamin B-12) 1,000 mcg PO MOWEFR 07/21/21 06/27/22 [Vitamin B-12] Elderberry W/Zinc 1 cap PO DAILY 07/21/21 06/27/22 Ergocalciferol (Vitamin D2) 1,250 mcg PO COTTON 07/21/21 06/27/22 [Drisdol (50,000 Iu)] Ferrous Sulfate [Feosol] 325 mg PO DAILY 07/21/21 06/27/22 Rivaroxaban [Xarelto] 15 mg PO HS 07/21/21 06/27/22 Rosuvastatin [Crestor] 10 mg PO HS 07/21/21 06/27/22 Acetaminophen [Tylenol Arthritis] 1,300 mg PO QID PRN 06/27/22 06/27/22 Biotin 5 mg PO DAILY 06/27/22 06/27/22 Carboxymethylcellulose Sodium 1 drop BOTH EYES QID PRN 06/27/22 06/27/22 [Refresh Tears] Cranberry Fruit Concentrate [Azo 500 mg PO DAILY 06/27/22 06/27/22 Cranberry] L.acidoph,Paracasei, B.lactis 1 cap PO DAILY 06/27/22 06/27/22 [Probiotic] Magnesium Oxide 400 mg PO HS 06/27/22 06/27/22 Metoprolol Succinate [Kapspargo 50 mg PO DAILY 06/27/22 06/27/22 Sprinkle] Multivit-Min/Iron/Folic/Lutein 1 tab PO DAILY 06/27/22 06/27/22 [Centrum Silver Women Tablet] Spironolactone [Aldactone] 25 mg PO DAILY 06/27/22 06/27/22 Previous Rx's Medication Instructions Recorded Furosemide [Lasix] 20 mg PO DAILY tab 07/23/21 hydrALAZINE HCL [Apresoline] 10 mg PO TID #30 tablet 05/02/23 hydrALAZINE HCL [Apresoline] 10 mg PO TID #30 tablet 05/03/23 Ciprofloxacin HCl [Cipro] 500 mg PO Q12HR 7 Days #14 tab 06/03/23 metroNIDAZOLE [Flagyl] 500 mg PO TID 7 Days #21 tab 06/03/23 Allergies Allergy/AdvReac Type Severity Reaction Status Date / Time codeine Allergy Unknown Verified 07/18/22 22:26 hydromorphone HCl Allergy Unknown Verified 07/18/22 22:26 [From Dilaudid] Iodinated Contrast Media Allergy Unknown Verified 07/18/22 22:26 [Iodinated Contrast Media - IV Dye] iodine Allergy Unknown Verified 07/18/22 22:26 meperidine HCl [From Demerol] Allergy Unknown Verified 07/18/22 22:26 nalbuphine HCl [From Nubain] Allergy Unknown Verified 07/18/22 22:26 Penicillins Allergy Unknown Verified 07/18/22 22:26 Childhood Sulfa (Sulfonamide Allergy Unknown Verified 07/18/22 22:26 Antibiotics) Review of Systems ROS Statement: Those systems with pertinent positive or pertinent negative responses have been documented in the HPI. Review of Systems: CONST: Denies fever EYES: Denies blurry vision ENT: Denies nasal congestion C/V: Denies Chest pain RESP: Denies shortness of breath GI: Endorses abdominal pain : Denies dysuria SKIN: Denies rash. MSK: Denies joint pain. NEURO: Denies headache ROS Other: All systems not noted in ROS Statement are negative. 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 History of Any Multi-Drug Resistant Organisms: None Reported Past Surgical History: Adenoidectomy, Cholecystectomy, Joint Replacement, Orthopedic Surgery, Pacemaker, Tonsillectomy Additional Past Surgical History / Comment(s): Bartholin cyst surgical procedure, R eye with retinal repair, R eye rk, R eye cataract removal and macular wrinkle repair, partial replacement lt shoulder and left knee re placement, 2006 Heart Cath (no intervention), colonoscopy, R cheek melanoma removal, D&C, vaginal cystectomy, L breast benign bx. Past Anesthesia/Blood Transfusion Reactions: Motion Sickness, Postoperative Nausea & Vomiting (PONV) Type of Cardiac Device: Permanent Pacemaker Device Placement Date:: 04/02/16 Past Psychological History: No Psychological Hx Reported Smoking Status: Never smoker Past Alcohol Use History: None Reported Past Drug Use History: None Reported - Past Family History Mother Family Medical History: Asthma, Thyroid Disorder Additional Family Medical History / Comment(s): thyroid nodule. bronchitis Father Family Medical History: Respiratory Disorder Additional Family Medical History / Comment(s): at age 46 addisons disease(stopped taking his steroids), also had tb General Exam - General Exam Comments Initial Comments: General: Appears in no acute distress. HEAD: Normal with no signs of head trauma. EYES: PERRLA, EOMI, conjunctiva normal, no discharge. ENT: Hearing grossly intact, normal oropharynx. RESPIRATORY: Clear breath sounds bilaterally. No wheezes, rales, or rhonchi. C/V: Regular rate and rhythm. S1 and S2 auscultated, no significant pitting edema, peripheral pulses 2+ and intact throughout ABD: Abdomen soft, nondistended. Mild tenderness to palpation in the left upper, left main, left lower quadrants. No guarding. No peritoneal signs. No rebound tenderness. EXT: Normal range of motion, no obvious deformity SKIN: No rashes or lesions observed on exposed skin. NEURO: Alert and oriented 4. Limitations: no limitations Course Vital Signs 06/03/23 06/03/23 07:20 11:18 Pulse Rate 89 Respiratory 15 15 Rate Blood Pressure 189/79 136/72 O2 Sat by Pulse 97 95 Oximetry Medical Decision Making - Medical Decision Making Was pt. sent in by a medical professional or institution (, PA, CORRESPONDENCE ANALYST, urgent care, hospital, or detention...) When possible be specific @ -No Did you speak to anyone other than the patient for history (EMS, parent, family, police, friend...)? What history was obtained from this source @ -No Did you review nursing and triage notes (agree or disagree)? Why? @ -I reviewed and agree with nursing and triage notes Were old charts reviewed (outside hosp., previous admission, EMS record, old EKG, old radiological studies, urgent care reports/EKG's, detention records)? Report findings @ -Old charts reviewed from April 2023 Differential Diagnosis (chest pain, altered mental status, abdominal pain women, abdominal pain men, vaginal bleeding, weakness, fever, dyspnea, syncope, headache, dizziness, GI bleed, back pain, seizure, CVA, palpatations, mental health, musculoskeletal)? @ -Differential Abdominal Pain Women: Appendicitis, Cholecystitis, diverticulosis, ischemic bowel, pancreatitis, hepatitis, UTI, gastroenteritis, AAA, incarcerated hernia, bowel obstruction, constipation, inflammatory bowel, hepatitis, peptic ulcer disease, splenic infarction, perforated viscus, vulvitis, ovarian torsion, PID, kidney stone, placenta abruption, this is not meant to be an all-inclusive list EKG interpreted by me (3pts min.). @ -As above X-rays interpreted by me (1pt min.). @ -Chest x-ray reveals no obvious acute cardio pulmonary process. CT interpreted by me (1pt min.). @ -CT reveals enteritis but no evidence of obvious diverticulitis or other acute process at this time. Patient does have changes in the bilateral lungs recommended follow-up imaging. U/S interpreted by me (1pt. min.). @ -None done What testing was considered but not performed or refused? (CT, X-rays, U/S, labs)? Why? @ -Considered CT abdomen and pelvis with contrast over patient does have the history of iodine ALLERGY which sounds similar anaphylaxis and she is not received the pre-workup previously. We will avoid contrast at this time after discussion with the patient. What meds were considered but not given or refused? Why? @ -None Did you discuss the management of the patient with other professionals (professionals i.e. , PA, CORRESPONDENCE ANALYST, lab, RT, psych nurse, social science manager, blueprint reproducer, teacher, sheriff officer, protective services case worker)? Give summary @ -No Was smoking cessation discussed for >3mins.? @ -No Was critical care preformed (if so, how long)? @ -No Were there social determinants of health that impacted care today? How? (Homelessness, low income, unemployed, alcoholism, drug addiction, transportation, low edu. Level, literacy, decrease access to med. care, alf, rehab)? @ -No Was there de-escalation of care discussed even if they declined (Discuss DNR or withdrawal of care, Hospice)? DNR status @ -No What co-morbidities impacted this encounter? (DM, HTN, Smoking, COPD, CAD, Cancer, CVA, ARF, Chemo, Hep., AIDS, mental health diagnosis, sleep apnea, morbid obesity)? @ -Diverticulitis Was patient admitted / discharged? Hospital course, mention meds given and route, prescriptions, significant lab abnormalities, going to OR and other pertinent info. @ -Based on the patient's presentation and physical exam, I'm concerned for acute intra-abdominal process for current symptoms. We will obtain screening EKG as well as abdominal laboratory studies, CT imaging of the abdomen. Patient is mildly hypertensive but she has not received her morning medications and therefore we will provide him for her. She was in agreement with this plan. She'll receive oral metoprolol as well as hydralazine. She will also receive IV fluids, Zofran, Protonix, Toradol. Patient was in agreement with this plan. Patient's labs are remarkable for a urinalysis concerning for UTI. Remainder of the labs are relatively unremarkable. Imaging remarkable for enteritis. I did the patient. She will be empirically placed on Flagyl for possible enteritis but also given ciprofloxacin for UTI. She was in agreement this plan. Urine culture sent. Strict return precautions discussed. I will provide the patient with a prescription for ciprofloxacin, Flagyl. I instructed the patient to follow up with their PCP in the next 1-3 days. I explained that the patient should return to the emergency department if they experience any worsening symptoms. Strict return precautions were discussed with the patient. The patient expressed understanding of these instructions. I answered all questions that the patient had. The patient was discharged home in good condition with their prescriptions and follow up information. Undiagnosed new problem with uncertain prognosis? @ -No Drug Therapy requiring intensive monitoring for toxicity (Heparin, Nitro, Insulin, Cardizem)? @ -No Were any procedures done? @ -No Diagnosis/symptom? @ -UTI, enteritis Acute, or Chronic, or Acute on Chronic? @ -Acute Uncomplicated (without systemic symptoms) or Complicated (systemic symptoms)? @ -Complicated Side effects of treatment? @ -none Exacerbation, Progression, or Severe Exacerbation] @ -no Poses a threat to life or bodily function? @ -no - Lab Data Result diagrams: 06/03/23 07:56 06/03/23 07:56 Lab Results 06/03/23 06/03/23 06/03/23 Range/Units 07:56 07:56 07:56 WBC 6.1 (3.8-10.6) k/uL RBC 4.00 (3.80-5.40) m/uL Hgb 11.2 L (11.4-16.0) gm/dL Hct 35.0 (34.0-46.0) % MCV 87.4 (80.0-100.0) fL MCH 27.9 (25.0-35.0) pg MCHC 31.9 (31.0-37.0) g/dL RDW 13.3 (11.5-15.5) % Plt Count 314 (150-450) k/uL MPV 7.6 Neutrophils % 56 % Lymphocytes % 32 % Monocytes % 6 % Eosinophils % 3 % Basophils % 0 % Neutrophils # 3.4 (1.3-7.7) k/uL Lymphocytes # 1.9 (1.0-4.8) k/uL Monocytes # 0.4 (0-1.0) k/uL Eosinophils # 0.2 (0-0.7) k/uL Basophils # 0.0 (0-0.2) k/uL Hypochromasia Slight PT 11.4 (9.0-12.0) sec INR 1.1 (<1.2) APTT 30.9 H (22.0-30.0) sec Sodium 135 L (137-145) mmol/L Potassium 4.0 (3.5-5.1) mmol/L Chloride 103 (98-107) mmol/L Carbon Dioxide 26 (22-30) mmol/L Anion Gap 6 mmol/L BUN 12 (7-17) mg/dL Creatinine 0.75 (0.52-1.04) mg/dL Est GFR (CKD-EPI)AfAm 85 (>60 ml/min/1.73 sqM) Est GFR (CKD-EPI)NonAf 74 (>60 ml/min/1.73 sqM) Glucose 93 (74-99) mg/dL Plasma Lactic Acid [place] (0.7-2.0) mmol/L Calcium 9.1 (8.4-10.2) mg/dL Total Bilirubin 0.3 (0.2-1.3) mg/dL AST 33 (14-36) U/L ALT 94 H (4-34) U/L Alkaline Phosphatase 213 H (38-126) U/L Total Protein 6.5 (6.3-8.2) g/dL Albumin 3.3 L (3.5-5.0) g/dL Amylase 65 (30-110) U/L Lipase 241 (23-300) U/L Urine Color Urine Appearance (Clear) Urine pH (5.0-8.0) Ur Specific [place] (1.001-1.035) Urine Protein (Negative) Urine Glucose (UA) (Negative) Urine Ketones (Negative) Urine Blood (Negative) Urine Nitrite (Negative) Urine Bilirubin (Negative) Urine Urobilinogen (<2.0) mg/dL Ur Leukocyte Esterase (Negative) Urine WBC (0-5) /hpf Ur Squamous Epith Cells (0-4) /hpf Urine Bacteria (None) /hpf Urine Mucus (None) /hpf 06/03/23 06/03/23 Range/Units 07:56 10:15 WBC (3.8-10.6) k/uL RBC (3.80-5.40) m/uL Hgb (11.4-16.0) gm/dL Hct (34.0-46.0) % MCV (80.0-100.0) fL MCH (25.0-35.0) pg MCHC (31.0-37.0) g/dL RDW (11.5-15.5) % Plt Count (150-450) k/uL MPV Neutrophils % % Lymphocytes % % Monocytes % % Eosinophils % % Basophils % % Neutrophils # (1.3-7.7) k/uL Lymphocytes # (1.0-4.8) k/uL Monocytes # (0-1.0) k/uL Eosinophils # (0-0.7) k/uL Basophils # (0-0.2) k/uL Hypochromasia PT (9.0-12.0) sec INR (<1.2) APTT (22.0-30.0) sec Sodium (137-145) mmol/L Potassium (3.5-5.1) mmol/L Chloride (98-107) mmol/L Carbon Dioxide (22-30) mmol/L Anion Gap mmol/L BUN (7-17) mg/dL Creatinine (0.52-1.04) mg/dL Est GFR (CKD-EPI)AfAm (>60 ml/min/1.73 sqM) Est GFR (CKD-EPI)NonAf (>60 ml/min/1.73 sqM) Glucose (74-99) mg/dL Plasma Lactic Acid Gopal 0.6 L (0.7-2.0) mmol/L Calcium (8.4-10.2) mg/dL Total Bilirubin (0.2-1.3) mg/dL AST (14-36) U/L ALT (4-34) U/L Alkaline Phosphatase (38-126) U/L Total Protein (6.3-8.2) g/dL Albumin (3.5-5.0) g/dL Amylase (30-110) U/L Lipase (23-300) U/L Urine Color Light Yellow Urine Appearance Clear (Clear) Urine pH 5.5 (5.0-8.0) Ur Specific [place] 1.006 (1.001-1.035) Urine Protein Negative (Negative) Urine Glucose (UA) Negative (Negative) Urine Ketones Negative (Negative) Urine Blood Negative (Negative) Urine Nitrite Positive H (Negative) Urine Bilirubin Negative (Negative) Urine Urobilinogen <2.0 (<2.0) mg/dL Ur Leukocyte Esterase Small H (Negative) Urine WBC 10 H (0-5) /hpf Ur Squamous Epith Cells <1 (0-4) /hpf Urine Bacteria Many H (None) /hpf Urine Mucus Rare H (None) /hpf - EKG Data -: EKG Interpreted by Me EKG Comments: 12-lead Electrocardiogram Interpretation Note EKG was reviewed and interpreted by myself. 12-lead ECG performed at 0750 is interpreted by me as revealing atrially paced rhythm at a rate of 60 beats per minute. [place] is normal. DC interval is 304 ms, QRS duration is 110 ms, QTc is 416 ms.. There were no ST or T wave abnormalities to suggest myocardial ischemia or injury. R wave progression across the precordium was satisfactory. By my interpretation this EKG is non-diagnostic for acute ischemia. Compared with EKG from April 2023 Disposition Clinical Impression: Enteritis, UTI (urinary tract infection) Disposition: HOME SELF-CARE Condition: Good Instructions (If sedation given, give patient instructions): Enteritis (ED) Prescriptions: Ciprofloxacin HCl [Cipro] 500 mg PO Q12HR 7 Days #14 tab metroNIDAZOLE [Flagyl] 500 mg PO TID 7 Days #21 tab Is patient prescribed a controlled substance at d/c from ED?: No Referrals: Maverick Gordillo Jr, [Primary Care Provider] - 1-2 days Time of Disposition: 10:35
--- NOTE | 2023-06-03 08:11 | XR ---
EXAMINATION TYPE: XR chest 1V portable DATE OF EXAM: 06/03/2023 8:05 AM COMPARISON: Chest radiographs from 07/18/2022 TECHNIQUE: XR chest 1V portable Frontal view of the chest. CLINICAL INDICATION:Female, 82 years old with history of abdominal pain; FINDINGS: Lungs/Pleura: Prominent interstitial lung markings are seen scattered throughout the lungs. No eviden ce of focal consolidation, pneumothorax or pleural effusion. Pulmonary vascularity: Unremarkable. Heart/mediastinum: Cardiomediastinal silhouette is unremarkable. Two lead cardiac conduction device o verlying the left hemithorax with lead tips projecting over the right ventricle and right atrium. Musculoskeletal: No acute osseous pathology. Left shoulder arthroplasty changes. IMPRESSION: No acute cardiopulmonary disease/process. No significant change from prior.
[2023-06-03 08:16] LABS: Basophils % (A) 0 %; Eosinophils # (A) 0.2 k/uL (0-0.7); Eosinophils % (A) 3 %; HGB 11.2 gm/dL (11.4-16.0); Hypochromasia Slight; Lymphocytes # (A) 1.9 k/uL (1.0-4.8); Lymphocytes % (A) 32 %; MCH 27.9 pg (25.0-35.0); MCHC 31.9 g/dL (31.0-37.0); MCV 87.4 fL (80.0-100.0); Mean Platelet Volume 7.6; Monocytes # (A) 0.4 k/uL (0-1.0); Monocytes % (A) 6 %; Neutrophils # (A) 3.4 k/uL (1.3-7.7); Neutrophils % (A) 56 %; Platelet Count 314 k/uL (150-450); RDW 13.3 % (11.5-15.5); WBC 6.1 k/uL (3.8-10.6)
[2023-06-03 08:35] LABS: ALT 94 U/L (4-34); AST 33 U/L (14-36); African American GFR (CKD) 85 (>60 ml/min/1.73 sqM); Albumin 3.3 g/dL (3.5-5.0); Alkaline Phosphatase 213 U/L (38-126); Amylase 65 U/L (30-110); Anion Gap 6 mmol/L; Blood Urea Nitrogen 12 mg/dL (7-17); Calcium 9.1 mg/dL (8.4-10.2); Carbon Dioxide 26 mmol/L (22-30); Chloride 103 mmol/L (98-107); Glucose 93 mg/dL (74-99); Lipase 241 U/L (23-300); Non-African American GFR(CKD) 74 (>60 ml/min/1.73 sqM); Sodium 135 mmol/L (137-145); Total Bilirubin 0.3 mg/dL (0.2-1.3); Total Protein 6.5 g/dL (6.3-8.2)
[2023-06-03 08:49] LABS: INR 1.1 (<1.2); Partial Thromboplastin Time 30.9 sec (22.0-30.0); Prothrombin Time 11.4 sec (9.0-12.0)
--- NOTE | 2023-06-03 09:00 | CT ---
EXAMINATION TYPE: CT abdomen pelvis wo con DATE OF EXAM: 06/03/2023 COMPARISON: 08/11/2019 HISTORY: 82-year-old female Lower left quadrant pain, possible SBO/LBO or diverticulitis CT DLP: 1386.4 mGycm. Automated exposure control for dose reduction was used. TECHNIQUE: Contiguous axial scanning of the abdomen and pelvis without IV contrast. Coronal and sagit lul reconstructions performed. FINDINGS: Pacemaker leads are present. Heart borderline in size. No pericardial effusion. Nodular groundglass c hanges in the lower lungs. A subpleural nodule measuring 1.3 cm periphery of the right base previousl y measured 1.1 cm in 2019. There is a moderate-sized hiatal hernia. Redemonstrated intrahepatic and extrahepatic biliary ductal dilatation. Etiology unclear. Persistence from 2019 suggests a benign etiology. Gallbladder surgically absent. Adrenal glands, kidneys, spleen, and atrophic pancreas show no gross abnormality. No dilated small bowel, free fluid, or free air. Some scattered fluid-filled central small bowel loop s. No mesenteric or retroperitoneal lymphadenopathy. While the appendix is not clearly seen, no secondary findings of acute appendicitis in the right lowe r quadrant. Small air-fluid levels within the colon suggesting liquid stool. There is sigmoid diverticulosis with out pericolonic inflammatory change. Rectus diastases with anterior bulging. Diastases measuring 5.5 cm wide. The anterior bulging is prog ressed from 08/11/2019. There is pelvic floor relaxation. Bladder urine distended. Uterus anteverted. Both ovaries are visual ized. Pelvic phleboliths. Suspect a small 2.2 cm diverticulum from the left lateral wall of the bladd er. No abnormal fluid collection the pelvis or pelvic lymphadenopathy. Bones: Degenerated levoconvex scoliosis. [facility] in the lower thoracic spine. Degenerative grade 1 anter olisthesis L4-L5. IMPRESSION: 1. Some fluid filled central small bowel loops and some mild liquid stool scattered throughout the c olon. Consider enteritis/ileus. No evidence for bowel obstruction. 2. Sigmoid diverticulosis without evidence for acute diverticulitis. 3. Intrahepatic and extra hepatic biliary ductal dilatation persists from 2019 suggesting chronic ch anges in this patient. Patient status post cholecystectomy. 4. Groundglass nodularity in the lower lungs. Consider atypical pneumonias or interstitial pneumonit is. Three-month follow-up CT chest to reassess. 5. Moderate sized hernia.
[2023-06-03] MEDS ORDERED: metroNIDAZOLE 500 MG TAB PO STA (10:50)
[2023-06-03] MEDS ORDERED: CIPROFLOXACIN HCL 500 MG TAB PO STA (10:50)
[2023-06-03 11:20] VITALS: BP 136/72
[2023-06-03 12:26] LABS: Appearance,Urine Clear (Clear); Bacteria,Urine Many /hpf; Bilirubin,Urine Negative (Negative); Blood,Urine Negative (Negative); Color,Urine Light Yellow; Glucose,Urine (UA) Negative (Negative); Ketones,Urine Negative (Negative); Leukocyte Esterase,Urine Small (Negative); Mucus,Urine Rare /hpf; Nitrite,Urine Positive (Negative); PH, Urine 5.5 (5.0-8.0); Protein,Urine Negative (Negative); Specific Gravity,Urine 1.006 (1.001-1.035); Squamous Epithelial Cell,Urine <1 /hpf (0-4); Urobilinogen,Urine <2.0 mg/dL (<2.0); WBC,Urine 10 /hpf (0-5)
== END 2023-06-03 11:21 | disposition home or self-care (01) ==
LOC: EC 07:17
DX: K52.9 Noninfective gastroenteritis and colitis, unspecified (principal); K57.30 Diverticulosis of large intestine without perforation or abscess without bleeding; N39.0 Urinary tract infection, site not specified; I48.91 Unspecified atrial fibrillation; J45.909 Unspecified asthma, uncomplicated; I10 Essential (primary) hypertension; E78.5 Hyperlipidemia, unspecified; E07.9 Disorder of thyroid, unspecified; Z79.01 Long term (current) use of anticoagulants; Z79.890 Hormone replacement therapy; Z79.899 Other long term (current) drug therapy; Z88.0 Allergy status to penicillin; Z88.1 Allergy status to other antibiotic agents; Z88.2 Allergy status to sulfonamides; Z88.5 Allergy status to narcotic agent; Z88.8 Allergy status to other drugs, medicaments and biological substances; Z90.49 Acquired absence of other specified parts of digestive tract
CPT/HCPCS: 36415; 93005; 80053; 82150; 83605; 83690; 85025; 85610; 85730; 81001; 71045; 74176; 99285; 96374; 96375 ×2; 96361; J2405; J1885; C9113

== ENCOUNTER 2023-12-08 05:55 | Observation (INO) | payer MEDICARE, BC ==
[2023-12-08 06:23] VITALS: TEMP 97.9
--- NOTE | 2023-12-08 06:23 | ED ---
General Adult HPI - General Stated complaint: Cardiac issue Time Seen by Provider: 12/08/23 06:21 Source: patient, EMS, RN notes reviewed Mode of arrival: EMS Limitations: no limitations - History of Present Illness Initial comments: 83-year-old female presents emergency department with chief complaint of chest pain. Patient states around 2 AM. Patient states that she does have prior cardiac issues and states that she has a pacemaker. Patient states her department assistant Dr. Dockery. Patient also states that she has A-fib, hyperlipidemia, hypertension. Patient states that it is more pressure-like in her chest. Patient has minimal shortness of breath. - Related Data Home Medications Medication Instructions Recorded Confirmed Montelukast [Singulair] 10 mg PO HS 03/30/16 06/27/22 Levothyroxine Sodium [Synthroid] 50 mcg PO DAILY 03/28/19 06/27/22 Cyanocobalamin (Vitamin B-12) 1,000 mcg PO MOWEFR 07/21/21 06/27/22 [Vitamin B-12] Elderberry W/Zinc 1 cap PO DAILY 07/21/21 06/27/22 Ergocalciferol (Vitamin D2) 1,250 mcg PO COTTON 07/21/21 06/27/22 [Drisdol (50,000 Iu)] Ferrous Sulfate [Feosol] 325 mg PO DAILY 07/21/21 06/27/22 Rivaroxaban [Xarelto] 15 mg PO HS 07/21/21 06/27/22 Rosuvastatin [Crestor] 10 mg PO HS 07/21/21 06/27/22 Acetaminophen [Tylenol Arthritis] 1,300 mg PO QID PRN 06/27/22 06/27/22 Biotin 5 mg PO DAILY 06/27/22 06/27/22 Carboxymethylcellulose Sodium 1 drop BOTH EYES QID PRN 06/27/22 06/27/22 [Refresh Tears] Cranberry Fruit Concentrate [Azo 500 mg PO DAILY 06/27/22 06/27/22 Cranberry] L.acidoph,Paracasei, B.lactis 1 cap PO DAILY 06/27/22 06/27/22 [Probiotic] Magnesium Oxide 400 mg PO HS 06/27/22 06/27/22 Metoprolol Succinate [Kapspargo 50 mg PO DAILY 06/27/22 06/27/22 Sprinkle] Multivit-Min/Iron/Folic/Lutein 1 tab PO DAILY 06/27/22 06/27/22 [Centrum Silver Women Tablet] Spironolactone [Aldactone] 25 mg PO DAILY 06/27/22 06/27/22 Previous Rx's Medication Instructions Recorded Furosemide [Lasix] 20 mg PO DAILY tab 07/23/21 hydrALAZINE HCL [Apresoline] 10 mg PO TID #30 tablet 05/02/23 hydrALAZINE HCL [Apresoline] 10 mg PO TID #30 tablet 05/03/23 Ciprofloxacin HCl [Cipro] 500 mg PO Q12HR 7 Days #14 tab 06/03/23 metroNIDAZOLE [Flagyl] 500 mg PO TID 7 Days #21 tab 06/03/23 Allergies Allergy/AdvReac Type Severity Reaction Status Date / Time codeine Allergy Unknown Verified 12/08/23 06:22 hydromorphone HCl Allergy Unknown Verified 12/08/23 06:22 [From Dilaudid] Iodinated Contrast Media Allergy Unknown Verified 12/08/23 06:22 [Iodinated Contrast Media - IV Dye] iodine Allergy Unknown Verified 12/08/23 06:22 meperidine HCl [From Demerol] Allergy Unknown Verified 12/08/23 06:22 nalbuphine HCl [From Nubain] Allergy Unknown Verified 12/08/23 06:22 Penicillins Allergy Unknown Verified 12/08/23 06:22 Childhood Sulfa (Sulfonamide Allergy Unknown Verified 12/08/23 06:22 Antibiotics) Review of Systems ROS Statement: Those systems with pertinent positive or pertinent negative responses have been documented in the HPI. ROS Other: All systems not noted in ROS Statement are negative. 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 History of Any Multi-Drug Resistant Organisms: None Reported Past Surgical History: Adenoidectomy, Cholecystectomy, Joint Replacement, Orthopedic Surgery, Pacemaker, Tonsillectomy Additional Past Surgical History / Comment(s): Bartholin cyst surgical procedure, R eye with retinal repair, R eye rk, R eye cataract removal and macular wrinkle repair, partial replacement lt shoulder and left knee replacement, 2006 Heart Cath (no intervention), colonoscopy, R cheek melanoma removal, D&C, vaginal cystectomy, L breast benign bx. Past Anesthesia/Blood Transfusion Reactions: Motion Sickness, Postoperative Temo sea & Vomiting (PONV) Type of Cardiac Device: Permanent Pacemaker Device Placement Date:: 04/02/16 Past Psychological History: No Psychological Hx Reported Smoking Status: Never smoker Past Alcohol Use History: None Reported Past Drug Use History: None Reported - Past Family History Mother Family Medical History: Asthma, Thyroid Disorder Additional Family Medical History / Comment(s): thyroid nodule. bronchitis Father Family Medical History: Respiratory Disorder Additional Family Medical History / Comment(s): at age 46 addisons disease(stopped taking his steroids), also had tb General Exam - General Exam Comments Initial Comments: Visual Physical Exam Vital signs reviewed General: Well-appearing, nontoxic, no acute distress. Head: Normocephalic, atraumatic Eyes: PERRLA, EOMI ENT: Airway patent Chest: Nonlabored breathing Skin: No visual rash, normal skin tone Neuro: Alert and oriented 3 Musculoskeletal: No gross abnormalities Course Vital Signs 12/08/23 06:10 Temperature 97.9 F Pulse Rate 56 L Respiratory 18 Rate Blood Pressure 173/77 O2 Sat by Pulse 95 Oximetry EKG Findings - EKG Comments: EKG Findings:: EKG performed at 6: 25 atrial paced rate of 55 ID 298 QRS 105 QT/QTc 425/414 - EKG Results: EKG: interpreted by JO Medical Decision Making - Medical Decision Making I completed the quick note portion of this chart signed Albert Brown PA-C Was pt. sent in by a medical professional or institution (, [employer], PRETZEL TWISTING MACHINE OPERATOR, urgent care, hospital, or detention...) When possible be specific @ -No Did you speak to anyone other than the patient for history (EMS, parent, family, police, friend...)? What history was obtained from this source @ -No Did you review nursing and triage notes (agree or disagree)? Why? @ -I reviewed and agree with nursing and triage notes Were old charts reviewed (outside hosp., previous admission, EMS record, old EKG, old radiological studies, urgent care reports/EKG's, detention records)? Report findings @ -No old charts were reviewed Differential Diagnosis (chest pain, altered mental status, abdominal pain women, abdominal pain men, vaginal bleeding, weakness, fever, dyspnea, syncope, headache, dizziness, GI bleed, back pain, seizure, CVA, palpatations, mental health, musculoskeletal)? @ -Differential Chest Pain: Stable Angina, Unstable Angina, STEMI, NSTEMI Aortic Dissection, Pneumothorax, Musculoskeletal, Esophageal Spasm GERD, Cholecystitis, Pancreatitis, Zoster, this is not meant to be an all-inclusive list. EKG interpreted by me (3pts min.). @ -As above X-rays interpreted by me (1pt min.). @ -[Chest shows no acute cardiopulmonary process CT interpreted by me (1pt min.). @ -None done U/S interpreted by me (1pt. min.). @ -None done What testing was considered but not performed or refused? (CT, X-rays, U/S, labs)? Why? @ -None What meds were considered but not given or refused? Why? @ -None Did you discuss the management of the patient with other professionals (professionals i.e. , PA, PRETZEL TWISTING MACHINE OPERATOR, lab, RT, psych nurse, social worker psychiatric, ear specialist, teacher, bank officer, caser)? Give summary @ -[Dr. Mijares for admission Was smoking cessation discussed for >3mins.? @ -No Was critical care preformed (if so, how long)? @ -No Were there social determinants of health that impacted care today? How? (Homelessness, low income, unemployed, alcoholism, drug addiction, transportation, low edu. Level, literacy, decrease access to med. care, penitentiary, rehab)? @ -No Was there de-escalation of care discussed even if they declined (Discuss DNR or withdrawal of care, Hospice)? DNR status @ -No What co-morbidities impacted this encounter? (DM, HTN, Smoking, COPD, CAD, Cancer, CVA, ARF, Chemo, Hep., AIDS, mental health diagnosis, sleep apnea, morbid obesity)? @ -[A-fib hyperlipidemia pacemaker Was patient admitted / discharged? Hospital course, mention meds given and route, prescriptions, significant lab abnormalities, going to OR and other pertinent info. @ -Admitted patient presenting for chest pain, chest pressure she does have a cardiac history will be admitted for cardiology evaluation. Patient initial troponin is negative. Patient's pacemaker will be interrogated. Undiagnosed new problem with uncertain prognosis? @ -No Drug Therapy requiring intensive monitoring for toxicity (Heparin, Nitro, Insulin, Cardizem)? @ -No Were any procedures done? @ -No Diagnosis/symptom? @ -Chest pain, leg edema Acute, or Chronic, or Acute on Chronic? @ -[Acute Uncomplicated (without systemic symptoms) or Complicated (systemic symptoms)? @ -Uncomplicated Side effects of treatment? @ -[No Exacerbation, Progression, or Severe Exacerbation? @ -No Poses a threat to life or bodily function? How? (Chest pain, [place], [place], pneumonia, PE, COPD, DKA, ARF, appy, cholecystitis, CVA, Diverticulitis, Homicidal, Suicidal, threat to staff... and all critical care pts) @ -[Yes possible ACS - Lab Data Result diagrams: 12/08/23 06:41 12/08/23 06:41 Lab Results 12/08/23 12/08/23 12/08/23 Range/Units 06:41 06:41 06:41 WBC 5.9 (3.8-10.6) k/uL RBC 3.48 L (3.80-5.40) m/uL Hgb 9.8 L (11.4-16.0) gm/dL Hct 31.1 L (34.0-46.0) % MCV 89.3 (80.0-100.0) fL MCH 28.3 (25.0-35.0) pg MCHC 31.6 (31.0-37.0) g/dL RDW 14.9 (11.5-15.5) % Plt Count 307 (150-450) k/uL MPV 7.2 Neutrophils % 59 % Lymphocytes % 28 % Monocytes % 7 % Eosinophils % 3 % Basophils % 1 % Neutrophils # 3.5 (1.3-7.7) k/uL Lymphocytes # 1.7 (1.0-4.8) k/uL Monocytes # 0.4 (0-1.0) k/uL Eosinophils # 0.2 (0-0.7) k/uL Basophils # 0.0 (0-0.2) k/uL Hypochromasia Moderate PT 11.4 (10.0-12.5) sec INR 1.0 (<1.2) APTT 30.0 (22.0-30.0) sec Sodium 136 L (137-145) mmol/L Potassium 4.2 (3.5-5.1) mmol/L Chloride 104 (98-107) mmol/L Carbon Dioxide 25 (22-30) mmol/L Anion Gap 7 mmol/L BUN 25 H (7-17) mg/dL Creatinine 0.91 (0.52-1.04) mg/dL Est GFR (CKD-EPI)AfAm 67 (>60 ml/min/1.73 sqM) Est GFR (CKD-EPI)NonAf 58 (>60 ml/min/1.73 sqM) Glucose 93 (74-99) mg/dL Calcium 9.6 (8.4-10.2) mg/dL Magnesium 2.1 (1.6-2.3) mg/dL Total Bilirubin 0.5 (0.2-1.3) mg/dL AST 25 (14-36) U/L ALT 13 (4-34) U/L Alkaline Phosphatase 108 (38-126) U/L Troponin I (0.000-0.034) ng/mL Total Protein 7.1 (6.3-8.2) g/dL Albumin 3.8 (3.5-5.0) g/dL 12/08/23 Range/Units 06:41 WBC (3.8-10.6) k/uL RBC (3.80-5.40) m/uL Hgb (11.4-16.0) gm/dL Hct (34.0-46.0) % MCV (80.0-100.0) fL MCH (25.0-35.0) pg MCHC (31.0-37.0) g/dL RDW (11.5-15.5) % Plt Count (150-450) k/uL MPV Neutrophils % % Lymphocytes % % Monocytes % % Eosinophils % % Basophils % % Neutrophils # (1.3-7.7) k/uL Lymphocytes # (1.0-4.8) k/uL Monocytes # (0-1.0) k/uL Eosinophils # (0-0.7) k/uL Basophils # (0-0.2) k/uL Hypochromasia PT (10.0-12.5) sec INR (<1.2) APTT (22.0-30.0) sec Sodium (137-145) mmol/L Potassium (3.5-5.1) mmol/L Chloride (98-107) mmol/L Carbon Dioxide (22-30) mmol/L Anion Gap mmol/L BUN (7-17) mg/dL Creatinine (0.52-1.04) mg/dL Est GFR (CKD-EPI)AfAm (>60 ml/min/1.73 sqM) Est GFR (CKD-EPI)NonAf (>60 ml/min/1.73 sqM) Glucose (74-99) mg/dL Calcium (8.4-10.2) mg/dL Magnesium (1.6-2.3) mg/dL Total Bilirubin (0.2-1.3) mg/dL AST (14-36) U/L ALT (4-34) U/L Alkaline Phosphatase (38-126) U/L Troponin I <0.012 (0.000-0.034) ng/mL Total Protein (6.3-8.2) g/dL Albumin (3.5-5.0) g/dL Disposition Clinical Impression: Chest pain, Leg edema Disposition: ADMITTED IP TO THIS HOSP Referrals: Maverick Gordillo Jr, [Primary Care Provider] - 1-2 days Time of Disposition: 08:48
[2023-12-08 06:46] LABS: Basophils % (A) 1 %; Eosinophils # (A) 0.2 k/uL (0-0.7); Eosinophils % (A) 3 %; HCT 31.1 % (34.0-46.0); HGB 9.8 gm/dL (11.4-16.0); Hypochromasia Moderate; Lymphocytes # (A) 1.7 k/uL (1.0-4.8); Lymphocytes % (A) 28 %; MCH 28.3 pg (25.0-35.0); MCHC 31.6 g/dL (31.0-37.0); MCV 89.3 fL (80.0-100.0); Mean Platelet Volume 7.2; Monocytes # (A) 0.4 k/uL (0-1.0); Monocytes % (A) 7 %; Neutrophils # (A) 3.5 k/uL (1.3-7.7); Neutrophils % (A) 59 %; Platelet Count 307 k/uL (150-450); RBC 3.48 m/uL (3.80-5.40); RDW 14.9 % (11.5-15.5); WBC 5.9 k/uL (3.8-10.6)
[2023-12-08 06:55] LABS: ALT 13 U/L (4-34); AST 25 U/L (14-36); African American GFR (CKD) 67 (>60 ml/min/1.73 sqM); Albumin 3.8 g/dL (3.5-5.0); Alkaline Phosphatase 108 U/L (38-126); Anion Gap 7 mmol/L; Blood Urea Nitrogen 25 mg/dL (7-17); Calcium 9.6 mg/dL (8.4-10.2); Carbon Dioxide 25 mmol/L (22-30); Chloride 104 mmol/L (98-107); Glucose 93 mg/dL (74-99); Magnesium 2.1 mg/dL (1.6-2.3); Non-African American GFR(CKD) 58 (>60 ml/min/1.73 sqM); Potassium 4.2 mmol/L (3.5-5.1); Sodium 136 mmol/L (137-145); Total Bilirubin 0.5 mg/dL (0.2-1.3); Total Protein 7.1 g/dL (6.3-8.2)
[2023-12-08 07:04] LABS: Prothrombin Time 11.4 sec (10.0-12.5)
--- NOTE | 2023-12-08 07:40 | XR ---
EXAMINATION TYPE: XR chest 1V DATE OF EXAM: 12/08/2023 HISTORY: Shortness of breath. COMPARISON: 06/03/23 TECHNIQUE: Single view of the chest is submitted. FINDINGS: Demonstrated are scattered senescent parenchymal change. There is no evidence for focal infiltrate. The heart is stable. Hilar and mediastinal structures are within normal limits. Degenerative changes are seen of the dorsal spine. IMPRESSION: 1. Chronic changes without evidence for acute pulmonary disease.
[2023-12-08] MEDS ORDERED: NITROGLYCERIN SL TABS 0.4 MG TAB SUBLINGUAL PRN (09:01)
[2023-12-08] MEDS ORDERED: ASPIRIN 81 MG PO STA (09:01)
[2023-12-08] MEDS ORDERED: ONDANSETRON 4 MG/2 ML VIAL IVP STA (10:40)
[2023-12-08] MEDS ORDERED: MORPHINE SULFATE 2 MG/ML SYRINGE IVP ONE (10:41)
[2023-12-08] MEDS ORDERED: MULTIVITAMINS, THERA 1 EACH TAB PO SCH (11:45)
[2023-12-08] MEDS ORDERED: LEVOTHYROXINE 50 MCG TAB PO SCH (11:45)
[2023-12-08] MEDS ORDERED: FUROSEMIDE 20 MG TAB PO SCH (11:45)
[2023-12-08] MEDS ORDERED: SPIRONOLACTONE 25 MG TAB PO SCH (11:45)
[2023-12-08] MEDS ORDERED: METOPROLOL SUCCINATE (ER) 25 MG TAB.ER.24H PO SCH (11:45)
--- NOTE | 2023-12-08 12:04 | P.HPIM ---
History of Present Illness H&P Date: 12/08/23 Chief Complaint: Chest pressure History and Physical and Discharge Summary: This is an 83-year-old female , follows with Dr. Otto and Dr. Dockery, with past medical history significant for type 2 diabetes, hypertension, atrial fibrillation, mild diastolic heart failure, permanent pacemaker, morbid obesity, and multiple other medical issues presented to the ER with complaints of midsternal pressure-" heaviness", accompanied by significant abdominal bloating vomiting started earlier in the morning. Duration of chest pressure unknown, currently resolved. denies nausea vomiting or diarrhea. Denies constipation. denies palpitations, or shortness of breath. Maintaining O2 sats of 99 to 100% on room air. denies lightheadedness, or dizziness. Denies cough, congestion or recent illness. Denies being around anyone recently ill. Patient also reports chronic bilateral lower extremity lymphedema with spasms greatest in the left leg. Denies any trauma /falls. Afebrile, normal WBC. Hypertensive, currently 157/61. Troponins negative x 2, EKG reporting , hemoglobin 9.8, platelets 307, INR 1, chemistry panel unremarkable with the exception of BUN 25. Electrolytes within normal limits. pro BNP 636. UA negative. Review of Systems ROS Statement: Those systems with pertinent positive or pertinent negative responses have been documented in the HPI. ROS Other: All systems not noted in ROS Statement are negative. 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 History of Any Multi-Drug Resistant Organisms: None Reported Past Surgical History: Adenoidectomy, Cholecystectomy, Joint Replacement, Orthopedic Surgery, Pacemaker, Tonsillectomy Additional Past Surgical History / Comment(s): Bartholin cyst surgical procedure, R eye with retinal repair, R eye rk, R eye cataract removal and macular wrinkle repair, partial replacement lt shoulder and left knee replacement, 2006 Heart Cath (no intervention), colonoscopy, R cheek melanoma removal, D&C, vaginal cystectomy, L breast benign bx. Past Anesthesia/Blood Transfusion Reactions: Motion Sickness, Postoperative Nausea & Vomiting (PONV) Type of Cardiac Device: Permanent Pacemaker Device Placement Date:: 04/02/16 Past Psychological History: No Psychological Hx Reported Smoking Status: Never smoker Past Alcohol Use History: None Reported Past Drug Use History: None Reported - Past Family History Mother Family Medical History: Asthma, Thyroid Disorder Additional Family Medical History / Comment(s): thyroid nodule. bronchitis Father Family Medical History: Respiratory Disorder Additional Family Medical History / Comment(s): at age 46 addisons disease(stopped taking his steroids), also had tb Medications and Allergies Home Medications Medication Instructions Recorded Confirmed Type Montelukast [Singulair] 10 mg PO HS 03/30/16 12/08/23 History Levothyroxine Sodium [Synthroid] 50 mcg PO DAILY 03/28/19 12/08/23 History Cyanocobalamin (Vitamin B-12) 1,000 mcg PO DAILY 07/21/21 12/08/23 History [Vitamin B-12] Ergocalciferol (Vitamin D2) 1,250 mcg PO COTTON 07/21/21 12/08/23 History [Drisdol (50,000 Iu)] Rivaroxaban [Xarelto] 15 mg PO HS 07/21/21 12/08/23 History Furosemide [Lasix] 20 mg PO DAILY tab 07/23/21 12/08/23 Rx Multivit-Min/Iron/Folic/Lutein 1 tab PO DAILY 06/27/22 12/08/23 History [Centrum Silver Women Tablet] Spironolactone [Aldactone] 25 mg PO DAILY 06/27/22 12/08/23 History Inulin/Chromium Picolinate [Fiber 3 - 4 tab PO DAILY 12/08/23 12/08/23 History Gummies Chew] Magnesium Citrate and Oxide 250 mg PO HS 12/08/23 12/08/23 History [Magnesium] Metoprolol Succinate (ER) [Toprol 25 mg PO BID 12/08/23 12/08/23 History XL] Pantoprazole [Protonix] 40 mg PO DAILY #30 tab 12/08/23 Rx hydrALAZINE HCL [Apresoline] 25 mg PO TID 12/08/23 12/08/23 History Allergies Allergy/AdvReac Type Severity Reaction Status Date / Time codeine Allergy Unknown Verified 12/08/23 06:22 hydromorphone HCl Allergy Unknown Verified 12/08/23 06:22 [From Dilaudid] Iodinated Contrast Media Allergy Unknown Verified 12/08/23 06:22 [Iodinated Contrast Media - IV Dye] iodine Allergy Unknown Verified 12/08/23 06:22 meperidine HCl [From Demerol] Allergy Unknown Verified 12/08/23 06:22 nalbuphine HCl [From Nubain] Allergy Unknown Verified 12/08/23 06:22 Penicillins Allergy Unknown Verified 12/08/23 08:52 Childhood Sulfa (Sulfonamide Allergy Unknown Verified 12/08/23 08:52 Antibiotics) Physical Exam Vitals: Vital Signs Temp Pulse Resp BP Pulse Ox 12/08/23 10:56 56 L 20 175/75 99 12/08/23 09:49 56 L 20 182/89 100 12/08/23 06:10 97.9 F 56 L 18 173/77 95 Intake and Output 12/07/23 12/08/23 12/08/23 22:59 06:59 14:59 Other: Weight 266 kg PHYSICAL EXAM: VITAL SIGNS: As above GENERAL: Morbidly obese, sitting up in stretcher, no acute distress HEENT: Conjunctivae normal. eyes normal. NECK: No JVD. No thyroid enlargement. No LNs CARDIOVASCULAR: S1, S2 regular, No murmur, rubs or gallops RESPIRATION: Unlabored, Breath sounds diminished in the bases. No rhonchi or crackles. No wheezing. No bronchial breathing. ABDOMEN: Soft, nondistended, nontender . No guarding. no masses palpable. Bowel sounds heard. LEGS: Positive chronic lymphedema. Positive pulses Musculoskeletal: [No joint erythema, significant left knee pain, low back pain radiating to the left side bilateral hip pain' edema or tenderness.] PSYCHIATRY: Alert and oriented -3, mood and affect normal. NERVOUS SYSTEM: Cranial N 2-12 grossly normal. Skin: Warm and dry, no rash Lymphatic system. No LN neck axilla or groin. Results CBC & Chem 7: 12/08/23 06:41 12/08/23 06:41 Labs: Abnormal Lab Results - Last 24 Hours (Table) 12/08/23 12/08/23 Range/Units 06:41 06:41 RBC 3.48 L (3.80-5.40) m/uL Hgb 9.8 L (11.4-16.0) gm/dL Hct 31.1 L (34.0-46.0) % Sodium 136 L (137-145) mmol/L BUN 25 H (7-17) mg/dL Assessment and Plan Assessment: Gastroesophageal reflux disease, possible gastritis, currently asymptomatic, consumed 100% lunch with no nausea vomiting diarrhea. Atypical chest pain, troponins negative 2 Chronic Paroximal atrial fibrillation, anticoagulated with Xarelto Normal LV function, moderate aortic valve sclerosis, mild aortic stenosis, moderate mitral annular calcification Permanent pacemaker, history of tachybradycardia syndrome Chronic back pain, history of falls, significant lumbar osteoarthritis. Chronic intermittent asthma, stable Hypertension, Hyperlipidemia Morbid obesity, BMI 98 Plan: Continue on current medication regimen, monitoring and symptomatic treatment. Prosper wrap bilateral legs-patient states she is unable to get her compression stockings on at home. States she is due for a permanent pacemaker battery change in the spring-advised to keep her appointment. Previously scheduled to follow-up with Dr. Gordillo in the office on this , 12/10-advised to keep the same appointment. Cardiology consult in place, recommendations pending. Patient will be discharged home today in a stable condition with guarded prognosis pending final DC recommendations and clearance per cardiology. Discharge Medication List Montelukast [Singulair] 10 mg PO HS 03/30/16 [History] Levothyroxine Sodium [Synthroid] 50 mcg PO DAILY 03/28/19 [History] Cyanocobalamin (Vitamin B-12) [Vitamin B-12] 1,000 mcg PO DAILY 07/21/21 [History] Ergocalciferol (Vitamin D2) [Drisdol (50,000 Iu)] 1,250 mcg PO COTTON 07/21/21 [History] Rivaroxaban [Xarelto] 15 mg PO HS 07/21/21 [History] Furosemide [Lasix] 20 mg PO DAILY tab 09/14/21 [Rx] Multivit-Min/Iron/Folic/Lutein [Centrum Silver Women Tablet] 1 tab PO DAILY 06/27/22 [History] Spironolactone [Aldactone] 25 mg PO DAILY 06/27/22 [History] Inulin/Chromium Picolinate [Fiber Gummies Chew] 3 - 4 tab PO DAILY 12/08/23 [History] Magnesium Citrate and Oxide [Magnesium] 250 mg PO HS 12/08/23 [History] Metoprolol Succinate (ER) [Toprol XL] 25 mg PO BID 12/08/23 [History] Pantoprazole [Protonix] 40 mg PO DAILY #30 tab 12/08/23 [Rx] hydrALAZINE HCL [Apresoline] 25 mg PO TID 12/08/23 [History] The impression and plan of care has been dictated as directed. : I performed a history and examination of this patient, discussed the same with the dictator. I agree with the dictator's note ,documented as a scribe. Any additional findings or plans will be noted.
[2023-12-08] MEDS ORDERED: PANTOPRAZOLE 40 MG/10 ML VIAL IVP SCH (12:15)
[2023-12-08 12:18] LABS: Appearance,Urine Clear (Clear); Bacteria,Urine Occasional /hpf; Bilirubin,Urine Negative (Negative); Blood,Urine Negative (Negative); Color,Urine Colorless; Glucose,Urine (UA) Negative (Negative); Ketones,Urine Negative (Negative); Leukocyte Esterase,Urine Trace (Negative); Nitrite,Urine Negative (Negative); Protein,Urine Negative (Negative); Specific Gravity,Urine 1.004 (1.001-1.035); Urobilinogen,Urine <2.0 mg/dL (<2.0); WBC,Urine 4 /hpf (0-5)
[2023-12-08] MEDS ORDERED: CYCLOBENZAPRINE 5 MG TAB PO PRN (13:18)
[2023-12-08] MEDS: hydrALAZINE HCL 25 MG TAB PO SCH ×3 (13:19→15:54)
[2023-12-08 13:37] VITALS: PULSE 70
[2023-12-08] MEDS ORDERED: ACETAMINOPHEN TAB 500 MG TAB PO PRN (13:57)
--- NOTE | 2023-12-08 14:28 | P.CRDCN ---
History of Present Illness History of present illness: HISTORY OF PRESENT ILLNESS: This is a 83-year-old female with a past medical history significant for paroxysmal atrial fibrillation, permanent pacemaker implantation, hypertension, hyperlipidemia, chronic lower extremity edema and hypothyroidism. Patient follows in the office with Dr. Dockery. We have been asked to see the patient in consultation for chest pain. Patient examined at the bedside in the emergency room. The patient reports that she woke up this morning feeling generally unwell. She reports having trouble sleeping. She reports generalized abdominal pain that then developed into chest pressure. Denies any nausea or vomiting. Patient is currently tolerating oral diet and consumed 100% of lunch. She currently denies chest pain or pressure. She reports chronic lower extremity edema and states she has a history of lymphedema. She also reports spasms of her left lower extremity which are not new. Vital signs are stable. DIAGNOSTICS: - EKG reveals atrial paced rhythm - Chest xray chronic changes without evidence for acute pulmonary process - Laboratory data: WBC 5.9. Hemoglobin 9.8. Platelet count 307. Sodium 136. Potassium 4.2. BUN 25. Creatinine 0.91. Magnesium 2.1. Troponin negative x 2. proBNP 636. - Current home cardiac medications include hydralazine 25 mg 3 times a day, metoprolol succinate 25 mg twice a day, Lasix 20 mg daily, Aldactone 25 mg daily, Xarelto 15 mg in the evening. - Most recent echocardiogram obtained in July 2021 revealed normal EF, mild TR, mild , mild MR - Cardiac catheterization history: October 2007 revealing normal coronary arteries - Patient underwent Lexiscan stress test in May 2015 which was negative for ischemia REVIEW OF SYSTEMS: At the time of my exam: CONSTITUTIONAL: Denies fever or chills. HEENT: Denies blurred vision, vision changes, or eye pain. Denies hemoptysis CARDIOVASCULAR: Denies chest pain. Denies orthopnea. Denies PND. Denies palpitations RESPIRATORY: Denies shortness of breath. GASTROINTESTINAL: Denies abdominal pain. Denies nausea or vomiting. HEMATOLOGIC: Denies bleeding disorders. GENITOURINARY: Denies any blood in urine. SKIN: Denies pruitis. Denies rash. PHYSICAL EXAM: VITAL SIGNS: Reviewed. GENERAL: Well-developed in no acute distress. HEENT: Head is normocephalic. Pupils are equal, round. Sclerae anicteric. Mucous membranes of the mouth are moist. Neck supple. No JVD or thyromegaly LUNGS: Respirations even and unlabored. Lungs essentially clear to auscultation bilaterally. HEART: Regular rate and rhythm. S1 and S2 heard. Systolic murmur noted. ABDOMEN: Soft. Nondistended. Nontender. EXTREMITIES: Normal range of motion. No clubbing or cyanosis. Peripheral pulses intact. Bilateral lower extremity edema NEUROLOGIC: Awake and alert. Oriented x 3. ASSESSMENT: Chest pain, atypical, troponin negative x 3 Abdominal pain Paroxysmal atrial fibrillation History of permanent pacemaker implantation, [employer] Hypertension Hyperlipidemia Chronic lower extremity edema Hypothyroidism Morbid obesity: BMI 97.6 PLAN: An acute coronary event has been ruled out Resume home cardiac medications Patient may be discharged home today from a cardiac standpoint May obtain echocardiogram on an outpatient basis Patient to follow-up in the cardiology office post discharge We will sign off. Please reconsult if needed Nurse practitioner note has been reviewed by physician. Signing provider agrees with the documented findings, assessment, and plan of care documented by METER REPAIRER HELPER as a scribe. 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 History of Any Multi-Drug Resistant Organisms: None Reported Past Surgical History: Adenoidectomy, Cholecystectomy, Joint Replacement, Orthopedic Surgery, Pacemaker, Tonsillectomy Additional Past Surgical History / Comment(s): Bartholin cyst surgical procedure, R eye with retinal repair, R eye rk, R eye cataract removal and ma cular wrinkle repair, partial replacement lt shoulder and left knee replacement, 2006 Heart Cath (no intervention), colonoscopy, R cheek melanoma removal, D&C, vaginal cystectomy, L breast benign bx. Past Anesthesia/Blood Transfusion Reactions: Motion Sickness, Postoperative Nausea & Vomiting (PONV) Type of Cardiac Device: Permanent Pacemaker Device Placement Date:: 04/02/16 Past Psychological History: No Psychological Hx Reported Smoking Status: Never smoker Past Alcohol Use History: None Reported Past Drug Use History: None Reported - Past Family History Mother Family Medical History: Asthma, Thyroid Disorder Additional Family Medical History / Comment(s): thyroid nodule. bronchitis Father Family Medical History: Respiratory Disorder Additional Family Medical History / Comment(s): at age 46 addisons disease(stopped taking his steroids), also had tb Medications and Allergies Home Medications Medication Instructions Recorded Confirmed Type Montelukast [Singulair] 10 mg PO HS 03/30/16 12/08/23 History Levothyroxine Sodium [Synthroid] 50 mcg PO DAILY 03/28/19 12/08/23 History Cyanocobalamin (Vitamin B-12) 1,000 mcg PO DAILY 07/21/21 12/08/23 History [Vitamin B-12] Ergocalciferol (Vitamin D2) 1,250 mcg PO COTTON 07/21/21 12/08/23 History [Drisdol (50,000 Iu)] Rivaroxaban [Xarelto] 15 mg PO HS 07/21/21 12/08/23 History Furosemide [Lasix] 20 mg PO DAILY tab 07/23/21 12/08/23 Rx Multivit-Min/Iron/Folic/Lutein 1 tab PO DAILY 06/27/22 12/08/23 History [Centrum Silver Women Tablet] Spironolactone [Aldactone] 25 mg PO DAILY 06/27/22 12/08/23 History Acetaminophen Tab [Tylenol Tab] 1,000 mg PO Q6HR #1 tablet 12/08/23 Rx Inulin/Chromium Picolinate [Fiber 3 - 4 tab PO DAILY 12/08/23 12/08/23 History Gummies Chew] Magnesium Citrate and Oxide 250 mg PO HS 12/08/23 12/08/23 History [Magnesium] Metoprolol Succinate (ER) [Toprol 25 mg PO BID 12/08/23 12/08/23 History XL] Pantoprazole [Protonix] 40 mg PO DAILY #30 tab 12/08/23 Rx hydrALAZINE HCL [Apresoline] 25 mg PO TID 12/08/23 12/08/23 History Allergies Allergy/AdvReac Type Severity Reaction Status Date / Time codeine Allergy Unknown Verified 12/08/23 06:22 hydromorphone HCl Allergy Unknown Verified 12/08/23 06:22 [From Dilaudid] Iodinated Contrast Media Allergy Unknown Verified 12/08/23 06:22 [Iodinated Contrast Media - IV Dye] iodine Allergy Unknown Verified 12/08/23 06:22 meperidine HCl [From Demerol] Allergy Unknown Verified 12/08/23 06:22 nalbuphine HCl [From Nubain] Allergy Unknown Verified 12/08/23 06:22 Penicillins Allergy Unknown Verified 12/08/23 08:52 Childhood Sulfa (Sulfonamide Allergy Unknown Verified 12/08/23 08:52 Antibiotics) Physical Exam Vitals: Vital Signs Temp Pulse Resp BP Pulse Ox 12/08/23 10:56 56 L 20 175/75 99 12/08/23 09:49 56 L 20 182/89 100 12/08/23 06:10 97.9 F 56 L 18 173/77 95 Intake and Output 12/07/23 12/08/23 12/08/23 22:59 06:59 14:59 Other: Weight 266 kg Results 12/08/23 06:41 12/08/23 06:41 Cardiac Enzymes 12/08/23 12/08/23 12/08/23 Range/Units 06:41 06:41 10:17 AST 25 (14-36) U/L Troponin I <0.012 <0.012 (0.000-0.034) ng/mL Coagulation 12/08/23 Range/Units 06:41 PT 11.4 (10.0-12.5) sec APTT 30.0 (22.0-30.0) sec CBC 12/08/23 Range/Units 06:41 WBC 5.9 (3.8-10.6) k/uL RBC 3.48 L (3.80-5.40) m/uL Hgb 9.8 L (11.4-16.0) gm/dL Hct 31.1 L (34.0-46.0) % Plt Count 307 (150-450) k/uL Comprehensive Metabolic Panel 12/08/23 Range/Units 06:41 Sodium 136 L (137-145) mmol/L Potassium 4.2 (3.5-5.1) mmol/L Chloride 104 (98-107) mmol/L Carbon Dioxide 25 (22-30) mmol/L BUN 25 H (7-17) mg/dL Creatinine 0.91 (0.52-1.04) mg/dL Glucose 93 (74-99) mg/dL Calcium 9.6 (8.4-10.2) mg/dL AST 25 (14-36) U/L ALT 13 (4-34) U/L Alkaline Phosphatase 108 (38-126) U/L Total Protein 7.1 (6.3-8.2) g/dL Albumin 3.8 (3.5-5.0) g/dL Current Medications Generic Name Dose Route Start Last Admin Trade Name Freq PRN Reason Stop Dose Admin Aspirin 325 mg 12/09/23 09:00 Aspirin 325 Mg Tab PO DAILY [facility] Furosemide 20 mg 12/08/23 11:45 Furosemide 20 Mg Tab PO DAILY [facility] Hydralazine HCl 25 mg 12/08/23 11:45 Hydralazine Hcl 25 Mg Tab PO TID [facility] Levothyroxine Sodium 50 mcg 12/08/23 11:45 Levothyroxine 50 Mcg Tab PO DAILY [facility] Metoprolol Succinate 25 mg 12/08/23 11:45 Metoprolol Succinate (Er) 25 Mg Tab.Er.24h PO BID [facility] Montelukast Sodium 10 mg 12/08/23 21:00 Montelukast 10 Mg Tab PO HS [facility] Nitroglycerin 0.4 mg 12/08/23 09:01 Nitroglycerin Sl Tabs 0.4 Mg Tab SUBLINGUAL Q5M PRN Chest Pain Non-Formulary Medication 1 tab 12/08/23 11:45 Multivit-Min/Iron/Folic/Lutein [Centrum Silver Women Tablet] PO DAILY [facility] Non-Formulary Medication 250 mg 12/08/23 21:00 Magnesium Citrate And Oxide [Magnesium] PO HS [facility] Rivaroxaban 15 mg 12/08/23 21:00 Rivaroxaban 15 Mg Tab PO HS [facility] Protocol Spironolactone 25 mg 12/08/23 11:45 Spironolactone 25 Mg Tab PO DAILY [facility] Intake and Output 12/07/23 12/08/23 12/08/23 22:59 06:59 14:59 Other: Weight 266 kg 12/08/23 06:41 01/30/24 06:41
[2023-12-08 15:34] VITALS: BP 142/55; RESP 18
[2023-12-08] MEDS ORDERED: MAGNESIUM OXIDE 400 MG TAB PO SCH (21:00)
[2023-12-08] MEDS ORDERED: RIVAROXABAN 15 MG TAB PO SCH (21:00)
[2023-12-08] MEDS ORDERED: MONTELUKAST 10 MG TAB PO SCH (21:00)
[2023-12-09] MEDS ORDERED: ASPIRIN 325 MG TAB PO SCH (09:00)
== END 2023-12-08 17:20 | disposition home or self-care (01) ==
LOC: EC 05:55 → 6NMEDSUR 08:57
PROVIDERS: ADMIT Family Medicine; ATTEND Family Medicine
DX: R07.89 Other chest pain (principal); R10.9 Unspecified abdominal pain; R60.0 Localized edema; I48.0 Paroxysmal atrial fibrillation; K21.9 Gastro-esophageal reflux disease without esophagitis; E03.9 Hypothyroidism, unspecified; E78.5 Hyperlipidemia, unspecified; E11.9 Type 2 diabetes mellitus without complications; I11.0 Hypertensive heart disease with heart failure; I50.32 Chronic diastolic (congestive) heart failure; I08.0 Rheumatic disorders of both mitral and aortic valves; J45.20 Mild intermittent asthma, uncomplicated; M47.816 Spondylosis without myelopathy or radiculopathy, lumbar region; E66.01 Morbid (severe) obesity due to excess calories; Z68.45 Body mass index [BMI] 70 or greater, adult; Z85.820 Personal history of malignant melanoma of skin; Z91.81 History of falling; Z95.0 Presence of cardiac pacemaker; Z79.01 Long term (current) use of anticoagulants; Z79.890 Hormone replacement therapy; Z79.899 Other long term (current) drug therapy; Z88.0 Allergy status to penicillin; Z88.2 Allergy status to sulfonamides; Z88.5 Allergy status to narcotic agent
CPT/HCPCS: 96374; 96375; 99285; 36415; 93005; 83880; 80053; 83735; 84484; 85025; 85610; 85730; 81001; 71045; G0378; J2405; J2270; C9113

== ENCOUNTER → 2024-02-04 | Outpatient (CLI) | payer MEDICARE, BC ==
--- NOTE | 2024-02-10 20:00 | CT ---
EXAMINATION TYPE: CT lumbar spine wo con CT DLP: 3399.5 mGycm, Automated exposure control for dose reduction was used. DATE OF EXAM: 02/04/2024 2:24 PM COMPARISON: Radiograph 07/21/2021. CLINICAL INDICATION:Female, 83 years old with history of M48.060 lumbar foraminal; PHH, lumbar stenos is TECHNIQUE: Multiple axial images were obtained from the midportion of T11 through the sacroiliac callie nts. Soft tissue and bone windows in coronal and sagittal planes were obtained and reviewed. 3-D ref ormats of the bones were created on a separate workstation and submitted for review. Contrast used: mL of , (None, if empty). Oral contrast used: (None, if empty). FINDINGS: Alignment: There are 5 lumbar type vertebral bodies. Prominent left convex scoliotic curvature. Multilevel vacuum discs and alignment. Multilevel large endplate osteophytes (spondylosis). Bone: Vertebral body heights intact. Multilevel severe facet joint hypertrophic osteoarthritic bui ge Discs: T12-L1: No spinal canal or neural foraminal stenosis is identified. L1-L2: No spinal canal or neural foraminal stenosis is identified. L2-L3: No spinal canal or neural foraminal stenosis is identified. L3-L4: Mild to moderate central canal stenosis from severe facet joint hypertrophic change. Modest C6 disc osteophyte complex. L4-L5: No spinal canal or neural foraminal stenosis is identified. L5-S1: No spinal canal or neural foraminal stenosis is identified. Other: None IMPRESSION: 1. No evidence for spinal fracture. Pronounced left convex scoliosis. Moderate to severe multilevel facet joint hypertrophic changes. Mild to moderate central canal stenosis L3-L4
--- NOTE | 2024-02-10 20:08 | CT ---
EXAMINATION TYPE: CT hip LT wo con CT DLP: 899.5 mGycm, Automated exposure control for dose reduction was used. DATE OF EXAM: 02/04/2024 2:24 PM COMPARISON: CT abdomen pelvis June 03, 2023. . CLINICAL INDICATION:Female, 83 years old with history of M15.9 osteoarthritis; PHH, Osteoarthritis. TECHNIQUE: Axial images were obtained of the CT hip LT wo con, Additional coronal and sagittal reform atted images and soft tissue and bone window were obtained for review. 3-D reconstruction was created on a separate workstation. Contrast used: mL of , (None if empty) Oral contrast used: (None if empty) FINDINGS: There is no evidence of fracture, subluxation, or dislocation. No significant soft tissue swelling or joint effusion is identified. No focal muscular atrophy or edema is identified. No radiop aque foreign body identified. Severe periarticular osteophytes. Marked cartilage loss. Substantial subchondral sclerosis and geodes . Deformity of the bone ends. Similar to prior exam May 2023 IMPRESSION: No evidence of fracture. Severe left hip osteoarthritis. Osteoporosis.
== END | disposition home or self-care (01) ==
LOC: RADCTMAIN 13:40
PROVIDERS: ATTEND Family Medicine
DX: M48.061 Spinal stenosis, lumbar region without neurogenic claudication (principal); M16.12 Unilateral primary osteoarthritis, left hip; M81.0 Age-related osteoporosis without current pathological fracture
CPT/HCPCS: 72131

== ENCOUNTER 2025-03-06 07:38 | Day surgery (SDC) | payer MEDICARE, BC ==
[2025-03-01 16:04] VITALS: BMI 41.9
[2025-03-06] MEDS: SODIUM CHLORIDE 0.9% 1,000 ML IV SCH (08:35)
[2025-03-06] MEDS: IV FLUID CONTINUATION 1,000 ML IV ONE (08:37)
[2025-03-06 09:00] VITALS: RESP 16
[2025-03-06 09:12] LABS: Basophils # (A) 0.03 10*3/uL (0.00-0.10); Basophils % (A) 0.3 %; Eosinophils # (A) 0.39 10*3/uL (0.04-0.35); Eosinophils % (A) 4.3 %; HCT 36.6 % (37.2-46.3); HGB 11.6 g/dL (12.0-15.0); Lymphocytes # (A) 2.74 10*3/uL (0.90-5.00); Lymphocytes % (A) 30.5 %; MCH 27.8 pg (27.0-32.0); MCHC 31.7 g/dL (32.0-37.0); MCV 87.6 fL (80.0-97.0); Monocytes # (A) 0.87 10*3/uL (0.20-1.00); Monocytes % (A) 9.7 %; Neutrophils # (A) 4.91 10*3/uL (1.80-7.70); Neutrophils % (A) 54.9 %; Platelet Count 347 10*3/uL (140-440); RBC 4.18 10*6/uL (4.10-5.20); WBC 8.97 10*3/uL (4.50-10.00)
[2025-03-06 09:28] LABS: African American GFR (CKD) 68 (>60 ml/min/1.73 sqM); Anion Gap 8 mmol/L; Blood Urea Nitrogen 26 mg/dL (7-17); Calcium 10.5 mg/dL (8.4-10.2); Carbon Dioxide 28 mmol/L (22-30); Chloride 100 mmol/L (98-107); Glucose 107 mg/dL (74-99); Non-African American GFR(CKD) 59 (>60 ml/min/1.73 sqM); Potassium 4.4 mmol/L (3.5-5.1); Sodium 136 mmol/L (137-145)
[2025-03-06] MEDS: ceFAZolin 2 GM in DEXTROSE 5% IN WATER 50 ML IVPB PRN (11:12)
[2025-03-06] MEDS: MIDAZOLAM 2 MG/2 ML VIAL IVP ONE (11:17)
[2025-03-06] MEDS: ceFAZolin 1 GM in SODIUM CHLORIDE 0.9% IRRIG BTL 250 ML IRRIGATION PRN (11:17)
--- NOTE | 2025-03-06 13:33 | P.PCN ---
Description of Procedure: CARDIOLOGY PROCEDURE NOTE Service Center Manager: Dr. Levar Thompson Procedure performed: Dual chamber permanent pacemaker generator change Site: Left subclavian Indications: Sick Sinus Syndrome Complications: None Blood Loss: Minimal Description of Procedure: After the risks, benefits, and alternatives of the above-mentioned procedure was explained in detail with the patient, informed consent was obtained. The patient was taken to the cardiac catheterization suite where the left subclavian area was sterily prepped and draped in the usual fashion. Patient was given IV Versed and fentanyl for sedation. The skin over the existing pulse generator was infiltrated with lidocaine. An incision was made in the skin and was deepe vick until the pectoral fascia was exposed. Hemostasis was obtained. The existing pulse generator was pulled out of the pocket. The leads were disconnected and were checked for thresholds. The existing leads were then inserted into the appropriate position into the new generator. They were then secured with the setscrew provided. The leads and generator were inserted into the pocket with the leads posterior. The subcutaneous tissue was approximated utilizing #2.0 and 3.0 vicryl in an interrupted stitch fashion. The dermal layer was approximated utilizing #4.0 vicryl. The area was cleansed with sterile saline and dried. A sterile 4x4 dressing was applied and the patient was transferred to the post catheterization holding area in stable and satisfactory condition. The patient tolerated the procedure well. Generator Data Competitive Intelligence Manager: [employer] Brand: [id number] Tracy XT DR MRI Model #: [id number] Serial#: [id number] Right Atrial Bipolar Lead Data: Type: Active fixation lead Competitive Intelligence Manager: [employer] Model#:7741 Serial Number: [id number] Right Ventricular Bipolar Lead Data: Type: Active fixation lead Competitive Intelligence Manager: [employer] Model #: [id number] Serial #: [id number] Stimulation Thresholds: Right atrial bipolar lead pacing and sensing thresholds Voltage: Afib Impedance: 570 ohms P-wave sensin.3 mV Right Ventricular bipolar lead pacing and sensing thresholds Pulse Width: 0.4ms Voltage: 0.75 volts Impedance: 703 ohms R-wave sensin mV Parameter Setting: Pacing mode is DDDR Lower rate 55 bpm Upper rate 130 bpm Impressions: 1. Successful generator change of a dual chamber permanent pacemaker in the left pectoral site. Plan: 1. Routine post procedure care will be instituted as well as outpatient follow- up surveillance.
[2025-03-06 15:50] VITALS: BP 156/72; PULSE 66
== END 2025-03-06 13:40 | disposition home or self-care (01) ==
LOC: CATHEP 07:38
PROVIDERS: ATTEND Internal Medicine
DX: I49.5 Sick sinus syndrome (principal); Z45.010 Encounter for checking and testing of cardiac pacemaker pulse generator [battery]; I48.0 Paroxysmal atrial fibrillation; E78.2 Mixed hyperlipidemia; I10 Essential (primary) hypertension; Z79.01 Long term (current) use of anticoagulants; Z88.0 Allergy status to penicillin; Z88.1 Allergy status to other antibiotic agents; Z88.5 Allergy status to narcotic agent; Z88.2 Allergy status to sulfonamides
CPT/HCPCS: 33228; 80048; 85025; C1785; J2250; J0690